=== PATIENT | male | born 1960 | race Caucasian/White ===

== ENCOUNTER 2017-05-23 16:55 | Emergency (ER) | payer OTHER ==
[2017-05-23 17:00] VITALS: BMI 35.5
--- NOTE | 2017-05-23 17:01 | PDOC ---
Rapid Medical Evaluation Time Seen by Provider: 05/23/17 16:58 Medical Evaluation: Allergies Allergy/AdvReac Type Severity Reaction Status Date / Time No Known Allergies Allergy Verified 05/23/17 16:57 05/23/17 16:58 I have performed a brief in-person evaluation of this patient. The patient presents with a chief complaint of: SOB x 1 week, sent by PCP for Hg 8 in office yesterday, patient reports hx of HHT and COPD Pertinent physical exam findings: SOB, O2 sat 97 I have ordered the following: labs, ekg The patient will proceed to the ED for further evaluation. Discharge Disposition - Diagnosis HHT (hereditary hemorrhagic telangiectasia) - Referrals - Patient Instructions - Post Discharge Activity
--- NOTE | 2017-05-23 17:21 | PDOC ---
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 Saw his PCP yesterday Dr. Cazares who samara his blood, called him today: hb, hct: 27. Usually gets 2 transfusions of rbc's a year. 05/23/17 18:52 Past History - Past Medical History Allergies/Adverse Reactions: Allergies Allergy/AdvReac Type Severity Reaction Status Date / Time No Known Allergies Allergy Verified 05/23/17 16:57 Home Medications: Ambulatory Orders Albuterol Sulfate Inhaler - [Ventolin HFA Inhaler -] 1 - 2 inh PO QID 09/19/13 Amlodipine Besylate [Norvasc -] 10 mg PO DAILY 09/19/13 Lisinopril [Prinivil -] 40 mg PO DAILY 09/19/13 Albuterol 0.083% Nebulizer Makayla [Ventolin 0.083% Nebulizer Soln -] 1 neb NEB QID PRN 07/21/14 Ferrous Sulfate [Feosol] 325 mg PO DAILY 07/21/14 Fluticasone Prop 0.05% Nasal [Flonase -] 1 - 2 spray NS BID 07/21/14 Glipizide [Glucotrol -] 5 mg PO DAILY 07/21/14 Omeprazole [Prilosec (RX)] 40 mg PO DAILY PRN 07/21/14 Levofloxacin [Levaquin] 750 mg PO DAILY 5 Days #5 tablet 05/23/17 hydrALAZINE HCL [Apresoline -] 50 mg PO TID 05/23/17 predniSONE [Deltasone -] 15 mg PO UTDICT 05/23/17 Anemia: Yes (IRON DEFIC. ANEMIA, HX HEREDITARY HEMORR TALLENGECTESIA) COPD: Yes Diabetes: Yes (NIDDM) HTN: Yes - Surgical History Appendectomy: Yes - Immunization History Immunization Up to Date: Yes - Suicide/Smoking/Psychosocial Hx Smoking History: Current every day smoker Have you smoked in the past 12 months: Yes Number of Cigarettes Smoked Daily: 20 Information on smoking cessation initiated: No 'Breaking Loose' booklet given: 09/19/13 Hx Alcohol Use: No Drug/Substance Use Hx: No Substance Use Type: None Hx Substance Use Treatment: No Review of Systems - Review of Systems Able to Perform ROS?: Yes Is the patient limited German proficient: No Constitutional: Yes: Weakness HEENTM: No: Symptoms Reported Respiratory: Yes: SOB with Exertion Cardiac (ROS): No: Symptoms Reported ABD/GI: No: Symptoms Reported : No: Symptoms Reported Musculoskeletal: No: Symptoms Reported Integumentary: No: Symptoms Reported Neurological: No: Symptoms reported All Other Systems: Reviewed and Negative *Physical Exam - Vital Signs Last Vital Signs Temp Pulse Resp BP Pulse Ox 98.7 F 87 23 143/66 97 05/23/17 16:57 05/23/17 16:57 05/23/17 16:57 05/23/17 16:57 05/23/17 16:57 - Physical Exam General Appearance: Yes: Nourished, Appropriately Dressed. No: Apparent Distress HEENT: positive: EOMI, DIANA, Normal ENT Inspection Respiratory/Chest: positive: Lungs Clear, Normal Breath Sounds. negative: Chest Tender, Respiratory Distress Cardiovascular: positive: Regular Rhythm, Regular Rate, S1, S2 Gastrointestinal/Abdominal: positive: Flat, Soft. negative: Normal Bowel Sounds , Tender Integumentary: positive: Normal Color, Dry, Warm ED Treatment Course - LABORATORY CBC & Chemistry Diagram: 05/23/17 13:28 05/23/17 17:17 Medical Decision Making - Medical Decision Making 05/23/17 18:51 basic labs ordered. Patient to received 1 unit of packed rbc Will reassess and dispo 05/23/17 19:50 Patient received unit of RBC. Found to have possible pneumonia on cxr. Will treat with levofloxacin. Follow up with pcp. *DC/Admit/Observation/Transfer Diagnosis at time of Disposition: HHT (hereditary hemorrhagic telangiectasia), Pneumonia - Discharge Dispostion Disposition: HOME Condition at time of disposition: Improved Admit: No - Prescriptions Prescriptions: Levofloxacin [Levaquin] 750 mg PO DAILY 5 Days #5 tablet - Referrals Referrals: Geovanni Parry [Primary Care Provider] - - Patient Instructions Printed Discharge Instructions: DI for Pneumonia -- Adult Additional Instructions: Follow up with Dr. Parry within the next 1-3 days. Come back to the ER for any new, worsening or concerning symptom. - Post Discharge Activity
[2017-05-23 17:22] LABS: BASO % 0.3 % (0-2.0); EOS % 0.1 % (0-4.5); HEMATOCRIT 26.9 % (35.4-49); HEMOGLOBIN 8.1 GM/dL (11.7-16.9); MCHC 30.1 g/dl (32.0-35.9); MEAN CELL VOLUME 66.4 fl (80-96); MEAN PLT VOLUME 7.4 fl (7.5-11.1); MONO % 4.5 % (3.8-10.2); NEUT % 86.1 % (42.8-82.8); PLATELET COUNT 378 K/MM3 (134-434); RBC 4.05 M/mm3 (4.00-5.60); WHITE BLOOD COUNT 12.1 K/mm3 (4.0-10.0)
[2017-05-23 17:27] LABS: ADD RBC MORPHOLOGY YES
[2017-05-23 17:47] LABS: INR 1.17 (0.82-1.09); PROTHROMBIN TIME (PATIENT) 13.2 SEC (9.98-11.88)
[2017-05-23 17:49] LABS: ACTIVATED PTT 28.1 SECONDS (26.9-34.4)
[2017-05-23 17:52] LABS: ALBUMIN 4.2 g/dl (3.4-5.0); ANION GAP 11 (8-16); BLOOD UREA NITROGEN 28 mg/dL (7-18); CALCIUM 8.7 mg/dL (8.5-10.1); CHLORIDE 103 mmol/L (98-107); CO2 23 mmol/L (21-32); GLUCOSE,RANDOM 115 mg/dL (74-106); POTASSIUM 4.8 mmol/L (3.5-5.1); SODIUM 137 mmol/L (136-145)
[2017-05-23 17:57] LABS: ALK PHOS 57 U/L (45-117); BILIRUBIN,TOTAL 0.6 mg/dL (0.2-1.0); CREATININE 1.3 mg/dL (0.7-1.3); SGOT/AST 7 U/L (15-37); SGPT/ALT 24 U/L (12-78); TOT PROT 7.1 g/dl (6.4-8.2)
--- NOTE | 2017-05-23 18:22 | PDOC ---
Attending Attestation - Resident Resident Name: Ernesto Song - ED Attending Attestation I have performed the following: I have examined & evaluated the patient, The case was reviewed & discussed with the resident, I agree w/resident's findings & plan, Exceptions are as noted - HPI HPI: 05/23/17 18:18 Mr Johns is a 57 yo M with a history of COPD, DM, HTN, Hereditary hemorrhagic telangiectasia who presents to the ER because his PMD told him that his hemoglobin is low and he needs a transfusion. He says his baseline Hgb is says is 9 He was last seen here more than 2 years ago, he apparently goes to multiple hospitals for transfusions He presents with a complaint of shortness of breath No chest pain No productive cough - Physicial Exam PE: 05/23/17 18:22 On examination: RRR Lungs: clear to auscultation No abd tenderness No lower extremity edema - Medical Decision Making 05/23/17 18:21 Pt presents to the ER with symptomatic anemia Related to h/o HHT (he gets recurrent epistaxis) Today: Laboratory Tests 11/01/13 11/01/13 11/01/13 23:13 23:13 23:13 WBC 10.1 H Hgb 10.6 L D Hct 34.7 L D Plt Count 301 INR Sodium 142 Potassium 3.8 Chloride 107 Carbon Dioxide 23 Anion Gap 12 BUN 10 D Creatinine 0.9 Random Glucose 74 Creatine Kinase 78 Troponin I < 0.02 L 11/01/13 05/23/17 05/23/17 23:13 13:28 17:17 WBC 12.1 H Hgb 8.1 L D Hct 26.9 L D Plt Count 378 D INR 1.14 Sodium Potassium Chloride Carbon Dioxide Anion Gap BUN Creatinine Random Glucose Creatine Kinase 101 Troponin I < 0.02 EKG: SR rate of 81 bpm, axis nml, intervals nml, no ST elevations or depressions Will transfuse 1 unit PRBCs Pt can be discharged to home Clinical Impression: Anemia, initial presentation 05/23/17 18:23
[2017-05-23 18:39] LABS: ANISOCYTOSIS 2+; PLATELET ESTIMATE INCREASED
[2017-05-23 18:40] LABS: OVALOCYTE 1+
[2017-05-23 19:03] VITALS: PULSE 84
[2017-05-23] MEDS ORDERED: ACETAMINOPHEN 325 MG TABLET (FP) PO ONE (20:03)
[2017-05-23] MEDS ORDERED: ACETAMINOPHEN 325 MG TABLET (FP) ONE (20:05)
[2017-05-23 21:07] VITALS: BP 135/68; TEMP 98.9
--- NOTE | 2017-05-24 11:41 | EKG ---
Test Reason : Blood Pressure : / mmHG Vent. Rate : 081 BPM Atrial Rate : 081 BPM P-R Int : 158 ms QRS Dur : 082 ms QT Int : 380 ms P-R-T Axes : 041 015 038 degrees QTc Int : 441 ms NORMAL SINUS RHYTHM NORMAL ECG WHEN COMPARED WITH ECG OF 21-JUN-2015 14:30, NO SIGNIFICANT CHANGE WAS FOUND Confirmed by IFTIKHAR YANEZ MD ([id number]) on 05/24/2017 11:41:33 AM Referred By: Confirmed By:IFTIKHAR YANEZ MD
== END 2017-05-23 21:07 | disposition home or self-care (01) ==
LOC: JER 16:55
PROC: 30233N1 Transfusion of Nonautologous Red Blood Cells into Peripheral Vein, Percutaneous Approach (ICD-10-PCS; principal; 2017-05-23)
DX: J18.9 Pneumonia, unspecified organism (principal); I78.0 Hereditary hemorrhagic telangiectasia; F17.210 Nicotine dependence, cigarettes, uncomplicated; J44.9 Chronic obstructive pulmonary disease, unspecified; I10 Essential (primary) hypertension; E11.9 Type 2 diabetes mellitus without complications; Z79.4 Long term (current) use of insulin; Z79.84 Long term (current) use of oral hypoglycemic drugs; D50.8 Other iron deficiency anemias
CPT/HCPCS: 36415; 36430; 71045-TC-FY; 80053; 82550; 83735; 83880; 84484; 85025; 85610; 85730; 86850; 86900; 86901; 86922; 93005; 93010; 99285-25; P9038; P9058

== ENCOUNTER 2018-02-01 20:05 | Observation (INO) | payer OTHER ==
[2018-02-01 20:12] VITALS: BMI 35.2
--- NOTE | 2018-02-01 20:12 | PDOC ---
Rapid Medical Evaluation Chief Complaint: Weakness Time Seen by Provider: 02/01/18 20:07 Medical Evaluation: Allergies Allergy/AdvReac Type Severity Reaction Status Date / Time No Known Allergies Allergy Verified 02/01/18 12:44 02/01/18 20:09 Pt is a 57 y/o M who presents for re-admission. Pt was seen in our ED earlier today and admitted for SOB and anemia requiring transfusion. Pt wanted to go home and signed out AMA, however after he signed out he realized he couldn't walk d/t his shortness of breath. Pt did not receive his transfusion. Exam: SOB at rest Orders: Nothing (already done today) Pt to proceed to the ED for further evaluation Discharge Disposition - Diagnosis COPD exacerbation, Symptomatic anemia - Referrals - Patient Instructions - Post Discharge Activity
--- NOTE | 2018-02-01 20:43 | PDOC ---
Attending Attestation - Resident Resident Name: Darcie Alves - ED Attending Attestation I have performed the following: I have examined & evaluated the patient, The case was reviewed & discussed with the resident, I agree w/resident's findings & plan - HPI HPI: 02/02/18 04:24 Pt walked out of the hospital AMA, but states that he got winded and felt weak and he realized he needed to come back to the ER for his blood tranfusion, as he is anemic. - Physicial Exam PE: 02/02/18 04:25 Agree with resident exam. - Medical Decision Making 02/02/18 04:25 I sent a UTOX, because chances are that pt left the hospital to use drugs; sure enough he is cocaine positive. Readmitted to the hospitalists Heart Score/ECG Review - ECG Intrepretation Rhythm: Regular Rhythm - [place]: Normal - P and GA Delta Wave(s) Present: No WPW: No - ST and T Early Repolarization: No Non Specific ST-T Wave changes: No Prolonged Q-T Interval: Yes Comment:: 02/01/18 22:07 also interventricular conduction delay - ECG Impressions Normal ECG: No Non-specific ST Elevation: Yes Ischemic Changes: Yes (1 and avL flipped ts) Heart Block: 1st Degree Block(>20mils)
--- NOTE | 2018-02-01 20:55 | PDOC ---
History of Present Illness - General Chief Complaint: Weakness Stated Complaint: READMIT Time Seen by Provider: 02/01/18 20:07 - History of Present Illness Initial Comments: 57yo M with HHT, COPD, HTN, NIDDM presenting for re-admission for anemia after signing out against medical advice today. Patient states that he has had no change in his symptoms from earlier. Continues to endorse weakness and dyspnea. Patient reports that he decided to leave AMA because "it was taking too long" and he has chronic back pain that makes it uncomfortable to sleep on a hospital bed. Denies fevers, chills, chest pain, or abdominal pain. Past History - Past Medical History Allergies/Adverse Reactions: Allergies Allergy/AdvReac Type Severity Reaction Status Date / Time No Known Allergies Allergy Verified 02/01/18 20:11 Home Medications: Ambulatory Orders Albuterol Sulfate Inhaler - [Ventolin HFA Inhaler -] 1 - 2 inh PO QID 09/19/13 Amlodipine Besylate [Norvasc -] 10 mg PO DAILY 09/19/13 Lisinopril [Prinivil -] 40 mg PO DAILY 09/19/13 Ferrous Sulfate [Feosol] 325 mg PO DAILY 07/21/14 Fluticasone Prop 0.05% Nasal [Flonase -] 1 - 2 spray NS BID 07/21/14 Glipizide [Glucotrol -] 5 mg PO DAILY 07/21/14 Omeprazole [Prilosec (RX)] 40 mg PO DAILY PRN 07/21/14 hydrALAZINE HCL [Apresoline -] 50 mg PO TID 05/23/17 predniSONE [Deltasone -] 15 mg PO DAILY 05/23/17 Albuterol 2.5/Ipratropium 0.5 [Duoneb -] 1 amp NEB TID 11/12/17 Atorvastatin Ca [Lipitor] 0 mg PO DAILY 11/12/17 Azithromycin [Zithromax Tri-Pillo (3 DAYS) -] 500 mg PO DAILY #3 tablet 11/12/17 Budesonide/Formeterol Fumarate [SYMBICORT 160/4.5mcg -] 2 inh PO BID 11/12/17 oxyCODONE SR [Oxycontin] 2.5 mg PO ASDIR 11/12/17 Anemia: Yes (IRON DEFIC. ANEMIA, HX HEREDITARY HEMORR TALLENGECTESIA) COPD: Yes Diabetes: Yes (NIDDM) HTN: Yes - Surgical History Appendectomy: Yes - Immunization History Immunization Up to Date: Yes - Suicide/Smoking/Psychosocial Hx Smoking History: Current every day smoker Have you smoked in the past 12 months: Yes Number of Cigarettes Smoked Daily: 20 Information on smoking cessation initiated: No 'Breaking Loose' booklet given: 09/19/13 Hx Alcohol Use: No Drug/Substance Use Hx: No Substance Use Type: None Hx Substance Use Treatment: No Review of Systems - Review of Systems Comments:: Constitutional: no fever, no chills HEENT: +nosebleeds, no vision changes Cardiovascular: no chest pain, no palpitations Respiratory: no cough, +shortness of breath Gastrointestinal: no abdominal pain, no nausea, no vomiting Musculoskeletal: no myalgia, no arthralgia Skin: no rash, no itching Neurologic: no headache, no dizziness *Physical Exam - Vital Signs Last Vital Signs Temp Pulse Resp BP Pulse Ox 98.0 F 85 24 H 123/60 95 02/01/18 20:09 02/01/18 20:09 02/01/18 20:09 02/01/18 20:09 02/01/18 20:09 - Physical Exam Comments: General: Awake, alert, and fully oriented, in no acute distress Head: No signs of trauma Eyes: EOMI, sclera anicteric ENT: Moist mucus membranes Neck: Normal ROM, supple Lungs: Expiratory rhonchi present bilaterally Cardio: Regular rhythm, S1 and S2 present Abdomen: Soft, nontender. No guarding, no rebound, no masses Extremities: Normal range of motion, Distal pulses present SKIN: Warm, Dry, normal turgor Neurologic: Cranial nerves II through XII grossly intact. Normal speech Medical Decision Making - Medical Decision Making 57yo M with anemia presenting for re-admission after signing out against medical advice today. -2 PRBCs ordered -Blood transfusion consent needs to be obtained -Plan for admission -FOBT, Javed 02/01/18 21:02 Blood consent obtained. [place] hospitalist 02/01/18 21:17 Discussed case with inpatient team who accepted patient for admission under attending, Dr. Amor *DC/Admit/Observation/Transfer Diagnosis at time of Disposition: COPD exacerbation, Symptomatic anemia - Discharge Dispostion Condition at time of disposition: Guarded Decision to Admit order: Yes - Referrals - Patient Instructions - Post Discharge Activity
--- NOTE | 2018-02-01 23:01 | PN ---
Teaching Attending Note Name of Resident: Gilbert Rahman ATTENDING PHYSICIAN STATEMENT I saw and evaluated the patient. I reviewed the resident's note and discussed the case with the resident. I agree with the resident's findings and plan as documented. SUBJECTIVE: SUBJECTIVE: Patient is a 57 year old man with a PMH of COPD, NIDDM, Hereditary Hemorrhagic Telangiectasia, and hypertension who presents to the ER with increased generalized weakness and KIM for about a week. Was in the ER earlier today but signed out AMA before blood transfusion. He states he tends to bleed more during cold weather and reportedly has had 4 major episodes of epistaxis which has required use of 2 full paper towel rolls. He denies any epistaxis today. The patient denies chest pain, dizziness, chills, nausea, vomit, diarrhea or hematuria. Had normal colonoscopy on 01/03/18. Last EGD was 9 years ago. OBJECTIVE: Alert Vital Signs Period Temp Pulse Resp BP Sys/Rashid Pulse Ox Last 24 Hr 98.0 F 85 24 123/60 95 HEENT: No Jaundice, eye redness or discharge, PERRLA, EOMI. Normocephalic, atraumatic. External ears are normal and hearing is grossly intact. No active nasal bleeding. Scattered telangiectasia to hard palatte without active bleeding. Neck: Supple, nontender. No palpable adenopathy or thyromegaly. No JVD Chest: Good effort. Clear to auscultation and percussion. Heart: Regular. No S3, rub or murmur Abdomen: Not distended, soft, nontender and no HSM. No rebound or guarding. Normoactive bowel sounds. Ext: Peripheral pulses intact. No leg edema. Skin: Warm and dry. No petechiae, rash or ecchymosis. Neuro: Alert. Oriented x3. CN 2-12 grossly intact. Sensation grossly intact in all four extremities and DTR are symmetric. Home Medications Medication Instructions Recorded Albuterol Sulfate Inhaler - 1 - 2 inh PO QID 09/19/13 [Ventolin HFA Inhaler -] Amlodipine Besylate [Norvasc -] 10 mg PO DAILY 09/19/13 Lisinopril [Prinivil -] 40 mg PO DAILY 09/19/13 Ferrous Sulfate [Feosol] 325 mg PO DAILY 07/21/14 Fluticasone Prop 0.05% Nasal 1 - 2 spray NS BID 07/21/14 [Flonase -] Glipizide [Glucotrol -] 5 mg PO DAILY 07/21/14 Omeprazole [Prilosec (RX)] 40 mg PO DAILY PRN 07/21/14 hydrALAZINE HCL [Apresoline -] 50 mg PO TID 05/23/17 predniSONE [Deltasone -] 15 mg PO DAILY 05/23/17 Albuterol 2.5/Ipratropium 0.5 1 amp NEB TID 11/12/17 [Duoneb -] Atorvastatin Ca [Lipitor] 0 mg PO DAILY 11/12/17 Azithromycin [Zithromax Tri-Pillo (3 500 mg PO DAILY #3 tablet 11/12/17 DAYS) -] Budesonide/Formeterol Fumarate 2 inh PO BID 11/12/17 [SYMBICORT 160/4.5mcg -] oxyCODONE SR [Oxycontin] 2.5 mg PO ASDIR 11/12/17 Laboratory Results - last 24 hr 02/01/18 21:53 Stool Occult Blood Positive ASSESSMENT AND PLAN: 1. Symptomatic Low MCV Anemia - Getting 2 units PRBC and will give IV lasix for mild pulmonary edema noted earlier. Moving forward will benefit from high quality oral iron supplementation or IV iron to preempt more transfusions. 2. DM - For now, we will hold the home diabetes drugs and implement sliding scale insulin regimen. Provide comprehensive diabetes care with patient teaching and counseling about the importance of euglycemia, eye care and foot care. 3. Obesity - Will provide patient all the necessary assistance , counseling and positive reinforcement to facilitate weight loss. Consult bar tender. 4. DVT prophylaxis - SCD, TEDS 5. Advance directives - Full code
[2018-02-01] MEDS ORDERED: oxyCODONE HCL 5 MG TABLET PO PRN (23:46)
--- NOTE | 2018-02-01 23:49 | HP ---
CHIEF COMPLAINT: shortness of breath. PCP: HISTORY OF PRESENT ILLNESS: 57 yo M wit PMhx of HHT(frequent epistaxis), COPD, HTN, and NIDDM presents with one week history of epistaxis and fatigue. He was admitted earlier today adn signed out AMA but returned after symptoms persisted. As before, He states that for the past week he has experienced increase in frequency and severity of nose bleeds. He states that he has been soaking 2 rolls of paper towels daily for the past week. As of yesterday he noticed significant increase in fatigue and shortness of breath. He has had this similar situation several times in past. Multiple transfusions. Of note he has had a recent colonoscopy that was negative for polyps and not due for repeat for 5 yrs. as per patient. No epistaxis in ED. Denies hematochezia, hemoptysis, or melena. Denies CP,JUÁREZ, palpitations, abdominal pain, nausea or vomiting. ER course was notable for: (1)Hgb 7.4 (2)type and cross done (3)2 units PRBC ordered. Recent Travel: Denies PAST MEDICAL HISTORY:HTN, NIDDM, HHT, COPD PAST SURGICAL HISTORY: appendectomy Social History: Smokin pack year history; current ppd smoker Alcohol:rarely Drugs: denies Family History: Allergies No Known Allergies Allergy (Verified 02/01/18 20:11) HOME MEDICATIONS: Home Medications Medication Instructions Recorded Albuterol Sulfate Inhaler - 1 - 2 inh PO QID 09/19/13 [Ventolin HFA Inhaler -] Amlodipine Besylate [Norvasc -] 10 mg PO DAILY 09/19/13 Lisinopril [Prinivil -] 40 mg PO DAILY 09/19/13 Ferrous Sulfate [Feosol] 325 mg PO DAILY 07/21/14 Fluticasone Prop 0.05% Nasal 1 - 2 spray NS BID 07/21/14 [Flonase -] Glipizide [Glucotrol -] 5 mg PO DAILY 07/21/14 Omeprazole [Prilosec (RX)] 40 mg PO DAILY PRN 07/21/14 hydrALAZINE HCL [Apresoline -] 50 mg PO TID 05/23/17 predniSONE [Deltasone -] 15 mg PO DAILY 05/23/17 Albuterol 2.5/Ipratropium 0.5 1 amp NEB TID 11/12/17 [Duoneb -] Atorvastatin Ca [Lipitor] 0 mg PO DAILY 11/12/17 Azithromycin [Zithromax Tri-Pillo (3 500 mg PO DAILY #3 tablet 11/12/17 DAYS) -] Budesonide/Formeterol Fumarate 2 inh PO BID 11/12/17 [SYMBICORT 160/4.5mcg -] oxyCODONE SR [Oxycontin] 2.5 mg PO ASDIR 11/12/17 REVIEW OF SYSTEMS CONSTITUTIONAL: Absent: fever, chills, diaphoresis, generalized weakness, malaise, loss of appetite, weight change HEENT: Absent: rhinorrhea, nasal congestion, throat pain, throat swelling, difficulty swallowing, mouth swelling, ear pain, eye pain, visual changes CARDIOVASCULAR: Absent: chest pain, syncope, palpitations, irregular heart rate, lightheadedness , peripheral edema RESPIRATORY: shortness of breath, dyspnea with exertion Absent: cough, , orthopnea, wheezing, stridor, hemoptysis GASTROINTESTINAL: Absent: abdominal pain, abdominal distension, nausea, vomiting, diarrhea, constipation, melena, hematochezia GENITOURINARY: Absent: dysuria, frequency, urgency, hesitancy, hematuria, flank pain, genital pain MUSCULOSKELETAL: Absent: myalgia, arthralgia, joint swelling, back pain, neck pain SKIN: Absent: rash, itching, pallor HEMATOLOGIC/IMMUNOLOGIC: easy bleeding Absent: easy bruising, lymphadenopathy, frequent infections ENDOCRINE: Absent: unexplained weight gain, unexplained weight loss, heat intolerance, cold intolerance NEUROLOGIC: Absent: headache, focal weakness or paresthesias, dizziness, unsteady gait, seizure, mental status changes, bladder or bowel incontinence PSYCHIATRIC: Absent: anxiety, depression, suicidal or homicidal ideation, hallucinations. PHYSICAL EXAMINATION Vital Signs - 24 hr 02/01/18 02/01/18 02/01/18 20:09 20:30 23:36 Temperature 98.0 F 98.5 F Pulse Rate 85 Pulse Rate [ 82 Apical] Respiratory 24 H 21 H Rate Blood Pressure 123/60 Blood Pressure 118/52 L [Left Arm] O2 Sat by Pulse 95 97 97 Oximetry (%) GENERAL: AAOx3, NAD HEAD: NCAT EYES: PERRLA, EOMI, pale conjuctiva. No lid lag. EARS, NOSE, THROAT: nares patent,Moist mucous membranes. NECK: Supple without lymphadenopathy, JVD, or masses. LUNGS: diminshed breath sounds bilaterally, scattered rhonchi on R. No wheezes , and no crackles. No accessory muscle use. HEART: RRR, normal S1 and S2 .no M/G/R ABDOMEN: Soft, nontender, not distended, normoactive bowel sounds, no guarding, no rebound, no masses. No hepatomegaly or splenomegaly. MUSCULOSKELETAL: Normal range of motion at all joints. No bony deformities or tenderness. No CVA tenderness. UPPER EXTREMITIES: 2+ pulses, warm, well-perfused. No cyanosis. No clubbing. No peripheral edema. LOWER EXTREMITIES: 2+ pulses, warm, well-perfused. No calf tenderness. No peripheral edema. NEUROLOGICAL: Cranial nerves II-XII intact. Normal speech. Normal gait. PSYCHIATRIC: Cooperative. Good eye contact. Appropriate mood and affect. SKIN: Warm, dry, normal turgor, no rashes or lesions noted, normal capillary refill. Laboratory Results - last 24 hr 02/01/18 21:53 Stool Occult Blood Positive ASSESSMENT/PLAN: 57 yo M with PMHx of HHT presents with SOB placed on observation for symptomatic anemia requiring transfusion. Problem List - Problem (1) Symptomatic anemia Assessment/Plan: * place on observation to med-surg * 2 units PRBC to be given * Repeat CBC after second unit * Monitor for signs of transfusion reaction Code(s): D64.9 - ANEMIA, UNSPECIFIED (2) COPD (chronic obstructive pulmonary disease) Assessment/Plan: * Albuterol INH PRN * supplemental O2 PRN * Maintain SpO2 > 90% (3) Diabetes mellitus Assessment/Plan: * ADA diet * BGM ACHS * ISS ACHS (4) GERD (gastroesophageal reflux disease) Assessment/Plan: cont. PPI (5) HHT (hereditary hemorrhagic telangiectasia) (6) Hypertension Assessment/Plan: * Amlodipine Besylate (Norvasc -) 10 mg PO DAILY * Hydralazine HCl (Apresoline -) 50 mg PO TID (7) DVT prophylaxis Assessment/Plan: SCD's bilateral LE * No AC 2/2 bleeding. Visit type - Emergency Visit Emergency Visit: Yes ED Registration Date: 02/01/18 Care time: The patient presented to the Emergency Department on the above date and was hospitalized for further evaluation of their emergent condition. - New Patient This patient is new to me today: Yes Date on this admission: 02/02/18 - Critical Care Critical Care patient: No
[2018-02-02 00:12] LABS: METHADONE, UR NEGATIVE ng/ml (CUTOFF=300); OPIATES, URI NEGATIVE ng/ml (CUTOFF=300); PHENCYCLIDINE,URINE NEGATIVE ng/ml (CUTOFF=25); URINE AMPHETAMINES NEGATIVE ng/ml (CUTOFF=500); URINE BARBITURATES NEGATIVE ng/ml (CUTOFF=200); URINE BENZODIAZEPINES NEGATIVE ng/ml (CUTOFF=200)
[2018-02-02 00:44] LABS: COCAINE, UR POSITIVE ng/ml (CUTOFF=300)
[2018-02-02] MEDS ORDERED: ACETAMINOPHEN 500 MG TABLET (FP) PO ONE (03:13)
[2018-02-02] MEDS ORDERED: hydrALAZINE HCL 50 MG TABLET (FP) PO SCH (06:00)
[2018-02-02] MEDS ORDERED: ALBUTEROL SO4 2.5/IPRATROPIUM 0.5 INH SOL 3 ML VIAL.NEB. NEB SCH (08:00)
[2018-02-02] MEDS ORDERED: PT OWN MED DRAWER 7, Y5N ONE ×2 (09:24→09:52)
[2018-02-02] MEDS ORDERED: BUDESONIDE/FORMETEROL FUMARATE 160/4.5 mcg INHALER IH SCH (10:00)
[2018-02-02] MEDS ORDERED: PANTOPRAZOLE 40 MG TABLET (FP) PO SCH (10:00)
[2018-02-02] MEDS ORDERED: predniSONE 5 MG TABLET (UD) PO SCH (10:00)
[2018-02-02] MEDS ORDERED: FLUTICASONE PROP 0.05% 16 GM NASAL SPRAY NS SCH (10:00)
[2018-02-02] MEDS ORDERED: LISINOPRIL 20 MG TABLET (FP) PO SCH (10:00)
[2018-02-02] MEDS ORDERED: FERROUS SO4 325 MG TABLET (FP) PO SCH (10:00)
[2018-02-02] MEDS ORDERED: amLODIPine BESYLATE 10 MG TABLET (FP) PO SCH (10:00)
[2018-02-02] MEDS ORDERED: ALBUTEROL SO4 8 GM HFA INHALER IH PRN (10:00)
--- NOTE | 2018-02-02 10:22 | PN ---
Teaching Attending Note Name of Resident: Gerald Fletcher ATTENDING PHYSICIAN STATEMENT I saw and evaluated the patient. I reviewed the resident's note and discussed the case with the resident. I agree with the resident's findings and plan as documented. SUBJECTIVE: Patient was c/o of having chest pain, s/p 2 units of PRBC this morning. OBJECTIVE: Vital Signs Temperature 97.3 F L 02/02/18 05:55 Pulse Rate 70 02/02/18 05:55 Respiratory Rate 18 02/02/18 05:55 Blood Pressure 135/65 02/02/18 05:55 O2 Sat by Pulse Oximetry (%) 95 02/02/18 07:33 Current Medications Generic Name Dose Route Start Last Admin Trade Name Freq PRN Reason Stop Dose Admin Albuterol Sulfate 2 puff 02/02/18 10:00 Ventolin Hfa Inhaler - IH Q6H PRN SHORTNESS OF BREATH Albuterol/Ipratropium 1 amp 02/02/18 08:00 02/02/18 07:55 Duoneb - NEB 1 amp RTID TRELL Administration Amlodipine Besylate 10 mg 02/02/18 10:00 02/02/18 09:26 Norvasc - PO 10 mg DAILY TRELL Administration Atorvastatin Calcium 10 mg 02/02/18 22:00 Lipitor - PO HS TRELL Budesonide/Formoterol Fumarate 2 puff 02/02/18 10:00 02/02/18 09:26 Symbicort 160/4.5mcg - IH 2 puff BID TRELL Administration Ferrous Sulfate 325 mg 02/02/18 10:00 02/02/18 09:26 Feosol - PO 325 mg DAILY TRELL Administration Fluticasone Propionate 2 spray 02/02/18 10:00 02/02/18 09:27 Flonase - NS 2 spray BID TRELL Administration Furosemide 20 mg 02/02/18 23:45 Lasix Injection - IVPUSH 02/02/18 23:46 ONCE ONE Hydralazine HCl 50 mg 02/02/18 06:00 02/02/18 06:33 Apresoline - PO 50 mg TID TRELL Administration Lisinopril 40 mg 02/02/18 10:00 02/02/18 09:26 Prinivil PO 40 mg DAILY TRELL Administration Oxycodone HCl 2.5 mg 02/01/18 23:46 Roxicodone - PO Q12H PRN PAIN LEVEL 7 - 10 Pantoprazole Sodium 40 mg 02/02/18 10:00 02/02/18 09:26 Protonix - PO 40 mg DAILY TRELL Administration Prednisone 5 mg 02/02/18 10:00 02/02/18 10:03 Deltasone - PO 5 mg DAILY TRELL Administration Home Medications Medication Instructions Recorded Albuterol Sulfate Inhaler - 1 - 2 inh PO QID 09/19/13 [Ventolin HFA Inhaler -] Amlodipine Besylate [Norvasc -] 10 mg PO DAILY 09/19/13 Lisinopril [Prinivil -] 40 mg PO DAILY 09/19/13 Ferrous Sulfate [Feosol] 325 mg PO DAILY 07/21/14 Fluticasone Prop 0.05% Nasal 1 - 2 spray NS BID 07/21/14 [Flonase -] Glipizide [Glucotrol -] 5 mg PO DAILY 07/21/14 Omeprazole [Prilosec (RX)] 40 mg PO DAILY PRN 07/21/14 hydrALAZINE HCL [Apresoline -] 30 mg PO TID 05/23/17 predniSONE [Deltasone -] 7.5 mg PO DAILY 05/23/17 Albuterol 2.5/Ipratropium 0.5 1 amp NEB TID 11/12/17 [Duoneb -] Atorvastatin Ca [Lipitor] 0 mg PO DAILY 11/12/17 Azithromycin [Zithromax Tri-Pillo (3 500 mg PO DAILY #3 tablet 11/12/17 DAYS) -] Budesonide/Formeterol Fumarate 2 inh PO BID 11/12/17 [SYMBICORT 160/4.5mcg -] oxyCODONE SR [Oxycontin] 2.5 mg PO ASDIR 11/12/17 ASSESSMENT AND PLAN: Patient is a 57 yo M with PMhx of HHT(frequent epistaxis), COPD, HTN, and NIDDM presents with one week history of epistaxis and fatigue. # Acute chest pain but patient refused further work up. wants to leave against medical advice. #Acute blood loss with symptomatic anemia due to having epistaxis, with worsening symptoms today, no epistaxis today s/p 2 units of PRBC. # Microcytic anemia, Iron panel post transfusion. #COPD (chronic obstructive pulmonary disease) on chronic Prednisone continue follow with upon discharge # Diabetes mellitus Sliding scale with coverage. 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 DVT Px: SCds
[2018-02-02 10:52] VITALS: BP 119/52; PULSE 81; TEMP 98.1
[2018-02-02] MEDS ORDERED: ACETAMINOPHEN 325 MG TABLET (FP) PO ONE (11:00)
[2018-02-02 11:19] LABS: BASO % 0.4 % (0-2.0); EOS % 1.2 % (0-4.5); HEMATOCRIT 28.5 % (35.4-49); LYMPH % 13.3 % (8-40); MCH 23.2 pg (25.7-33.7); MCHC 31.5 g/dl (32.0-35.9); MEAN CELL VOLUME 73.7 fl (80-96); MONO % 8.6 % (3.8-10.2); NEUT % 76.5 % (42.8-82.8); PLATELET COUNT 312 K/MM3 (134-434); RBC 3.87 M/mm3 (4.00-5.60); RDW 22.2 % (11.9-15.9); WHITE BLOOD COUNT 9.3 K/mm3 (4.0-10.0)
[2018-02-02 11:41] LABS: ALK PHOS 52 U/L (45-117); ANION GAP 11 MMOL/L (8-16); BILIRUBIN,TOTAL 0.8 mg/dL (0.2-1); BLOOD UREA NITROGEN 27 mg/dL (7-18); CALCIUM 8.6 mg/dL (8.5-10.1); CHLORIDE 104 mmol/L (98-107); CO2 26 mmol/L (21-32); CREATININE 1.1 mg/dL (0.55-1.3); GLUCOSE,RANDOM 144 mg/dL (74-106); MAGNESIUM 1.9 mg/dL (1.8-2.4); PHOSPHOROUS 4.1 mg/dL (2.5-4.9); SGOT/AST 9 U/L (15-37); SGPT/ALT 34 U/L (13-61); SODIUM 140 mmol/L (136-145); TOT PROT 6.8 g/dl (6.4-8.2)
--- NOTE | 2018-02-02 15:43 | DS ---
Physical Exam: SUBJECTIVE: Patient seen and examined OBJECTIVE: Vital Signs Period Temp Pulse Resp BP Sys/Rashid Pulse Ox Last 24 Hr 97.3 F-98.8 F 70-85 18-24 118-135/52-66 95-97 PHYSICAL EXAM HEENT: No Jaundice, eye redness or discharge, PERRLA, EOMI. Normocephalic, atraumatic. External ears are normal and hearing is grossly intact. No active nasal bleeding. Scattered telangiectasia to hard palatte without active bleeding. Neck: Supple, FROM , no JVD Chest: CTA B/L Heart: RRR. No MRG Abdomen: Not distended, soft, nontender and no HSM. No rebound or guarding. Normoactive bowel sounds. Ext: Peripheral pulses intact. No leg edema. Skin: Warm and dry. No petechiae, rash or ecchymosis. Neuro: Alert. AAOxx3. no focal deficit . Sensation grossly intact in all four extremities and DTR are symmetric. LABS Laboratory Results - last 24 hr 02/01/18 02/01/18 02/02/18 21:53 23:30 06:32 WBC RBC Hgb Hct MCV MCH MCHC RDW Plt Count MPV Absolute Neuts (auto) Neutrophils % Lymphocytes % Monocytes % Eosinophils % Basophils % Nucleated RBC % Sodium Potassium Chloride Carbon Dioxide Anion Gap BUN Creatinine Creat Clearance w eGFR POC Glucometer 185 Random Glucose Calcium Phosphorus Magnesium Total Bilirubin AST ALT Alkaline Phosphatase Troponin I Total Protein Albumin Stool Occult Blood Positive Opiates Screen Negative Methadone Screen Negative Barbiturate Screen Negative Phencyclidine Screen Negative Ur Amphetamines Screen Negative MDMA (Ecstasy) Screen Negative Benzodiazepines Screen Negative Cocaine Screen Positive A* U Marijuana (THC) Screen Negative 02/02/18 02/02/18 02/02/18 10:30 10:30 10:30 WBC 9.3 RBC 3.87 L Hgb 9.0 L Hct 28.5 L MCV 73.7 L MCH 23.2 L D MCHC 31.5 L RDW 22.2 H Plt Count 312 MPV 8.0 Absolute Neuts (auto) 7.1 Neutrophils % 76.5 Lymphocytes % 13.3 D Monocytes % 8.6 Eosinophils % 1.2 D Basophils % 0.4 Nucleated RBC % 0 Sodium 140 Potassium 4.0 Chloride 104 Carbon Dioxide 26 Anion Gap 11 BUN 27 H Creatinine 1.1 Creat Clearance w eGFR > 60 POC Glucometer Random Glucose 144 H Calcium 8.6 Phosphorus 4.1 Magnesium 1.9 Total Bilirubin 0.8 AST 9 L ALT 34 Alkaline Phosphatase 52 Troponin I < 0.02 Total Protein 6.8 Albumin 4.0 Stool Occult Blood Opiates Screen Methadone Screen Barbiturate Screen Phencyclidine Screen Ur Amphetamines Screen MDMA (Ecstasy) Screen Benzodiazepines Screen Cocaine Screen U Marijuana (THC) Screen 02/02/18 11:58 WBC RBC Hgb Hct MCV MCH MCHC RDW Plt Count MPV Absolute Neuts (auto) Neutrophils % Lymphocytes % Monocytes % Eosinophils % Basophils % Nucleated RBC % Sodium Potassium Chloride Carbon Dioxide Anion Gap BUN Creatinine Creat Clearance w eGFR POC Glucometer 189 Random Glucose Calcium Phosphorus Magnesium Total Bilirubin AST ALT Alkaline Phosphatase Troponin I Total Protein Albumin Stool Occult Blood Opiates Screen Methadone Screen Barbiturate Screen Phencyclidine Screen Ur Amphetamines Screen MDMA (Ecstasy) Screen Benzodiazepines Screen Cocaine Screen U Marijuana (THC) Screen CBC, BMP 02/02/18 10:30 02/02/18 10:30 HOSPITAL COURSE: Date of Admission:02/01/[address] moss Patient is a 57 year old man with a PMH of COPD, NIDDM, Hereditary Hemorrhagic Telangiectasia, and hypertension who presents to the ER with increased generalized weakness and KIM for about a week. Was in the ER earlier yesterday but signed out AMA before blood transfusion. He states he tends to bleed more during cold weather and reportedly has had 4 major episodes of epistaxis which has required use of 2 full paper towel rolls. He denies any epistaxis today. The patient denies chest pain, dizziness, chills, nausea, vomit, diarrhea or hematuria. Had normal colonoscopy on 01/03/18. Last EGD was 9 years ago. Date of Discharge: 02/02/18 pt presented with symptomatic Low MCV Anemia recieved 2 units PRBC and IV lasix was given to prevent pulmonary edema . for DM he can continue his home regimin, pt was educated about risk of bleeding , monitor his h/h , diabetic education and loosing weight . pt seems non compliant and asking to go home against medical advice , he said he has to go work to be able to pay his rent , pt waited till he got H/H nimber and first trop was negative , and levae against medical advice. risk and disadvatges was explained to the patient , including bleeding , heart attach , shortness of breath included . pt reports that he will return to the hospital if he develop any new symptoms or worsening of his current symptoms and decide to leave AMA witness by nurse Schwarz. Minutes to complete discharge: 45 Discharge Summary Reason For Visit: ANEMIA,CHRONIC OBSTRUCTIVE PULMONARY DISEASE Condition: Guarded - Instructions Diet, Activity, Other Instructions: You presented to the hospital due to low blood count , you received 2 units of blood your symptoms has improved but you still have shortness of Breath You also complained of chest pain , EKG and cardiac enzyme needed to be done but you refused to have a further work up and wanted to leave against medical advice. The Risks of signing against Medical advice: Heart attack, coma, and . I explain to you the risk of leaving without completing treatment including , re bleeding , developing heart attack or even Please follow up with your primary care physician ROXANNA please repeat blood count as out patient Please refrain from using cocaine or any other illegal drugs if your symptoms worsen , or you develop any chest pain or shortness of breath , light headed you can return to ED or call 911 . Referrals: Geovanni Parry [Primary Care Provider] - 1 Week Disposition: AGAINST MEDICAL ADVICE - Home Medications Comprehensive Discharge Medication List: Ambulatory Orders Albuterol Sulfate Inhaler - [Ventolin HFA Inhaler -] 1 - 2 inh PO QID 09/19/13 Amlodipine Besylate [Norvasc -] 10 mg PO DAILY 09/19/13 Lisinopril [Prinivil -] 40 mg PO DAILY 09/19/13 Ferrous Sulfate [Feosol] 325 mg PO DAILY 07/21/14 Fluticasone Prop 0.05% Nasal [Flonase -] 1 - 2 spray NS BID 07/21/14 Glipizide [Glucotrol -] 5 mg PO DAILY 07/21/14 Omeprazole [Prilosec (RX)] 40 mg PO DAILY PRN 07/21/14 hydrALAZINE HCL [Apresoline -] 30 mg PO TID 05/23/17 predniSONE [Deltasone -] 7.5 mg PO DAILY 05/23/17 Albuterol 2.5/Ipratropium 0.5 [Duoneb -] 1 amp NEB TID 11/12/17 Atorvastatin Ca [Lipitor] 0 mg PO DAILY 11/12/17 Azithromycin [Zithromax Tri-Pillo (3 DAYS) -] 500 mg PO DAILY #3 tablet 11/12/17 Budesonide/Formeterol Fumarate [SYMBICORT 160/4.5mcg -] 2 inh PO BID 11/12/17 oxyCODONE SR [Oxycontin] 2.5 mg PO ASDIR 11/12/17 This patient is new to me today: Yes Date on this admission: 02/02/18 Emergency Visit: Yes ED Registration Date: 02/01/18 Care time: The patient presented to the Emergency Department on the above date and was hospitalized for further evaluation of their emergent condition. Critical Care patient: No - Discharge Referral Referred to [facility] No
[2018-02-02] MEDS ORDERED: ATORVASTATIN CA 10 MG TABLET (FP) PO SCH (22:00)
[2018-02-02] MEDS ORDERED: FUROSEMIDE 40 MG/4 ML INJECTABLE VIAL IVPUSH ONE (23:45)
--- NOTE | 2018-02-03 19:07 | EKG ---
Test Reason : Blood Pressure : / mmHG Vent. Rate : 074 BPM Atrial Rate : 074 BPM P-R Int : 160 ms QRS Dur : 090 ms QT Int : 394 ms P-R-T Axes : 043 021 009 degrees QTc Int : 437 ms SINUS RHYTHM WITH PREMATURE ATRIAL COMPLEXES WITH ABERRANT CONDUCTION PREMATURE VENTRICULAR COMPLEXES OTHERWISE NORMAL ECG WHEN COMPARED WITH ECG OF 01-FEB-2018 13:33, ABERRANT CONDUCTION IS NOW PRESENT INCLUDING PREMATURE VENTRICULAR COMPLEX Confirmed by NOELLE CANDELARIO, CHRALEY ([id number]) on 02/03/2018 7:06:53 PM Referred By: Confirmed By:CHARLEY DRAKE MD
== END 2018-02-02 12:20 | disposition left against medical advice (07) ==
LOC: JER 20:05 → JERBED 21:08 → J5S 23:44
PROVIDERS: ADMIT Internal Medicine; ATTEND Internal Medicine
PROC: 30233N1 Transfusion of Nonautologous Red Blood Cells into Peripheral Vein, Percutaneous Approach (ICD-10-PCS; principal; 2018-02-01)
PROC: 3E0F7GC Introduction of Other Therapeutic Substance into Respiratory Tract, Via Natural or Artificial Opening (ICD-10-PCS; 2018-02-01)
DX: D50.9 Iron deficiency anemia, unspecified (principal); J44.1 Chronic obstructive pulmonary disease with (acute) exacerbation; F17.210 Nicotine dependence, cigarettes, uncomplicated; R07.9 Chest pain, unspecified; I78.0 Hereditary hemorrhagic telangiectasia; I10 Essential (primary) hypertension; E78.5 Hyperlipidemia, unspecified; E11.9 Type 2 diabetes mellitus without complications; E66.9 Obesity, unspecified; Z68.34 Body mass index [BMI] 34.0-34.9, adult; K21.9 Gastro-esophageal reflux disease without esophagitis
CPT/HCPCS: 36415; 36430; 36511; 71046-TC-FY; 80053; 80307; 82272; 82550; 82962; 83735; 84100; 84484; 85025; 85610; 85730; 86850; 86900; 86901; 86922; 93005; 93010; 94640; 99282-25; 99284-25; G0378; J0131; P9038; P9058

== ENCOUNTER 2018-03-23 18:25 | Emergency (ER) | payer OTHER ==
[2018-03-23 18:30] VITALS: BP 131/40; PULSE 84; TEMP 98.6; BMI 36.1
--- NOTE | 2018-03-23 20:16 | PDOC ---
History of Present Illness - General Chief Complaint: Shortness of Breath Stated Complaint: SHORTNESS OF BREATH, DIZZINESS History Source: Patient - History of Present Illness Initial Comments: 03/23/18 20:15 The patient is a 58 year old male who presents with shortness of breath Endorses B/L LE swelling Past History - Past Medical History Allergies/Adverse Reactions: Allergies Allergy/AdvReac Type Severity Reaction Status Date / Time No Known Allergies Allergy Verified 03/23/18 18:31 Home Medications: Ambulatory Orders Albuterol Sulfate Inhaler - [Ventolin HFA Inhaler -] 1 - 2 inh PO QID 09/19/13 Amlodipine Besylate [Norvasc -] 10 mg PO DAILY 09/19/13 Lisinopril [Prinivil -] 40 mg PO DAILY 09/19/13 Ferrous Sulfate [Feosol] 325 mg PO DAILY 07/21/14 Fluticasone Prop 0.05% Nasal [Flonase -] 1 - 2 spray NS BID 07/21/14 Glipizide [Glucotrol -] 5 mg PO DAILY 07/21/14 Omeprazole [Prilosec (RX)] 40 mg PO DAILY PRN 07/21/14 hydrALAZINE HCL [Apresoline -] 30 mg PO TID 05/23/17 predniSONE [Deltasone -] 7.5 mg PO DAILY 05/23/17 Albuterol 2.5/Ipratropium 0.5 [Duoneb -] 1 amp NEB TID 11/12/17 Atorvastatin Ca [Lipitor] 0 mg PO DAILY 11/12/17 Azithromycin [Zithromax Tri-Pillo (3 DAYS) -] 500 mg PO DAILY #3 tablet 11/12/17 Budesonide/Formeterol Fumarate [SYMBICORT 160/4.5mcg -] 2 inh PO BID 11/12/17 oxyCODONE SR [Oxycontin] 2.5 mg PO ASDIR 11/12/17 Anemia: Yes (IRON DEFIC. ANEMIA, HX HEREDITARY HEMORR TALLENGECTESIA) COPD: Yes Diabetes: Yes (NIDDM) HTN: Yes - Surgical History Appendectomy: Yes - Immunization History Immunization Up to Date: Yes - Suicide/Smoking/Psychosocial Hx Smoking History: Current every day smoker Have you smoked in the past 12 months: Yes Number of Cigarettes Smoked Daily: 20 Information on smoking cessation initiated: No 'Breaking Loose' booklet given: 09/19/13 Hx Alcohol Use: No Drug/Substance Use Hx: No Substance Use Type: None Hx Substance Use Treatment: No *Physical Exam - Vital Signs Last Vital Signs Temp Pulse Resp BP Pulse Ox 98.6 F 84 24 H 131/40 L 98 03/23/18 18:27 03/23/18 18:27 03/23/18 18:27 03/23/18 18:27 03/23/18 18:27 Moderate Sedation - Procedure Monitoring Vital Signs: Procedure Monitoring Vital Signs Temperature 98.6 F 03/23/18 18:27 Pulse Rate 84 03/23/18 18:27 Respiratory Rate 24 H 03/23/18 18:27 Blood Pressure 131/40 L 03/23/18 18:27 O2 Sat by Pulse Oximetry (%) 98 03/23/18 18:27 *DC/Admit/Observation/Transfer - Referrals Referrals: Geovanni Parry [Primary Care Provider] - - Patient Instructions - Post Discharge Activity
== END 2018-03-23 21:12 | disposition left against medical advice (07) ==
LOC: JER 18:25
DX: Z53.21 Procedure and treatment not carried out due to patient leaving prior to being seen by health care provider (principal)
CPT/HCPCS: 99281-25

== ENCOUNTER 2018-03-25 04:40 | Inpatient (IN) | payer OTHER ==
--- NOTE | 2018-03-25 05:39 | PDOC ---
History of Present Illness - General Stated Complaint: DIFFICULTY BREATHING Time Seen by Provider: 03/25/18 05:22 History Source: Patient Exam Limitations: No Limitations - History of Present Illness Initial Comments: 03/25/18 05:33 58 year old man history of COPD, HTN, DM, frequent epistaxis who presents with intermittent episodes of shortness of breath for the past 6 days w/ cough productive of yellow phlegm. The patient symptoms initially improved with prednisone, but required more today - 25mg in 24 hours. The patient denies recent epistaxis. Denies any fever, recent travel, chest pain, abdominal pain, nausea, vomiting, dysuria, hematuria, diarrhea, constipation. He has no other complaints at bedside. Past History - Past Medical History Allergies/Adverse Reactions: Allergies Allergy/AdvReac Type Severity Reaction Status Date / Time No Known Allergies Allergy Verified 03/26/18 11:24 Home Medications: Ambulatory Orders Albuterol Sulfate Inhaler - [Ventolin HFA Inhaler -] 1 - 2 inh PO QID 09/19/13 Amlodipine Besylate [Norvasc -] 10 mg PO DAILY 09/19/13 Lisinopril [Prinivil -] 40 mg PO DAILY 09/19/13 Ferrous Sulfate [Feosol] 325 mg PO DAILY 07/21/14 Glipizide [Glucotrol -] 5 mg PO DAILY 07/21/14 Omeprazole [Prilosec (RX)] 40 mg PO DAILY PRN 07/21/14 hydrALAZINE HCL [Apresoline -] 30 mg PO TID 05/23/17 predniSONE [Deltasone -] 7.5 mg PO DAILY 05/23/17 Albuterol 2.5/Ipratropium 0.5 [Duoneb -] 1 amp NEB TID PRN 11/12/17 Atorvastatin Ca [Lipitor] 10 mg PO DAILY 11/12/17 oxyCODONE SR [Oxycontin] 2.5 mg PO ASDIR PRN 11/12/17 Anemia: Yes (IRON DEFIC. ANEMIA, HX HEREDITARY HEMORR TALLENGECTESIA) COPD: Yes Diabetes: Yes (NIDDM) HTN: Yes - Surgical History Appendectomy: Yes - Immunization History Immunization Up to Date: Yes - Suicide/Smoking/Psychosocial Hx Smoking History: Current every day smoker Have you smoked in the past 12 months: Yes Number of Cigarettes Smoked Daily: 20 'Breaking Loose' booklet given: 09/19/13 Hx Alcohol Use: No Drug/Substance Use Hx: No Substance Use Type: None Hx Substance Use Treatment: No Review of Systems - Review of Systems Able to Perform ROS?: Yes Is the patient limited Sinhala proficient: No Constitutional: No: Chills, Diaphoresis, Fever HEENTM: No: Blurred Vision, Tinnitus Respiratory: Yes: Cough, Shortness of Breath, SOB with Exertion, SOB at Rest Cardiac (ROS): No: Chest Pain, Lightheadedness, Palpitations ABD/GI: No: Constipated, Diarrhea, Nausea, Vomiting : No: Burning, Dysuria, Flank Pain, Hematuria Neurological: No: Headache, Numbness, Tingling *Physical Exam - Physical Exam Comments: 03/25/18 05:42 GENERAL: Awake, alert, and fully oriented, in no acute distress HEAD: No signs of trauma, normocephalic, atraumatic EYES: EOMI, sclera anicteric, conjunctiva clear ENT: oropharynx clear without exudates. Moist mucosa NECK: Normal ROM, supple, no lymphadenopathy, JVD, or masses LUNGS: No distress, speaks full sentences, coarse breath sounds, mild expiratory wheeze R > L HEART: Regular rate and rhythm, normal S1 and S2, no murmurs, rubs or gallops, peripheral pulses normal and equal bilaterally. ABDOMEN: Soft, nontender, normoactive bowel sounds. No guarding, no rebound. No masses EXTREMITIES : Normal inspection, Normal range of motion, no edema. No clubbing or cyanosis. NEUROLOGICAL: Cranial nerves II through XII grossly intact. Normal speech, no focal sensorimotor deficits SKIN: Warm, Dry, normal turgor, no rashes or lesions noted ED Treatment Course - LABORATORY CBC & Chemistry Diagram: 03/26/18 08:36 03/26/18 08:36 Medical Decision Making - Medical Decision Making 03/25/18 05:47 58 year old man history of COPD, HTN, DM, frequent epistaxis who presents with intermittent episodes of shortness of breath for the past 6 days w/ cough productive of yellow phlegm. The patient symptoms initially improved with prednisone, but required more today - 25mg in 24 hours. The patient denies recent epistaxis. ED Course: Consider CHF vs COPD vs pna Patient stable and satting > 97 on RA. cbc, cmp, lactic acid, cxr, ekg Pending all labwork. Patient signed out to Dr. Madison. *DC/Admit/Observation/Transfer Diagnosis at time of Disposition: Anemia - Discharge Dispostion Disposition: AGAINST MEDICAL ADVICE Condition at time of disposition: Stable - Referrals - Patient Instructions - Post Discharge Activity
--- NOTE | 2018-03-25 07:03 | PDOC ---
Attending Attestation - Resident Resident Name: Anahy Valenzuela - ED Attending Attestation I have performed the following: I have examined & evaluated the patient, The case was reviewed & discussed with the resident, I agree w/resident's findings & plan - HPI HPI: 03/25/18 07:01 Pt comes with SOB; 1/2 PPD smoker; CHF; congestion; wants to know what it is today. 03/25/18 07:02 COPD HTN Hereditary telangiectasias - Physicial Exam PE: 03/25/18 07:01 Agree with resident - Medical Decision Making 03/25/18 07:02 Will sign out to the day ER doc to check labs and CXR and eval and dispo. Consider home with anna.
[2018-03-25 07:31] LABS: ALK PHOS 44 U/L (45-117); ANION GAP 6 MMOL/L (8-16); BILIRUBIN,TOTAL 0.4 mg/dL (0.2-1); BLOOD UREA NITROGEN 35 mg/dL (7-18); CHLORIDE 107 mmol/L (98-107); CO2 25 mmol/L (21-32); CREATININE 1.3 mg/dL (0.55-1.3); GLUCOSE,RANDOM 156 mg/dL (74-106); POTASSIUM 5.3 mmol/L (3.5-5.1); SGOT/AST 11 U/L (15-37); SGPT/ALT 29 U/L (13-61); SODIUM 138 mmol/L (136-145); TOT PROT 7.3 g/dl (6.4-8.2)
[2018-03-25 07:37] LABS: BASO % 0.3 % (0-2.0); EOS % 0.1 % (0-4.5); HEMATOCRIT 21.3 % (35.4-49); LYMPH % 6.3 % (8-40); MCHC 27.8 g/dl (32.0-35.9); MEAN CELL VOLUME 71.8 fl (80-96); MEAN PLT VOLUME 7.5 fl (7.5-11.1); MONO % 3.4 % (3.8-10.2); NEUT % 89.9 % (42.8-82.8); PLATELET COUNT 485 K/MM3 (134-434); RBC 2.97 M/mm3 (4.00-5.60); RDW 23.5 % (11.9-15.9); WHITE BLOOD COUNT 12.1 K/mm3 (4.0-10.0)
[2018-03-25 07:44] LABS: HEMOGLOBIN 5.9 GM/dL (11.7-16.9)
--- NOTE | 2018-03-25 08:19 | PDOC ---
*Physical Exam - Vital Signs Last Vital Signs Temp Pulse Resp BP Pulse Ox 98.7 F 83 19 143/65 99 03/25/18 05:15 03/25/18 07:09 03/25/18 07:09 03/25/18 07:09 03/25/18 07:09 ED Treatment Course - LABORATORY CBC & Chemistry Diagram: 03/25/18 06:15 03/25/18 06:15 - ADDITIONAL ORDERS Additional order review: Laboratory Results 03/25/18 03/25/18 03/25/18 06:15 06:15 06:15 Sodium 138 Potassium 5.3 H Chloride 107 Carbon Dioxide 25 Anion Gap 6 L BUN 35 H Creatinine 1.3 Creat Clearance w eGFR 56.50 Random Glucose 156 H Lactic Acid 2.2 H* Calcium 9.0 Total Bilirubin 0.4 AST 11 L ALT 29 Alkaline Phosphatase 44 L B-Natriuretic Peptide 195.0 H Total Protein 7.3 Albumin 4.0 03/25/18 06:15 RBC 2.97 L MCV 71.8 L MCHC 27.8 L RDW 23.5 H MPV 7.5 Neutrophils % 89.9 H Lymphocytes % 6.3 L D Monocytes % 3.4 L Eosinophils % 0.1 D Basophils % 0.3 Medical Decision Making - Medical Decision Making 03/25/18 08:[address] Valenzuela. Patient is 58M with history of COPD, HTN, Hereditary telangiectasias causing nosebleeds that has required transfusion here today with shortness of breath. Labs, EKG pending. CXR clear. EKG shows normal sinus rhythm with rate of 78. No st elevations/depressions. Normal axis. Normal intervals. No significant t wave abnormalities. CBC shows anemia to 5.9. Discussed bleeding with patient. Patient endorses bleeding from nose every day. Patient denies bleeding from rectum, had colonoscopy that was normal in January. CMP shows mild pre-renal [id number]. 2 units ordered, patient consented. Will obs patient. *DC/Admit/Observation/Transfer Diagnosis at time of Disposition: Anemia - Discharge Dispostion Condition at time of disposition: Stable Decision to Admit order: Yes - Referrals - Patient Instructions - Post Discharge Activity
[2018-03-25] MEDS: ALBUTEROL SO4 2.5/IPRATROPIUM 0.5 INH SOL 3 ML VIAL.NEB. NEB PRN ×2 (10:02→22:25)
[2018-03-25] MEDS ORDERED: PANTOPRAZOLE 40 MG TABLET (FP) PO PRN (10:13)
[2018-03-25] MEDS ORDERED: SODIUM CHLORIDE 1,000 ML IV SCH (10:15)
[2018-03-25 10:27] LABS: URINE APPEARANCE CLEAR; URINE BILIRUBIN NEGATIVE (<2.0 mg/dL); URINE COLOR LTYELLOW; URINE GLUCOSE (UA) 3+ (NEGATIVE); URINE KETONE NEGATIVE (NEGATIVE); URINE LEUK ESTERASE NEGATIVE (NEGATIVE); URINE NITRITE NEGATIVE (NEGATIVE); URINE PROTEIN NEGATIVE (NEGATIVE); URINE UROBILINOGEN NEGATIVE mg/dL (0.2-1.0)
[2018-03-25] MEDS ORDERED: ALBUTEROL SO4 2.5/IPRATROPIUM 0.5 INH SOL 3 ML VIAL.NEB. NEB ONE (10:40)
[2018-03-25 10:48] LABS: METHADONE, UR NEGATIVE ng/ml (CUTOFF=300); OPIATES, URI NEGATIVE ng/ml (CUTOFF=300); PHENCYCLIDINE,URINE NEGATIVE ng/ml (CUTOFF=25); URINE AMPHETAMINES NEGATIVE ng/ml (CUTOFF=500); URINE BARBITURATES NEGATIVE ng/ml (CUTOFF=200); URINE BENZODIAZEPINES NEGATIVE ng/ml (CUTOFF=200)
[2018-03-25] MEDS ORDERED: SENNOSIDES 8.6MG TABLET (FP) PO PRN (10:54)
[2018-03-25] MEDS ORDERED: DOCUSATE SODIUM 100 MG CAPSULE (FP) PO PRN (10:54)
[2018-03-25] MEDS ORDERED: ACETAMINOPHEN 325 MG TABLET (FP) PO ONE (10:58)
[2018-03-25] MEDS ORDERED: INSULIN SLIDING SCALE (NOVOLOG) 1 VIAL SQ SCH (11:00)
[2018-03-25 11:15] LABS: ACANTHOCYTES 1+; ANISOCYTOSIS 3+; MACROCYTOSIS 0; OVALOCYTE 2+; PLATELET ESTIMATE INCREASED; TEAR DROP CELLS 1+
[2018-03-25 11:33] LABS: COCAINE, UR POSITIVE ng/ml (CUTOFF=300)
--- NOTE | 2018-03-25 12:17 | EKG ---
Test Reason : Blood Pressure : / mmHG Vent. Rate : 078 BPM Atrial Rate : 078 BPM P-R Int : 156 ms QRS Dur : 086 ms QT Int : 370 ms P-R-T Axes : 040 029 025 degrees QTc Int : 421 ms NORMAL SINUS RHYTHM NORMAL ECG WHEN COMPARED WITH ECG OF 02-FEB-2018 09:35, PREMATURE VENTRICULAR COMPLEXES ARE NO LONGER PRESENT Confirmed by CHARLEY DRAKE MD ([id number]) on 03/25/2018 12:17:06 PM Referred By: Confirmed By:CHARLEY DRAKE MD
[2018-03-25] MEDS ORDERED: ACETAMINOPHEN 325 MG TABLET (FP) ONE (12:29)
[2018-03-25] MEDS ORDERED: INSULIN NPH 100 UNITS/ML *VIAL ONE (12:30)
[2018-03-25] MEDS: INSULIN SLIDING SCALE (NOVOLOG) 1 VIAL SQ SCH ×3 (12:31→21:41)
[2018-03-25] MEDS: SODIUM CHLORIDE 1,000 ML IV SCH ×2 (14:41→18:08)
--- NOTE | 2018-03-25 15:01 | HP ---
CHIEF COMPLAINT: " Shortness of breath". PCP: Dr. Ornelas. HISTORY OF PRESENT ILLNESS: Patient is a 58 year old male presented to the ED with the chief complaint of cough and shortness of breath x 1 week. As per the patient, he was apparently well until a week ago then started coughing up yellowish phlegm. It was associated with Shortness of breath, initially at exertion only but now has sob even at rest and dizziness. Symptoms started getting worse hence came in to the ED for further evaluation and treatment. 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 Last blood transfusion was a month ago. Denies hematuria, blood in stool, no epistaxis, no hemoptysis, no active bleeding. Denies chest pain, palpitations, abdominal pain, nausea, vomiting, fever, chills , rigors or sweating. No BM since 3 days. Bladder habit normal. Sleep/Appetite decreased since illness. EGD done 9 yrs ago and was normal. Last colonoscopy done 01/03/18 and was normal as per the patient. Patient was admitted at [facility] on 02/01/18 -02/02/18 for epistaxis, H.H was 7.4/25, was given PRBC. ER course was notable for: (1) Afebrile, hemodynamically stable. H/H 5.9/21.3, K 5.3; Lactic acid 2.2, flu negative, urine. tox positive for cocaine (2) CXR normal. EKG normal. (3) PRBC Recent Travel: PAST MEDICAL HISTORY: HTN, NIDDM, HHT, COPD PAST SURGICAL HISTORY: Appendectomy Social History: Smokin pack/day. 40 pack year history Alcohol: Occasional. Drugs: Cocaine- used it a couple of day ago-snorted. Family History: HHT Allergies No Known Allergies Allergy (Verified 03/23/18 18:31) HOME MEDICATIONS: Home Medications Medication Instructions Recorded Albuterol Sulfate Inhaler - 1 - 2 inh PO QID 09/19/13 [Ventolin HFA Inhaler -] Amlodipine Besylate [Norvasc -] 10 mg PO DAILY 09/19/13 Lisinopril [Prinivil -] 40 mg PO DAILY 09/19/13 Ferrous Sulfate [Feosol] 325 mg PO DAILY 07/21/14 Glipizide [Glucotrol -] 5 mg PO DAILY 07/21/14 Omeprazole [Prilosec (RX)] 40 mg PO DAILY PRN 07/21/14 hydrALAZINE HCL [Apresoline -] 30 mg PO TID 05/23/17 predniSONE [Deltasone -] 7.5 mg PO DAILY 05/23/17 Albuterol 2.5/Ipratropium 0.5 1 amp NEB TID PRN 11/12/17 [Duoneb -] Atorvastatin Ca [Lipitor] 10 mg PO DAILY 11/12/17 oxyCODONE SR [Oxycontin] 2.5 mg PO ASDIR PRN 11/12/17 REVIEW OF SYSTEMS CONSTITUTIONAL: Absent: fever, chills, diaphoresis, generalized weakness, malaise, loss of appetite, weight change HEENT: Absent: rhinorrhea, nasal congestion, throat pain, throat swelling, difficulty swallowing, mouth swelling, ear pain, eye pain, visual changes CARDIOVASCULAR: Absent: chest pain, syncope, palpitations, irregular heart rate, lightheadedness , peripheral edema RESPIRATORY: shortness of breath, dyspnea with exertion and at rest. Absent: cough, , orthopnea, wheezing, stridor, hemoptysis GASTROINTESTINAL: Absent: abdominal pain, abdominal distension, nausea, vomiting, diarrhea, constipation, melena, hematochezia GENITOURINARY: Absent: dysuria, frequency, urgency, hesitancy, hematuria, flank pain, genital pain MUSCULOSKELETAL: Absent: myalgia, arthralgia, joint swelling, back pain, neck pain SKIN: Absent: rash, itching, pallor HEMATOLOGIC/IMMUNOLOGIC: Absent: easy bruising, lymphadenopathy, frequent infections ENDOCRINE: Absent: unexplained weight gain, unexplained weight loss, heat intolerance, cold intolerance NEUROLOGIC: Absent: headache, focal weakness or paresthesias, dizziness, unsteady gait, seizure, mental status changes, bladder or bowel incontinence PSYCHIATRIC: Absent: anxiety, depression, suicidal or homicidal ideation, hallucinations. PHYSICAL EXAMINATION Vital Signs - 24 hr 03/25/18 03/25/18 03/25/18 05:15 05:30 07:09 Temperature 98.7 F Pulse Rate 80 80 83 Pulse Rate [ 83 Right Radial] Respiratory 19 19 Rate Blood Pressure 136/62 Blood Pressure 143/65 [Left Arm] O2 Sat by Pulse 96 98 99 Oximetry (%) 03/25/18 03/25/18 03/25/18 12:42 13:05 13:27 Temperature 98.5 F 98.5 F 98 F Pulse Rate Pulse Rate [ 80 78 80 Right Radial] Respiratory 19 20 Rate Blood Pressure Blood Pressure 141/65 127/57 L 135/62 [Left Arm] O2 Sat by Pulse 99 98 98 Oximetry (%) GENERAL: Obese male, standing, Awake, alert, and fully oriented, in mild respiratory distress. HEAD: Normal with no signs of trauma. EYES: EOM intact. Pallor +, no icterus. EARS, NOSE, THROAT: Ears normal. No epistaxis. Moist mucous membranes. NECK: Supple. LUNGS: B/L Breath sounds equal, clear to auscultation bilaterally. No wheezes, and no crackles. HEART: Tachycardic, Regular rate and rhythm, normal S1 and S2 with systolic murmur. ABDOMEN: Soft, nontender, no organomegaly. MUSCULOSKELETAL: Normal range of motion at all joints. No bony deformities or tenderness. No CVA tenderness. UPPER EXTREMITIES: 2+ pulses, warm, well-perfused. No cyanosis. No clubbing. No peripheral edema. LOWER EXTREMITIES: 2+ pulses, warm, well-perfused. No calf tenderness. No peripheral edema. NEUROLOGICAL: No facial droop, Cranial nerves II-XII intact. Normal speech. Normal gait. PSYCHIATRIC: Cooperative. Good eye contact. Appropriate mood and affect. SKIN: Warm, dry, normal turgor, no rashes or lesions noted, normal capillary refill. Laboratory Results - last 24 hr 03/25/18 03/25/18 03/25/18 06:15 06:15 06:15 WBC 12.1 H RBC 2.97 L Hgb 5.9 L* Hct 21.3 L D MCV 71.8 L MCH 20.0 L D MCHC 27.8 L RDW 23.5 H Plt Count 485 H D MPV 7.5 Absolute Neuts (auto) 10.8 H Neutrophils % 89.9 H Lymphocytes % 6.3 L D Monocytes % 3.4 L Eosinophils % 0.1 D Basophils % 0.3 Nucleated RBC % 0 Hypochromia 3+ Platelet Estimate Increased Polychromasia 2+ Poikilocytosis 1+ Anisocytosis 3+ Microcytosis 3+ Macrocytosis 0 Tear Drop Cells 1+ Ovalocytes 2+ Stomatocytes 1+ Acanthocytes (Spur) 1+ Sodium 138 Potassium 5.3 H Chloride 107 Carbon Dioxide 25 Anion Gap 6 L BUN 35 H Creatinine 1.3 Creat Clearance w eGFR 56.50 POC Glucometer Random Glucose 156 H Lactic Acid Calcium 9.0 Total Bilirubin 0.4 AST 11 L ALT 29 Alkaline Phosphatase 44 L B-Natriuretic Peptide 195.0 H Total Protein 7.3 Albumin 4.0 Urine Color Urine Appearance Urine pH Ur Specific [place] Urine Protein Urine Glucose (UA) Urine Ketones Urine Blood Urine Nitrite Urine Bilirubin Urine Urobilinogen Ur Leukocyte Esterase Opiates Screen Methadone Screen Barbiturate Screen Phencyclidine Screen Ur Amphetamines Screen MDMA (Ecstasy) Screen Benzodiazepines Screen Cocaine Screen U Marijuana (THC) Screen Influenza A (Rapid) Influenza B (Rapid) Blood Type Antibody Screen Crossmatch 03/25/18 03/25/18 03/25/18 06:15 09:10 09:55 WBC RBC Hgb Hct MCV MCH MCHC RDW Plt Count MPV Absolute Neuts (auto) Neutrophils % Lymphocytes % Monocytes % Eosinophils % Basophils % Nucleated RBC % Hypochromia Platelet Estimate Polychromasia Poikilocytosis Anisocytosis Microcytosis Macrocytosis Tear Drop Cells Ovalocytes Stomatocytes Acanthocytes (Spur) Sodium Potassium Chloride Carbon Dioxide Anion Gap BUN Creatinine Creat Clearance w eGFR POC Glucometer Random Glucose Lactic Acid 2.2 H* Calcium Total Bilirubin AST ALT Alkaline Phosphatase B-Natriuretic Peptide Total Protein Albumin Urine Color Urine Appearance Urine pH Ur Specific [place] Urine Protein Urine Glucose (UA) Urine Ketones Urine Blood Urine Nitrite Urine Bilirubin Urine Urobilinogen Ur Leukocyte Esterase Opiates Screen Methadone Screen Barbiturate Screen Phencyclidine Screen Ur Amphetamines Screen MDMA (Ecstasy) Screen Benzodiazepines Screen Cocaine Screen U Marijuana (THC) Screen Influenza A (Rapid) Negative Influenza B (Rapid) Negative Blood Type O POSITIVE Antibody Screen Negative Crossmatch See Detail 03/25/18 03/25/18 03/25/18 10:15 10:15 12:37 WBC RBC Hgb Hct MCV MCH MCHC RDW Plt Count MPV Absolute Neuts (auto) Neutrophils % Lymphocytes % Monocytes % Eosinophils % Basophils % Nucleated RBC % Hypochromia Platelet Estimate Polychromasia Poikilocytosis Anisocytosis Microcytosis Macrocytosis Tear Drop Cells Ovalocytes Stomatocytes Acanthocytes (Spur) Sodium Potassium Chloride Carbon Dioxide Anion Gap BUN Creatinine Creat Clearance w eGFR POC Glucometer [phone] Random Glucose Lactic Acid Calcium Total Bilirubin AST ALT Alkaline Phosphatase B-Natriuretic Peptide Total Protein Albumin Urine Color Ltyellow Urine Appearance Clear Urine pH 5.0 Ur Specific [place] 1.015 Urine Protein Negative Urine Glucose (UA) 3+ H Urine Ketones Negative Urine Blood Negative Urine Nitrite Negative Urine Bilirubin Negative Urine Urobilinogen Negative Ur Leukocyte Esterase Negative Opiates Screen Negative Methadone Screen Negative Barbiturate Screen Negative Phencyclidine Screen Negative Ur Amphetamines Screen Negative MDMA (Ecstasy) Screen Negative Benzodiazepines Screen Negative Cocaine Screen Positive A* U Marijuana (THC) Screen Negative Influenza A (Rapid) Influenza B (Rapid) Blood Type Antibody Screen Crossmatch ASSESSMENT/PLAN: Patient is a 58 year old male with significant past medical history of HTN, NIDDM, HHT, COPD presented to the ED with the chief complaint of cough and shortness of breath x 1 week. # Symptomatic microcytic anemia likely secondary to hx of Hereditary Hemorrhagic Telangiectasia c/o sob, no signs of active bleed, no hematuria, melena, hemoptysis. could have been aggravated by recent cocaine use (snorted) H/H 5.9/21.3 Admit to Med-surg/Observation Getting 1st unit of PRBC. Repeat CBC after the second unit and transfusion as needed. IV Lasix 40mg once after the second unit to avoid volume overload. EGD done 9 yrs ago and was normal. Last colonoscopy done 01/03/18 and was normal as per the patient. Continue Iron Stool for occult blood ordered. # Productive cough Patient is afebrile, lungs are clear, CXR normal. Has leukocytosis, which could be reactive. Although he fits SIRS criteria, do not suspect any active infection. unlikely pneumonia. Could be viral Will watch off antibiotics. Blood cultures pending, if positive, start on abx. IV NS @ 83 mls/hr for lactic acidosis. Repeat lactic acid stat and trend it # COPD SOB could be from symptomatic anemia Continue Nebs # Active smoker Smoking cessation counseling Uses nicotine gum. # Hyperkalemia 5.3 without EKG changes Repeat BMP. Doesn't need to be treated # CHF-unsure if he has a hx BNP 195, SOB unlikely from CHF. SOB could be from symptomatic anemia Will order one dose of IV Lasix after the second unit. ECHO ordered (hasn't had echo in the past at [facility]). # HTN-controlled Continue lisinopril, hydralazine and Amlodipine # DM ISS, finger stick BGMs, watch for hypoglycemic episodes. # Constipation Last BM 3 days ago. Can be constipated as patient is on Iron pills. Bowel regimen. # Drug abuse U tox positive for cocaine. Counselled the patient, states he only does cocaine during holidays. # FEN IV NS @ 83 mls.hr Electrolytes; WNL Sodium controlled diet # Prophylaxis For DVT: SCDS, not on heparin due to anemia For GI: Not indicated # Code Status: Full Code # Dispo: Admitted in Med-Surg/obs. Duration of stay likely 1-2 days. Illness, Investigation and Plan of care explained to the patient. He verbalized understanding. Case discussed with Dr. Mcclain. 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 - New Patient This patient is new to me today: Yes Date on this admission: 03/25/18 - Critical Care Critical Care patient: No
--- NOTE | 2018-03-25 15:16 | PN ---
Teaching Attending Note Name of Resident: Omaira Clarke ATTENDING PHYSICIAN STATEMENT I saw and evaluated the patient. I reviewed the resident's note and discussed the case with the resident. I agree with the resident's findings and plan as documented. SUBJECTIVE: Mr Johns is a 58 year old male with history of anemia secondary to epistaxis comes in with 2-3 history of shortness of breath. He says this normally happens when he has a COPD exacerbation or anemia. He says that he does use cocaine and the last time he used was at [place]. He denies fevers, chills, lightheadedness, passing out, chest pain, nausea, vomiting, diarrhea, difficulty or pain on urination, or swelling. OBJECTIVE: Gen: nad, obese Pulm: ctab w/o w/r/r CV: rrr w/o m/r/g Abd: +bs, s/nt/nd Ext: no c/c/e ASSESSMENT AND PLAN: Problem List - Problems (1) SIRS (systemic inflammatory response syndrome) Assessment/Plan: -patient presents with SIRS -suspect viral illness -admit to hospital -will hold on antibiotics currently -monitor Code(s): R65.10 - SIRS OF NON-INFECTIOUS ORIGIN W/O ACUTE ORGAN DYSFUNCTION (2) HHT (hereditary hemorrhagic telangiectasia) Assessment/Plan: -cause of chronic nosebleeds Code(s): I78.0 - HEREDITARY HEMORRHAGIC TELANGIECTASIA (3) Symptomatic anemia Assessment/Plan: -transfuse 2 units Code(s): D64.9 - ANEMIA, UNSPECIFIED (4) Hypertension Assessment/Plan: -continue home regimen -controlled Code(s): I10 - ESSENTIAL (PRIMARY) HYPERTENSION Qualifiers: Hypertension type: essential hypertension Qualified Code(s): I10 - Essential (primary) hypertension (5) Cocaine use Assessment/Plan: -encouraged cessation, especially considering frequent nose bleeds Code(s): F14.90 - COCAINE USE, UNSPECIFIED, UNCOMPLICATED (6) COPD (chronic obstructive pulmonary disease) Assessment/Plan: -continue prn bronchodilators Code(s): J44.9 - CHRONIC OBSTRUCTIVE PULMONARY DISEASE, UNSPECIFIED Qualifiers: COPD type: chronic bronchitis Chronic bronchitis type: unspecified Qualified Code(s): J42 - Unspecified chronic bronchitis (7) Smoker Assessment/Plan: -encouraged cessation Code(s): F17.200 - NICOTINE DEPENDENCE, UNSPECIFIED, UNCOMPLICATED
[2018-03-25] MEDS: hydrALAZINE HCL 10 MG TABLET PO SCH ×2 (15:31→21:38)
[2018-03-25] MEDS: ALBUTEROL SO4 8 GM HFA INHALER IH SCH ×2 (17:45→18:25)
[2018-03-25 17:55] VITALS: BMI 35.9
[2018-03-25] MEDS ORDERED: FUROSEMIDE 40 MG/4 ML INJECTABLE VIAL IVPUSH SCH (21:00)
[2018-03-26] MEDS ORDERED: ACETAMINOPHEN 500 MG TABLET (FP) PO ONE (01:04)
[2018-03-26] MEDS ORDERED: oxyCODONE HCL 5 MG TABLET PO ONE ×2 (01:12→01:45)
[2018-03-26 01:21] LABS: HEMATOCRIT 25.7 % (35.4-49); HEMOGLOBIN 7.7 GM/dL (11.7-16.9); MCH 21.6 pg (25.7-33.7); MCHC 29.7 g/dl (32.0-35.9); MEAN CELL VOLUME 72.7 fl (80-96); MEAN PLT VOLUME 7.1 fl (7.5-11.1); PLATELET COUNT 415 K/MM3 (134-434); RBC 3.54 M/mm3 (4.00-5.60); WHITE BLOOD COUNT 14.5 K/mm3 (4.0-10.0)
[2018-03-26] MEDS: ALBUTEROL SO4 8 GM HFA INHALER IH SCH ×2 (02:37→09:21)
[2018-03-26] MEDS: hydrALAZINE HCL 10 MG TABLET PO SCH (05:26)
[2018-03-26] MEDS: INSULIN SLIDING SCALE (NOVOLOG) 1 VIAL SQ SCH (06:01)
[2018-03-26 09:01] LABS: HEMATOCRIT 24.6 % (35.4-49); HEMOGLOBIN 7.1 GM/dL (11.7-16.9); MCH 21.3 pg (25.7-33.7); MCHC 28.9 g/dl (32.0-35.9); MEAN CELL VOLUME 73.7 fl (80-96); MEAN PLT VOLUME 7.2 fl (7.5-11.1); PLATELET COUNT 353 K/MM3 (134-434); RBC 3.34 M/mm3 (4.00-5.60); RDW 24.4 % (11.9-15.9); WHITE BLOOD COUNT 13.1 K/mm3 (4.0-10.0)
[2018-03-26] MEDS ORDERED: PT OWN MED DRAWER 7, Y5N ONE (09:16)
[2018-03-26 09:19] VITALS: BP 126/71; PULSE 83; TEMP 98.1
[2018-03-26 09:46] LABS: ANION GAP 9 MMOL/L (8-16); BLOOD UREA NITROGEN 33 mg/dL (7-18); CHLORIDE 107 mmol/L (98-107); CO2 22 mmol/L (21-32); CREATININE 1.3 mg/dL (0.55-1.3); GLUCOSE,RANDOM 151 mg/dL (74-106); POTASSIUM 4.3 mmol/L (3.5-5.1); SODIUM 138 mmol/L (136-145)
[2018-03-26] MEDS ORDERED: LISINOPRIL 20 MG TABLET (FP) PO SCH (10:00)
[2018-03-26] MEDS ORDERED: FERROUS SO4 325 MG TABLET (FP) PO SCH (10:00)
[2018-03-26] MEDS ORDERED: amLODIPine BESYLATE 10 MG TABLET (FP) PO SCH (10:00)
--- NOTE | 2018-03-26 11:21 | DS ---
Physical Examination Vital Signs: Vital Signs Temperature 36.7 C 03/26/18 09:00 Pulse Rate 83 03/26/18 09:00 Respiratory Rate 18 03/26/18 09:00 Blood Pressure 126/71 03/26/18 09:00 O2 Sat by Pulse Oximetry (%) 98 03/25/18 21:00 Labs: CBC, BMP 03/26/18 08:36 03/26/18 08:36 Discharge Summary Reason For Visit: ANEMIA Hospital Course: Patient decided to leave against medical advice before evaluation. Condition: Stable - Instructions Disposition: AGAINST MEDICAL ADVICE - Home Medications Comprehensive Discharge Medication List: Ambulatory Orders Albuterol Sulfate Inhaler - [Ventolin HFA Inhaler -] 1 - 2 inh PO QID 09/19/13 Amlodipine Besylate [Norvasc -] 10 mg PO DAILY 09/19/13 Lisinopril [Prinivil -] 40 mg PO DAILY 09/19/13 Ferrous Sulfate [Feosol] 325 mg PO DAILY 07/21/14 Glipizide [Glucotrol -] 5 mg PO DAILY 07/21/14 Omeprazole [Prilosec (RX)] 40 mg PO DAILY PRN 07/21/14 hydrALAZINE HCL [Apresoline -] 30 mg PO TID 05/23/17 predniSONE [Deltasone -] 7.5 mg PO DAILY 05/23/17 Albuterol 2.5/Ipratropium 0.5 [Duoneb -] 1 amp NEB TID PRN 11/12/17 Atorvastatin Ca [Lipitor] 10 mg PO DAILY 11/12/17 oxyCODONE SR [Oxycontin] 2.5 mg PO ASDIR PRN 11/12/17
[2018-03-26] MEDS ORDERED: ATORVASTATIN CA 10 MG TABLET (FP) PO SCH (22:00)
== END 2018-03-26 10:33 | disposition left against medical advice (07) | DRG 300 ==
LOC: JER 04:40 → JERBED 08:43 → OBSVTOIN 08:43 → J5S 15:55
PROVIDERS: ADMIT Internal Medicine; ATTEND Internal Medicine
PROC: 30233N1 Transfusion of Nonautologous Red Blood Cells into Peripheral Vein, Percutaneous Approach (ICD-10-PCS; principal; 2018-03-25)
DX: I78.0 Hereditary hemorrhagic telangiectasia (principal); R65.10 Systemic inflammatory response syndrome (SIRS) of non-infectious origin without acute organ dysfunction; E87.2 Acidosis; J44.9 Chronic obstructive pulmonary disease, unspecified; E11.9 Type 2 diabetes mellitus without complications; I10 Essential (primary) hypertension; Z79.84 Long term (current) use of oral hypoglycemic drugs; D50.9 Iron deficiency anemia, unspecified; F17.210 Nicotine dependence, cigarettes, uncomplicated; F14.10 Cocaine abuse, uncomplicated; R05 Cough; E87.5 Hyperkalemia; K59.00 Constipation, unspecified; E66.9 Obesity, unspecified; Z68.35 Body mass index [BMI] 35.0-35.9, adult
CPT/HCPCS: 36415; 36430; 36511; 71045-TC-FY; 80048; 80053; 80307; 81003; 82962; 83605; 83880; 85025; 85027; 86850; 86900; 86901; 86922; 87040; 87804; 93005; 93010; 94640; 99285-25; J7030; P9038; P9058

== ENCOUNTER 2018-03-26 11:09 | Emergency (ER) | payer OTHER ==
[2018-03-26 11:24] VITALS: BMI 35.6
--- NOTE | 2018-03-26 11:28 | PDOC ---
Attending Attestation - Resident Resident Name: Agustin Madison - ED Attending Attestation I have performed the following: I have examined & evaluated the patient, The case was reviewed & discussed with the resident, I agree w/resident's findings & plan, Exceptions are as noted - HPI HPI: 03/26/18 11:27 58y M hx of COPD, htn, dm, cocaine, frequent epistaxis reutnrs to the ED for further management after leaving AMA this morning. Pt was seen for symtomatic anemia from persitent epistaxis and notes he feels better from yesterday regarding his SOB/KIM. he matthew any further episodes of epistaxis. Pt was seen yesterday and found to be anemic to 5.9, was transfused and left AMA with improvement of his HBG to 7.1 this AM. Denie sany other symptoms. - Physicial Exam PE: 03/26/18 12:03 GENERAL: The patient is awake, alert, and fully oriented, Nontoxic - in no acute distress. ENT: Normal voice, Moist mucous membranes. NECK: Normal range of motion, supple LUNGS: Breath sounds equal, clear to auscultation bilaterally. No wheezes, no rhonchi, no rales. HEART: Regular rate and rhythm, normal S1 and S2 without murmur, rub or gallop. - Medical Decision Making 03/26/18 12:15 suspect symptomatic anemia, likely secondary to cocaine use will recheck his labs, if anemic, will transfuse 03/26/18 14:39 pts hbg stable and feels improved will dc with outpt manageemnt return precautions were discussed
[2018-03-26 11:59] LABS: HEMATOCRIT 26.1 % (35.4-49); HEMOGLOBIN 7.7 GM/dL (11.7-16.9); MCH 21.4 pg (25.7-33.7); MCHC 29.4 g/dl (32.0-35.9); MEAN PLT VOLUME 7.2 fl (7.5-11.1); PLATELET COUNT 375 K/MM3 (134-434); RBC 3.57 M/mm3 (4.00-5.60); RDW 25.2 % (11.9-15.9); WHITE BLOOD COUNT 12.4 K/mm3 (4.0-10.0)
--- NOTE | 2018-03-26 12:04 | PDOC ---
History of Present Illness - General Chief Complaint: Respiratory Stated Complaint: Shortness of Breath Time Seen by Provider: 03/26/18 11:21 History Source: Patient Exam Limitations: No Limitations - History of Present Illness Initial Comments: 03/26/18 12:04 Patient is 58M with history of COPD, HTN, DM, frequent epistaxis, cocaine abuse here today complaining of shortness of breath on exertion for the past week. He was admitted yesterday because his hgb was found to be 5.9, on discharge it was 7.1. Patient reports that he left against medical advice because he had to take care of some legal issues regarding an eviction. Patient states that he feels better, but was told he left against medical advice and did not complete his workup. Cocaine tox positive yesterday. No fevers, chills, nausea, vomiting. Endorses cough. Past History - Past Medical History Allergies/Adverse Reactions: Allergies Allergy/AdvReac Type Severity Reaction Status Date / Time No Known Allergies Allergy Verified 03/26/18 11:24 Home Medications: Ambulatory Orders Albuterol Sulfate Inhaler - [Ventolin HFA Inhaler -] 1 - 2 inh PO QID 09/19/13 Amlodipine Besylate [Norvasc -] 10 mg PO DAILY 09/19/13 Lisinopril [Prinivil -] 40 mg PO DAILY 09/19/13 Ferrous Sulfate [Feosol] 325 mg PO DAILY 07/21/14 Glipizide [Glucotrol -] 5 mg PO DAILY 07/21/14 Omeprazole [Prilosec (RX)] 40 mg PO DAILY PRN 07/21/14 hydrALAZINE HCL [Apresoline -] 30 mg PO TID 05/23/17 predniSONE [Deltasone -] 7.5 mg PO DAILY 05/23/17 Albuterol 2.5/Ipratropium 0.5 [Duoneb -] 1 amp NEB TID PRN 11/12/17 Atorvastatin Ca [Lipitor] 10 mg PO DAILY 11/12/17 oxyCODONE SR [Oxycontin] 2.5 mg PO ASDIR PRN 11/12/17 Anemia: Yes (IRON DEFIC. ANEMIA, HX HEREDITARY HEMORR TALLENGECTESIA) Asthma: No Cancer: No CVA: No COPD: Yes CHF: No Dementia: No Diabetes: Yes (NIDDM) GI Disorders: No Disorders: No HTN: Yes Hypercholesterolemia: No Liver Disease: No Seizures: No Thyroid Disease: No - Surgical History Appendectomy: Yes (x2) Cardiac Surgery: No Cholecystectomy: No Lung Surgery: No Neurologic Surgery: No Orthopedic Surgery: No - Immunization History Immunization Up to Date: Yes - Suicide/Smoking/Psychosocial Hx Smoking History: Current every day smoker Have you smoked in the past 12 months: Yes Number of Cigarettes Smoked Daily: 20 Information on smoking cessation initiated: No 'Breaking Loose' booklet given: 03/25/18 Hx Alcohol Use: No Drug/Substance Use Hx: Yes (cocaine) Substance Use Type: Cocaine Hx Substance Use Treatment: No Review of Systems - Review of Systems Comments:: 03/26/18 12:09 GENERAL/CONSTITUTIONAL: No fever or chills. No weakness. HEAD, EYES, EARS, NOSE AND THROAT: No change in vision. No sore throat. CARDIOVASCULAR: No chest pain +shortness of breath RESPIRATORY: No cough, wheezing, or hemoptysis. GASTROINTESTINAL: No nausea, vomiting, diarrhea or constipation. GENITOURINARY: No dysuria, frequency, or change in urination. MUSCULOSKELETAL: No joint or muscle swelling or pain. No neck or back pain. SKIN: No rash NEUROLOGIC: No headache, vertigo, loss of consciousness, or change in strength/ sensation. ENDOCRINE: No increased thirst. No abnormal weight change HEMATOLOGIC/LYMPHATIC: +anemia and easy bleeding ALLERGIC/IMMUNOLOGIC: No hives or skin allergy. *Physical Exam - Vital Signs Last Vital Signs Temp Pulse Resp BP Pulse Ox 98.3 F 78 22 H 126/53 L 100 03/26/18 11:23 03/26/18 11:23 03/26/18 11:23 03/26/18 11:23 03/26/18 11:23 - Physical Exam Comments: 03/26/18 12:12 GENERAL: Awake, alert, and fully oriented, in no acute distress HEAD: No signs of trauma, normocephalic, atraumatic EYES: PERRLA, EOMI, sclera anicteric, conjunctiva clear ENT: Auricles normal inspection, hearing grossly normal, nares patent, oropharynx clear without exudates. Moist mucosa NECK: Normal ROM, supple, no lymphadenopathy, JVD, or masses LUNGS: No distress, speaks full sentences, clear to auscultation bilaterally HEART: Regular rate and rhythm, normal S1 and S2, no murmurs, rubs or gallops, peripheral pulses normal and equal bilaterally. ABDOMEN: Soft, nontender, normoactive bowel sounds. No guarding, no rebound. No masses EXTREMITIES: Normal inspection, Normal range of motion, no edema. No clubbing or cyanosis. NEUROLOGICAL: Cranial nerves II through XII grossly intact. Normal speech, no focal sensorimotor deficits SKIN: Warm, Dry, normal turgor, no rashes or lesions noted. Moderate Sedation - Procedure Monitoring Vital Signs: Procedure Monitoring Vital Signs Temperature 98.3 F 03/26/18 11:23 Pulse Rate 78 03/26/18 11:23 Respiratory Rate 22 H 03/26/18 11:23 Blood Pressure 126/53 L 03/26/18 11:23 O2 Sat by Pulse Oximetry (%) 100 03/26/18 11:23 ED Treatment Course - LABORATORY CBC & Chemistry Diagram: 03/26/18 11:42 03/26/18 11:42 - ADDITIONAL ORDERS Additional order review: 03/26/18 11:42 RBC 3.57 L MCV 73.0 L MCHC 29.4 L RDW 25.2 H MPV 7.2 L - RADIOLOGY Radiology Studies Ordered: Category Date Time Status CHEST X-RAY PORTABLE* [RAD] Stat Radiology 03/26/18 11:21 Completed Medical Decision Making - Medical Decision Making 03/26/18 12:12 Patient is 58M with history of COPD, HTN, DM, frequent epistaxis, cocaine abuse here today with shortness of breath. Vitals normal and stable. Will re-evaluate anemia, likely re-admit. 03/26/18 13:31 CBC 7.7 EKG shows normal sinus rhythm with rate of 82. No st elevations/depressions. Normal axis. Normal intervals. No t wave inversions. CMP reassuring. CXR clear. D/w Dr Kulkarni, will obs. 03/26/18 14:33 D/W Dr Mcclain, patient was to be discharged this morning and is safe for discharge. Patient agrees with plan. Has PCP appointment tomorrow. Will discharge home. *DC/Admit/Observation/Transfer Diagnosis at time of Disposition: Shortness of breath - Discharge Dispostion Disposition: HOME Condition at time of disposition: Good Decision to Admit order: No - Referrals Referrals: Bryson Carrillo [Primary Care Provider] - - Patient Instructions Additional Instructions: Please follow up with your PCP tomorrow as scheduled. Please return to the ED if you have any new, worsening or concerning symptoms, especially more nosebleeding, weakness, shortness of breath and chest pain. - Post Discharge Activity
[2018-03-26 12:12] LABS: INR 1.1 (0.83-1.09)
[2018-03-26 12:27] LABS: ALBUMIN 3.9 g/dl (3.4-5.0); ALK PHOS 57 U/L (45-117); ANION GAP 10 MMOL/L (8-16); BILIRUBIN,TOTAL 0.4 mg/dL (0.2-1); BLOOD UREA NITROGEN 33 mg/dL (7-18); CALCIUM 8.4 mg/dL (8.5-10.1); CHLORIDE 103 mmol/L (98-107); CO2 22 mmol/L (21-32); CREATININE 1.3 mg/dL (0.55-1.3); GLUCOSE,RANDOM 173 mg/dL (74-106); POTASSIUM 4.2 mmol/L (3.5-5.1); SGOT/AST 11 U/L (15-37); SGPT/ALT 27 U/L (13-61); SODIUM 135 mmol/L (136-145)
--- NOTE | 2018-03-26 13:27 | HP ---
CHIEF COMPLAINT: PCP: HISTORY OF PRESENT ILLNESS: oscar is 58M with history of COPD, HTN, DM, frequent epistaxis, cocaine abuse here today complaining of shortness of breath on exertion for the past week. He was admitted yesterday because his hgb was found to be 5.9, on discharge it was 7.1. Patient reports that he left against medical advice because he had to take care of some legal issues regarding an eviction. ER course was notable for: (1) (2) (3) Recent Travel: PAST MEDICAL HISTORY: PAST SURGICAL HISTORY: Social History: Smoking: Alcohol: Drugs: Family History: Allergies No Known Allergies Allergy (Verified 03/26/18 11:24) HOME MEDICATIONS: Home Medications Medication Instructions Recorded Albuterol Sulfate Inhaler - 1 - 2 inh PO QID 09/19/13 [Ventolin HFA Inhaler -] Amlodipine Besylate [Norvasc -] 10 mg PO DAILY 09/19/13 Lisinopril [Prinivil -] 40 mg PO DAILY 09/19/13 Ferrous Sulfate [Feosol] 325 mg PO DAILY 07/21/14 Glipizide [Glucotrol -] 5 mg PO DAILY 07/21/14 Omeprazole [Prilosec (RX)] 40 mg PO DAILY PRN 07/21/14 hydrALAZINE HCL [Apresoline -] 30 mg PO TID 05/23/17 predniSONE [Deltasone -] 7.5 mg PO DAILY 05/23/17 Albuterol 2.5/Ipratropium 0.5 1 amp NEB TID PRN 11/12/17 [Duoneb -] Atorvastatin Ca [Lipitor] 10 mg PO DAILY 11/12/17 oxyCODONE SR [Oxycontin] 2.5 mg PO ASDIR PRN 11/12/17 REVIEW OF SYSTEMS CONSTITUTIONAL: Absent: fever, chills, diaphoresis, generalized weakness, malaise, loss of appetite, weight change HEENT: Absent: rhinorrhea, nasal congestion, throat pain, throat swelling, difficulty swallowing, mouth swelling, ear pain, eye pain, visual changes CARDIOVASCULAR: Absent: chest pain, syncope, palpitations, irregular heart rate, lightheadedness , peripheral edema RESPIRATORY: Absent: cough, shortness of breath, dyspnea with exertion, orthopnea, wheezing, stridor, hemoptysis GASTROINTESTINAL: Absent: abdominal pain, abdominal distension, nausea, vomiting, diarrhea, constipation, melena, hematochezia GENITOURINARY: Absent: dysuria, frequency, urgency, hesitancy, hematuria, flank pain, genital pain MUSCULOSKELETAL: Absent: myalgia, arthralgia, joint swelling, back pain, neck pain SKIN: Absent: rash, itching, pallor HEMATOLOGIC/IMMUNOLOGIC: Absent: easy bleeding, easy bruising, lymphadenopathy, frequent infections ENDOCRINE: Absent: unexplained weight gain, unexplained weight loss, heat intolerance, cold intolerance NEUROLOGIC: Absent: headache, focal weakness or paresthesias, dizziness, unsteady gait, seizure, mental status changes, bladder or bowel incontinence PSYCHIATRIC: Absent: anxiety, depression, suicidal or homicidal ideation, hallucinations. PHYSICAL EXAMINATION Vital Signs - 24 hr 03/26/18 11:23 Temperature 98.3 F Pulse Rate 78 Respiratory 22 H Rate Blood Pressure 126/53 L O2 Sat by Pulse 100 Oximetry (%) GENERAL: Awake, alert, and fully oriented, in no acute distress. HEAD: Normal with no signs of trauma. EYES: Pupils equal, round and reactive to light, extraocular movements intact, sclera anicteric, conjunctiva clear. No lid lag. EARS, NOSE, THROAT: Ears normal, nares patent, oropharynx clear without exudates. Moist mucous membranes. NECK: Normal range of motion, supple without lymphadenopathy, JVD, or masses. LUNGS: Breath sounds equal, clear to auscultation bilaterally. No wheezes, and no crackles. No accessory muscle use. HEART: Regular rate and rhythm, normal S1 and S2 without murmur, rub or gallop. ABDOMEN: Soft, nontender, not distended, normoactive bowel sounds, no guarding, no rebound, no masses. No hepatomegaly or splenomegaly. MUSCULOSKELETAL: Normal range of motion at all joints. No bony deformities or tenderness. No CVA tenderness. UPPER EXTREMITIES: 2+ pulses, warm, well-perfused. No cyanosis. No clubbing. No peripheral edema. LOWER EXTREMITIES: 2+ pulses, warm, well-perfused. No calf tenderness. No peripheral edema. NEUROLOGICAL: Cranial nerves II-XII intact. Normal speech. Normal gait. PSYCHIATRIC: Cooperative. Good eye contact. Appropriate mood and affect. SKIN: Warm, dry, normal turgor, no rashes or lesions noted, normal capillary refill. Laboratory Results - last 24 hr 03/26/18 03/26/18 03/26/18 11:42 11:42 11:42 WBC 12.4 H RBC 3.57 L Hgb 7.7 L Hct 26.1 L MCV 73.0 L MCH 21.4 L MCHC 29.4 L RDW 25.2 H Plt Count 375 MPV 7.2 L PT with INR 13.00 INR 1.10 H Sodium 135 L Potassium 4.2 Chloride 103 Carbon Dioxide 22 Anion Gap 10 BUN 33 H Creatinine 1.3 Creat Clearance w eGFR 56.50 Random Glucose 173 H Calcium 8.4 L Total Bilirubin 0.4 AST 11 L ALT 27 Alkaline Phosphatase 57 Total Protein 7.0 Albumin 3.9 ASSESSMENT/PLAN:
--- NOTE | 2018-03-26 14:37 | PN ---
Progress Note (short form) - Note Progress Note: Saw Mr Johns in the ED. He was on my service but left AMA this morning prior to being seen. However when evaluating vital signs and labs this am, was planning on discharge from hospital. Currently his vital signs are stable, H/H improved, and normal physical exam. He also has an appointment with his PCP tomorrow. He does not need re-admission at this time and is safe for discharge with follow up.
[2018-03-26 15:07] VITALS: BP 146/70; PULSE 86; TEMP 97.8
--- NOTE | 2018-03-27 19:01 | EKG ---
Test Reason : Blood Pressure : / mmHG Vent. Rate : 082 BPM Atrial Rate : 082 BPM P-R Int : 154 ms QRS Dur : 088 ms QT Int : 354 ms P-R-T Axes : 036 017 013 degrees QTc Int : 413 ms NORMAL SINUS RHYTHM NORMAL ECG WHEN COMPARED WITH ECG OF 25-MAR-2018 07:18, NO SIGNIFICANT CHANGE WAS FOUND Confirmed by ZENOBIA BRADFORD MD ([id number]) on 03/27/2018 7:01:32 PM Referred By: Confirmed By:ZENOBIA BRADFORD MD
== END 2018-03-26 15:07 | disposition home or self-care (01) ==
LOC: JER 11:09
DX: R06.02 Shortness of breath (principal); D50.9 Iron deficiency anemia, unspecified; I78.0 Hereditary hemorrhagic telangiectasia; E11.9 Type 2 diabetes mellitus without complications; Z79.84 Long term (current) use of oral hypoglycemic drugs; I10 Essential (primary) hypertension; J44.9 Chronic obstructive pulmonary disease, unspecified; F14.10 Cocaine abuse, uncomplicated; F17.210 Nicotine dependence, cigarettes, uncomplicated
CPT/HCPCS: 36415; 71045-TC-FY; 80053; 85027; 85610; 86850; 86900; 86901; 93005; 93010; 99283-25

== ENCOUNTER 2018-04-06 18:15 | Observation (INO) | payer OTHER ==
--- NOTE | 2018-04-06 18:33 | PDOC ---
History of Present Illness - General History Source: Patient Exam Limitations: No Limitations <Lani Mota - Last Filed: 04/06/18 19:00> - General History Source: Patient Exam Limitations: No Limitations - History of Present Illness Initial Comments: 04/06/18 19:04 The patient is a 58 year old male, with a significant PMH of COPD, DM, HTN, Hereditary Hemorrhagic Telangiectasia (HHT), Spinal stenosis, and frequent epistaxis who presents to the emergency department with dizziness, lightheadedness, and SOB. The patient states earlier today he experienced nasal and gum bleeding. The patient experienced similar symptoms for the past seven days. The patient states his symptoms feel similar to his hx of HHT. The patient was seen at [place] on 03/25/18, and received a blood transfusion. Patient follows with account planner Dr. Mccartney. However, the patient states he has not seen his account planner in a while. Denies any pain. Denies any rectal bleeding. Denies any melena or hematochezia The patient denies chest pain, headache. Denies fever, chills, nausea, vomit, diarrhea and constipation. Denies dysuria, frequency, urgency and hematuria. Allergies: NKA Past surgical history: appendectomy Social history: Illicit drug use (last known cocaine on ), tobacco use (1 PPD), no etOH <David Velasco - Last Filed: 04/06/18 19:28> - General Chief Complaint: Shortness of Breath Stated Complaint: SHORTNESS OF BREATH Time Seen by Provider: 04/06/18 18:22 Past History - Past Medical History Anemia: Yes (IRON DEFIC. ANEMIA, HX HEREDITARY HEMORR TALLENGECTESIA) Asthma: No Cancer: No CVA: No COPD: Yes CHF: No Dementia: No Diabetes: Yes (NIDDM) GI Disorders: No Disorders: No HTN: Yes Hypercholesterolemia: No Liver Disease: No Seizures: No Thyroid Disease: No - Surgical History Appendectomy: Yes (x2) Cardiac Surgery: No Cholecystectomy: No Lung Surgery: No Neurologic Surgery: No Orthopedic Surgery: No - Immunization History Immunization Up to Date: Yes - Suicide/Smoking/Psychosocial Hx Smoking History: Current every day smoker Have you smoked in the past 12 months: Yes Number of Cigarettes Smoked Daily: 20 'Breaking Loose' booklet given: 03/25/18 Hx Alcohol Use: No Drug/Substance Use Hx: Yes (cocaine) Substance Use Type: Cocaine Hx Substance Use Treatment: No <SvetlanaBradena - Last Filed: 04/06/18 19:00> <David Velasco - Last Filed: 04/06/18 19:28> - Past Medical History Allergies/Adverse Reactions: Allergies Allergy/AdvReac Type Severity Reaction Status Date / Time No Known Allergies Allergy Verified 04/06/18 18:33 Home Medications: Ambulatory Orders Albuterol Sulfate Inhaler - [Ventolin HFA Inhaler -] 1 - 2 inh PO QID 09/19/13 Amlodipine Besylate [Norvasc -] 10 mg PO DAILY 09/19/13 Lisinopril [Prinivil -] 40 mg PO DAILY 09/19/13 Ferrous Sulfate [Feosol] 325 mg PO DAILY 07/21/14 Glipizide [Glucotrol -] 5 mg PO DAILY PRN 07/21/14 Omeprazole [Prilosec (RX)] 40 mg PO DAILY PRN 07/21/14 hydrALAZINE HCL [Apresoline -] 30 mg PO TID 05/23/17 predniSONE [Deltasone -] 7.5 mg PO DAILY 05/23/17 Albuterol 2.5/Ipratropium 0.5 [Duoneb -] 1 amp NEB TID PRN 11/12/17 Atorvastatin Ca [Lipitor] 10 mg PO DAILY 11/12/17 oxyCODONE SR [Oxycontin] 2.5 mg PO ASDIR PRN 11/12/17 Review of Systems - Review of Systems Comments:: 04/06/18 19:06 GENERAL/CONSTITUTIONAL: +pallor. No fever or chills. No weakness. HEAD, EYES, EARS, NOSE AND THROAT: +nasal and gum bleeding. No change in vision. No ear pain or discharge. No sore throat. CARDIOVASCULAR: +shortness of breath. +dizziness and lightheadedness. No chest pain. RESPIRATORY: No cough, wheezing, or hemoptysis. GASTROINTESTINAL: No nausea, vomiting, diarrhea or constipation. GENITOURINARY: No dysuria, frequency, or change in urination. MUSCULOSKELETAL: No joint or muscle swelling or pain. No neck or back pain. SKIN: No rash NEUROLOGIC: No headache, vertigo, loss of consciousness, or change in strength/ sensation. ENDOCRINE: No increased thirst. No abnormal weight change. HEMATOLOGIC/LYMPHATIC: No anemia, or history of blood clots. ALLERGIC/IMMUNOLOGIC: No hives or skin allergy. <David Velasco - Last Filed: 04/06/18 19:28> *Physical Exam - Vital Signs Last Vital Signs Temp Pulse Resp BP Pulse Ox 98.4 F 96 H 18 140/67 94 L 04/06/18 18:34 04/06/18 18:34 04/06/18 18:34 04/06/18 18:34 04/06/18 18:34 - Physical Exam Comments: 04/06/18 19:28 GENERAL: +morbidly obese. Awake, alert, and fully oriented, in no acute distress HEAD: No signs of trauma EYES: PERRLA, EOMI, sclera anicteric, conjunctiva clear ENT: Auricles normal inspection, hearing grossly normal, nares patent, oropharynx clear without exudates. Moist mucosa NECK: Normal ROM, supple, no lymphadenopathy, JVD, or masses LUNGS: + Crackles at the right base. +faint expiratory wheezing. +decreased LT breath sounds. HEART: +tachycardia. Regular rhythm, normal S1 and S2, no murmurs, rubs or gallops ABDOMEN: Soft, nontender, normoactive bowel sounds. No guarding, no rebound. No masses EXTREMITIES: Normal range of motion, no edema. No clubbing or cyanosis. No cords, erythema, or tenderness NEUROLOGICAL: Cranial nerves II through XII grossly intact. Normal speech. SKIN: Warm, Dry, normal turgor, no rashes or lesions noted. <David Velasco - Last Filed: 04/06/18 19:28> Moderate Sedation - Procedure Monitoring Vital Signs: Procedure Monitoring Vital Signs Temperature 98.4 F 04/06/18 18:34 Pulse Rate 96 H 04/06/18 18:34 Respiratory Rate 18 04/06/18 18:34 Blood Pressure 140/67 04/06/18 18:34 O2 Sat by Pulse Oximetry (%) 94 L 04/06/18 18:34 <David Velasco - Last Filed: 04/06/18 19:28> Heart Score/ECG Review #1 General ECG Interpretation: Sinus Rhythm, Normal Rate (83), Normal Intervals, No acute ischemic changes <Lani Mota - Last Filed: 04/06/18 19:00> ED Treatment Course - RADIOLOGY Radiology Studies Ordered: Category Date Time Status CHEST PA & LAT [RAD] Stat Radiology 04/06/18 18:22 Ordered <Lani Mota - Last Filed: 04/06/18 19:00> - LABORATORY CBC & Chemistry Diagram: 04/06/18 18:50 04/06/18 18:50 <David Velasco - Last Filed: 04/06/18 19:28> Medical Decision Making - Medical Decision Making 04/06/18 18:29 58 yo male wit h/o HHT (heriditary hemorhagic telangiectasia) COPD, HTN DM spinal stenosis obesity here wtih c/o feeling dizzy lightheaded and worseing sob. pt states he bleeds from gums and nose daily. was seen at [facility] 03/25 and transfused 2 uPRBC for hgb of 5. he denies rectal bleeding. no cp . no cough. sob with walking short distances. no leg swelling. no f/c no abd pain. no other complaints. used to see account planner dr caal hasnt seen in very long time. not on chronic steroids but 10 mg prednisone today. on exam pt with decreased bs left, crackels right base faint expiratory wheeze. heart reg tachycardia. abd soft nt obese. ext wwp no edema. no calf tenderness. differential copd exacerbation, sxs anemia, renal failure chf pna, mi angina. plan labs type and screen, cxr duoneb. ekg will likley require admission <Lani Mota - Last Filed: 04/06/18 19:00> *DC/Admit/Observation/Transfer <Lani Mota - Last Filed: 04/06/18 19:00> - Attestations Scribe Attestion: 04/06/18 19:09 Documentation prepared by David Velasco, acting as medical grade shoemaker for Lani Mota MD, <David Velasco - Last Filed: 04/06/18 19:28> - Discharge Dispostion Condition at time of disposition: Fair - Referrals Referrals: Bryson Carrillo [Primary Care Provider] - - Patient Instructions - Post Discharge Activity
[2018-04-06] MEDS ORDERED: ALBUTEROL SO4 2.5/IPRATROPIUM 0.5 INH SOL 3 ML VIAL.NEB. NEB ONE ×4 (18:34→20:36)
[2018-04-06 19:17] LABS: ACTIVATED PTT 27.6 SECONDS (25.2-36.5)
[2018-04-06 19:18] LABS: ALBUMIN 4.2 g/dl (3.5-5.0); ALK PHOS 52 U/L (32-92); ANION GAP 9 MMOL/L (8-16); BILIRUBIN,TOTAL 0.6 mg/dl (0.2-1.0); BLOOD UREA NITROGEN 23 mg/dl (7-18); CALCIUM 9.1 mg/dl (8.4-10.2); CHLORIDE 104 mmol/L (98-107); CO2 24 mmol/L (22-28); CREATININE 1.1 mg/dl (0.6-1.3); GLUCOSE,RANDOM 160 mg/dl (74-106); SGOT/AST 16 U/L (10-42); SGPT/ALT 19 U/L (10-40); SODIUM 137 mmol/L (136-145); TOT PROT 7.3 g/dl (6.4-8.3)
[2018-04-06 19:21] LABS: INR 1.27 (0.82-1.09); PROTHROMBIN TIME (PATIENT) 14.1 SEC (10.2-13.0)
[2018-04-06 19:25] LABS: HEMATOCRIT 24.5 % (35.4-49); MCH 22.1 pg (25.7-33.7)
[2018-04-06 19:30] LABS: BASO % 0.2 % (0-2.0); EOS % 0.5 % (0-4.5); HEMOGLOBIN 7.2 GM/dl (11.7-16.9); LYMPH % 14.6 % (8-40); MCHC 29.4 g/dl (32.0-35.9); MEAN CELL VOLUME 75.2 fl (80-96); MEAN PLT VOLUME 8.6 fl (7.5-11.1); MONO % 4.2 % (3.8-10.2); NEUT % 80.5 % (42.8-82.8); PLATELET COUNT 302 K/MM3 (134-434); RBC 3.26 M/mm3 (4.00-5.60); RDW 24.5 % (11.9-15.9); WHITE BLOOD COUNT 11.4 K/mm3 (4.0-10.8)
[2018-04-06 19:31] LABS: ADD RBC MORPHOLOGY YES
--- NOTE | 2018-04-06 19:31 | PDOC ---
*Physical Exam - Vital Signs Last Vital Signs Temp Pulse Resp BP Pulse Ox 98.4 F 96 H 18 140/67 94 L 04/06/18 18:34 04/06/18 18:34 04/06/18 18:34 04/06/18 18:34 04/06/18 19:02 ED Treatment Course - LABORATORY CBC & Chemistry Diagram: 04/06/18 18:50 04/06/18 18:50 - ADDITIONAL ORDERS Additional order review: Laboratory Results 04/06/18 04/06/18 18:50 18:50 PT with INR 14.1 H INR 1.27 H PTT (Actin FS) 27.6 Sodium 137 Potassium 4.0 Chloride 104 Carbon Dioxide 24 Anion Gap 9 BUN 23 H Creatinine 1.1 Creat Clearance w eGFR > 60 Random Glucose 160 H Calcium 9.1 Total Bilirubin 0.6 AST 16 ALT 19 Alkaline Phosphatase 52 Total Protein 7.3 Albumin 4.2 - Medications Given in the ED: ED Medications Discontinued Medications Generic Name Dose Route Start Last Admin Trade Name Freq PRN Reason Stop Dose Admin Albuterol/Ipratropium 1 amp 04/06/18 18:34 04/06/18 19:22 Duoneb - NEB 04/06/18 18:35 1 amp ONCE ONE Administration Progress Note - Progress Note Progress Note: Care of this patient was transferred to vt from Dr. Leon at 1900 hrs. Patient is a 58-year-old male with history of HHT and chronic anemia as a result of frequent bleeds from his HHT. Patient comes in complaining of some chest tightness and dyspnea. Patient has a workup pending including CBC, comp and type and screen. 19:45 Patient's hemoglobin is 7.2. Patient will need an observation admitting to rule him out for cardiac issues secondary to his anemia as well as transfusion. Patient's EKG shows no acute ST-T wave changes. Patient will be placed in an observation bed under the hospitalist service *DC/Admit/Observation/Transfer Diagnosis at time of Disposition: COPD exacerbation Anemia Qualifiers: Anemia type: other cause Other causes of anemia: other cause, not classified Qualified Code(s): D64.89 - Other specified anemias - Discharge Dispostion Condition at time of disposition: Fair Decision to Admit order: Yes - Referrals Referrals: Bryson Carrillo [Primary Care Provider] - - Patient Instructions - Post Discharge Activity
[2018-04-06 20:39] LABS: ANISOCYTOSIS 2+; MACROCYTOSIS 1+; OVALOCYTE 1+; TEAR DROP CELLS 1+
--- NOTE | 2018-04-06 21:22 | HP ---
CHIEF COMPLAINT: lightheadedness, shortness of breath PCP: HISTORY OF PRESENT ILLNESS: 58 year old male, with a significant PMH of COPD, DM, HTN, Hereditary Hemorrhagic Telangiectasia (HHT), Spinal stenosis, and frequent epistaxis c/o, lightheadedness and SOB for 1 day, reports almost daily epistaxis. Denied any chest pain. Denied blood in stool or dark stools. 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 ER course was notable for: (1) cxr (2) ekg (3) Recent Travel: none PAST MEDICAL HISTORY: COPD, DM, HTN, Hereditary Hemorrhagic Telangiectasia (HHT), Spinal stenosis PAST SURGICAL HISTORY: appendectomy Social History: Smokin pack years Alcohol: no Drugs: last known cocaine on Family History: father, grandfather, sister with HHT Allergies No Known Allergies Allergy (Verified 04/06/18 18:33) HOME MEDICATIONS: Home Medications Medication Instructions Recorded Albuterol Sulfate Inhaler - 1 - 2 inh PO QID 09/19/13 [Ventolin HFA Inhaler -] Amlodipine Besylate [Norvasc -] 10 mg PO DAILY 09/19/13 Lisinopril [Prinivil -] 40 mg PO DAILY 09/19/13 Ferrous Sulfate [Feosol] 325 mg PO DAILY 07/21/14 Glipizide [Glucotrol -] 5 mg PO DAILY PRN 07/21/14 Omeprazole [Prilosec (RX)] 40 mg PO DAILY PRN 07/21/14 hydrALAZINE HCL [Apresoline -] 30 mg PO TID 05/23/17 predniSONE [Deltasone -] 7.5 mg PO DAILY 05/23/17 Albuterol 2.5/Ipratropium 0.5 1 amp NEB TID PRN 11/12/17 [Duoneb -] Atorvastatin Ca [Lipitor] 10 mg PO DAILY 11/12/17 oxyCODONE SR [Oxycontin] 2.5 mg PO ASDIR PRN 11/12/17 REVIEW OF SYSTEMS CONSTITUTIONAL: Absent: fever, chills, diaphoresis, , loss of appetite, weight change present- generalized weakness, malaise HEENT: Absent: rhinorrhea, nasal congestion, throat pain, throat swelling, difficulty swallowing, mouth swelling, ear pain, eye pain, visual changes CARDIOVASCULAR: Absent: chest pain, syncope, palpitations, irregular heart rate, peripheral edema present- lightheadedness, RESPIRATORY: Absent: cough, orthopnea, wheezing, stridor, hemoptysis present- shortness of breath, dyspnea with exertion, GASTROINTESTINAL: Absent: abdominal pain, abdominal distension, nausea, vomiting, diarrhea, constipation, melena, hematochezia GENITOURINARY: Absent: dysuria, frequency, urgency, hesitancy, hematuria, flank pain, genital pain MUSCULOSKELETAL: Absent: myalgia, arthralgia, joint swelling, back pain, neck pain SKIN: Absent: rash, itching, pallor HEMATOLOGIC/IMMUNOLOGIC: Absent: easy bleeding, easy bruising, lymphadenopathy, frequent infections ENDOCRINE: Absent: unexplained weight gain, unexplained weight loss, heat intolerance, cold intolerance NEUROLOGIC: Absent: headache, focal weakness or paresthesias, dizziness, unsteady gait, seizure, mental status changes, bladder or bowel incontinence PSYCHIATRIC: Absent: anxiety, depression, suicidal or homicidal ideation, hallucinations. PHYSICAL EXAMINATION Vital Signs - 24 hr 04/06/18 04/06/18 04/06/18 18:34 19:02 21:00 Temperature 98.4 F Pulse Rate 96 H Pulse Rate [ 93 H Left] Respiratory 18 18 Rate Blood Pressure 140/67 Blood Pressure 126/59 L [Right Arm] O2 Sat by Pulse 94 L 94 L 96 Oximetry (%) GENERAL: Awake, alert, and fully oriented, obese, appears anxious, no active bleeding HEAD: Normal with no signs of trauma. EYES: Pupils equal, round and reactive to light, extraocular movements intact, sclera anicteric, conjunctiva clear. No lid lag. EARS, NOSE, THROAT: Ears normal, nares patent, oropharynx clear without exudates. Moist mucous membranes. NECK: Normal range of motion, supple without lymphadenopathy, JVD, or masses. LUNGS: Breath sounds equal, clear to auscultation bilaterally.very mild occasional exp wheezes HEART: Regular rate and rhythm, normal S1 and S2 without murmur, rub or gallop. ABDOMEN: Soft, nontender, not distended, normoactive bowel sounds, no guarding, no rebound, no masses. No hepatomegaly or splenomegaly. MUSCULOSKELETAL: Normal range of motion at all joints. No bony deformities or tenderness. No CVA tenderness. UPPER EXTREMITIES: 2+ pulses, warm, well-perfused. No cyanosis. No clubbing. No peripheral edema. LOWER EXTREMITIES: 2+ pulses, warm, well-perfused. No calf tenderness. No peripheral edema. NEUROLOGICAL: Cranial nerves II-XII intact. Normal speech. PSYCHIATRIC: Cooperative. Good eye contact. Appropriate mood and affect. SKIN: Warm, dry, normal turgor, no rashes or lesions noted, normal capillary refill. Laboratory Results - last 24 hr 04/06/18 04/06/18 04/06/18 18:50 18:50 18:50 WBC 11.4 H RBC 3.26 L Hgb 7.2 L Hct 24.5 L MCV 75.2 L MCH 22.1 L MCHC 29.4 L RDW 24.5 H Plt Count 302 MPV 8.6 Absolute Neuts (auto) 9.1 Neutrophils % 80.5 Lymphocytes % 14.6 Monocytes % 4.2 Eosinophils % 0.5 Basophils % 0.2 Hypochromia 2+ Polychromasia 1+ Basophilic Stippling Occasional Anisocytosis 2+ Microcytosis 1+ Macrocytosis 1+ Tear Drop Cells 1+ Ovalocytes 1+ Stomatocytes 2+ PT with INR 14.1 H INR 1.27 H PTT (Actin FS) 27.6 Sodium 137 Potassium 4.0 Chloride 104 Carbon Dioxide 24 Anion Gap 9 BUN 23 H Creatinine 1.1 Creat Clearance w eGFR > 60 Random Glucose 160 H Calcium 9.1 Total Bilirubin 0.6 AST 16 ALT 19 Alkaline Phosphatase 52 Troponin I Total Protein 7.3 Albumin 4.2 Crossmatch 04/06/18 04/06/18 18:50 18:50 WBC RBC Hgb Hct MCV MCH MCHC RDW Plt Count MPV Absolute Neuts (auto) Neutrophils % Lymphocytes % Monocytes % Eosinophils % Basophils % Hypochromia Polychromasia Basophilic Stippling Anisocytosis Microcytosis Macrocytosis Tear Drop Cells Ovalocytes Stomatocytes PT with INR INR PTT (Actin FS) Sodium Potassium Chloride Carbon Dioxide Anion Gap BUN Creatinine Creat Clearance w eGFR Random Glucose Calcium Total Bilirubin AST ALT Alkaline Phosphatase Troponin I < 0.03 Total Protein Albumin Crossmatch See Detail ekg reviewed cxr- reviewed ASSESSMENT/PLAN: #58yo man with symptomatic anemia likely secondary to bleeding from HHT. Possibly may be from cocaine as well as pt used cocaine last xmas. -transfuse one unit prbc -repeat cbc in am -avoid ASA and heparin -monitor for signs of bleeding -cocaine cessation #COPD -counseled on smoking cessation -consider nicotine patch -duonebs prn ordered #HTN -c/w hydralazine, lisinopril, and amlodipine #DM -sliding scale -diabetic diet -statin #dvt ppx -scd's Visit type - Emergency Visit Emergency Visit: Yes ED Registration Date: 04/06/18 Care time: The patient presented to the Emergency Department on the above date and was hospitalized for further evaluation of their emergent condition. - New Patient This patient is new to me today: Yes Date on this admission: 04/07/18 - Critical Care Critical Care patient: No
[2018-04-06] MEDS ORDERED: ALBUTEROL SO4 2.5/IPRATROPIUM 0.5 INH SOL 3 ML VIAL.NEB. NEB PRN ×2 (21:24→23:35)
[2018-04-06] MEDS ORDERED: HEPARIN NA (PORCINE) 5,000 UNITS/ML 1ML VIAL SQ SCH (22:00)
[2018-04-06 22:26] VITALS: BMI 34.9
[2018-04-06] MEDS ORDERED: oxyCODONE HCL 5 MG TABLET PO PRN (23:28)
[2018-04-06] MEDS: hydrALAZINE HCL 10 MG TABLET PO SCH (23:49)
[2018-04-07] MEDS: hydrALAZINE HCL 10 MG TABLET PO SCH (06:23)
[2018-04-07] MEDS ORDERED: INSULIN SLIDING SCALE (NOVOLOG) 1 VIAL SQ SCH (07:00)
[2018-04-07 09:34] LABS: ANION GAP 8 MMOL/L (8-16); BLOOD UREA NITROGEN 26 mg/dl (7-18); CALCIUM 8.9 mg/dl (8.4-10.2); CHLORIDE 105 mmol/L (98-107); CO2 25 mmol/L (22-28); CREATININE 1.1 mg/dl (0.6-1.3); GLUCOSE,RANDOM 142 mg/dl (74-106); POTASSIUM 4.2 mmol/L (3.5-5.1); SODIUM 138 mmol/L (136-145)
[2018-04-07] MEDS ORDERED: predniSONE 20 MG TABLET (UD) PO SCH (10:00)
[2018-04-07] MEDS ORDERED: FERROUS SO4 325 MG TABLET (FP) PO SCH (10:00)
[2018-04-07] MEDS ORDERED: amLODIPine BESYLATE 10 MG TABLET (FP) PO SCH (10:00)
[2018-04-07] MEDS ORDERED: LISINOPRIL 20 MG TABLET (FP) PO SCH (10:00)
[2018-04-07 10:04] LABS: HEMATOCRIT 25.1 % (35.4-49); HEMOGLOBIN 7.5 GM/dl (11.7-16.9); MCH 23.2 pg (25.7-33.7); MCHC 29.8 g/dl (32.0-35.9); MEAN CELL VOLUME 77.9 fl (80-96); MEAN PLT VOLUME 8.4 fl (7.5-11.1); PLATELET COUNT 269 K/MM3 (134-434); RBC 3.22 M/mm3 (4.00-5.60); RDW 24.8 % (11.9-15.9); WHITE BLOOD COUNT 9.7 K/mm3 (4.0-10.8)
--- NOTE | 2018-04-07 11:31 | DS ---
Physical Examination Vital Signs: Vital Signs Temperature 98.2 F 04/07/18 06:00 Pulse Rate 79 04/07/18 06:00 Respiratory Rate 19 04/07/18 06:00 Blood Pressure 128/64 04/07/18 06:00 O2 Sat by Pulse Oximetry (%) 93 L 04/07/18 06:45 Findings/Remarks: Declined exam Labs: CBC, BMP 04/07/18 07:00 04/07/18 07:00 Discharge Summary Reason For Visit: SHORTNESS OF BREATH ANEMIA, UNSPECIFIED Current Active Problems Anemia (Acute) COPD exacerbation (Acute) Hospital Course: This is a 58 year old male with PMHx of COPD, HTN, DM, hereditary hemorrhagic telangiectasia, spinal stenosis, recurrent epistaxis, who presented to the ED with lightheadedness, shortness of breath, and epistaxis for 2-3 days. The patient reports in the past he has required transfusions about once a year, however since December he has already had 4. He states he hasn't seen Dr. Vale (rider ticket worker) in 3 years. He reports after receiving 1u PRBC overnight he no longer has shortness of breath, lightheadedness, dizziness, epistaxis. He states his last nose bleed was prior to arriving in the ED. After 1u PRBC his Hgb increased from 7.2 to 7.5. Given inappropriate increase in Hgb, hemolysis labs were ordered. However, patient has requested to sign out against medical advice. The patient has the capacity to make his own decisions. He is aware the plan is to receive another unit of PRBC as ordered yesterday and to have a rider ticket worker evaluate him as well. All risks of leaving against medical advice discussed with patient including, but not limited to, further decrease in hemoglobin causing worsening dizziness/lightheadedness that can result in a fall which can be potentially deadly. All questions answered fully. The patient is requesting to sign out against medical advice. Dr. Montano's office information provided to the patient. Condition: Fair - Instructions Diet, Activity, Other Instructions: Please return to the emergency department with any new, persistent, or worsening symptoms. Please call Dr. Montano's office tomorrow to schedule an appointment to be seen within 2-3 days. As discussed, you are leaving against medical advice. If you have any shortness or breath, dizziness, chest pain, bleeding, dark or bloody stools, nose bleeds, syncope, headache, return to your nearest emergency department immediately. Referrals: Bryson Carrillo [Primary Care Provider] - Tera Montano MD [Staff Physician] - Disposition: AGAINST MEDICAL ADVICE - Home Medications Comprehensive Discharge Medication List: Ambulatory Orders Albuterol Sulfate Inhaler - [Ventolin HFA Inhaler -] 1 - 2 inh PO QID 09/19/13 Amlodipine Besylate [Norvasc -] 10 mg PO DAILY 09/19/13 Lisinopril [Prinivil -] 40 mg PO DAILY 09/19/13 Glipizide [Glucotrol -] 5 mg PO DAILY PRN 07/21/14 Omeprazole [Prilosec (RX)] 40 mg PO DAILY PRN 07/21/14 hydrALAZINE HCL [Apresoline -] 30 mg PO TID 05/23/17 predniSONE [Deltasone -] 7.5 mg PO DAILY 05/23/17 Albuterol 2.5/Ipratropium 0.5 [Duoneb -] 1 amp NEB TID PRN 11/12/17 Atorvastatin Ca [Lipitor] 10 mg PO DAILY 11/12/17 Acetaminophen [Tylenol] 975 mg PO TID PRN 04/06/18 Dulera 200 Mcg/5 Mcg Inhaler 2 puff PO BID 04/06/18 oxyCODONE HCL [Roxicodone -] 2.5 mg PO PRN MDD 5mg 04/06/18 This patient is new to me today: Yes Date on this admission: 04/07/18 Emergency Visit: Yes ED Registration Date: 04/06/18 Care time: The patient presented to the Emergency Department on the above date and was hospitalized for further evaluation of their emergent condition. Critical Care patient: No - Discharge Referral Referred to [facility] Med P.C.: No
[2018-04-07 12:29] LABS: METHADONE, UR NEGATIVE ng/ml (CUTOFF=300); OPIATES, URI NEGATIVE ng/ml (CUTOFF=300); PHENCYCLIDINE,URINE NEGATIVE ng/ml (CUTOFF=25); URINE AMPHETAMINES NEGATIVE ng/ml (CUTOFF=500); URINE BARBITURATES NEGATIVE ng/ml (CUTOFF=200); URINE BENZODIAZEPINES NEGATIVE ng/ml (CUTOFF=200)
[2018-04-07 12:31] LABS: COCAINE, UR POSITIVE ng/ml (CUTOFF=300)
[2018-04-07 12:37] VITALS: BP 130/74; PULSE 82; TEMP 98
[2018-04-07 18:51] LABS: BILIRUBIN,TOTAL 0.7 mg/dl (0.2-1.0)
[2018-04-07] MEDS ORDERED: ATORVASTATIN CA 10 MG TABLET (FP) PO SCH (22:00)
--- NOTE | 2018-04-08 09:55 | EKG ---
Test Reason : Blood Pressure : / mmHG Vent. Rate : 083 BPM Atrial Rate : 083 BPM P-R Int : 168 ms QRS Dur : 076 ms QT Int : 364 ms P-R-T Axes : 034 018 026 degrees QTc Int : 427 ms SINUS RHYTHM WITH PREMATURE ATRIAL COMPLEXES NONSPECIFIC ST ABNORMALITY ABNORMAL ECG WHEN COMPARED WITH ECG OF 26-MAR-2018 11:30, PREMATURE ATRIAL COMPLEXES ARE NOW PRESENT Confirmed by NOELLE CANDELARIO, CHARLEY ([id number]) on 04/08/2018 9:55:22 AM Referred By: Confirmed By:CHARLEY DRAKE MD
== END 2018-04-07 12:45 | disposition left against medical advice (07) ==
LOC: FER 18:15 → FM/S 19:45
PROVIDERS: ADMIT Internal Medicine; ATTEND Registered Nurse
PROC: 3E013VG Introduction of Insulin into Subcutaneous Tissue, Percutaneous Approach (ICD-10-PCS; principal; 2018-04-06)
PROC: 3E0F7GC Introduction of Other Therapeutic Substance into Respiratory Tract, Via Natural or Artificial Opening (ICD-10-PCS; 2018-04-06)
DX: J44.1 Chronic obstructive pulmonary disease with (acute) exacerbation (principal); I10 Essential (primary) hypertension; D50.9 Iron deficiency anemia, unspecified; E11.9 Type 2 diabetes mellitus without complications; I78.0 Hereditary hemorrhagic telangiectasia; M48.00 Spinal stenosis, site unspecified; Z87.09 Personal history of other diseases of the respiratory system; F17.210 Nicotine dependence, cigarettes, uncomplicated; Z79.84 Long term (current) use of oral hypoglycemic drugs
CPT/HCPCS: 36415; 36430; 71046-TC-FY; 80048; 80053; 80307; 82247; 82962; 83615; 84484; 85025; 85027; 85044; 85610; 85730; 86850; 86900; 86901; 86922; 93005; 94640; 99285-25; G0378; P9038; P9058

== ENCOUNTER 2018-04-10 15:52 | Emergency (ER) | payer OTHER ==
[2018-04-10 16:03] VITALS: BP 129/47; PULSE 90; TEMP 98.4; BMI 35.7
--- NOTE | 2018-04-10 17:30 | PDOC ---
Attending Attestation - Resident Resident Name: SydneeVielka - ED Attending Attestation I have performed the following: I have examined & evaluated the patient, The case was reviewed & discussed with the resident, I agree w/resident's findings & plan, Exceptions are as noted - HPI HPI: 04/10/18 17:29 58yo M hx COPD, DM, HTN, Hereditary Hemorrhagic Telangiectasia (HHT), spinal stenosis, and frequent epistaxis presents to the ED for blood transfusion Pt was admitted here for the same over the weekend, was due to get 2 units but left after the first unit. Per notes, he had an inadequate bump in his hgb after the 1st unit. Since leaving AMA, pt reports SOB but states he often feels SOB 2/2 to his COPD. Denies generalized weakness or fatigue. Pt saw Dr. Vale (airbrush artist technical) yesterday, was called today cause hgb 7.0 and advised to go to the hospital for admission. Denies fevers, cp, chills, abd pain, n/v/d, LE edema, focal weakness or numbness - Physicial Exam PE: 04/10/18 17:38 GENERAL: Awake, alert, and fully oriented, in no acute distress HEAD: No signs of trauma EYES: PERRLA, EOMI, sclera anicteric, conjunctiva clear ENT: Auricles normal inspection, hearing grossly normal, nares patent, oropharynx clear without exudates. Moist mucosa NECK: Normal ROM, supple, no lymphadenopathy, JVD, or masses LUNGS: No increased WOB, diffuse wheezingno crackles HEART: Regular rate and rhythm, normal S1 and S2, no murmurs, rubs or gallops ABDOMEN: Soft, nontender, normoactive bowel sounds. No guarding, no rebound. No masses EXTREMITIES: Normal range of motion, no edema. No clubbing or cyanosis. No cords, erythema, or tenderness NEUROLOGICAL: Normal speech, cranial nerves intact, negative pronator drift, 5/ 5 strength in all 4 extremities, normal sensation to light touch in all 4 extremities, normal cerebellar exam, normal gait, normal reflexes and tone SKIN: Warm, Dry, normal turgor, no rashes or lesions noted. - Medical Decision Making 04/10/18 17:38 58yo M with MMP including Hereditary Hemorrhagic Telangiectasia (HHT) c/b frequent epistaxis presents to the ED with anemia to 7.0 on outpt labs yesterday. Vitals wnl, exam with wheezing but no overt signs of anemia. SOB likely 2/2 COPD in setting of wheezing. Plan to check labs, and give duoneb for COPD, and reassess. 04/10/18 18:14 Labs with hgb 7.9 which is improved from last admission SOB improved after neb, minimal wheezing on re-evaluation No evidence of symptomatic anemia and in light of increased hgb to 7.9 compared to recent admission, no need for urgent transfusion Pt to speak with his airbrush artist technical tomorrow for f/u within 1-2 days
[2018-04-10] MEDS ORDERED: ALBUTEROL SO4 2.5/IPRATROPIUM 0.5 INH SOL 3 ML VIAL.NEB. NEB ONE ×2 (17:35→18:09)
--- NOTE | 2018-04-10 17:36 | PDOC ---
History of Present Illness - General Chief Complaint: Nasal Bleeding Stated Complaint: H/O ANEMIA HAD MULTIPLE NOSE BLEEDS TODAY Time Seen by Provider: 04/10/18 16:46 - History of Present Illness Initial Comments: Dean Johns is a 58yo man with a PMH of COPD, DM, HTN, spinal stenosis, and hereditary hemorrhagic telangiectasia (HHT) with frequent epistaxis, recently admitted on 04/06/18 with anemia requiring a transfusions (left AMA) who presents with worsening SOB, fatigue, and reporting a hgb of 7.0 on CBC completed yesterday. He states that he has needed transfusions throughout his life, but he has been needing them more frequently over the past few months. He says that he had 2u RBCs on haley and was also admitted last weekend for a transfusion. He reports that he was told he was not going to get a second unit of blood transfused, though per chart review the second unit was planned. He was also to get a hematology consult, but he left AMA. He reports that he went to see a banking analyst yesterday, and he was called today with the report that his hgb was 7.0. He was scheduled for a transfusion at [facility] for tomorrow morning as well as an iron transfusion on Sunday. However, he canceled that appointment and presented to the ED because he did not feel he would be able to walk from the parking lot into the building at [facility]. He reports that his symptoms are unchanged throughout this week. He has had 4x epistaxis, but the episodes have been minor and stopped after a few minutes. He does not feel that he lost a significant amount of blood. Past History - Past Medical History Allergies/Adverse Reactions: Allergies Allergy/AdvReac Type Severity Reaction Status Date / Time No Known Allergies Allergy Verified 04/06/18 18:33 Home Medications: Ambulatory Orders Albuterol Sulfate Inhaler - [Ventolin HFA Inhaler -] 1 - 2 inh PO QID 09/19/13 Amlodipine Besylate [Norvasc -] 10 mg PO DAILY 09/19/13 Lisinopril [Prinivil -] 40 mg PO DAILY 09/19/13 Glipizide [Glucotrol -] 5 mg PO DAILY PRN 07/21/14 Omeprazole [Prilosec (RX)] 40 mg PO DAILY PRN 07/21/14 hydrALAZINE HCL [Apresoline -] 30 mg PO TID 05/23/17 predniSONE [Deltasone -] 7.5 mg PO DAILY 05/23/17 Albuterol 2.5/Ipratropium 0.5 [Duoneb -] 1 amp NEB TID PRN 11/12/17 Atorvastatin Ca [Lipitor] 10 mg PO DAILY 11/12/17 Acetaminophen [Tylenol] 975 mg PO TID PRN 04/06/18 Dulera 200 Mcg/5 Mcg Inhaler 2 puff PO BID 04/06/18 oxyCODONE HCL [Roxicodone -] 2.5 mg PO PRN MDD 5mg 04/06/18 Anemia: Yes (IRON DEFIC. ANEMIA, HX HEREDITARY HEMORR TALLENGECTESIA) Asthma: No Cancer: No CVA: No COPD: Yes CHF: No Dementia: No Diabetes: Yes (NIDDM) GI Disorders: No Disorders: No HTN: Yes Hypercholesterolemia: No Liver Disease: No Seizures: No Thyroid Disease: No Other medical history: SPINAL STENOSIS - Surgical History Appendectomy: Yes (x2) Cardiac Surgery: No Cholecystectomy: No Lung Surgery: No Neurologic Surgery: No Orthopedic Surgery: No - Immunization History Immunization Up to Date: Yes - Suicide/Smoking/Psychosocial Hx Smoking History: Current every day smoker Have you smoked in the past 12 months: Yes Number of Cigarettes Smoked Daily: 20 Information on smoking cessation initiated: Yes 'Breaking Loose' booklet given: 03/25/18 Hx Alcohol Use: No Drug/Substance Use Hx: Yes (COCAINE OCCASSIONALLY) Substance Use Type: Cocaine Hx Substance Use Treatment: No Review of Systems - Review of Systems Comments:: General: No fevers, no chills, no weight or appetite change, no malaise. + fatigue HEENT: No changes in vision, no changes in hearing, no congestion, no sore throat CV: No chest pain, no palpitations, no LE edema Pulm: +SOB, +wheezing, +COPD GI: No nausea or vomiting, no change in bowel habits, no melena : No frequency, no urgency, no dysuria Musc: No back pain, no joint swelling, no recent injury Skin: No rash, no lesions, no erythema Endo: No excessive thirst, no heat/cold intolerance Heme: +h/o HHT, frequent bleeding Neuro: No syncope, no numbness/tingling, no focal weakness Vasc: No claudication Psych: No recent change in mood, no SI or HI *Physical Exam - Vital Signs Last Vital Signs Temp Pulse Resp BP Pulse Ox 98.4 F 90 24 H 129/47 L 96 04/10/18 15:54 04/10/18 15:54 04/10/18 15:54 04/10/18 15:54 04/10/18 15:54 - Physical Exam Comments: General: Comfortable, no acute distress HEENT: PERRL, EOMI, MMM, voice normal, normal neck ROM, no LAD. No active epistaxis. Cards: RRR, no murmur appreciated Pulm: Mildly tachypnic, diffuse wheezing b/l, productive cough observed Abd: Soft, nontender, nondistended Ext: Atraumatic. No LE edema. ROM intact. Strength 5/5 and equal bilaterally Vasc: Extremities WWP. Skin: Normal color, no rashes or lesions Neuro: A&Ox3, CN grossly intact, normal speech, motor/sensory grossly intact and symmetric Psych: Mood appropriate to situation Moderate Sedation - Procedure Monitoring Vital Signs: Procedure Monitoring Vital Signs Temperature 98.4 F 04/10/18 15:54 Pulse Rate 90 04/10/18 15:54 Respiratory Rate 24 H 04/10/18 15:54 Blood Pressure 129/47 L 04/10/18 15:54 O2 Sat by Pulse Oximetry (%) 96 04/10/18 15:54 ED Treatment Course - LABORATORY CBC & Chemistry Diagram: 04/10/18 17:10 04/10/18 17:22 - RADIOLOGY Radiology Studies Ordered: Category Date Time Status CHEST PA & LAT [RAD] Stat Radiology 04/10/18 17:35 Ordered Medical Decision Making - Medical Decision Making 04/10/18 17:36 Dean Johns is a 58yo man with a PMH of COPD, DM, HTN, spinal stenosis, and hereditary hemorrhagic telangiectasia (HHT) with frequent epistaxis, recently admitted on 04/06/18 with anemia requiring a transfusions (left AMA) who presents with worsening SOB, fatigue, and reporting a hgb of 7.0 on CBC completed yesterday. - Symptoms are most likely due to known HHT and transfusion. May also be due to known COPD and continued smoking, especially as he has wheezing on exam. - CBC, CMP, coags, type and screen - CXR and duoneb for wheezing and SOB - Will most likely need transfusion 04/10/18 18:55 - Hgb 7.9. Labs otherwise w/o concerning abnormalities - No need for transfusion at this time given chronic anemia - SOB significantly improved after duoneb, states that he feels much better and is ready to go home - Plan to d/c home. Pt reports that he had a transfusion scheduled at [facility] this week, but had canceled it in favor of coming to the ED. He will call his banking analyst to see if he can reschedule. He also states that he will follow up with his network coordinator for his COPD. Discussed with Dr Kelsey. Vielka Randhawa PGY1 *DC/Admit/Observation/Transfer Diagnosis at time of Disposition: Shortness of breath - Discharge Dispostion Disposition: HOME Condition at time of disposition: Stable Decision to Admit order: No - Referrals Referrals: Sylvester Bang MD [Staff Physician] - - Patient Instructions Printed Discharge Instructions: DI for Chronic Obstructive Pulmonary Disease Additional Instructions: Discharge Instructions: - You were seen in the ER for shortness of breath which is likely due to your COPD - You had blood tests showing a hemoglobin level of 7.9. This is higher than when you recently left the hospital, and you do not need a transfusion at this time. - Your shortness of breath improved after a breathing treatment. Continue to use your home nebulizer treatments as needed for your shortness of breath. - You should follow up with your network coordinator, Dr Bang, within the next week for evaluation of your COPD. You may need medication adjustment. - It is strongly recommended that you stop smoking as this will worsen your shortness of breath - Follow up with your banking analyst to reschedule your appointment or transfusion if needed. You should give him a call within the next 1-2 days. - If you have severe bleeding (such as nosebleed that does not stop), severe shortness of breath, or any medical emergency, seek immediate medical care. - Post Discharge Activity
[2018-04-10 17:38] LABS: BASO % 0.6 % (0-2.0); EOS % 0.7 % (0-4.5); HEMATOCRIT 25.4 % (35.4-49); HEMOGLOBIN 7.9 GM/dl (11.7-16.9); LYMPH % 13.4 % (8-40); MCH 23.8 pg (25.7-33.7); MEAN CELL VOLUME 76.8 fl (80-96); MEAN PLT VOLUME 8.1 fl (7.5-11.1); NEUT % 79.3 % (42.8-82.8); PLATELET COUNT 421 K/MM3 (134-434); RBC 3.31 M/mm3 (4.00-5.60); RDW 23.9 % (11.9-15.9); WHITE BLOOD COUNT 12.1 K/mm3 (4.0-10.8)
[2018-04-10 17:39] LABS: ADD RBC MORPHOLOGY YES
[2018-04-10 17:47] LABS: ALBUMIN 4.1 g/dl (3.5-5.0); ALK PHOS 45 U/L (32-92); ANION GAP 4 MMOL/L (8-16); BILIRUBIN,TOTAL 0.4 mg/dl (0.2-1.0); BLOOD UREA NITROGEN 24 mg/dl (7-18); CALCIUM 9.4 mg/dl (8.4-10.2); CHLORIDE 106 mmol/L (98-107); CO2 26 mmol/L (22-28); GLUCOSE,RANDOM 123 mg/dl (74-106); POTASSIUM 4.1 mmol/L (3.5-5.1); SGOT/AST 17 U/L (10-42); SGPT/ALT 16 U/L (10-40); SODIUM 136 mmol/L (136-145); TOT PROT 7.3 g/dl (6.4-8.3)
[2018-04-10 17:49] LABS: INR 1.21 (0.82-1.09); PROTHROMBIN TIME (PATIENT) 13.5 SEC (10.2-13.0)
[2018-04-10 20:50] LABS: ANISOCYTOSIS 3+; PLATELET ESTIMATE SLT INCREASE
== END 2018-04-10 19:14 | disposition home or self-care (01) ==
LOC: FER 15:52
PROC: 3E0F7GC Introduction of Other Therapeutic Substance into Respiratory Tract, Via Natural or Artificial Opening (ICD-10-PCS; principal; 2018-04-10)
DX: R06.02 Shortness of breath (principal); J44.9 Chronic obstructive pulmonary disease, unspecified; E11.9 Type 2 diabetes mellitus without complications; I10 Essential (primary) hypertension; I78.0 Hereditary hemorrhagic telangiectasia
CPT/HCPCS: 36415; 80053; 85025; 85610; 85730; 86850; 86900; 86901; 99282-25

== ENCOUNTER 2018-04-19 15:59 | Inpatient (IN) | payer OTHER ==
[2018-04-19] MEDS ORDERED: methylPREDNISolone NA SUCC 125 MG/2 ML VIAL IVPB ONE (16:22)
[2018-04-19] MEDS ORDERED: ALBUTEROL SO4 2.5/IPRATROPIUM 0.5 INH SOL 3 ML VIAL.NEB. NEB ONE ×4 (16:28→19:24)
[2018-04-19] MEDS ORDERED: methylPREDNISolone NA SUCC 125 MG/2 ML VIAL ONE (16:28)
[2018-04-19] MEDS: ALBUTEROL SO4 2.5/IPRATROPIUM 0.5 INH SOL 3 ML VIAL.NEB. NEB SCH ×3 (16:39→17:24)
--- NOTE | 2018-04-19 16:54 | PDOC ---
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 Patient states that this feels like one of his COPD attacks. He notes that he has been having difficulty breathing since this morning and took his symbicort and more than his usual dose of prednisone with no relief. He states that his nebulizer broke, and he has been unable to use it. Denies chest pain. He denies any recent fevers, chills, headache or dizziness. He denies any recent nausea, vomit, diarrhea or constipation. He denies any recent chest pain.. He denies any recent dysuria, frequency, urgency or hematuria. Superintendent Greens: Dr. Vale [facility] Hx: appendectomy Social history: ppd smoker. 40 year hx. h/o cocaine use. <Dirk Romero - Last Filed: 04/25/18 15:29> - General Chief Complaint: Shortness of Breath Stated Complaint: sob Time Seen by Provider: 04/19/18 16:02 Past History <Peyton Pack - Last Filed: 04/19/18 19:32> - Past Medical History Anemia: Yes (IRON DEFIC. ANEMIA, HX HEREDITARY HEMORR TALLENGECTESIA) Asthma: No Cancer: No CVA: No COPD: Yes CHF: No Dementia: No Diabetes: Yes (NIDDM) GI Disorders: No Disorders: No HTN: Yes Hypercholesterolemia: No Liver Disease: No Seizures: No Thyroid Disease: No - Surgical History Appendectomy: Yes (x2) Cardiac Surgery: No Cholecystectomy: No Lung Surgery: No Neurologic Surgery: No Orthopedic Surgery: No - Immunization History Immunization Up to Date: Yes - Suicide/Smoking/Psychosocial Hx Smoking History: Unknown if ever smoked Have you smoked in the past 12 months: Yes Number of Cigarettes Smoked Daily: 20 'Breaking Loose' booklet given: 03/25/18 Hx Alcohol Use: No Drug/Substance Use Hx: No Substance Use Type: Cocaine Hx Substance Use Treatment: No <Dirk Romero - Last Filed: 04/25/18 15:29> - Past Medical History Allergies/Adverse Reactions: Allergies Allergy/AdvReac Type Severity Reaction Status Date / Time No Known Allergies Allergy Verified 04/19/18 15:59 Home Medications: Ambulatory Orders Albuterol Sulfate Inhaler - [Ventolin HFA Inhaler -] 1 - 2 inh PO QID 09/19/13 Amlodipine Besylate [Norvasc -] 10 mg PO DAILY 09/19/13 Lisinopril [Prinivil -] 40 mg PO DAILY 09/19/13 Glipizide [Glucotrol -] 5 mg PO DAILY PRN 07/21/14 Omeprazole [Prilosec (RX)] 40 mg PO DAILY PRN 07/21/14 hydrALAZINE HCL [Apresoline -] 30 mg PO DAILY 05/23/17 Atorvastatin Ca [Lipitor] 10 mg PO DAILY 11/12/17 oxyCODONE HCL [Roxicodone -] 2.5 mg PO PRN PRN MDD 5mg 04/06/18 Budesonide/Formeterol Fumarate [SYMBICORT 160/4.5mcg -] 2 inh PO BID 04/19/18 Budesonide/Formeterol Fumarate [SYMBICORT 160/4.5mcg -] 1 inh PO DAILY #1 cannister 04/20/18 Fluticasone Propionate [24 Hour Allergy Relief] 9.9 ml IH BID PRN #1 bottle Levofloxacin [Levaquin] 750 mg PO DAILY #10 tablet 04/20/18 Prednisone 10 mg PO ASDIR #1 tab.ds.pk 04/20/18 Review of Systems - Review of Systems Comments:: 04/19/18 16:50 GENERAL/CONSTITUTIONAL: No fever or chills. No weakness. HEAD, EYES, EARS, NOSE AND THROAT: No change in vision. No ear pain or discharge. No sore throat. CARDIOVASCULAR: No chest pain, + shortness of breath, no loss of consciousness RESPIRATORY: +cough, no wheezing, or hemoptysis. GASTROINTESTINAL: No nausea, vomiting, diarrhea or constipation. GENITOURINARY: No dysuria, frequency, or change in urination. MUSCULOSKELETAL: No joint or muscle swelling or pain. No neck or back pain. SKIN: No rash NEUROLOGIC: No vertigo, no change in strength/sensation. ENDOCRINE: No increased thirst. No abnormal weight change. HEMATOLOGIC/LYMPHATIC: + h/o anemia, no easy bleeding, or history of blood clots. ALLERGIC/IMMUNOLOGIC: No hives or skin allergy. <Dirk Romero - Last Filed: 04/25/18 15:29> *Physical Exam - Vital Signs Last Vital Signs Temp Pulse Resp BP Pulse Ox 100.2 F H 94 H 20 149/66 90 L 04/19/18 19:02 04/19/18 19:02 04/19/18 19:02 04/19/18 19:02 04/19/18 19:02 <Peyton Pack - Last Filed: 04/19/18 19:32> - Vital Signs Last Vital Signs Temp Pulse Resp BP Pulse Ox 99.3 F 89 22 H 155/53 L 93 L 04/19/18 15:59 04/19/18 15:59 04/19/18 15:59 04/19/18 15:59 04/19/18 15:59 - Physical Exam Comments: 04/19/18 16:51 GENERAL: Awake, alert, and fully oriented, in no acute distress. HEAD: No signs of trauma EYES: PERRLA, EOMI, sclera anicteric, conjunctiva clear ENT: Auricles normal inspection, hearing grossly normal, nares patent, oropharynx clear without exudates. Moist mucosa NECK: Nontender, no stepoffs, Normal ROM, supple, no lymphadenopathy, JVD, or masses LUNGS: Dyspneic. Tachypneic. + expiratory wheezing HEART: Regular rate and rhythm, normal S1 and S2, no murmurs, rubs or gallops ABDOMEN: Soft, nontender, normoactive bowel sounds. No guarding, no rebound. No masses EXTREMITIES: Normal range of motion, no edema. No clubbing or cyanosis. No cords, erythema, or tenderness NEUROLOGICAL: Cranial nerves II through XII intact. 5/5 strength and sensation in all extremities, Normal speech, normal gait, normal cerebellar function SKIN: Warm, Dry, normal turgor, no rashes or lesions noted. <Dirk Romero - Last Filed: 04/25/18 15:29> Moderate Sedation - Procedure Monitoring Vital Signs: Procedure Monitoring Vital Signs Temperature 100.2 F H 04/19/18 19:02 Pulse Rate 94 H 04/19/18 19:02 Respiratory Rate 20 01/25/19 19:02 Blood Pressure 149/66 04/19/18 19:02 O2 Sat by Pulse Oximetry (%) 90 L 04/19/18 19:02 <Peyton Pack - Last Filed: 04/19/18 19:32> - Procedure Monitoring Vital Signs: Procedure Monitoring Vital Signs Temperature 99.3 F 04/19/18 15:59 Pulse Rate 89 04/19/18 15:59 Respiratory Rate 22 H 04/19/18 15:59 Blood Pressure 155/53 L 04/19/18 15:59 O2 Sat by Pulse Oximetry (%) 93 L 04/19/18 15:59 <NickDirk - Last Filed: 04/25/18 15:29> ED Treatment Course - LABORATORY CBC & Chemistry Diagram: 04/19/18 16:40 04/19/18 16:40 - ADDITIONAL ORDERS Additional order review: Laboratory Results 04/19/18 04/19/18 04/19/18 16:40 16:40 16:40 VBG pH 7.31 L POC VBG pCO2 50.4 POC VBG pO2 42.0 Mixed VBG HCO3 24.7 Sodium 137 Potassium 4.8 Chloride 105 Carbon Dioxide 24 Anion Gap 8 BUN 31 H Creatinine 1.2 Creat Clearance w eGFR > 60 Random Glucose 98 Calcium 9.4 Total Bilirubin 0.6 AST 16 ALT 18 Alkaline Phosphatase 46 Creatine Kinase 57 Troponin I < 0.03 Total Protein 7.9 Albumin 4.6 04/19/18 16:40 RBC 3.59 L MCV 76.1 L MCHC 29.5 L RDW 22.5 H MPV 8.3 Neutrophils % No Result Required. Lymphocytes % No Result Required. - Medications Given in the ED: ED Medications Discontinued Medications Generic Name Dose Route Start Last Admin Trade Name Freq PRN Reason Stop Dose Admin Albuterol/Ipratropium 1 amp 04/19/18 16:30 04/19/18 17:24 Duoneb - NEB 04/19/18 17:16 1 amp Q15M TRELL Administration Albuterol/Ipratropium 1 amp 04/19/18 18:19 04/19/18 18:25 Duoneb - NEB 04/19/18 18:20 1 amp ONCE ONE Administration Azithromycin 500 mg 04/19/18 18:18 04/19/18 18:20 Zithromax - PO 04/19/18 18:19 500 mg ONCE ONE Administration Methylprednisolone Sodium Succinate 125 mg 04/19/18 16:22 04/19/18 16:39 Solu-Medrol - IVPB 04/19/18 16:23 125 mg ONCE ONE Administration Oseltamivir Phosphate 75 mg 04/19/18 18:02 04/19/18 18:20 Tamiflu - PO 04/19/18 18:03 75 mg ONCE ONE Administration <Peyton Pack - Last Filed: 04/19/18 19:32> - LABORATORY CBC & Chemistry Diagram: 04/20/18 07:40 04/20/18 07:40 - RADIOLOGY Radiology Studies Ordered: Category Date Time Status CHEST X-RAY PORTABLE* [RAD] Stat Radiology 04/19/18 16:21 Ordered - Medications Given in the ED: ED Medications Discontinued Medications Generic Name Dose Route Start Last Admin Trade Name Freq PRN Reason Stop Dose Admin Methylprednisolone Sodium Succinate 125 mg 04/19/18 16:22 04/19/18 16:39 Solu-Medrol - IVPB 04/19/18 16:23 125 mg ONCE ONE Administration <Dirk Romero - Last Filed: 04/25/18 15:29> Medical Decision Making - Medical Decision Making Patient has recently been assigned a new doctor from [facility] that he has yet to see, but would like to change to one of [place] [facility] [place] 04/19/18 19:33 <Peyton Pack - Last Filed: 04/19/18 19:32> - Medical Decision Making 04/19/18 16:51 58 M with SOB and cough, wheezing on exam. Likely COPD exacerbation. Pt has h/o PNA, will obtain CXR. - Labs - CXR - Nebs, steroids - Azithro 04/19/18 18:24 Pt flu + Labs otherwise unremarkable CXR clear on my read 04/19/18 18:44 Lab called to report they mistakenly reported a positive flu swab. Pt is flu NEGATIVE Pt signed out to Dr. Bansal at 7pm pending re-evaluation after additional duonebs <Dirk Romero - Last Filed: 04/25/18 15:29> *DC/Admit/Observation/Transfer - Attestations Scribe Attestion: 04/19/18 19:05 Documentation prepared by Peyton Pack, acting as medical staff specialist for Dirk Romero MD. <Peyton Pack - Last Filed: 04/19/18 19:32> - Attestations Physician Attestion: 04/19/18 18:49 I, Dr. Dirk Romero MD, attest that this document has been prepared under my direction and personally reviewed by me in its entirety. I further attest, that it accurately reflects all work, treatment, procedures and medical decision -making performed by me. <Dirk Romero - Last Filed: 04/25/18 15:29> Diagnosis at time of Disposition: COPD exacerbation, Anemia - Discharge Dispostion Disposition: HOME Condition at time of disposition: Stable
[2018-04-19 17:11] LABS: ALBUMIN 4.6 g/dl (3.4-5.0); ALK PHOS 46 U/L (45-117); ANION GAP 8 MMOL/L (8-16); BILIRUBIN,TOTAL 0.6 mg/dl (0.2-1); BLOOD UREA NITROGEN 31 mg/dl (7-18); CALCIUM 9.4 mg/dl (8.5-10); CHLORIDE 105 mmol/L (98-107); CO2 24 mmol/L (21-32); CREATININE 1.2 mg/dl (0.55-1.3); GLUCOSE,RANDOM 98 mg/dl (74-106); POTASSIUM 4.8 mmol/L (3.5-5.1); SGOT/AST 16 U/L (15-37); SGPT/ALT 18 U/L (13-61); SODIUM 137 mmol/L (136-145); TOT PROT 7.9 g/dl (6.4-8.2)
[2018-04-19 17:40] LABS: VENOUS PC02 50.4 mmHg (38-52); VENOUS PH 7.31 (7.32-7.42)
[2018-04-19 17:49] LABS: ADD RBC MORPHOLOGY YES; HEMATOCRIT 27.4 % (35.4-49); HEMOGLOBIN 8.1 GM/dl (11.7-16.9); MCH 22.5 pg (25.7-33.7); MCHC 29.5 g/dl (32.0-35.9); MEAN CELL VOLUME 76.1 fl (80-96); MEAN PLT VOLUME 8.3 fl (7.5-11.1); PLATELET COUNT 446 K/MM3 (134-434); RBC 3.59 M/mm3 (4.00-5.60); RDW 22.5 % (11.9-15.9); WHITE BLOOD COUNT 16.1 K/mm3 (4.0-10.8)
[2018-04-19] MEDS ORDERED: OSELTAMIVIR PHOSPHATE 75 MG CAPSULE PO ONE (18:02)
[2018-04-19] MEDS ORDERED: AZITHROMYCIN 250 MG TABLET PO ONE (18:18)
[2018-04-19] MEDS ORDERED: AZITHROMYCIN 500 MG TABLET ONE (18:21)
[2018-04-19] MEDS ORDERED: OSELTAMIVIR PHOSPHATE 75 MG CAPSULE ONE (18:21)
[2018-04-19 18:38] LABS: ANISOCYTOSIS 3+; MACROCYTOSIS 2+; OVALOCYTE 1+; TEAR DROP CELLS OCCASIONAL
[2018-04-19 18:41] LABS: PLATELET ESTIMATE SLT INCREASE
--- NOTE | 2018-04-19 19:40 | PDOC ---
*Physical Exam - Vital Signs Last Vital Signs Temp Pulse Resp BP Pulse Ox 100.2 F H 94 H 20 149/66 90 L 04/19/18 19:02 04/19/18 19:02 04/19/18 19:02 04/19/18 19:02 04/19/18 19:02 ED Treatment Course - LABORATORY CBC & Chemistry Diagram: 04/19/18 16:40 04/19/18 16:40 - ADDITIONAL ORDERS Additional order review: Laboratory Results 04/19/18 04/19/18 04/19/18 16:40 16:40 16:40 VBG pH 7.31 L POC VBG pCO2 50.4 POC VBG pO2 42.0 Mixed VBG HCO3 24.7 Sodium 137 Potassium 4.8 Chloride 105 Carbon Dioxide 24 Anion Gap 8 BUN 31 H Creatinine 1.2 Creat Clearance w eGFR > 60 Random Glucose 98 Calcium 9.4 Total Bilirubin 0.6 AST 16 ALT 18 Alkaline Phosphatase 46 Creatine Kinase 57 Troponin I < 0.03 Total Protein 7.9 Albumin 4.6 04/19/18 16:40 RBC 3.59 L MCV 76.1 L MCHC 29.5 L RDW 22.5 H MPV 8.3 Neutrophils % No Result Required. Lymphocytes % No Result Required. - Medications Given in the ED: ED Medications Discontinued Medications Generic Name Dose Route Start Last Admin Trade Name Attilaq PRN Reason Stop Dose Admin Albuterol/Ipratropium 1 amp 04/19/18 16:30 04/19/18 17:24 Duoneb - NEB 04/19/18 17:16 1 amp Q15M TRELL Administration Albuterol/Ipratropium 1 amp 04/19/18 18:19 04/19/18 18:25 Duoneb - NEB 04/19/18 18:20 1 amp ONCE ONE Administration Azithromycin 500 mg 04/19/18 18:18 04/19/18 18:20 Zithromax - PO 04/19/18 18:19 500 mg ONCE ONE Administration Methylprednisolone Sodium Succinate 125 mg 04/19/18 16:22 04/19/18 16:39 Solu-Medrol - IVPB 04/19/18 16:23 125 mg ONCE ONE Administration Oseltamivir Phosphate 75 mg 04/19/18 18:02 04/19/18 18:20 Tamiflu - PO 04/19/18 18:03 75 mg ONCE ONE Administration Progress Note - Progress Note Progress Note: Care of this patient was transferred to hi from Dr. aguilar at 1900 hrs. Patient is a 58-year-old male with history of COPD. Patient comes in with COPD exacerbation. Patient's treatment has been pretty much maximized at this point with dual nebs and steroids. Patient does still remain hypoxic with an O2 sat of 90 on 2 L or room air and has also a elevated white count of 16,000 with left shift. Patient is also somewhat anemic with a hemoglobin of 8. Patient will need an observation admission for continued management of his COPD exacerbation. Patient discussed with admitting hospitalist Dr. Pagan who is accepted the patient for an observation admission. Patient refused arterial blood gas test. *DC/Admit/Observation/Transfer Diagnosis at time of Disposition: COPD exacerbation, Anemia - Discharge Dispostion Condition at time of disposition: Stable Decision to Admit order: Yes - Prescriptions Prescriptions: Albuterol 0.083% Nebulizer Makayla [Ventolin 0.083% Nebulizer Soln -] 1 neb NEB Q4H #30 vial Azithromycin 250 mg PO DAILY #4 tablet Nebulizer and Compressor [Comp-Air Nebulizer System] 1 each MC Q4H #1 each Oseltamivir Phosphate [Tamiflu] 75 mg PO BID #10 capsule Prednisone [Prednisone 50 MG TABLETS] 50 mg PO DAILY #4 tablet - Referrals - Patient Instructions Printed Discharge Instructions: DI for Chronic Obstructive Pulmonary Disease Additional Instructions: Take the azithromycin and prednisone once daily starting tomorrow for 4 more days. Use the nebulizer every 4 hours as needed. If you experience worsening shortness of breath, chest pain, fevers, or any other concerning symptoms, return to the ER immediately. Otherwise follow up with your primary doctor within 48 hours. - Post Discharge Activity
[2018-04-19 21:16] VITALS: BMI 34.7
[2018-04-20] MEDS ORDERED: ALBUTEROL SO4 2.5/IPRATROPIUM 0.5 INH SOL 3 ML VIAL.NEB. NEB ONE (02:05)
[2018-04-20] MEDS ORDERED: ALBUTEROL SO4 0.083% IH SOL 2.5 MG/3 ML VIAL.NEB. NEB PRN (02:41)
[2018-04-20] MEDS ORDERED: oxyCODONE HCL 5 MG TABLET PO PRN (02:45)
--- NOTE | 2018-04-20 02:57 | HP ---
CHIEF COMPLAINT: SOB HISTORY OF PRESENT ILLNESS: Patient is a 58 y/o CM with a complex PMH presenting to the ER with a CC of SOB. He is hemodynamically stable and afebrile but was noted to desaturate on RA though is doing good with NC. He has had several days of productive cough with SOB and subjective fevers and malaise; has been to the hospital several times this month so he has been around sick people within the past several weeks. He continues to smoke as well. He sees Dr. Bang for his COPD. He has been using rescue inhaler more and more at home. Furthermore he discloses that he used cocaine last weekend but sx weren't related. Nothing makes better, worse with exertion. Denies chest pain, edema, etc. He will be admitted to the medicine service with pulmonary consultation; if BNP neg. will DC cardiac monitoring. He was satting 90% on 2L. He has leukocytosis and intermittently uses his steroids at home; he has been using them with increased frequency lately. He is documented as having low grade temperatures in the ER. Recent Travel: None PAST MEDICAL HISTORY: COPD (follows with Dr. Bang), HTN, DM, hereditary hemorrhagic telangiectasia, spinal stenosis, recurrent epistaxis with chronic microcytic anemia that has required XF in the past. PAST SURGICAL HISTORY: Social History: Current smoker 1PPD for years, social drinker, occasional cocaine use (last use on sunday) Family History: Asked and noncontributory Allergies No Known Allergies Allergy (Verified 04/19/18 15:59) HOME MEDICATIONS: Home Medications Medication Instructions Recorded Albuterol Sulfate Inhaler - 1 - 2 inh PO QID 09/19/13 [Ventolin HFA Inhaler -] Amlodipine Besylate [Norvasc -] 10 mg PO DAILY 09/19/13 Lisinopril [Prinivil -] 40 mg PO DAILY 09/19/13 Glipizide [Glucotrol -] 5 mg PO DAILY PRN 07/21/14 Omeprazole [Prilosec (RX)] 40 mg PO DAILY PRN 07/21/14 hydrALAZINE HCL [Apresoline -] 30 mg PO DAILY 05/23/17 predniSONE [Deltasone -] 10 mg PO DAILY 05/23/17 Atorvastatin Ca [Lipitor] 10 mg PO DAILY 11/12/17 oxyCODONE HCL [Roxicodone -] 2.5 mg PO PRN PRN MDD 5mg 04/06/18 Albuterol 0.083% Nebulizer Makayla 1 neb NEB Q4H #30 vial 04/19/18 [Ventolin 0.083% Nebulizer Soln -] Azithromycin 250 mg PO DAILY #4 tablet 04/19/18 Budesonide/Formeterol Fumarate 2 inh PO BID 04/19/18 [SYMBICORT 160/4.5mcg -] Nebulizer and Compressor [Comp-Air 1 each MC Q4H #1 each 04/19/18 Nebulizer System] Oseltamivir Phosphate [Tamiflu] 75 mg PO BID #10 capsule 04/19/18 Prednisone [Prednisone 50 MG 50 mg PO DAILY #4 tablet 04/19/18 TABLETS] REVIEW OF SYSTEMS 10-sys ROS done and negative aside from HPI PHYSICAL EXAMINATION Vital Signs - 24 hr 04/19/18 04/19/18 04/19/18 15:59 16:05 19:02 Temperature 99.3 F 100.2 F H Pulse Rate 89 Pulse Rate [ 94 H Right] Respiratory 22 H 20 Rate Blood Pressure 155/53 L Blood Pressure 149/66 [Left Arm] O2 Sat by Pulse 93 L 95 90 L Oximetry (%) 04/19/18 04/19/18 21:00 22:24 Temperature 100.9 F H Pulse Rate 93 H Pulse Rate [ Right] Respiratory 20 19 Rate Blood Pressure 119/41 L Blood Pressure [Left Arm] O2 Sat by Pulse 90 L 94 L Oximetry (%) GENERAL: Awake, alert, and fully oriented, in no acute distress. HEAD: Normal with no signs of trauma. EYES: Pupils equal, round and reactive to light, extraocular movements intact EARS, NOSE, THROAT: Ears normal, nares patent NECK: Normal range of motion, supple without lymphadenopathy, JVD, or masses. LUNGS: Breath sounds equal. Wheezes b/l; No accessory muscle use. HEART: Regular rate and rhythm, normal S1 and S2 without murmur, rub or gallop. ABDOMEN: Soft, nontender, not distended, normoactive bowel sounds MUSCULOSKELETAL: Normal range of motion at all joints. NEUROLOGICAL: Cranial nerves II-XII intact. Normal speech. Normal gait. PSYCHIATRIC: Cooperative. Good eye contact. Appropriate mood and affect. SKIN: Warm, dry, normal turgor, no rashes or lesions noted, normal capillary refill. Laboratory Results - last 24 hr 04/19/18 04/19/18 04/19/18 16:28 16:40 16:40 WBC 16.1 H RBC 3.59 L Hgb 8.1 L Hct 27.4 L MCV 76.1 L MCH 22.5 L MCHC 29.5 L RDW 22.5 H Plt Count 446 H MPV 8.3 Absolute Neuts (auto) 14.9 Neutrophils % No Result Required. Neutrophils % (Manual) 89.0 H Band Neutrophils % 1.0 Lymphocytes % No Result Required. Lymphocytes % (Manual) 2.0 L Monocytes % (Manual) 8 Hypochromia 2+ Platelet Estimate Slt increase Polychromasia 1+ Anisocytosis 3+ Microcytosis 1+ Macrocytosis 2+ Tear Drop Cells Occasional Ovalocytes 1+ Stomatocytes 2+ VBG pH 7.31 L POC VBG pCO2 50.4 POC VBG pO2 42.0 Mixed VBG HCO3 24.7 Sodium Potassium Chloride Carbon Dioxide Anion Gap BUN Creatinine Creat Clearance w eGFR Random Glucose Calcium Total Bilirubin AST ALT Alkaline Phosphatase Creatine Kinase Troponin I B-Natriuretic Peptide Total Protein Albumin Influenza A (Rapid) Negative Influenza B (Rapid) Negative 04/19/18 04/19/18 04/19/18 16:40 16:40 16:40 WBC RBC Hgb Hct MCV MCH MCHC RDW Plt Count MPV Absolute Neuts (auto) Neutrophils % Neutrophils % (Manual) Band Neutrophils % Lymphocytes % Lymphocytes % (Manual) Monocytes % (Manual) Hypochromia Platelet Estimate Polychromasia Anisocytosis Microcytosis Macrocytosis Tear Drop Cells Ovalocytes Stomatocytes VBG pH POC VBG pCO2 POC VBG pO2 Mixed VBG HCO3 Sodium 137 Potassium 4.8 Chloride 105 Carbon Dioxide 24 Anion Gap 8 BUN 31 H Creatinine 1.2 Creat Clearance w eGFR > 60 Random Glucose 98 Calcium 9.4 Total Bilirubin 0.6 AST 16 ALT 18 Alkaline Phosphatase 46 Creatine Kinase 57 Troponin I < 0.03 B-Natriuretic Peptide 88.0 Total Protein 7.9 Albumin 4.6 Influenza A (Rapid) Influenza B (Rapid) ASSESSMENT/PLAN: Patient presents with COPD exacerbation likely causing his SOB; 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 Given some of the fullness seen on CXR BNP was checked and is negative but as he has a fever with a white count (though the WBC likely is able to be explained by the steroids) we will check a CT to rule out any occult PNA. He does not appear septic with stable VS, etc. 1) COPD Exacerbation -Consulting Pulmonary medicine (Dr. Bang); appreciate expert opinion in the management of this condition. He has had multiple exacerbations in the past yr so will do Levaquin. Repeat EKG in the AM to check QTc. Furthermore, Methylpred 60q6 with ATC duonebs and PRN albuterol. PRN O2. -Incentive spirometry -Monitor on floor; DC cardiac monitoring as no s/s CHF with negative BNP and euvolemia evident on exam. -Needs to stop smoking tobacco 2) Fever, Leukocytosis -As stated was on steroids; fever is low grade. Negative flu. Checking CT to r /o occult PNA and checking viral PCR. 3) Cocaine abuse -Counseled to stop 4) HTN -Continue home meds, controlled 5) Spinal Stenosis -Continue home meds; no acute pain. Given obesity and use of opiates consider OP eval for DONA. 6) Chronic Microcytic Anemia -No epistaxis as of now with H/H at baseline; trend CBC. If falls <7 XF as this may be contributory to SOB. 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
[2018-04-20] MEDS: methylPREDNISolone NA SUCC 40 MG/1 ML VIAL IVPUSH SCH ×3 (03:35→15:40)
[2018-04-20] MEDS: HEPARIN NA (PORCINE) 5,000 UNITS/ML 1ML VIAL SQ SCH ×2 (06:15→14:13)
[2018-04-20] MEDS ORDERED: INSULIN (NOVOLOG) ASPART 100 UNITS/ML 10ML VIAL SQ SCH (07:00)
[2018-04-20 08:42] LABS: ALBUMIN 3.8 g/dl (3.4-5.0); ALK PHOS 43 U/L (45-117); ANION GAP 8 MMOL/L (8-16); BILIRUBIN,TOTAL 0.4 mg/dl (0.2-1); BLOOD UREA NITROGEN 36 mg/dl (7-18); CALCIUM 8.8 mg/dl (8.5-10); CHLORIDE 104 mmol/L (98-107); CO2 21 mmol/L (21-32); CREATININE 1.2 mg/dl (0.55-1.3); GLUCOSE,RANDOM 280 mg/dl (74-106); POTASSIUM 5.3 mmol/L (3.5-5.1); SGOT/AST 16 U/L (15-37); SGPT/ALT 16 U/L (13-61); SODIUM 133 mmol/L (136-145)
[2018-04-20 09:04] LABS: HEMOGLOBIN 7.3 GM/dl (11.7-16.9); WHITE BLOOD COUNT 9.9 K/mm3 (4.0-10.8)
[2018-04-20 09:08] LABS: HEMATOCRIT 24.4 % (35.4-49); MCH 22.7 pg (25.7-33.7); MCHC 29.8 g/dl (32.0-35.9); MEAN CELL VOLUME 76.2 fl (80-96); MEAN PLT VOLUME 8.2 fl (7.5-11.1); PLATELET COUNT 377 K/MM3 (134-434); RDW 23.2 % (11.9-15.9)
[2018-04-20] MEDS ORDERED: LISINOPRIL 20 MG TABLET (FP) PO SCH (10:00)
[2018-04-20] MEDS ORDERED: amLODIPine BESYLATE 10 MG TABLET (FP) PO SCH (10:00)
[2018-04-20] MEDS ORDERED: hydrALAZINE HCL 10 MG TABLET PO SCH (10:00)
[2018-04-20] MEDS ORDERED: BUDESONIDE/FORMETEROL FUMARATE 160/4.5 mcg INHALER IH SCH (10:00)
[2018-04-20] MEDS ORDERED: PANTOPRAZOLE 40 MG TABLET (FP) PO PRN (10:00)
[2018-04-20] MEDS: ALBUTEROL SO4 2.5/IPRATROPIUM 0.5 INH SOL 3 ML VIAL.NEB. NEB SCH ×3 (10:22→15:40)
[2018-04-20 14:11] VITALS: BP 148/55; PULSE 82; TEMP 98.1
--- NOTE | 2018-04-20 14:26 | PN ---
Physical Exam: SUBJECTIVE: Patient seen and examined OBJECTIVE: Vital Signs Period Temp Pulse Resp BP Sys/Rashid Pulse Ox Last 24 Hr 98.1 F-100.9 F 81-94 18-22 119-155/41-66 90-97 GENERAL: The patient is awake, alert, and fully oriented, in no acute distress. HEAD: Normal with no signs of trauma. EYES: PERRL, extraocular movements intact, sclera anicteric, conjunctiva clear. No ptosis. ENT: Ears normal, nares patent, oropharynx clear without exudates, moist mucous membranes. NECK: Trachea midline, full range of motion, supple. LUNGS: Breath sounds equal, clear to auscultation bilaterally, no wheezes, no crackles, no accessory muscle use. HEART: Regular rate and rhythm, S1, S2 without murmur, rub or gallop. ABDOMEN: Soft, nontender, nondistended, normoactive bowel sounds, no guarding, no rebound, no hepatosplenomegaly, no masses. EXTREMITIES: 2+ pulses, warm, well-perfused, no edema. NEUROLOGICAL: Cranial nerves II through XII grossly intact. Normal speech, gait not observed. PSYCH: Normal mood, normal affect. SKIN: Warm, dry, normal turgor, no rashes or lesions noted Laboratory Results - last 24 hr 04/19/18 04/19/18 04/19/18 16:28 16:40 16:40 WBC 16.1 H RBC 3.59 L Hgb 8.1 L Hct 27.4 L MCV 76.1 L MCH 22.5 L MCHC 29.5 L RDW 22.5 H Plt Count 446 H MPV 8.3 Absolute Neuts (auto) 14.9 Neutrophils % No Result Required. Neutrophils % (Manual) 89.0 H Band Neutrophils % 1.0 Lymphocytes % No Result Required. Lymphocytes % (Manual) 2.0 L Monocytes % (Manual) 8 Hypochromia 2+ Platelet Estimate Slt increase Polychromasia 1+ Anisocytosis 3+ Microcytosis 1+ Macrocytosis 2+ Tear Drop Cells Occasional Ovalocytes 1+ Stomatocytes 2+ ESR VBG pH 7.31 L POC VBG pCO2 50.4 POC VBG pO2 42.0 Mixed VBG HCO3 24.7 Sodium Potassium Chloride Carbon Dioxide Anion Gap BUN Creatinine Creat Clearance w eGFR POC Glucometer Random Glucose Calcium Total Bilirubin AST ALT Alkaline Phosphatase Creatine Kinase Troponin I C-Reactive Protein B-Natriuretic Peptide Total Protein Albumin Influenza A (Rapid) Negative Influenza B (Rapid) Negative 04/19/18 04/19/18 04/19/18 16:40 16:40 16:40 WBC RBC Hgb Hct MCV MCH MCHC RDW Plt Count MPV Absolute Neuts (auto) Neutrophils % Neutrophils % (Manual) Band Neutrophils % Lymphocytes % Lymphocytes % (Manual) Monocytes % (Manual) Hypochromia Platelet Estimate Polychromasia Anisocytosis Microcytosis Macrocytosis Tear Drop Cells Ovalocytes Stomatocytes ESR VBG pH POC VBG pCO2 POC VBG pO2 Mixed VBG HCO3 Sodium 137 Potassium 4.8 Chloride 105 Carbon Dioxide 24 Anion Gap 8 BUN 31 H Creatinine 1.2 Creat Clearance w eGFR > 60 POC Glucometer Random Glucose 98 Calcium 9.4 Total Bilirubin 0.6 AST 16 ALT 18 Alkaline Phosphatase 46 Creatine Kinase 57 Troponin I < 0.03 C-Reactive Protein B-Natriuretic Peptide 88.0 Total Protein 7.9 Albumin 4.6 Influenza A (Rapid) Influenza B (Rapid) 04/20/18 04/20/18 04/20/18 06:06 07:40 07:40 WBC 9.9 RBC 3.20 L Hgb 7.3 L Hct 24.4 L MCV 76.2 L MCH 22.7 L MCHC 29.8 L RDW 23.2 H Plt Count 377 MPV 8.2 Absolute Neuts (auto) Neutrophils % Neutrophils % (Manual) Band Neutrophils % Lymphocytes % Lymphocytes % (Manual) Monocytes % (Manual) Hypochromia Platelet Estimate Polychromasia Anisocytosis Microcytosis Macrocytosis Tear Drop Cells Ovalocytes Stomatocytes ESR VBG pH POC VBG pCO2 POC VBG pO2 Mixed VBG HCO3 Sodium 133 L Potassium 5.3 H Chloride 104 Carbon Dioxide 21 Anion Gap 8 BUN 36 H Creatinine 1.2 Creat Clearance w eGFR > 60 POC Glucometer 374 Random Glucose 280 H Calcium 8.8 Total Bilirubin 0.4 AST 16 ALT 16 Alkaline Phosphatase 43 L Creatine Kinase Troponin I C-Reactive Protein B-Natriuretic Peptide Total Protein 7.0 Albumin 3.8 Influenza A (Rapid) Influenza B (Rapid) 04/20/18 04/20/18 04/20/18 07:40 07:40 11:02 WBC RBC Hgb Hct MCV MCH MCHC RDW Plt Count MPV Absolute Neuts (auto) Neutrophils % Neutrophils % (Manual) Band Neutrophils % Lymphocytes % Lymphocytes % (Manual) Monocytes % (Manual) Hypochromia Platelet Estimate Polychromasia Anisocytosis Microcytosis Macrocytosis Tear Drop Cells Ovalocytes Stomatocytes ESR 37 H VBG pH POC VBG pCO2 POC VBG pO2 Mixed VBG HCO3 Sodium Potassium Chloride Carbon Dioxide Anion Gap BUN Creatinine Creat Clearance w eGFR POC Glucometer 333 Random Glucose Calcium Total Bilirubin AST ALT Alkaline Phosphatase Creatine Kinase Troponin I C-Reactive Protein 0.6 H B-Natriuretic Peptide Total Protein Albumin Influenza A (Rapid) Influenza B (Rapid) 04/20/18 12:17 WBC RBC Hgb Hct MCV MCH MCHC RDW Plt Count MPV Absolute Neuts (auto) Neutrophils % Neutrophils % (Manual) Band Neutrophils % Lymphocytes % Lymphocytes % (Manual) Monocytes % (Manual) Hypochromia Platelet Estimate Polychromasia Anisocytosis Microcytosis Macrocytosis Tear Drop Cells Ovalocytes Stomatocytes ESR VBG pH POC VBG pCO2 POC VBG pO2 Mixed VBG HCO3 Sodium Potassium Chloride Carbon Dioxide Anion Gap BUN Creatinine Creat Clearance w eGFR POC Glucometer 448 Random Glucose Calcium Total Bilirubin AST ALT Alkaline Phosphatase Creatine Kinase Troponin I C-Reactive Protein B-Natriuretic Peptide Total Protein Albumin Influenza A (Rapid) Influenza B (Rapid) Active Medications Generic Name Dose Route Start Last Admin Trade Name Freq PRN Reason Stop Dose Admin Albuterol Sulfate 1 amp 04/20/18 02:41 04/20/18 03:35 Ventolin 0.083% Nebulizer Soln - NEB 1 amp Q4H PRN Administration SHORT OF BREATH/WHEEZING Albuterol/Ipratropium 1 amp 04/20/18 08:00 04/20/18 10:22 Duoneb - NEB 1 amp RQID TRELL Administration Amlodipine Besylate 10 mg 04/20/18 10:00 04/20/18 10:24 Norvasc - PO 10 mg DAILY TRELL Administration Atorvastatin Calcium 10 mg 04/20/18 22:00 Lipitor - PO HS TRELL Budesonide/Formoterol Fumarate 2 puff 04/20/18 10:00 04/20/18 10:33 Symbicort 160/4.5mcg - IH 2 inhaler BID TRELL Administration Heparin Sodium (Porcine) 5,000 unit 04/20/18 06:00 04/20/18 14:13 Heparin - SQ Not Given TID TRELL Hydralazine HCl 30 mg 04/20/18 10:00 04/20/18 10:23 Apresoline - PO 30 mg DAILY [facility] Administration Levofloxacin 750 mg in 150 mls @ 100 mls/hr 04/20/18 10:00 04/20/18 10:22 Levaquin 750 Mg Premixed Ivpb - IVPB 100 mls/hr DAILY [facility] Administration Protocol Insulin Aspart 0 units 04/20/18 07:00 Novolog Vial SQ ACHS [facility] Protocol Lisinopril 40 mg 04/20/18 10:00 04/20/18 10:24 Prinivil PO 40 mg DAILY [facility] Administration Methylprednisolone Sodium Succinate 60 mg 04/20/18 03:00 04/20/18 10:22 Solu-Medrol - IVPUSH 60 mg Q6H-IV [facility] Administration Oxycodone HCl 2.5 mg 04/20/18 02:45 Roxicodone - PO PRN PRN BACK PAIN Pantoprazole Sodium 40 mg 04/20/18 10:00 04/20/18 10:24 Protonix - PO 40 mg DAILY PRN Administration DYSPEPSIA ASSESSMENT/PLAN:
--- NOTE | 2018-04-20 15:40 | DS ---
Physical Exam: SUBJECTIVE: Patient seen and examined. Feels better, breathing is easier. Very anxious to leave to go to employment opportunity tomorrow. OBJECTIVE: Vital Signs Period Temp Pulse Resp BP Sys/Rashid Pulse Ox Last 24 Hr 98.1 F-100.9 F 81-94 18-22 119-155/41-66 90-97 PHYSICAL EXAM GENERAL: The patient is awake, alert, and fully oriented, in no acute distress. LUNGS: Breath sounds equal, clear to auscultation bilaterally, no wheezes, no crackles, no accessory muscle use. HEART: Regular rate and rhythm, S1, S2 ABDOMEN: Soft, nontender, nondistended, normoactive bowel sounds, no guarding, no rebound, no hepatosplenomegaly, no masses. EXTREMITIES: 2+ pulses, warm, well-perfused, no edema. NEUROLOGICAL: Cranial nerves II through XII grossly intact. Normal speech, steady gait PSYCH: Normal mood, normal affect. SKIN: Warm, dry, normal turgor Laboratory Results - last 24 hr 04/19/18 04/19/18 04/19/18 16:28 16:40 16:40 WBC 16.1 H RBC 3.59 L Hgb 8.1 L Hct 27.4 L MCV 76.1 L MCH 22.5 L MCHC 29.5 L RDW 22.5 H Plt Count 446 H MPV 8.3 Absolute Neuts (auto) 14.9 Neutrophils % No Result Required. Neutrophils % (Manual) 89.0 H Band Neutrophils % 1.0 Lymphocytes % No Result Required. Lymphocytes % (Manual) 2.0 L Monocytes % (Manual) 8 Hypochromia 2+ Platelet Estimate Slt increase Polychromasia 1+ Anisocytosis 3+ Microcytosis 1+ Macrocytosis 2+ Tear Drop Cells Occasional Ovalocytes 1+ Stomatocytes 2+ ESR VBG pH 7.31 L POC VBG pCO2 50.4 POC VBG pO2 42.0 Mixed VBG HCO3 24.7 Sodium Potassium Chloride Carbon Dioxide Anion Gap BUN Creatinine Creat Clearance w eGFR POC Glucometer Random Glucose Calcium Total Bilirubin AST ALT Alkaline Phosphatase Creatine Kinase Troponin I C-Reactive Protein B-Natriuretic Peptide Total Protein Albumin Influenza A (Rapid) Negative Influenza B (Rapid) Negative 04/19/18 04/19/18 04/19/18 16:40 16:40 16:40 WBC RBC Hgb Hct MCV MCH MCHC RDW Plt Count MPV Absolute Neuts (auto) Neutrophils % Neutrophils % (Manual) Band Neutrophils % Lymphocytes % Lymphocytes % (Manual) Monocytes % (Manual) Hypochromia Platelet Estimate Polychromasia Anisocytosis Microcytosis Macrocytosis Tear Drop Cells Ovalocytes Stomatocytes ESR VBG pH POC VBG pCO2 POC VBG pO2 Mixed VBG HCO3 Sodium 137 Potassium 4.8 Chloride 105 Carbon Dioxide 24 Anion Gap 8 BUN 31 H Creatinine 1.2 Creat Clearance w eGFR > 60 POC Glucometer Random Glucose 98 Calcium 9.4 Total Bilirubin 0.6 AST 16 ALT 18 Alkaline Phosphatase 46 Creatine Kinase 57 Troponin I < 0.03 C-Reactive Protein B-Natriuretic Peptide 88.0 Total Protein 7.9 Albumin 4.6 Influenza A (Rapid) Influenza B (Rapid) 04/20/18 04/20/18 04/20/18 06:06 07:40 07:40 WBC 9.9 RBC 3.20 L Hgb 7.3 L Hct 24.4 L MCV 76.2 L MCH 22.7 L MCHC 29.8 L RDW 23.2 H Plt Count 377 MPV 8.2 Absolute Neuts (auto) Neutrophils % Neutrophils % (Manual) Band Neutrophils % Lymphocytes % Lymphocytes % (Manual) Monocytes % (Manual) Hypochromia Platelet Estimate Polychromasia Anisocytosis Microcytosis Macrocytosis Tear Drop Cells Ovalocytes Stomatocytes ESR VBG pH POC VBG pCO2 POC VBG pO2 Mixed VBG HCO3 Sodium 133 L Potassium 5.3 H Chloride 104 Carbon Dioxide 21 Anion Gap 8 BUN 36 H Creatinine 1.2 Creat Clearance w eGFR > 60 POC Glucometer 374 Random Glucose 280 H Calcium 8.8 Total Bilirubin 0.4 AST 16 ALT 16 Alkaline Phosphatase 43 L Creatine Kinase Troponin I C-Reactive Protein B-Natriuretic Peptide Total Protein 7.0 Albumin 3.8 Influenza A (Rapid) Influenza B (Rapid) 04/20/18 04/20/18 04/20/18 07:40 07:40 11:02 WBC RBC Hgb Hct MCV MCH MCHC RDW Plt Count MPV Absolute Neuts (auto) Neutrophils % Neutrophils % (Manual) Band Neutrophils % Lymphocytes % Lymphocytes % (Manual) Monocytes % (Manual) Hypochromia Platelet Estimate Polychromasia Anisocytosis Microcytosis Macrocytosis Tear Drop Cells Ovalocytes Stomatocytes ESR 37 H VBG pH POC VBG pCO2 POC VBG pO2 Mixed VBG HCO3 Sodium Potassium Chloride Carbon Dioxide Anion Gap BUN Creatinine Creat Clearance w eGFR POC Glucometer 333 Random Glucose Calcium Total Bilirubin AST ALT Alkaline Phosphatase Creatine Kinase Troponin I C-Reactive Protein 0.6 H B-Natriuretic Peptide Total Protein Albumin Influenza A (Rapid) Influenza B (Rapid) 04/20/18 12:17 WBC RBC Hgb Hct MCV MCH MCHC RDW Plt Count MPV Absolute Neuts (auto) Neutrophils % Neutrophils % (Manual) Band Neutrophils % Lymphocytes % Lymphocytes % (Manual) Monocytes % (Manual) Hypochromia Platelet Estimate Polychromasia Anisocytosis Microcytosis Macrocytosis Tear Drop Cells Ovalocytes Stomatocytes ESR VBG pH POC VBG pCO2 POC VBG pO2 Mixed VBG HCO3 Sodium Potassium Chloride Carbon Dioxide Anion Gap BUN Creatinine Creat Clearance w eGFR POC Glucometer 448 Random Glucose Calcium Total Bilirubin AST ALT Alkaline Phosphatase Creatine Kinase Troponin I C-Reactive Protein B-Natriuretic Peptide Total Protein Albumin Influenza A (Rapid) Influenza B (Rapid) HOSPITAL COURSE: Date of Admission:04/20/18 Date of Discharge: 04/20/18 Pre hospital course 58 year-old male with a PMH significant for HTN, HLD, COPD, NIDDM, hereditary hemorrhagic telangiectasia, spinal stenosis, and recurrent epistaxis with 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 Patient presented to the ED with a complaint of productive cough, SOB, subjective fever, and malaise x several days. Has been using inhalers more frequently without relief. Takes PO prednisone. Last used cocaine last week. ER course (1) T 100.9, p93, RR 22, WBC 16.1 (on steroids) (2) CXR: mild congestive changes (3) Azithro x 1; tamiflu x 1 Subsequent hospital course Sepsis secondary to community-acquired pneumonia COPD --04/20 CT chest: small consolidation medial aspect of RUL --flu negative --started on levofloxacin, discharged with prescription x 10 days --treated with duonebs --treated with IV steroids, discharged on PO taper Cocaine abuse --counseled to stop Hypertension --BP stable --continued amlodipine, lisinopril, hydralazine Hyperlipidemia --continued Lipitor Minutes to complete discharge: 35 Discharge Summary Reason For Visit: COPD/CHF Current Active Problems Anemia (Acute) COPD exacerbation (Acute) Condition: Stable - Instructions Diet, Activity, Other Instructions: You have been diagnosed with a right upper lobe pneumonia. 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 Several prescriptions have been called to your pharmacy: 1. Levofloxacin - antibiotic - take as directed and finish all the medication 2. Prednisone - steroid dose pack - take as directed and finish all the medication 3. Symbicort - sent script in case you need a refill It is strongly advised you see your primary care provider within 72 hours of your discharge. His contact information is enclosed. Referrals: Bryson Carrillo [Non Staff, Medical] - 1 Week Disposition: HOME - Home Medications Comprehensive Discharge Medication List: Ambulatory Orders Albuterol Sulfate Inhaler - [Ventolin HFA Inhaler -] 1 - 2 inh PO QID 09/19/13 Amlodipine Besylate [Norvasc -] 10 mg PO DAILY 09/19/13 Lisinopril [Prinivil -] 40 mg PO DAILY 09/19/13 Glipizide [Glucotrol -] 5 mg PO DAILY PRN 07/21/14 Omeprazole [Prilosec (RX)] 40 mg PO DAILY PRN 07/21/14 hydrALAZINE HCL [Apresoline -] 30 mg PO DAILY 05/23/17 Atorvastatin Ca [Lipitor] 10 mg PO DAILY 11/12/17 oxyCODONE HCL [Roxicodone -] 2.5 mg PO PRN PRN MDD 5mg 04/06/18 Budesonide/Formeterol Fumarate [SYMBICORT 160/4.5mcg -] 2 inh PO BID 04/19/18 Budesonide/Formeterol Fumarate [SYMBICORT 160/4.5mcg -] 1 inh PO DAILY #1 cannister 04/20/18 Levofloxacin [Levaquin] 750 mg PO DAILY #10 tablet 04/20/18 Prednisone 10 mg PO ASDIR #1 tab.ds.pk 04/20/18 This patient is new to me today: Yes Date on this admission: 04/21/18 Emergency Visit: Yes ED Registration Date: 04/20/18 Care time: The patient presented to the Emergency Department on the above date and was hospitalized for further evaluation of their emergent condition. Critical Care patient: No - Discharge Referral Referred to [facility] No
[2018-04-20 17:27] LABS: URINE APPEARANCE Clear; URINE BILIRUBIN Negative (NEGATIVE); URINE COLOR Yellow; URINE GLUCOSE (UA) 3+ (NEGATIVE); URINE KETONE Negative (NEGATIVE); URINE LEUK ESTERASE Negative (NEGATIVE); URINE NITRITE Negative (NEGATIVE); URINE PROTEIN Negative (NEGATIVE); URINE UROBILINOGEN 0.2 (0.2-1.0)
[2018-04-20 19:12] LABS: METHADONE, UR NEGATIVE ng/ml (CUTOFF=300); OPIATES, URI NEGATIVE ng/ml (CUTOFF=300); PHENCYCLIDINE,URINE NEGATIVE ng/ml (CUTOFF=25); URINE AMPHETAMINES NEGATIVE ng/ml (CUTOFF=500); URINE BARBITURATES NEGATIVE ng/ml (CUTOFF=200); URINE BENZODIAZEPINES NEGATIVE ng/ml (CUTOFF=200)
[2018-04-20 19:14] LABS: COCAINE, UR POSITIVE ng/ml (CUTOFF=300)
[2018-04-20] MEDS ORDERED: ATORVASTATIN CA 10 MG TABLET (FP) PO SCH (22:00)
--- NOTE | 2018-04-26 15:05 | HOSP ---
Subjective - Review of Symptoms Events since last encounter: Spoke with Louisa from microbiology. PCR testing for this patient positive for Influenza A, 2009 H1N1 strain. Called patient at home number, left voice mail. Called and spoke with sister Darcie Chauhan. She states patient is feeling very well, much better than when he was released from the hospital. Conveyed to sister patient had the H1N1 strain of influenza and pneumonia. If he is feeling well, no need for further medication at this point. Advised if patient relapses , feels unwell, or develops a fever, he should go to the closest emergency department. Physical Examination Vital Signs: Vital Signs Temperature 98.1 F 04/20/18 14:10 Pulse Rate 82 04/20/18 14:10 Respiratory Rate 22 H 04/20/18 14:10 Blood Pressure 148/55 L 04/20/18 14:10 O2 Sat by Pulse Oximetry (%) 97 04/20/18 14:10 Labs: CBC, BMP 04/20/18 07:40 04/20/18 07:40
== END 2018-04-20 16:30 | disposition home or self-care (01) | DRG 190 ==
LOC: FER 15:59 → UNDOADMOB 20:15 → FM/S 20:15 → OBSVTOIN 04-20 02:41
PROVIDERS: ADMIT Internal Medicine; ATTEND Nurse Practitioner Acute Care
DX: J44.1 Chronic obstructive pulmonary disease with (acute) exacerbation (principal); J18.9 Pneumonia, unspecified organism; D72.829 Elevated white blood cell count, unspecified; F14.10 Cocaine abuse, uncomplicated; I10 Essential (primary) hypertension; M48.00 Spinal stenosis, site unspecified; D50.9 Iron deficiency anemia, unspecified; E66.9 Obesity, unspecified; Z68.34 Body mass index [BMI] 34.0-34.9, adult; E78.5 Hyperlipidemia, unspecified; E11.9 Type 2 diabetes mellitus without complications; D64.9 Anemia, unspecified
CPT/HCPCS: 36415; 71045-TC-FY; 71250-TC; 80053; 80307; 81003; 82550; 82803; 82962; 83880; 84484; 85025; 85027; 85651; 86140; 87040; 87633; 87804; 94640; 99285-25; G0378

== ENCOUNTER 2018-04-28 12:50 | Emergency (ER) | payer OTHER ==
[2018-04-28 13:01] VITALS: BP 150/70; PULSE 60; TEMP 98.6; BMI 34.9
--- NOTE | 2018-04-28 13:19 | PDOC ---
History of Present Illness - General Chief Complaint: Pain Stated Complaint: NECK DISCOMFORT, SWELLING Time Seen by Provider: 04/28/18 12:55 History Source: Patient Exam Limitations: No Limitations - History of Present Illness Initial Comments: 04/28/18 13:15 Patient is a 58M with history of cocaine abuse, COPD, hereditary hemorrhagic telangiectasia here today complaining of swelling in his neck that he first noticed this morning. Denies fevers, chills, nausea, vomiting. Denies difficulty breathing, swallowing or drooling. Denies chest pain, neck pain and shortness of breath. Patient recently tested positive for flu. Patient is active smoker, denies recent cocaine use. Past History - Past Medical History Allergies/Adverse Reactions: Allergies Allergy/AdvReac Type Severity Reaction Status Date / Time No Known Allergies Allergy Verified 04/28/18 12:53 Home Medications: Ambulatory Orders Albuterol Sulfate Inhaler - [Ventolin HFA Inhaler -] 1 - 2 inh PO QID 09/19/13 Amlodipine Besylate [Norvasc -] 10 mg PO DAILY 09/19/13 Lisinopril [Prinivil -] 40 mg PO DAILY 09/19/13 Glipizide [Glucotrol -] 5 mg PO DAILY PRN 07/21/14 Omeprazole [Prilosec (RX)] 40 mg PO DAILY PRN 07/21/14 hydrALAZINE HCL [Apresoline -] 30 mg PO DAILY 05/23/17 Atorvastatin Ca [Lipitor] 10 mg PO DAILY 11/12/17 oxyCODONE HCL [Roxicodone -] 2.5 mg PO PRN PRN MDD 5mg 04/06/18 Budesonide/Formeterol Fumarate [SYMBICORT 160/4.5mcg -] 2 inh PO BID 04/19/18 Fluticasone Propionate [24 Hour Allergy Relief] 9.9 ml IH BID PRN #1 bottle Levofloxacin [Levaquin] 750 mg PO DAILY #10 tablet 04/20/18 Prednisone 10 mg PO ASDIR #1 tab.ds.pk 04/20/18 Spironolactone 25 mg PO DAILY 04/28/18 Anemia: Yes (IRON DEFIC. ANEMIA, HX HEREDITARY HEMORR TALLENGECTESIA) Asthma: No Cancer: No CVA: No COPD: Yes CHF: No Dementia: No Diabetes: Yes (NIDDM) GI Disorders: No Disorders: No HTN: Yes Hypercholesterolemia: Yes Liver Disease: No Seizures: No Thyroid Disease: No Other medical history: HHT BLOOD DISEASE, SPINAL STENOSIS - Surgical History Appendectomy: Yes Cardiac Surgery: No Cholecystectomy: No Lung Surgery: No Neurologic Surgery: No Orthopedic Surgery: No - Immunization History Immunization Up to Date: Yes - Suicide/Smoking/Psychosocial Hx Smoking History: Current every day smoker Have you smoked in the past 12 months: Yes Number of Cigarettes Smoked Daily: 20 Information on smoking cessation initiated: Yes 'Breaking Loose' booklet given: 03/25/18 Hx Alcohol Use: No Drug/Substance Use Hx: No Substance Use Type: Cocaine Hx Substance Use Treatment: No Review of Systems - Review of Systems Comments:: 04/28/18 13:17 GENERAL/CONSTITUTIONAL: No fever or chills. No weakness. HEAD, EYES, EARS, NOSE AND THROAT: No change in vision. No sore throat. CARDIOVASCULAR: No chest pain or shortness of breath RESPIRATORY: No cough, wheezing, or hemoptysis. GASTROINTESTINAL: No nausea, vomiting, diarrhea or constipation. GENITOURINARY: No dysuria, frequency, or change in urination. MUSCULOSKELETAL: No joint or muscle swelling or pain. No neck or back pain. SKIN: No rash NEUROLOGIC: No headache, vertigo, loss of consciousness, or change in strength/ sensation. *Physical Exam - Vital Signs Last Vital Signs Temp Pulse Resp BP Pulse Ox 98.6 F 60 18 150/70 96 04/28/18 12:50 04/28/18 12:50 04/28/18 12:50 04/28/18 12:50 04/28/18 12:50 - Physical Exam Comments: 04/28/18 13:18 GENERAL: Awake, alert, and fully oriented, in no acute distress HEAD: No signs of trauma, normocephalic, atraumatic EYES: PERRLA, EOMI, sclera anicteric, conjunctiva clear ENT: Auricles normal inspection, hearing grossly normal, nares patent, oropharynx clear without exudates. Moist mucosa. NECK: Normal ROM, supple, Neck has mobile nontender 2cm mass in L submandibular region LUNGS: No distress, speaks full sentences, clear to auscultation bilaterally HEART: Regular rate and rhythm, normal S1 and S2, no murmurs, rubs or gallops, peripheral pulses normal and equal bilaterally. ABDOMEN: Soft, nontender, normoactive bowel sounds. No guarding, no rebound. No masses EXTREMITIES: Normal inspection, Normal range of motion, no edema. No clubbing or cyanosis. NEUROLOGICAL: Cranial nerves II through XII grossly intact. Normal speech, normal gait, no focal sensorimotor deficits SKIN: Warm, Dry, normal turgor, no rashes or lesions noted. Moderate Sedation - Procedure Monitoring Vital Signs: Procedure Monitoring Vital Signs Temperature 98.6 F 04/28/18 12:50 Pulse Rate 60 04/28/18 12:50 Respiratory Rate 18 04/28/18 12:50 Blood Pressure 150/70 04/28/18 12:50 O2 Sat by Pulse Oximetry (%) 96 04/28/18 12:50 Medical Decision Making - Medical Decision Making 04/28/18 13:19 Patient is 58M with history of copd, cocaine abuse, HHT here today with an enlarged lymph node. No signs of abscess, cellulitis, ludwigs. Will discharge with ENT follow up. *DC/Admit/Observation/Transfer Diagnosis at time of Disposition: Enlarged lymph node in neck - Discharge Dispostion Disposition: HOME Condition at time of disposition: Good Decision to Admit order: No - Referrals Referrals: Merlin Donaldson MD [Staff Physician] - - Patient Instructions Additional Instructions: Please follow up with the ENT below for further follow up. Please return if you have any new, worsening or concerning symptoms, especially fever, difficulty breathing or difficulty swallowing. - Post Discharge Activity
[2018-04-28] MEDS ORDERED: ACETAMINOPHEN 325 MG TABLET (FP) PO ONE (13:23)
[2018-04-28] MEDS ORDERED: ACETAMINOPHEN 325 MG TABLET (FP) ONE (13:24)
--- NOTE | 2018-04-28 13:25 | PDOC ---
Attending Attestation - Resident Resident Name: [email or web address] - ED Attending Attestation I have performed the following: I have examined & evaluated the patient, The case was reviewed & discussed with the resident, I agree w/resident's findings & plan, Exceptions are as noted - HPI HPI: 04/28/18 13:22 58 yo male with h/o subtance abuse, copd, hereditary bleeding disorder, here today for evaluation of left submandibular mass. pt states he noted it today. was recently treated for pneumonia and also was told he has the flu. mild pain with toughing. no f/c now. no difficulty swallowing. no dental pain or recent procedures. no other complaints. - Physicial Exam PE: 04/28/18 13:23 awake alert lungs clear bilaterally heart rrr no mrg left submandibular area with hard, mobile 2 cm mass, mild ttp. not fluctuant, no erythema. no peridontal absces, or fluctuation. pt is without teeth in region of pain. severe dental caries. nuero alert oriented x 3. - Medical Decision Making 04/28/18 13:24 differential lymphadnopathy , mass. deidraley reactive due to tenderness. du e to long smoking history will give referral to ENT dr parra. given tylenol for pain.
== END 2018-04-28 13:30 | disposition home or self-care (01) ==
LOC: FER 12:50
DX: R59.0 Localized enlarged lymph nodes (principal); I10 Essential (primary) hypertension; F14.10 Cocaine abuse, uncomplicated; J44.9 Chronic obstructive pulmonary disease, unspecified; I78.0 Hereditary hemorrhagic telangiectasia; F50.9 Eating disorder, unspecified; E11.9 Type 2 diabetes mellitus without complications; E78.00 Pure hypercholesterolemia, unspecified; F17.210 Nicotine dependence, cigarettes, uncomplicated
CPT/HCPCS: 99283-25

== ENCOUNTER 2018-06-21 03:19 | Observation (INO) | payer OTHER ==
--- NOTE | 2018-06-21 03:26 | PDOC ---
History of Present Illness - General Chief Complaint: Weakness Stated Complaint: NASAL BLEEDING, WEAKNESS History Source: Patient Exam Limitations: No Limitations - History of Present Illness Timing/Duration: 24 hours Severity: moderate Associated Symptoms: reports: shortness of breath, weakness Past History - Travel Traveled outside of the country in the last 30 days: No Close contact w/someone who was outside of country & ill: No - Past Medical History Allergies/Adverse Reactions: Allergies Allergy/AdvReac Type Severity Reaction Status Date / Time No Known Allergies Allergy Verified 04/28/18 12:53 Home Medications: Ambulatory Orders Albuterol Sulfate Inhaler - [Ventolin HFA Inhaler -] 1 - 2 inh PO QID 09/19/13 Amlodipine Besylate [Norvasc -] 10 mg PO DAILY 09/19/13 Lisinopril [Prinivil -] 40 mg PO DAILY 09/19/13 Glipizide [Glucotrol -] 5 mg PO DAILY PRN 07/21/14 Omeprazole [Prilosec (RX)] 40 mg PO DAILY PRN 07/21/14 hydrALAZINE HCL [Apresoline -] 30 mg PO DAILY 05/23/17 Atorvastatin Ca [Lipitor] 10 mg PO DAILY 11/12/17 Prednisone 10 mg PO ASDIR #1 tab.ds.pk 04/20/18 Spironolactone 25 mg PO DAILY 04/28/18 Mometasone/Formoterol [Dulera 200 Mcg/5 Mcg Inhaler] 2 inh IH BID 06/21/18 Anemia: Yes (IRON DEFIC. ANEMIA, HX HEREDITARY HEMORR TALLENGECTESIA) Asthma: No Cancer: No CVA: No COPD: Yes CHF: No Dementia: No Diabetes: Yes (NIDDM) GI Disorders: No Disorders: No HTN: Yes Hypercholesterolemia: Yes Liver Disease: No Seizures: No Thyroid Disease: No - Surgical History Appendectomy: Yes Cardiac Surgery: No Cholecystectomy: No Lung Surgery: No Neurologic Surgery: No Orthopedic Surgery: No - Immunization History Immunization Up to Date: Yes - Suicide/Smoking/Psychosocial Hx Smoking History: Current every day smoker Have you smoked in the past 12 months: Yes Number of Cigarettes Smoked Daily: 20 'Breaking Loose' booklet given: 04/28/18 Hx Alcohol Use: No Drug/Substance Use Hx: No Substance Use Type: Cocaine Hx Substance Use Treatment: No Review of Systems - Review of Systems Able to Perform ROS?: Yes Is the patient limited Indonesian proficient: No Constitutional: Yes: Malaise, Weakness. No: Symptoms Reported, See HPI, Chills , Diaphoresis, Fever, Loss of Appetite, Night Sweats, Weight Stable, Unintentional Wgt. Loss, Unexplained wgt Loss, Other HEENTM: No: Symptoms Reported, See HPI, Eye Pain, Blurred Vision, Tearing, Recent change in vision, Double Vision, Cataracts, Ear Pain, Ocular Prothesis, Ear Discharge, Nose Pain, Nose Congestion, Tinnitus, Nose Bleeding, Hearing Loss , Throat Pain, Throat Swelling, Mouth Pain, Dental Problems, Difficulty Swallowing, Mouth Swelling, Other Respiratory: Yes: Shortness of Breath, SOB with Exertion, SOB at Rest, Wheezing. No: Symptoms reported, See HPI, Cough, Orthopnea, Stridor, Productive cough, Hemoptysis, Other Cardiac (ROS): Yes: Lightheadedness. No: Symptoms Reported, See HPI, Chest Pain , Edema, Irregular Heart Rate, Palpitations, Syncope, Chest Tightness, Other ABD/GI: No: Symptoms Reported, See HPI, Abdominal Distended, Abd. Pain w/ defecation, Blood Streaked Bowels, Constipated, Diarrhea, Difficulty Swallowing , Nausea, Poor Appetite, Poor Fluid Intake, Rectal Bleeding, Vomiting, Indigestion, Abdominal cramping, Tarry Stools, Other : No: Symptoms Reported, See HPI, Burning, Dysuria, Discharge, Frequency, Flank Pain, Hematuria, Incontinence, Pain, Urgency, Testicular Mass, Testicular Swelling, Lesions, Testicular Pain, Other Musculoskeletal: No: Symptoms Reported, See HPI, Back Pain, Gout, Joint Pain, Joint Swelling, Muscle Pain, Muscle Weakness, Neck Pain, Joint Stiffness, Other Integumentary: Yes: Pallor. No: Symptoms Reported, See HPI, Bruising, Change in Color, Change in Hair/Nails, Dryness, Erythema, Flushing, Lesions, Lumps, Pruritus, Rash, Sweating, Other Neurological: No: Symptoms reported, See HPI, Headache, Numbness, Paresthesia, Pre-Existing Deficit, Seizure, Tingling, Tremors, Weakness, Unsteady Gait, Ataxia, Dizziness, Other Psychiatric: No: Anxiety, Depression, Frequent Crying, Stressors, Sleep Pattern Change, Emotional Problems, Mood Swings, Change in Appetite, Other Endocrine: No: Symptoms Reported, See HPI, Excessive Sweating, Flushing, Intolerance to Cold, Intolerance to Heat, Increased Hunger, Increased Thirst, Increased Urine, Unexplained Weight Gain, Unexplained Weight Loss, Change in Weight, Other Hematologic/Lymphatic: No: Symptoms Reported, See HPI, Anemia, Blood Clots, Easy Bleeding, Easy Bruising, Bleeding Diathesis, Lymph Node Abnormalities, Swollen Glands, Other *Physical Exam - Physical Exam General Appearance: Yes: Nourished, Appropriately Dressed, Mild Distress, Moderate Distress, Obese HEENT: positive: EOMI, DIANA, Normal ENT Inspection, Normal Voice, TMs Normal, Pharynx Normal, Pale Conjunctivae. negative: Symmetrical, Photophobia, Scleral Icterus (R), Scleral Icterus (L), Muffled/Hoarse voice, Pharyngeal Erythema, Tonsillar Exudate, Tonsillar Erythema, Nasal Congestion, Rhinorrhea, Sinus Tenderness, Orbits, Hearing Decreased, Hearing Grossly Normal, TM Bulging, TM Dull, TM Erythema, Lesions, [place], Excessive drooling, Thrush, Other Neck: positive: Trachea midline, Supple. negative: Tender, Normal Thyroid, Rigid, Carotid bruit, Decreased range of motion, Stridor, Lymphadenopathy (R), Lymphadenopathy (L), Rigidity, Tender lateral, Tender midline, Thyromegaly, Other Respiratory/Chest: positive: Lungs Clear, Normal Breath Sounds Cardiovascular: positive: Regular Rhythm, Regular Rate, S1, S2 Gastrointestinal/Abdominal: positive: Normal Bowel Sounds, Soft, Protuberent. negative: Tender, Flat, Organomegaly, Pulsatile Mass, Increased Bowel Sounds, Decreased BS, Distended, Guarding, Rebound, Tenderness, Hernia, Mass, Hepatomegaly, Spleenomegaly, Other Extremity: positive: Normal Inspection. 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 06/21/18 06:39 Pt is in fact anemic; iron infusuion and PRBCs ordered. Hospitalist team is aware. Pt also treated for the scabies on his bilateral wrists. *DC/Admit/Observation/Transfer Diagnosis at time of Disposition: Symptomatic anemia, HHT (hereditary hemorrhagic telangiectasia), COPD (chronic obstructive pulmonary disease), Shortness of breath, Scabies - Discharge Dispostion Condition at time of disposition: Guarded Decision to Admit order: Yes - Referrals - Patient Instructions - Post Discharge Activity
[2018-06-21 04:17] LABS: BASO % 0.5 % (0-2.0); EOS % 1.1 % (0-4.5); LYMPH % 15.5 % (8-40); MCHC 28.1 g/dl (32.0-35.9); MEAN CELL VOLUME 66.5 fl (80-96); MEAN PLT VOLUME 8.6 fl (7.5-11.1); MONO % 7.5 % (3.8-10.2); NEUT % 75.4 % (42.8-82.8); PLATELET COUNT 363 K/MM3 (134-434); RBC 3.16 M/mm3 (4.00-5.60); RDW 22.7 % (11.9-15.9); WHITE BLOOD COUNT 11.4 K/mm3 (4.0-10.0)
[2018-06-21 04:41] LABS: MCH 18.7 pg (25.7-33.7)
[2018-06-21 04:44] LABS: HEMOGLOBIN 5.9 GM/dL (11.7-16.9)
[2018-06-21 04:48] LABS: ANION GAP 9 MMOL/L (8-16); BLOOD UREA NITROGEN 33 mg/dL (7-18); CALCIUM 8.2 mg/dL (8.5-10.1); CHLORIDE 107 mmol/L (98-107); CO2 25 mmol/L (21-32); CREATININE 1.1 mg/dL (0.55-1.3); GLUCOSE,RANDOM 92 mg/dL (74-106); POTASSIUM 4.1 mmol/L (3.5-5.1); SODIUM 141 mmol/L (136-145)
[2018-06-21] MEDS ORDERED: IRON SUCROSE INJECTION 200 MG in SODIUM CHLORIDE 90 ML IVPB ONE (05:08)
[2018-06-21] MEDS ORDERED: oxyCODONE HCL 5 MG TABLET PO PRN (05:12)
[2018-06-21] MEDS ORDERED: PANTOPRAZOLE 40 MG TABLET (FP) PO PRN (05:12)
[2018-06-21] MEDS ORDERED: glipiZIDE 5 MG TABLET (FP) PO PRN (05:12)
[2018-06-21] MEDS ORDERED: FLUTICASONE PROP 0.05% 16 GM NASAL SPRAY NS PRN (05:30)
[2018-06-21] MEDS ORDERED: PERMETHRIN 5% TOPICAL CREAM 60 GM TUBE TP ONE (05:32)
[2018-06-21 05:56] LABS: ANISOCYTOSIS 3+
[2018-06-21] MEDS ORDERED: predniSONE 5 MG TABLET (UD) PO PRN (06:00)
[2018-06-21 06:58] VITALS: BMI 35.7
[2018-06-21] MEDS ORDERED: Insulin (LOG) Aspart 100 UNITS/ML VIAL SQ SCH (07:00)
[2018-06-21] MEDS: INSULIN SLIDING SCALE (NOVOLOG) 1 VIAL SQ SCH ×2 (07:53→17:36)
[2018-06-21] MEDS ORDERED: IRON SUCROSE COMPLEX 100 MG/5 ML VIAL ONE (08:04)
[2018-06-21] MEDS ORDERED: SODIUM CHLORIDE 100 ML IVPB ONE (08:05)
[2018-06-21] MEDS ORDERED: PT OWN MED DRAWER 7, Y5N ONE (08:30)
--- NOTE | 2018-06-21 09:44 | HP ---
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 Patient presented to the ED with a complaint of weakness and SOB. Patient is well known to this institution. He has recurrent nosebleeds secondary to cocaine use and frequently comes in for blood transfusions. He last used cocaine 5 days ago. ER course was notable for: (1) Hgb 5.9, MCV 66.5 (2) Utox +cocaine Recent Travel: No PAST MEDICAL HISTORY: PAST SURGICAL HISTORY: Social History: Smoking: current Alcohol: yes Drugs: cocaine Family History: Allergies No Known Allergies Allergy (Verified 04/28/18 12:53) HOME MEDICATIONS: Home Medications Medication Instructions Recorded Albuterol Sulfate Inhaler - 1 - 2 inh PO QID 09/19/13 [Ventolin HFA Inhaler -] Amlodipine Besylate [Norvasc -] 10 mg PO DAILY 09/19/13 Lisinopril [Prinivil -] 40 mg PO DAILY 09/19/13 Glipizide [Glucotrol -] 5 mg PO DAILY PRN 07/21/14 Omeprazole [Prilosec (RX)] 40 mg PO DAILY PRN 07/21/14 hydrALAZINE HCL [Apresoline -] 30 mg PO DAILY 05/23/17 Atorvastatin Ca [Lipitor] 10 mg PO DAILY 11/12/17 Prednisone 10 mg PO ASDIR #1 tab.ds.pk 04/20/18 Spironolactone 25 mg PO DAILY 04/28/18 Mometasone/Formoterol [Dulera 200 2 inh IH BID 06/21/18 Mcg/5 Mcg Inhaler] REVIEW OF SYSTEMS CONSTITUTIONAL: Absent: fever, chills, diaphoresis, generalized weakness, malaise, loss of appetite, weight change HEENT: Absent: rhinorrhea, nasal congestion, throat pain, throat swelling, difficulty swallowing, mouth swelling, ear pain, eye pain, visual changes CARDIOVASCULAR: Absent: chest pain, syncope, palpitations, irregular heart rate, lightheadedness , peripheral edema RESPIRATORY: Absent: cough, shortness of breath, dyspnea with exertion, orthopnea, wheezing, stridor, hemoptysis GASTROINTESTINAL: Absent: abdominal pain, abdominal distension, nausea, vomiting, diarrhea, constipation, melena, hematochezia GENITOURINARY: Absent: dysuria, frequency, urgency, hesitancy, hematuria, flank pain, genital pain MUSCULOSKELETAL: Absent: myalgia, arthralgia, joint swelling, back pain, neck pain SKIN: Absent: rash, itching, pallor HEMATOLOGIC/IMMUNOLOGIC: +epistaxis, fatigue, SOB Absent: easy bleeding, easy bruising, lymphadenopathy, frequent infections ENDOCRINE: Absent: unexplained weight gain, unexplained weight loss, heat intolerance, cold intolerance NEUROLOGIC: Absent: headache, focal weakness or paresthesias, dizziness, unsteady gait, seizure, mental status changes, bladder or bowel incontinence PSYCHIATRIC: Absent: anxiety, depression, suicidal or homicidal ideation, hallucinations. PHYSICAL EXAMINATION Vital Signs - 24 hr 06/21/18 06/21/18 06/21/18 03:24 05:12 06:49 Temperature 98.8 F 98.8 F 99.3 F Pulse Rate 83 83 85 Respiratory 20 20 20 Rate Blood Pressure 145/63 145/63 115/40 L O2 Sat by Pulse 97 97 Oximetry (%) GENERAL: Awake, alert, and fully oriented, in no acute distress. LUNGS: Breath sounds equal, clear to auscultation bilaterally. No wheezes, and no crackles. No accessory muscle use. HEART: Regular rate and rhythm, normal S1 and S2 UPPER EXTREMITIES: 2+ pulses, warm, well-perfused. No cyanosis. No clubbing. No peripheral edema. LOWER EXTREMITIES: 2+ pulses, warm, well-perfused. No calf tenderness. No peripheral edema. NEUROLOGICAL: Cranial nerves II-XII intact. Normal speech. Normal gait observed Laboratory Results - last 24 hr 06/21/18 06/21/18 06/21/18 03:30 03:30 03:30 WBC 11.4 H RBC 3.16 L Hgb 5.9 L* Hct 21.0 L D MCV 66.5 L MCH 18.7 L D MCHC 28.1 L RDW 22.7 H Plt Count 363 MPV 8.6 D Absolute Neuts (auto) 8.6 H Neutrophils % 75.4 Lymphocytes % 15.5 D Monocytes % 7.5 D Eosinophils % 1.1 D Basophils % 0.5 Nucleated RBC % 0 Hypochromia 3+ Anisocytosis 3+ Microcytosis 2+ Sodium 141 Potassium 4.1 Chloride 107 Carbon Dioxide 25 Anion Gap 9 BUN 33 H Creatinine 1.1 Creat Clearance w eGFR 68.52 POC Glucometer Random Glucose 92 Calcium 8.2 L Ferritin Blood Type O POSITIVE Antibody Screen Negative Crossmatch See Detail 06/21/18 06/21/18 05:32 07:41 WBC RBC Hgb Hct MCV MCH MCHC RDW Plt Count MPV Absolute Neuts (auto) Neutrophils % Lymphocytes % Monocytes % Eosinophils % Basophils % Nucleated RBC % Hypochromia Anisocytosis Microcytosis Sodium Potassium Chloride Carbon Dioxide Anion Gap BUN Creatinine Creat Clearance w eGFR POC Glucometer 169 Random Glucose Calcium Ferritin 2.6 L Blood Type Antibody Screen Crossmatch ASSESSMENT/PLAN 58 year-old male with a PMH significant for HTN, HLD, COPD, NIDDM, hereditary hemorrhagic telangiectasia, spinal stenosis, and recurrent epistaxis with 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 Patient presented to the ED with a complaint of weakness and SOB. Patient is well known to this institution. He has recurrent nosebleeds secondary to cocaine use and frequently comes in for blood transfusions. He last used cocaine 5 days ago. Anemia secondary to acute blood loss --daily epistaxis due to cocaine use --Hgb 5.9, transfuse 2U PRBC Scabies --Permethrin full body and scalp application Cocaine abuse --Utox + Hypertension --BP stable --continue amlodipine, lisinopril, hydralazine Hyperlipidemia --continue Lipitor Visit type - Emergency Visit Emergency Visit: Yes ED Registration Date: 06/21/18 Care time: The patient presented to the Emergency Department on the above date and was hospitalized for further evaluation of their emergent condition. - New Patient This patient is new to me today: Yes Date on this admission: 06/24/18 - Critical Care Critical Care patient: No
[2018-06-21] MEDS ORDERED: ALBUTEROL SO4 8 GM HFA INHALER IH PRN (10:00)
[2018-06-21] MEDS ORDERED: hydrALAZINE HCL 10 MG TABLET PO SCH (10:00)
[2018-06-21] MEDS ORDERED: BUDESONIDE/FORMETEROL FUMARATE 160/4.5 mcg INHALER IH SCH (10:00)
[2018-06-21] MEDS ORDERED: LISINOPRIL 20 MG TABLET (FP) PO SCH (10:00)
[2018-06-21] MEDS ORDERED: ATORVASTATIN CA 10 MG TABLET (FP) PO SCH (10:00)
[2018-06-21] MEDS ORDERED: SPIRONOLACTONE 25 MG TABLET (FP) PO SCH (10:00)
[2018-06-21 14:09] LABS: METHADONE, UR NEGATIVE ng/ml (CUTOFF=300); OPIATES, URI NEGATIVE ng/ml (CUTOFF=300); PHENCYCLIDINE,URINE NEGATIVE ng/ml (CUTOFF=25); URINE AMPHETAMINES NEGATIVE ng/ml (CUTOFF=500); URINE BARBITURATES NEGATIVE ng/ml (CUTOFF=200); URINE BENZODIAZEPINES NEGATIVE ng/ml (CUTOFF=200)
[2018-06-21 14:22] LABS: COCAINE, UR POSITIVE ng/ml (CUTOFF=300)
[2018-06-21] MEDS ORDERED: FUROSEMIDE 40 MG/4 ML INJECTABLE VIAL IVPUSH ONE ×2 (15:00→19:00)
[2018-06-21 19:54] VITALS: BP 139/60; PULSE 86; TEMP 98.9
--- NOTE | 2018-06-21 22:08 | DS ---
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 Patient presented to the ED with a complaint of weakness and SOB. Patient is well known to this institution. He has recurrent nosebleeds secondary to cocaine use and frequently comes in for blood transfusions. He last used cocaine 5 days ago. ER course (1) Hgb 5.9, MCV 66.5 (2) Utox +cocaine Subsequent hospital course Patient was transfused 2U PRBC and left AMA. Refused to stay for repeat cbc. Minutes to complete discharge: 35 Discharge Summary Reason For Visit: ANEMIA Condition: Guarded - Instructions Disposition: AGAINST MEDICAL ADVICE - Home Medications Comprehensive Discharge Medication List: Ambulatory Orders Albuterol Sulfate Inhaler - [Ventolin HFA Inhaler -] 1 - 2 inh PO QID 09/19/13 Amlodipine Besylate [Norvasc -] 10 mg PO DAILY 09/19/13 Lisinopril [Prinivil -] 40 mg PO DAILY 09/19/13 Glipizide [Glucotrol -] 5 mg PO DAILY PRN 07/21/14 Omeprazole [Prilosec (RX)] 40 mg PO DAILY PRN 07/21/14 hydrALAZINE HCL [Apresoline -] 30 mg PO DAILY 05/23/17 Atorvastatin Ca [Lipitor] 10 mg PO DAILY 11/12/17 Prednisone 10 mg PO ASDIR #1 tab.ds.pk 04/20/18 Spironolactone 25 mg PO DAILY 04/28/18 Mometasone/Formoterol [Dulera 200 Mcg/5 Mcg Inhaler] 2 inh IH BID 06/21/18 This patient is new to me today: Yes Date on this admission: 06/24/18 Emergency Visit: Yes ED Registration Date: 06/21/18 Care time: The patient presented to the Emergency Department on the above date and was hospitalized for further evaluation of their emergent condition. Critical Care patient: No - Discharge Referral Referred to [facility] Med P.C.: No
[2018-06-24 10:04] LABS: TOTAL IRON BINDING CAPACITY 377
[2018-06-24 10:05] LABS: SERUM IRON SATURATION 8; UIBC 348
== END 2018-06-21 20:39 | disposition left against medical advice (07) ==
LOC: FER 03:19 → UNDOADMIN 05:12 → FM/S 05:12 → UNDOADMOB 05:14 → FM/S 05:14 → INTOOBSV 05:14 → FM/S 16:32
PROVIDERS: ADMIT Internal Medicine; ATTEND Nurse Practitioner Acute Care
PROC: 30233N1 Transfusion of Nonautologous Red Blood Cells into Peripheral Vein, Percutaneous Approach (ICD-10-PCS; principal; 2018-06-21)
PROC: 3E033GC Introduction of Other Therapeutic Substance into Peripheral Vein, Percutaneous Approach (ICD-10-PCS; 2018-06-21)
PROC: 3E0F7GC Introduction of Other Therapeutic Substance into Respiratory Tract, Via Natural or Artificial Opening (ICD-10-PCS; 2018-06-21)
DX: D50.0 Iron deficiency anemia secondary to blood loss (chronic) (principal); B86 Scabies; F14.10 Cocaine abuse, uncomplicated; I10 Essential (primary) hypertension; E78.5 Hyperlipidemia, unspecified; E11.9 Type 2 diabetes mellitus without complications; I78.0 Hereditary hemorrhagic telangiectasia; F17.210 Nicotine dependence, cigarettes, uncomplicated; J44.9 Chronic obstructive pulmonary disease, unspecified; Z79.84 Long term (current) use of oral hypoglycemic drugs
CPT/HCPCS: 36415; 36430; 80048; 80307; 82728; 82962; 83540; 83550; 85025; 86850; 86900; 86901; 86922; 94640; 96365; 96375; 99282-25; G0378; J1756; P9038; P9058

== ENCOUNTER 2018-07-08 12:47 | Observation (INO) | payer OTHER ==
[2018-07-08 13:03] VITALS: BMI 33.9
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
[2018-07-08 13:52] LABS: RDW 25.1 % (11.9-15.9)
[2018-07-08 13:57] LABS: HEMATOCRIT 22.5 % (35.4-49); MCH 20.7 pg (25.7-33.7); MCHC 29.3 g/dl (32.0-35.9); MEAN CELL VOLUME 70.9 fl (80-96); MEAN PLT VOLUME 8.4 fl (7.5-11.1); PLATELET COUNT 471 K/MM3 (134-434); RBC 3.17 M/mm3 (4.00-5.60); WHITE BLOOD COUNT 9.6 K/mm3 (4.0-10.8)
[2018-07-08 13:59] LABS: ADD RBC MORPHOLOGY YES; ALBUMIN 4.2 g/dl (3.4-5.0); ALK PHOS 41 U/L (45-117); ANION GAP 9 MMOL/L (8-16); BILIRUBIN,TOTAL 0.5 mg/dl (0.2-1); BLOOD UREA NITROGEN 32 mg/dl (7-18); CALCIUM 9.7 mg/dl (8.5-10); CHLORIDE 107 mmol/L (98-107); CO2 23 mmol/L (21-32); CREATININE 1.5 mg/dl (0.55-1.3); GLUCOSE,RANDOM 191 mg/dl (74-106); HEMOGLOBIN 6.6 GM/dl (11.7-16.9); POTASSIUM 5.7 mmol/L (3.5-5.1); SGOT/AST 16 U/L (15-37); SGPT/ALT 17 U/L (13-61); SODIUM 139 mmol/L (136-145); TOT PROT 6.9 g/dl (6.4-8.2)
[2018-07-08 14:08] LABS: ACTIVATED PTT 25.5 SECONDS (25.2-36.5)
[2018-07-08 14:13] LABS: INR 1.18 (0.82-1.09); PROTHROMBIN TIME (PATIENT) 13.2 SEC (10.2-13.0)
[2018-07-08 14:38] LABS: ANISOCYTOSIS 2+; OVALOCYTE 1+; PLATELET ESTIMATE SLT INCREASE
--- NOTE | 2018-07-08 17:02 | HP ---
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 History Source: Patient - Past Medical History Cardiovascular: Yes: HTN (x 5 yrs) Pulmonary: Yes: COPD Heme/Onc: Yes: Bleeding Disorder Endocrine: Yes: Diabetes Mellitus (type 2 for 5 yrs) - Past Surgical History Past Surgical History: Yes: None - Smoking History Smoking history: Current every day smoker Have you smoked in the past 12 months: Yes Aproximately how many cigarettes per day: 20 - Alcohol/Substance Use Hx Alcohol Use: No History of Substance Use: reports: None - Social History ADL: Independent Occupation: disabled Home Medications - Allergies Allergies/Adverse Reactions: Allergies Allergy/AdvReac Type Severity Reaction Status Date / Time aspirin AdvReac Intermediate Verified 07/08/18 12:52 - Home Medications Home Medications: Ambulatory Orders Amlodipine Besylate 10 mg PO DAILY 07/08/18 Budesonide/Formeterol Fumarate [SYMBICORT 160/4.5mcg -] 1 puff IN DAILY Glipizide 10 mg PO DAILY 07/08/18 Hydrochlorothiazide [Hctz -] 25 mg PO DAILY 07/08/18 Lisinopril [Prinivil -] 40 mg PO DAILY 07/08/18 Omeprazole 20 mg PO DAILY 07/08/18 Prednisone 15 mg PO DAILY 07/08/18 Spironolactone 25 mg PO DAILY 07/08/18 Family Disease History - Family Disease History Family Disease History: CA: Mother (lymphoma), Other: Grandparent (HHT), Father (HHT), Sister (HHT) Review of Systems - Review of Systems Constitutional: reports: No Symptoms, Lethargy, Malaise HENT: denies: Difficult Swallowing, Ear Discharge Neck: denies: Decreased ROM, Lumps, Pain on Movement Cardiovascular: denies: Chest Pain, Edema, Palpitations Respiratory: denies: Cough, Exercise Intolerance, Hemoptysis Gastrointestinal: reports: Melena. denies: Abdominal Pain, Bloating, Constipation, Nausea, Rectal Bleeding, Vomiting Genitourinary: denies: Burning, Discharge, Dysuria, Flank Pain Musculoskeletal: denies: Back Pain, Crepitus Hematology/Lymphatic: reports: Excessive Bleeding Physical Examination Vital Signs: Vital Signs Temperature 98.5 F 07/08/18 15:20 Pulse Rate 77 07/08/18 15:20 Respiratory Rate 16 07/08/18 15:20 Blood Pressure 118/58 L 07/08/18 15:20 O2 Sat by Pulse Oximetry (%) 97 07/08/18 12:51 Constitutional: Yes: No Distress, Calm Eyes: No: Conjunctiva Clear, EOM Intact Neck: Yes: Trachea Midline. No: Supple Cardiovascular: Yes: Regular Rate and Rhythm, S1, S2 Respiratory: Yes: Regular, Wheezes Gastrointestinal: Yes: Normal Bowel Sounds, Soft Breast(s): Yes: Left Musculoskeletal: No: Back Pain, Joint Stiffness Extremities: No: Amputation, Calf Tenderness Edema: No Peripheral Pulses: Left Doralis Pedis: 1+, Right Dorsalis Pedis: 1+ Neurological: Yes: Alert, Oriented ...Motor Strength: WNL, LUE, LLE, RUE Labs: CBC,CMP WBC 9.6 K/mm3 (4.0-10.8) 07/08/18 13:31 RBC 3.17 M/mm3 (4.00-5.60) L 07/08/18 13:31 Hgb 6.6 GM/dl (11.7-16.9) L* 07/08/18 13:31 Hct 22.5 % (35.4-49) L 07/08/18 13:31 MCV 70.9 fl (80-96) L 07/08/18 13:31 MCH 20.7 pg (25.7-33.7) L 07/08/18 13:31 MCHC 29.3 g/dl (32.0-35.9) L 07/08/18 13:31 RDW 25.1 % (11.9-15.9) H 07/08/18 13:31 Plt Count 471 K/MM3 (134-434) H D 07/08/18 13:31 MPV 8.4 fl (7.5-11.1) 07/08/18 13:31 Absolute Neuts (auto) 9.1 K/mm3 07/08/18 13:31 Neutrophils % No Result Required. 07/08/18 13:31 Neutrophils % (Manual) 94.0 % (42.8-82.8) H* 07/08/18 13:31 Lymphocytes % No Result Required. 07/08/18 13:31 Lymphocytes % (Manual) 4.0 % (8-40) L D 07/08/18 13:31 Monocytes % (Manual) 1 % (3.8-10.2) L D 07/08/18 13:31 Basophils % (Manual) 1.0 % (0-2.0) 07/08/18 13:31 Hypochromia 3+ 07/08/18 13:31 Platelet Estimate Slt increase 07/08/18 13:31 Anisocytosis 2+ 07/08/18 13:31 Microcytosis 2+ 07/08/18 13:31 Ovalocytes 1+ 07/08/18 13:31 Sodium 139 mmol/L (136-145) 07/08/18 13:31 Potassium 5.7 mmol/L (3.5-5.1) H 07/08/18 13:31 Chloride 107 mmol/L (98-107) 07/08/18 13:31 Carbon Dioxide 23 mmol/L (21-32) 07/08/18 13:31 Anion Gap 9 MMOL/L (8-16) 07/08/18 13:31 BUN 32 mg/dl (7-18) H 07/08/18 13:31 Creatinine 1.5 mg/dl (0.55-1.3) H 07/08/18 13:31 Creat Clearance w eGFR 47.90 (>60) 07/08/18 13:31 POC Glucometer 92 UNITS (80-120) 07/08/18 22:13 Random Glucose 191 mg/dl (74-106) H 07/08/18 13:31 Calcium 9.7 mg/dl (8.5-10) 07/08/18 13:31 Total Bilirubin 0.5 mg/dl (0.2-1) 07/08/18 13:31 AST 16 U/L (15-37) 07/08/18 13:31 ALT 17 U/L (13-61) 07/08/18 13:31 Alkaline Phosphatase 41 U/L (45-117) L 07/08/18 13:31 Troponin I < 0.03 ng/ml (0.00-0.05) 07/08/18 13:31 Total Protein 6.9 g/dl (6.4-8.2) 07/08/18 13:31 Albumin 4.2 g/dl (3.4-5.0) 07/08/18 13:31 Imaging - Results Chest X-ray: Report Reviewed (No infiltrates) EKG: Report Reviewed (NSr no acute ST T chnages) Problem List - Problems (1) Symptomatic anemia Assessment/Plan: Due to recurrent nasal bleed low Iron store will add PO Iron on Dc schedule for 2 unit PRBC transfusion F/U CBC after transfusion. Code(s): D64.9 - ANEMIA, UNSPECIFIED (2) COPD (chronic obstructive pulmonary disease) Assessment/Plan: Patient c/o SOB with wheezes cont home meds including low dose prednisone 10 mg daily, Duoneb PRN Code(s): J44.9 - CHRONIC OBSTRUCTIVE PULMONARY DISEASE, UNSPECIFIED Qualifiers: (3) Cocaine use Assessment/Plan: Chronic as per patient last use 1 wk ago F/U U tox. Code(s): F14.90 - COCAINE USE, UNSPECIFIED, UNCOMPLICATED (4) Hypertension Assessment/Plan: Well controlled cont home meds Code(s): I10 - ESSENTIAL (PRIMARY) HYPERTENSION Qualifiers: (5) T2DM (type 2 diabetes mellitus) Assessment/Plan: Hold PO meds cont correction dose insulin diabetic diet. Code(s): E11.9 - TYPE 2 DIABETES MELLITUS WITHOUT COMPLICATIONS (6) Scabies Assessment/Plan: contact precaution, cont prometharin ont Code(s): B86 - SCABIES (7) CKD stage 3 due to type 2 diabetes mellitus Assessment/Plan: F/U bmp Code(s): E11.22 - TYPE 2 DIABETES MELLITUS W DIABETIC CHRONIC KIDNEY DISEASE; N18.3 - CHRONIC KIDNEY DISEASE, STAGE 3 (MODERATE)
[2018-07-08 22:10] VITALS: PULSE 78
[2018-07-08 22:25] LABS: METHADONE, UR NEGATIVE ng/ml (CUTOFF=300); OPIATES, URI NEGATIVE ng/ml (CUTOFF=300); PHENCYCLIDINE,URINE NEGATIVE ng/ml (CUTOFF=25); URINE AMPHETAMINES NEGATIVE ng/ml (CUTOFF=500); URINE BARBITURATES NEGATIVE ng/ml (CUTOFF=200); URINE BENZODIAZEPINES NEGATIVE ng/ml (CUTOFF=200)
[2018-07-08 22:26] LABS: COCAINE, UR POSITIVE ng/ml (CUTOFF=300)
[2018-07-08] MEDS ORDERED: amLODIPine BESYLATE 10 MG TABLET (FP) PO SCH (22:30)
[2018-07-09] MEDS: INSULIN SLIDING SCALE (NOVOLOG) 1 VIAL SQ SCH ×3 (07:13→11:40)
[2018-07-09 08:11] LABS: BASO % 0.4 % (0-2.0); HEMATOCRIT 24.8 % (35.4-49); HEMOGLOBIN 7.5 GM/dl (11.7-16.9); LYMPH % 11.1 % (8-40); MCH 22.5 pg (25.7-33.7); MCHC 30.2 g/dl (32.0-35.9); MEAN CELL VOLUME 74.6 fl (80-96); MEAN PLT VOLUME 8.5 fl (7.5-11.1); MONO % 4.8 % (3.8-10.2); NEUT % 82.7 % (42.8-82.8); PLATELET COUNT 385 K/MM3 (134-434); RBC 3.33 M/mm3 (4.00-5.60); WHITE BLOOD COUNT 10.7 K/mm3 (4.0-10.8)
[2018-07-09 08:35] LABS: ANION GAP 5 MMOL/L (8-16); BLOOD UREA NITROGEN 34 mg/dl (7-18); CALCIUM 8.9 mg/dl (8.5-10); CHLORIDE 109 mmol/L (98-107); CO2 24 mmol/L (21-32); CREATININE 1.2 mg/dl (0.55-1.3); GLUCOSE,RANDOM 134 mg/dl (74-106); POTASSIUM 4.2 mmol/L (3.5-5.1); SODIUM 138 mmol/L (136-145)
[2018-07-09] MEDS ORDERED: PT OWN MED DRAWER 7, Y5N ONE (09:23)
--- NOTE | 2018-07-09 09:37 | PN ---
Progress Note, Physician Chief Complaint: Feels improved - Current Medication List Current Medications: Active Medications Amlodipine Besylate (Norvasc -) 10 mg PO HS TRE[facility] Last Admin: 07/08/18 22:36 Dose: 10 mg Budesonide/Formoterol Fumarate (Symbicort 160/4.5mcg -) 1 puff IH DAILY [facility] Insulin Aspart (Novolog Vial Sliding Scale -) 1 vial SQ TIDAC [facility]; Protocol Last Admin: 07/09/18 07:25 Dose: Not Given Lisinopril (Prinivil) 40 mg PO DAILY [facility] Pantoprazole Sodium (Protonix -) 20 mg PO DAILY [facility] Prednisone (Deltasone -) 15 mg PO DAILY [facility] Spironolactone (Aldactone -) 25 mg PO DAILY [facility] - Objective Vital Signs: Vital Signs Temperature 98.6 F 07/09/18 06:28 Pulse Rate 78 07/09/18 06:28 Respiratory Rate 18 07/09/18 06:28 Blood Pressure 147/58 L 07/09/18 06:28 O2 Sat by Pulse Oximetry (%) 93 L 07/09/18 06:28 Constitutional: Yes: No Distress, Calm Eyes: No: Conjunctiva Clear, EOM Intact Neck: Yes: Trachea Midline. No: Supple Cardiovascular: Yes: Regular Rate and Rhythm, S1, S2 Respiratory: Yes: Regular, Wheezes Gastrointestinal: Yes: Normal Bowel Sounds, Soft Breast(s): Yes: Left Musculoskeletal: No: Back Pain, Joint Stiffness Extremities: No: Amputation, Calf Tenderness Edema: No Peripheral Pulses: Left Doralis Pedis: 1+, Right Dorsalis Pedis: 1+ Neurological: Yes: Alert, Oriented ...Motor Strength: WNL, LUE, LLE, RUE Labs: CBC, BMP 07/09/18 07:15 07/09/18 07:15 INR, PTT INR 1.18 (0.82-1.09) 07/08/18 13:31 Problem List - Problems (1) Symptomatic anemia Assessment/Plan: Due to recurrent nasal bleed low Iron store will add PO Iron on Dc recived for 2 unit PRBC rpt HB 7.5 will order 1 unit PRBC and Venofer patient Ferritinis very low 2.8 on 06/21/2018, rpt H/H in PM Code(s): D64.9 - ANEMIA, UNSPECIFIED (2) COPD (chronic obstructive pulmonary disease) Assessment/Plan: Patient c/o SOB with wheezes cont home meds including low dose prednisone 10 mg daily, Duoneb PRN Code(s): J44.9 - CHRONIC OBSTRUCTIVE PULMONARY DISEASE, UNSPECIFIED Qualifiers: (3) Cocaine use Assessment/Plan: Chronic as per patient last use 1 wk ago, U tox. + for Cocaine Code(s): F14.90 - COCAINE USE, UNSPECIFIED, UNCOMPLICATED (4) Hypertension Assessment/Plan: Well controlled cont home meds Code(s): I10 - ESSENTIAL (PRIMARY) HYPERTENSION Qualifiers: (5) T2DM (type 2 diabetes mellitus) Assessment/Plan: Hold PO meds cont correction dose insulin diabetic diet. Code(s): E11.9 - TYPE 2 DIABETES MELLITUS WITHOUT COMPLICATIONS (6) Scabies Assessment/Plan: contact precaution, cont prometharin ont Code(s): B86 - SCABIES (7) CKD stage 3 due to type 2 diabetes mellitus Assessment/Plan: improving after Hydration now GFR back to Code(s): E11.22 - TYPE 2 DIABETES MELLITUS W DIABETIC CHRONIC KIDNEY DISEASE; N18.3 - CHRONIC KIDNEY DISEASE, STAGE 3 (MODERATE)
[2018-07-09 09:46] VITALS: BP 135/58; TEMP 98.5
[2018-07-09] MEDS ORDERED: PATIENT'S OWN MEDICATION (NON-FORMULARY) (Amlodipine Besylate 10 MG) PO SCH (10:00)
[2018-07-09] MEDS ORDERED: PANTOPRAZOLE 20 MG TABLET (FP) PO SCH (10:00)
[2018-07-09] MEDS ORDERED: SPIRONOLACTONE 25 MG TABLET (FP) PO SCH (10:00)
[2018-07-09] MEDS ORDERED: predniSONE 5 MG TABLET (UD) PO SCH (10:00)
[2018-07-09] MEDS ORDERED: LISINOPRIL 20 MG TABLET (FP) PO SCH (10:00)
[2018-07-09] MEDS ORDERED: BUDESONIDE/FORMETEROL FUMARATE 160/4.5 mcg INHALER IH SCH (10:00)
[2018-07-09] MEDS ORDERED: IRON SUCROSE INJECTION 200 MG in SODIUM CHLORIDE 90 ML IVPB ONE (10:11)
--- NOTE | 2018-07-09 10:58 | EKG ---
Test Reason : Blood Pressure : / mmHG Vent. Rate : 076 BPM Atrial Rate : 076 BPM P-R Int : 152 ms QRS Dur : 080 ms QT Int : 368 ms P-R-T Axes : 033 024 008 degrees QTc Int : 414 ms SINUS RHYTHM WITH PREMATURE SUPRAVENTRICULAR COMPLEXES OTHERWISE NORMAL ECG WHEN COMPARED WITH ECG OF 06-APR-2018 19:01, NO SIGNIFICANT CHANGE WAS FOUND Confirmed by MD Kat, Olaf ([id number]) on 07/09/2018 10:58:14 AM Referred By: IFTIKHAR SCHULTZ Confirmed By:Olaf Stephens MD
--- NOTE | 2018-07-09 15:26 | DS ---
Physical Examination Vital Signs: Vital Signs Temperature 98.5 F 07/09/18 09:45 Pulse Rate 78 07/09/18 09:45 Respiratory Rate 18 07/09/18 09:45 Blood Pressure 135/58 L 07/09/18 09:45 O2 Sat by Pulse Oximetry (%) 93 L 07/09/18 06:28 Constitutional: Yes: No Distress, Calm Eyes: No: Conjunctiva Clear, EOM Intact Neck: Yes: Trachea Midline. No: Supple Cardiovascular: Yes: Regular Rate and Rhythm, S1, S2 Respiratory: Yes: Regular, Wheezes Gastrointestinal: Yes: Normal Bowel Sounds, Soft Breast(s): Yes: Left Musculoskeletal: No: Back Pain, Joint Stiffness Extremities: No: Amputation, Calf Tenderness Edema: No, Peripheral Pulses: Left Doralis Pedis: 1+, Right Dorsalis Pedis: 1+ Neurological: Yes: Alert, Oriented, Motor Strength: WNL, LUE, LLE, RUE Labs: CBC, BMP 07/09/18 07:15 07/09/18 07:15 Discharge Summary Reason For Visit: ANEMIA Current Active Problems Anemia (Acute) CKD stage 3 due to type 2 diabetes mellitus (Acute) Scabies (Acute) T2DM (type 2 diabetes mellitus) (Acute) Hospital Course: 58 yrs old man known to service , multiple hospitalization , last DC on 2018 after blood transfusion, H/O smoker, cocaine abuse, HTN, T2DM, Dyslipedemia , CKD stage 3, 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 Patient denies any focal weakness, chest pain, palpitation, nausea, vomiting , hemetmesis or diarrhea, wanted to go home without F/U H/H after transfusion, despite all counselling and informing him consequence of of premature discharge he remained adamant to his decision and signed ama. Condition: Guarded - Instructions Referrals: Sylvester Bang MD [Staff Physician] - 1 Month Disposition: AGAINST MEDICAL ADVICE - Home Medications Comprehensive Discharge Medication List: Ambulatory Orders Amlodipine Besylate 10 mg PO DAILY 07/08/18 Budesonide/Formeterol Fumarate [SYMBICORT 160/4.5mcg -] 1 puff IN DAILY Glipizide 10 mg PO DAILY 07/08/18 Hydrochlorothiazide [Hctz -] 25 mg PO DAILY 07/08/18 Lisinopril [Prinivil -] 40 mg PO DAILY 07/08/18 Omeprazole 20 mg PO DAILY 07/08/18 Prednisone 15 mg PO DAILY 07/08/18 Spironolactone 25 mg PO DAILY 07/08/18 Ferrous Sulfate 325 mg PO BID #60 tablet 07/09/18
== END 2018-07-09 14:40 | disposition left against medical advice (07) ==
LOC: FER 12:47 → FM/S 14:19
PROVIDERS: ADMIT Internal Medicine; ATTEND Nurse Practitioner Acute Care
PROC: 30233N1 Transfusion of Nonautologous Red Blood Cells into Peripheral Vein, Percutaneous Approach (ICD-10-PCS; principal; 2018-07-08)
PROC: 3E033GC Introduction of Other Therapeutic Substance into Peripheral Vein, Percutaneous Approach (ICD-10-PCS; 2018-07-08)
PROC: 3E0F7GC Introduction of Other Therapeutic Substance into Respiratory Tract, Via Natural or Artificial Opening (ICD-10-PCS; 2018-07-08)
DX: D50.9 Iron deficiency anemia, unspecified (principal); E11.22 Type 2 diabetes mellitus with diabetic chronic kidney disease; I12.9 Hypertensive chronic kidney disease with stage 1 through stage 4 chronic kidney disease, or unspecified chronic kidney disease; N18.3 Chronic kidney disease, stage 3 (moderate); Z79.84 Long term (current) use of oral hypoglycemic drugs; E78.5 Hyperlipidemia, unspecified; J44.9 Chronic obstructive pulmonary disease, unspecified; I78.0 Hereditary hemorrhagic telangiectasia; M48.07 Spinal stenosis, lumbosacral region; R04.0 Epistaxis; F17.210 Nicotine dependence, cigarettes, uncomplicated; B86 Scabies; F14.10 Cocaine abuse, uncomplicated; Z88.6 Allergy status to analgesic agent
CPT/HCPCS: 36415; 36430; 36511; 71045-TC-FY; 80048; 80053; 80307; 82962; 84484; 85025; 85610; 85730; 86850; 86900; 86901; 86922; 93005; 94640; 96365; 99285-25; G0378; J1756; P9038; P9058

== ENCOUNTER 2018-08-31 00:35 | Inpatient (IN) | payer MEDICARE, OTHER ==
--- NOTE | 2018-08-31 00:46 | PDOC ---
History of Present Illness - General Chief Complaint: Shortness of Breath Stated Complaint: SOB Time Seen by Provider: 08/31/18 00:36 History Source: Patient Exam Limitations: No Limitations - History of Present Illness Initial Comments: 08/31/18 02:34 Pt states that he has been developing SOB. 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 Pt has no fevers. He has a non productive cough. Pt has a 1PPD smoking habit. States that he plays poker with his buddies once per week and at those events, some guys drink and others smoke week and pt is exposed to that on a weekly basis. Pt states that he ahs not used cocaine recently. Past History - Past Medical History Allergies/Adverse Reactions: Allergies Allergy/AdvReac Type Severity Reaction Status Date / Time aspirin AdvReac Intermediate Verified 07/08/18 12:52 Home Medications: Ambulatory Orders Amlodipine Besylate 10 mg PO DAILY #0 07/08/18 Budesonide/Formeterol Fumarate [SYMBICORT 160/4.5mcg -] 2 puff IN BID 07/08/18 Glipizide 10 mg PO DAILY 07/08/18 Hydrochlorothiazide [Hctz -] 25 mg PO BID 07/08/18 Lisinopril [Prinivil -] 40 mg PO DAILY 07/08/18 Omeprazole 20 mg PO DAILY PRN 07/08/18 Prednisone 15 mg PO DAILY 07/08/18 Spironolactone 25 mg PO DAILY 07/08/18 Anemia: Yes (IRON DEFIC. ANEMIA, HX HEREDITARY HEMORR TALLENGECTESIA) Asthma: No Cancer: No CVA: No COPD: Yes CHF: No Dementia: No Diabetes: Yes (NIDDM) GI Disorders: No Disorders: No HTN: Yes Hypercholesterolemia: Yes Liver Disease: No Seizures: No Thyroid Disease: No - Surgical History Appendectomy: Yes Cardiac Surgery: No Cholecystectomy: No Lung Surgery: No Neurologic Surgery: No Orthopedic Surgery: No - Immunization History Immunization Up to Date: Yes - Suicide/Smoking/Psychosocial Hx Smoking History: Current every day smoker Have you smoked in the past 12 months: Yes Number of Cigarettes Smoked Daily: 20 Information on smoking cessation initiated: Yes 'Breaking Loose' booklet given: 04/28/18 Hx Alcohol Use: No Drug/Substance Use Hx: Yes (COCAINE OCCASSIONAL) Substance Use Type: Cocaine Hx Substance Use Treatment: No *Physical Exam - Vital Signs Last Vital Signs Temp Pulse Resp BP Pulse Ox 98.5 F 86 20 113/58 L 95 08/31/18 00:38 08/31/18 00:38 08/31/18 00:38 08/31/18 00:38 08/31/18 00:38 - Physical Exam General Appearance: Yes: Appropriately Dressed, Mild Distress HEENT: positive: EOMI, DIANA, Normal Voice, TMs Normal, Pharynx Normal Neck: positive: Trachea midline, Supple Respiratory/Chest: positive: Lungs Clear, Normal Breath Sounds, Accessory Muscle Use Cardiovascular: positive: Regular Rhythm, Regular Rate, S1, S2 Gastrointestinal/Abdominal: positive: Soft, Protuberent Musculoskeletal: positive: Normal Inspection. negative: CVA Tenderness Extremity: positive: Normal Capillary Refill, Normal Inspection Integumentary: positive: Dry, Warm, Pale Neurologic: positive: rack washer II-XII NML intact, Fully Oriented, Alert, Normal Mood/ Affect, Normal Response, Motor Strength 07/28 ED Treatment Course - LABORATORY CBC & Chemistry Diagram: 08/31/18 00:50 08/31/18 00:50 Medical Decision Making - Medical Decision Making 08/31/18 02:38 Pt is on 3L NC O2. Pt was hydrated with IV saline. He will be admitted to [facility] for symptomatic anemia. 08/31/18 03:08 Pt was accepted by the hospitalist team. Pt will require transfusion, as his Hb <7.0 He will also get a CXR. 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 Cleary) yesterday, and he had a normal EKG and cardiac echo. Pt is refusing another EKG at this time. 08/31/18 04:17 CXR today is unchanged from 2 months ago. 08/31/18 04:18 Labs are normal; pt has some renal insufficiency 08/31/18 04:18 Pt admitted to med/surg for tansfusion. *DC/Admit/Observation/Transfer Diagnosis at time of Disposition: HHT (hereditary hemorrhagic telangiectasia), Smoker, Shortness of breath, Anemia - Discharge Dispostion Condition at time of disposition: Guarded Decision to Admit order: Yes - Referrals - Patient Instructions - Post Discharge Activity
[2018-08-31] MEDS ORDERED: SODIUM CHLORIDE 0.9% 500 ML INFUS.BAG IV ONE (01:03)
[2018-08-31] MEDS: CLOTRIMAZOLE 1% CREAM 15 GM TUBE TP SCH ×2 (01:06→09:57)
[2018-08-31 02:11] LABS: BASO % 0.8 % (0-2.0); EOS % 0.7 % (0-4.5); HEMATOCRIT 23.2 % (35.4-49); LYMPH % 7.7 % (8-40); MCHC 28.4 g/dl (32.0-35.9); MEAN CELL VOLUME 67.9 fl (80-96); MEAN PLT VOLUME 9.1 fl (7.5-11.1); MONO % 6.1 % (3.8-10.2); NEUT % 84.7 % (42.8-82.8); RBC 3.41 M/mm3 (4.00-5.60); RDW 23.7 % (11.9-15.9)
[2018-08-31 02:18] LABS: MCH 19.3 pg (25.7-33.7)
[2018-08-31 02:20] LABS: HEMOGLOBIN 6.6 GM/dL (11.7-16.9)
[2018-08-31 02:37] LABS: ALBUMIN 4.2 g/dl (3.4-5.0); BILIRUBIN,TOTAL 0.3 mg/dL (0.2-1); BLOOD UREA NITROGEN 23.4 mg/dL (7-18); CALCIUM 9.3 mg/dL (8.5-10.1); CREATININE 1.4 mg/dL (0.55-1.3); POTASSIUM 4.4 mmol/L (3.5-5.1); TOT PROT 7.5 g/dl (6.4-8.2)
[2018-08-31] MEDS ORDERED: PANTOPRAZOLE 20 MG TABLET (FP) PO PRN (03:10)
[2018-08-31 03:25] LABS: ANISOCYTOSIS 3+; MACROCYTOSIS 0; PLATELET ESTIMATE NORMAL
[2018-08-31 03:41] LABS: PLATELET COUNT 339 K/MM3 (134-434)
[2018-08-31 04:36] VITALS: BMI 34.4
[2018-08-31] MEDS ORDERED: HYDROCHLOROTHIAZIDE 25 MG TABLET (FP) PO SCH (06:00)
[2018-08-31] MEDS ORDERED: glipiZIDE 5 MG TABLET (FP) PO SCH (07:00)
--- NOTE | 2018-08-31 09:35 | HP ---
CHIEF COMPLAINT:SOB weakness, PCP: HISTORY OF PRESENT ILLNESS: 58 year-old male with multiple hospitalization, PMH significant for HTN, HLD, COPD, NIDDM, hereditary hemorrhagic telangiectasia, spinal stenosis, and recurrent epistaxis with chronic microcytic anemia. Patient presented to the ED last night with complaint of weakness and SOB. 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 pt seen by his Aviation Engineer, Dr. Sharma on Sun, EKG, Echo done, as per pt tests were "good", refused EKG here in ED. Two units ordered last night, 1 unit received this morning. One unit blood started this morning ~7am, pt with hx of COPD, reports nebulizer machine is broken at home, has not seen Dr. Bang, denies cough, fever, ER course was notable for: (1)Hg 6.6 (2)Chest xray no acute infiltrates (3)afebrile Recent Travel: PAST MEDICAL HISTORY:HTN, HLD, COPD, NIDDM, hereditary hemorrhagic telangiectasia, spinal stenosis, and recurrent epistaxis with chronic microcytic anemia PAST SURGICAL HISTORY:appendectomy Social History: Smoking:current smoker Alcohol:denies Drugs: cocaine Family History: Allergies aspirin Adverse Reaction (Intermediate, Verified 07/08/18 12:52) HOME MEDICATIONS: Home Medications Medication Instructions Recorded Amlodipine Besylate 10 mg PO DAILY #0 07/08/18 Budesonide/Formeterol Fumarate 2 puff IN BID 07/08/18 [SYMBICORT 160/4.5mcg -] Glipizide 10 mg PO DAILY 07/08/18 Hydrochlorothiazide [Hctz -] 25 mg PO BID 07/08/18 Lisinopril [Prinivil -] 40 mg PO DAILY 07/08/18 Omeprazole 20 mg PO DAILY PRN 07/08/18 Prednisone 15 mg PO DAILY 07/08/18 Spironolactone 25 mg PO DAILY 07/08/18 REVIEW OF SYSTEMS CONSTITUTIONAL: Absent: fever, chills, diaphoresis, generalized weakness, malaise, loss of appetite, weight change HEENT: Absent: rhinorrhea, nasal congestion, throat pain, throat swelling, difficulty swallowing, mouth swelling, ear pain, eye pain, visual changes CARDIOVASCULAR: Absent: chest pain, syncope, palpitations, irregular heart rate, lightheadedness , peripheral edema RESPIRATORY: +SOB Absent: cough, , dyspnea with exertion, orthopnea, wheezing, stridor, hemoptysis GASTROINTESTINAL: Absent: abdominal pain, abdominal distension, nausea, vomiting, diarrhea, constipation, melena, hematochezia GENITOURINARY: Absent: dysuria, frequency, urgency, hesitancy, hematuria, flank pain, genital pain MUSCULOSKELETAL: Absent: myalgia, arthralgia, joint swelling, back pain, neck pain SKIN: fungal rash on LA, +itching, Absent: HEMATOLOGIC/IMMUNOLOGIC: Absent: easy bleeding, easy bruising, lymphadenopathy, frequent infections ENDOCRINE: Absent: unexplained weight gain, unexplained weight loss, heat intolerance, cold intolerance NEUROLOGIC: Absent: headache, focal weakness or paresthesias, dizziness, unsteady gait, seizure, mental status changes, bladder or bowel incontinence PSYCHIATRIC: Absent: anxiety, depression, suicidal or homicidal ideation, hallucinations. PHYSICAL EXAMINATION Vital Signs - 24 hr 08/31/18 08/31/18 08/31/18 00:38 02:31 04:17 Temperature 98.5 F 98.6 F Pulse Rate 86 76 Pulse Rate [ 83 Radial] Respiratory 20 20 20 Rate Blood Pressure 113/58 L 127/52 L Blood Pressure 114/49 L [Arm] O2 Sat by Pulse 95 98 97 Oximetry (%) 08/31/18 08/31/18 07:18 09:02 Temperature 98.6 F 97.6 F Pulse Rate 70 69 Pulse Rate [ Radial] Respiratory 18 19 Rate Blood Pressure 137/47 L 135/53 L Blood Pressure [Arm] O2 Sat by Pulse 98 96 Oximetry (%) GENERAL: Awake, alert, and fully oriented,mild acute distress HEAD: Normal with no signs of trauma. EYES: Pupils equal, round and reactive to light, extraocular movements intact, sclera anicteric, conjunctiva clear. No lid lag. EARS, NOSE, THROAT: Ears normal, nares patent, oropharynx clear without exudates. Moist mucous membranes. NECK: Normal range of motion, supple without lymphadenopathy, JVD, or masses. LUNGS: Breath sounds equal, clear to auscultation bilaterally. No wheezes, and no crackles. No accessory muscle use. HEART: Regular rate and rhythm, normal S1 and S2 without murmur, rub or gallop. ABDOMEN: Soft, nontender, not distended, normoactive bowel sounds, no guarding, no rebound, no masses. No hepatomegaly or splenomegaly. MUSCULOSKELETAL: Normal range of motion at all joints. No bony deformities or tenderness. No CVA tenderness. UPPER EXTREMITIES: 2+ pulses, warm, well-perfused. No cyanosis. No clubbing. No peripheral edema. LOWER EXTREMITIES: 2+ pulses, warm, well-perfused. No calf tenderness. No peripheral edema. NEUROLOGICAL: Cranial nerves II-XII intact. Normal speech. Normal gait. PSYCHIATRIC: Cooperative. Good eye contact. Appropriate mood and affect. SKIN: fungal , scaly rash noted on left FA, Warm, dry, normal capillary refill. Laboratory Results - last 24 hr 08/31/18 08/31/18 08/31/18 00:50 00:50 01:03 WBC 14.0 H RBC 3.41 L Hgb 6.6 L* Hct 23.2 L MCV 67.9 L MCH 19.3 L MCHC 28.4 L RDW 23.7 H Plt Count 339 MPV 9.1 Absolute Neuts (auto) 11.9 H Neutrophils % 84.7 H Lymphocytes % 7.7 L D Monocytes % 6.1 Eosinophils % 0.7 Basophils % 0.8 Nucleated RBC % 0 Hypochromia 3+ Platelet Estimate Normal Polychromasia 0 Poikilocytosis 1+ Anisocytosis 3+ Microcytosis 3+ Macrocytosis 0 Stomatocytes 1+ Sodium 140 Potassium 4.4 Chloride 108 H Carbon Dioxide 28 Anion Gap 5 L BUN 23.4 H Creatinine 1.4 H Est GFR (CKD-EPI)AfAm 63.29 Est GFR (CKD-EPI)NonAf 54.60 Random Glucose 82 Calcium 9.3 Total Bilirubin 0.3 AST 13 L ALT 20 Alkaline Phosphatase 47 Total Protein 7.5 Albumin 4.2 Acetone, Qual Negative Blood Type Antibody Screen Crossmatch 08/31/18 02:10 WBC RBC Hgb Hct MCV MCH MCHC RDW Plt Count MPV Absolute Neuts (auto) Neutrophils % Lymphocytes % Monocytes % Eosinophils % Basophils % Nucleated RBC % Hypochromia Platelet Estimate Polychromasia Poikilocytosis Anisocytosis Microcytosis Macrocytosis Stomatocytes Sodium Potassium Chloride Carbon Dioxide Anion Gap BUN Creatinine Est GFR (CKD-EPI)AfAm Est GFR (CKD-EPI)NonAf Random Glucose Calcium Total Bilirubin AST ALT Alkaline Phosphatase Total Protein Albumin Acetone, Qual Blood Type O POSITIVE Antibody Screen Negative Crossmatch See Detail ASSESSMENT/PLAN: Dean Johns is a 58 yr old M, medical condition, HTN, HLD, COPD, CKD stage 3, NIDDM, hereditary hemorrhagic telangiectasia, spinal stenosis, and recurrent epistaxis with chronic microcytic anemia admitted for Admitting Diagnosis Symptomatic anemia 2/2 HHT Chronic Problems HTN COPD NIDDM HHT Cocaine use A/P: #Symptomatic Anemia, acute on chronic -oxygen 2L NC PRN -2 units PRBC -recheck CBC post transfusions -check Iron level -occult stool collected #CKD stage 3 -Creat 1.4 -IVF -monitor BMP #COPD -duonebs prn -on home med prednisone 15mg daily -on symbicort -chest xray no acute infiltrates -will need f/u with Pulm #DM -on glipizide -diabetic diet -monitor FS #HHT -no blood thinners -monitor for bleeding #Cocaine use #Tobacco use -Urine tox ordered -nicorette gum Full Code Dispo: requires inpt treatment Visit type - Emergency Visit Emergency Visit: Yes ED Registration Date: 08/31/18 Care time: The patient presented to the Emergency Department on the above date and was hospitalized for further evaluation of their emergent condition. - New Patient This patient is new to me today: Yes Date on this admission: 08/31/18 - Critical Care Critical Care patient: No
[2018-08-31] MEDS ORDERED: SPIRONOLACTONE 25 MG TABLET (FP) PO SCH (10:00)
[2018-08-31] MEDS ORDERED: BUDESONIDE/FORMETEROL FUMARATE 160/4.5 mcg INHALER IH SCH (10:00)
[2018-08-31] MEDS ORDERED: DOCUSATE SODIUM 100 MG CAPSULE (FP) PO SCH (10:00)
[2018-08-31] MEDS ORDERED: SODIUM CHLORIDE 1,000 ML IV SCH (10:30)
[2018-08-31] MEDS ORDERED: predniSONE 10 MG TABLET (UD) PO SCH (10:30)
[2018-08-31] MEDS: ALBUTEROL SO4 2.5/IPRATROPIUM 0.5 INH SOL 3 ML VIAL.NEB. NEB PRN ×2 (11:18→15:35)
[2018-08-31] MEDS ORDERED: ACETAMINOPHEN 500 MG TABLET (FP) PO ONE (13:59)
--- NOTE | 2018-08-31 16:11 | DS ---
Physical Exam: SUBJECTIVE: Patient S/P 2 Units, prbc, does not want to stay for repeat labs, pt states "I'm ok now" pt advised to stay to monitor hg, pt refusing pt left AMA advised to follow up with PCP Sunday OBJECTIVE: Vital Signs Period Temp Pulse Resp BP Sys/Rashid Pulse Ox Last 24 Hr 97.6 F-99.1 F 69-86 18-20 113-142/39-58 93-98 PHYSICAL EXAM GENERAL: The patient is awake, alert, and fully oriented, in no acute distress. HEAD: Normal with no signs of trauma. EYES: PERRL, extraocular movements intact, sclera anicteric, conjunctiva clear. ENT: Ears normal, nares patent, oropharynx clear without exudates, moist mucous membranes. NECK: Trachea midline, full range of motion, supple. LUNGS: Breath sounds equal, clear to auscultation bilaterally, no wheezes, no crackles, no accessory muscle use. HEART: Regular rate and rhythm, S1, S2 without murmur, rub or gallop. ABDOMEN: Soft, nontender, nondistended, normoactive bowel sounds, no guarding, no rebound, no hepatosplenomegaly, no masses. EXTREMITIES: 2+ pulses, warm, well-perfused, no edema. NEUROLOGICAL: Cranial nerves II through XII grossly intact. Normal speech, gait not observed. PSYCH: Normal mood, normal affect. SKIN: Warm, dry, normal turgor, no rashes or lesions noted. LABS Laboratory Results - last 24 hr 08/31/18 08/31/18 08/31/18 00:50 00:50 01:03 WBC 14.0 H RBC 3.41 L Hgb 6.6 L* Hct 23.2 L MCV 67.9 L MCH 19.3 L MCHC 28.4 L RDW 23.7 H Plt Count 339 MPV 9.1 Absolute Neuts (auto) 11.9 H Neutrophils % 84.7 H Lymphocytes % 7.7 L D Monocytes % 6.1 Eosinophils % 0.7 Basophils % 0.8 Nucleated RBC % 0 Hypochromia 3+ Platelet Estimate Normal Polychromasia 0 Poikilocytosis 1+ Anisocytosis 3+ Microcytosis 3+ Macrocytosis 0 Stomatocytes 1+ Sodium 140 Potassium 4.4 Chloride 108 H Carbon Dioxide 28 Anion Gap 5 L BUN 23.4 H Creatinine 1.4 H Est GFR (CKD-EPI)AfAm 63.29 Est GFR (CKD-EPI)NonAf 54.60 Random Glucose 82 Calcium 9.3 Total Bilirubin 0.3 AST 13 L ALT 20 Alkaline Phosphatase 47 Total Protein 7.5 Albumin 4.2 Stool Occult Blood Acetone, Qual Negative Blood Type Antibody Screen Crossmatch 08/31/18 08/31/18 02:10 09:32 WBC RBC Hgb Hct MCV MCH MCHC RDW Plt Count MPV Absolute Neuts (auto) Neutrophils % Lymphocytes % Monocytes % Eosinophils % Basophils % Nucleated RBC % Hypochromia Platelet Estimate Polychromasia Poikilocytosis Anisocytosis Microcytosis Macrocytosis Stomatocytes Sodium Potassium Chloride Carbon Dioxide Anion Gap BUN Creatinine Est GFR (CKD-EPI)AfAm Est GFR (CKD-EPI)NonAf Random Glucose Calcium Total Bilirubin AST ALT Alkaline Phosphatase Total Protein Albumin Stool Occult Blood Negative Acetone, Qual Blood Type O POSITIVE Antibody Screen Negative Crossmatch See Detail HOSPITAL COURSE: Date of Admission:08/31/18 Date of Discharge: 08/31/18 jackie Johns is a 58 yr old M, medical condition, HTN, HLD, COPD, CKD stage 3, NIDDM, hereditary hemorrhagic telangiectasia, spinal stenosis, and recurrent epistaxis with chronic microcytic anemia admitted for Admitting Diagnosis Symptomatic anemia 2/2 HHT Chronic Problems HTN COPD NIDDM HHT Cocaine use A/P: #Symptomatic Anemia, acute on chronic -oxygen 2L NC PRN -S/P 2 units PRBC #CKD stage 3 -Creat 1.4 -IVF -monitor BMP #COPD -duonebs prn -on home med prednisone 15mg daily -on symbicort -chest xray no acute infiltrates -will need f/u with Pulm #DM -on glipizide -diabetic diet -monitor FS #HHT -no blood thinners -monitor for bleeding #Cocaine use #Tobacco use -Urine tox ordered -nicorette gum Minutes to complete discharge: 30 Discharge Summary Reason For Visit: SOB/ANEMIA,osler hemorrhagic telangiectasia syndro Current Active Problems Anemia (Acute) HHT (hereditary hemorrhagic telangiectasia) (Acute) Shortness of breath (Acute) Smoker (Acute) Condition: Fair - Instructions Diet, Activity, Other Instructions: FOLLOW UP WITH PCP AND PULM EARLY NEXT WEEK PLEASE RETURN TO ED IF YOU HAVE SOB, CHEST PAIN, DIZZINESS, RESUME HOME MEDS Disposition: AGAINST MEDICAL ADVICE - Home Medications Comprehensive Discharge Medication List: Ambulatory Orders Amlodipine Besylate 10 mg PO DAILY #0 07/08/18 Budesonide/Formeterol Fumarate [SYMBICORT 160/4.5mcg -] 2 puff IN BID 07/08/18 Glipizide 10 mg PO DAILY 07/08/18 Hydrochlorothiazide [Hctz -] 25 mg PO BID 07/08/18 Lisinopril [Prinivil -] 40 mg PO DAILY 07/08/18 Omeprazole 20 mg PO DAILY PRN 07/08/18 Prednisone 15 mg PO DAILY 07/08/18 Spironolactone 25 mg PO DAILY 07/08/18 This patient is new to me today: No Emergency Visit: Yes ED Registration Date: 08/31/18 Care time: The patient presented to the Emergency Department on the above date and was hospitalized for further evaluation of their emergent condition. Critical Care patient: No - Discharge Referral Referred to [facility] Med P.C.: No
[2018-08-31 16:20] VITALS: TEMP 98.4
[2018-08-31 16:24] LABS: METHADONE, UR NEGATIVE ng/ml (CUTOFF=300); OPIATES, URI NEGATIVE ng/ml (CUTOFF=300); PHENCYCLIDINE,URINE NEGATIVE ng/ml (CUTOFF=25); URINE AMPHETAMINES NEGATIVE ng/ml (CUTOFF=500); URINE BARBITURATES NEGATIVE ng/ml (CUTOFF=200); URINE BENZODIAZEPINES NEGATIVE ng/ml (CUTOFF=200)
[2018-08-31 16:25] VITALS: BP 141/52; PULSE 76
[2018-08-31 16:27] LABS: COCAINE, UR POSITIVE ng/ml (CUTOFF=300)
== END 2018-08-31 16:30 | disposition left against medical advice (07) | DRG 812 ==
LOC: FER 00:35 → FM/S 02:37
PROVIDERS: ADMIT Internal Medicine; ATTEND Nurse Practitioner Family
PROC: 30233N1 Transfusion of Nonautologous Red Blood Cells into Peripheral Vein, Percutaneous Approach (ICD-10-PCS; principal; 2018-08-31)
DX: D64.9 Anemia, unspecified (principal); J44.9 Chronic obstructive pulmonary disease, unspecified; I12.9 Hypertensive chronic kidney disease with stage 1 through stage 4 chronic kidney disease, or unspecified chronic kidney disease; N18.3 Chronic kidney disease, stage 3 (moderate); E11.22 Type 2 diabetes mellitus with diabetic chronic kidney disease; E78.5 Hyperlipidemia, unspecified; F14.90 Cocaine use, unspecified, uncomplicated; Z72.0 Tobacco use; I78.0 Hereditary hemorrhagic telangiectasia
CPT/HCPCS: 36415; 36430; 36511; 71045-TC-FY; 80053; 80307; 82009; 82272; 85025; 86850; 86900; 86901; 86922; 94640; 99285-25; J7030; P9038; P9058

== ENCOUNTER 2018-09-24 15:44 | Inpatient (IN) | payer OTHER ==
--- NOTE | 2018-09-24 15:48 | PDOC ---
History of Present Illness - General Chief Complaint: Abnormal Lab Results (Outside) Stated Complaint: LOW HGB 5.6 - History of Present Illness Initial Comments: The pt is a 58M w/ a history of hereditary hemorrhagic telangiectasia, chronic anemia w/ multiple transfusions in the past, cocaine use, is non-domicile presents for evaluation after being told his Hgb was 5.6 from blood work his [employer] Worker's recently performed. Pt reports epistaxis x3 over the last 2-3 days, most recently this AM. Reports associated generalized weakness/lethargy, worsening KIM, and worsening exertional chest tightness that he usually has. Denies fevers/chills, JUÁREZ, vision changes, LOC, falls, N/V/C/D, dysuria, blood in his stool or urine. 09/24/18 16:16 Past History - Past Medical History Allergies/Adverse Reactions: Allergies Allergy/AdvReac Type Severity Reaction Status Date / Time aspirin AdvReac Intermediate Verified 09/24/18 15:45 Home Medications: Ambulatory Orders Amlodipine Besylate 10 mg PO DAILY #0 07/08/18 Budesonide/Formeterol Fumarate [SYMBICORT 160/4.5mcg -] 2 puff IN BID 07/08/18 Glipizide 10 mg PO DAILY 07/08/18 Hydrochlorothiazide [Hctz -] 50 mg PO BID 07/08/18 Lisinopril [Prinivil -] 40 mg PO DAILY 07/08/18 Omeprazole 20 mg PO DAILY PRN 07/08/18 Prednisone 15 mg PO DAILY 07/08/18 Spironolactone 50 mg PO DAILY 07/08/18 Atorvastatin Ca [Lipitor] 10 mg PO HS 09/24/18 Cholecalciferol (Vitamin D3) [Vitamin D] 2,000 unit PO DAILY 09/24/18 Anemia: Yes (IRON DEFIC. ANEMIA, HX HEREDITARY HEMORR TALLENGECTESIA) Asthma: No Cancer: No CVA: No COPD: Yes CHF: No Dementia: No Diabetes: Yes (NIDDM) GI Disorders: No Disorders: No HTN: Yes Hypercholesterolemia: Yes Liver Disease: No Seizures: No Thyroid Disease: No - Surgical History Appendectomy: Yes Cardiac Surgery: No Cholecystectomy: No Lung Surgery: No Neurologic Surgery: No Orthopedic Surgery: No - Immunization History Immunization Up to Date: Yes - Suicide/Smoking/Psychosocial Hx Smoking History: Current every day smoker Have you smoked in the past 12 months: Yes Number of Cigarettes Smoked Daily: 20 'Breaking Loose' booklet given: 04/28/18 Hx Alcohol Use: No Drug/Substance Use Hx: Yes (COCAINE OCCASSIONAL) Substance Use Type: Cocaine Hx Substance Use Treatment: No Review of Systems - Review of Systems Able to Perform ROS?: Yes Comments:: GENERAL/CONSTITUTIONAL: No fever or chills HEAD, EYES, EARS, NOSE AND THROAT: No change in vision. No ear pain or discharge. No sore throat CARDIOVASCULAR: +KIM RESPIRATORY: Denies cough, hemoptysis GASTROINTESTINAL: No nausea, vomiting, diarrhea or constipation GENITOURINARY: No dysuria, frequency, or change in urination MUSCULOSKELETAL: +chronic BLE joint pain SKIN: +chronic R elbow discoloration NEUROLOGIC: No headache, vertigo, loss of consciousness, or change in strength/ sensation ENDOCRINE: No increased thirst. No abnormal weight change HEMATOLOGIC/LYMPHATIC: +hereditary hemorrhagic telangiectasia ALLERGIC/IMMUNOLOGIC: No hives or skin allergy 09/24/18 15:47 Is the patient limited Palauan proficient: No *Physical Exam - Vital Signs Vital Signs Temp Pulse Resp BP Pulse Ox 98.6 F 77 20 110/45 L 96 09/24/18 15:45 09/24/18 15:45 09/24/18 15:45 09/24/18 15:45 09/24/18 15:45 09/24/18 16:19 - Physical Exam Comments: GENERAL: Awake, alert, and oriented to person/place/time, in no acute distress HEAD: No signs of trauma, normocephalic, atraumatic EYES: PERRLA, EOMI, sclera anicteric, conjunctiva clear ENT: Hearing grossly normal, nares patent, oropharynx clear without exudates. No uvular deviation. Moist mucosa LUNGS: No distress, speaks in full sentences, clear to auscultation bilaterally HEART: Regular rate and rhythm, normal S1 and S2, no murmurs appreciated, peripheral pulses normal and equal bilaterally ABDOMEN: Soft, nontender, normoactive bowel sounds. No guarding, no rebound EXTREMITIES: Normal inspection, Normal range of motion, no edema. No clubbing or cyanosis NEUROLOGICAL: Cranial nerves II through XII grossly intact. Normal speech, normal gait, no focal sensorimotor deficits SKIN: Warm, Dry 09/24/18 15:48 ED Treatment Course - LABORATORY CBC & Chemistry Diagram: 09/24/18 16:38 09/24/18 16:38 Medical Decision Making - Medical Decision Making The pt is a 58M w/ a history of hereditary hemorrhagic telangiectasia, chronic anemia w/ multiple transfusions in the past, cocaine use, is non-domicile presents for evaluation after being told his Hgb was 5.6 from blood work his [employer]'s recently performed. Labs sent IV placed Pt ambulating in ED w/ stable gait No leukocytosis Lytes unremarkable No СЕРГЕЙ LFTs unremarkable Hgb 5.7 -Will plan for admission for symptomatic anemia -Will transfuse 2u pRBC Plan for admission for symptomatic anemia Pt signed out to [facility] Admitting 09/24/18 17:00 *DC/Admit/Observation/Transfer Diagnosis at time of Disposition: Symptomatic anemia COPD (chronic obstructive pulmonary disease) Qualifiers: COPD type: unspecified COPD Qualified Code(s): J44.9 - Chronic obstructive pulmonary disease, unspecified T2DM (type 2 diabetes mellitus) Qualifiers: 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
[2018-09-24 16:47] LABS: BASO % 0.2 % (0-2.0); EOS % 0.3 % (0-4.5); HEMATOCRIT 19.5 % (35.4-49); MCHC 29.4 g/dl (32.0-35.9); MEAN CELL VOLUME 67.8 fl (80-96); MEAN PLT VOLUME 7.8 fl (7.5-11.1); MONO % 2.9 % (3.8-10.2); NEUT % 89.6 % (42.8-82.8); PLATELET COUNT 348 K/MM3 (134-434); RBC 2.88 M/mm3 (4.00-5.60); RDW 22.4 % (11.9-15.9); WHITE BLOOD COUNT 8.1 K/mm3 (4.0-10.8)
[2018-09-24 16:49] LABS: ADD RBC MORPHOLOGY YES; HEMOGLOBIN 5.7 GM/dl (11.7-16.9); MCH 19.9 pg (25.7-33.7)
[2018-09-24 16:50] LABS: ALBUMIN 4.1 g/dl (3.4-5.0); BILIRUBIN,TOTAL 0.4 mg/dl (0.2-1); CALCIUM 8.7 mg/dl (8.5-10); CREATININE 1.1 mg/dl (0.55-1.3); TOT PROT 7.1 g/dl (6.4-8.2)
[2018-09-24 16:54] LABS: ACTIVATED PTT 23.9 SECONDS (25.2-36.5)
[2018-09-24 16:58] LABS: INR 1.33 (0.82-1.09); PROTHROMBIN TIME (PATIENT) 14.8 SEC (10.2-13.0)
--- NOTE | 2018-09-24 17:10 | PDOC ---
Attending Attestation - Resident Resident Name: Lonny Rodríguez - ED Attending Attestation I have performed the following: I have examined & evaluated the patient, The case was reviewed & discussed with the resident, I agree w/resident's findings & plan - HPI HPI: 09/24/18 16:59 58y/o M h/o HHT with chronic recurring anemia requiring multiple transfusions in the past presents with outpt Hgb 5.6 drawn yesterday in the setting of 4-5 days symptoms exertional sob/cp/generalized weakness, typical of when he requires transfusions. notes his typical mucosal bleeding intermittently over the last few days. - Physicial Exam PE: 09/24/18 17:09 vss, ambulating comfortable airway patent mucosal telangectasias, no active bleeding s1s2, ctab abd soft neuro nonfocal - Medical Decision Making 09/24/18 17:10 58y/o M with h/o HHT and chronic anemia requiring transfusions p/w symptomatic anemia, HD stable. Hgb confirmed 5.7, chem wnl PRBC ordered admit, heme consult prn
[2018-09-24] MEDS ORDERED: PANTOPRAZOLE 20 MG TABLET (FP) PO PRN (17:37)
[2018-09-24] MEDS ORDERED: ACETAMINOPHEN 325 MG TABLET (FP) PO PRN (17:49)
--- NOTE | 2018-09-24 18:37 | HP ---
Admitting History and Physical - Admission Chief Complaint: SOB, dizziness History of Present Illness: 58 year old male, with a significant PMH of COPD, DM, HTN, Hereditary Hemorrhagic Telangiectasia (HHT), Spinal stenosis, presents to the ED with c/o shortness of breath and dizziness x 5days. 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 Mr. Johns states that he has not followed up with hematology in the last 6months due to his prior specialist (Dr. Mccartney) not accepting [facility]. As a result, the patient has been admitted 9 times over the last 6months for symptomatic anemia. He continues to use cocaine 2-3x per month and smokes 1PPD. Pt endorses at least 15 major nose bleeds over the last 5days which resolved with holding pressure and packing nares. He had a scheduled appointment with his photograph finisher on 09/23, where he had blood work done. On the morning of 09/24, pt was called by his photograph finisher to inform him of his hgb being 5.6. Pt was told to seek intervention at his local ED. Pt denies any chest pain or syncope. Denies hematemeis, blood in stool or dark stools or hematuria. In ED Vitals BP 110/45, HR 77bpm, RR 20, T 98.6, O2 sat 96 routine labs: hgb 5.7, HCt 19.5 decison made to admit for PRBC infusion. 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 Cleary PCP: [facility] Renal: Dr. Wilson @ [facility] History Source: Patient Limitations to Obtaining History: No Limitations - Past Medical History Cardiovascular: Yes: HTN (x 5 yrs), Hyperlipdemia Pulmonary: Yes: COPD Gastrointestinal: Yes: GERD Heme/Onc: Yes: Bleeding Disorder Endocrine: Yes: Diabetes Mellitus (type 2 for 5 yrs) Additional Past Medical History: spinal stenosis - Past Surgical History Past Surgical History: Yes: Appendectomy (partial appendectomy age 5, complicated by peritonitis remainder of appendix removed at age 24) - Smoking History Smoking history: Current every day smoker Have you smoked in the past 12 months: Yes Aproximately how many cigarettes per day: 20 (41 years) - Alcohol/Substance Use Hx Alcohol Use: No History of Substance Use: reports: Cocaine - Social History Usual Living Arrangement: Yes: Alone (Studio apt with 14steps in enter apartment ) ADL: Independent 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 History of Recent Travel: No Home Medications - Allergies Allergies/Adverse Reactions: Allergies Allergy/AdvReac Type Severity Reaction Status Date / Time aspirin AdvReac Intermediate Verified 09/24/18 15:45 - Home Medications Home Medications: Ambulatory Orders Amlodipine Besylate 10 mg PO DAILY #0 07/08/18 Budesonide/Formeterol Fumarate [SYMBICORT 160/4.5mcg -] 2 puff IN BID 07/08/18 Glipizide 10 mg PO DAILY 07/08/18 Hydrochlorothiazide [Hctz -] 50 mg PO BID 07/08/18 Lisinopril [Prinivil -] 40 mg PO DAILY 07/08/18 Omeprazole 20 mg PO DAILY PRN 07/08/18 Prednisone 15 mg PO DAILY 07/08/18 Spironolactone 50 mg PO DAILY 07/08/18 Atorvastatin Ca [Lipitor] 10 mg PO HS 09/24/18 Cholecalciferol (Vitamin D3) [Vitamin D] 2,000 unit PO DAILY 09/24/18 Family Disease History - Family Disease History Family Disease History: CA: Mother (lymphoma), Other: Grandparent (HHT), Father (HHT), Sister (HHT) Review of Systems - Review of Systems Constitutional: reports: Lethargy, Weakness Eyes: reports: No Symptoms HENT: reports: Epistaxis Neck: reports: No Symptoms Cardiovascular: reports: Shortness of Breath Respiratory: reports: SOB on Exertion Gastrointestinal: reports: No Symptoms Genitourinary: reports: No Symptoms Breasts: reports: No Symptoms Reported Musculoskeletal: reports: No Symptoms Integumentary: reports: No Symptoms Neurological: reports: Weakness Endocrine: reports: No Symptoms Hematology/Lymphatic: reports: Other (nose bleeds and hard palate bleeding) Psychiatric: reports: No Symptoms Physical Examination Vital Signs: Vital Signs Temperature 98.6 F 09/24/18 15:45 Pulse Rate 77 09/24/18 15:45 Respiratory Rate 20 09/24/18 15:45 Blood Pressure 110/45 L 09/24/18 15:45 O2 Sat by Pulse Oximetry (%) 96 09/24/18 15:45 Constitutional: Yes: No Distress, Calm, Obese, Other (dishelved) Eyes: Yes: Conjunctiva Clear (pale conjunctiva), PERRL, Other HENT: Yes: Atraumatic, Normocephalic, Epistaxis (old blood to nares), Other Neck: Yes: Supple, Trachea Midline Cardiovascular: Yes: Regular Rate and Rhythm Respiratory: Yes: Regular, Rhonchi (at the bases) Gastrointestinal: Yes: Normal Bowel Sounds, Soft, Abdomen, Obese Breast(s): Yes: WNL Musculoskeletal: Yes: WNL Extremities: Yes: WNL Edema: No Peripheral Pulses WNL: Yes Peripheral Pulses: Left Radial: 2+, Right Radial: 2+, Left Doralis Pedis: 2+, Right Dorsalis Pedis: 2+ Integumentary: Yes: WNL Neurological: Yes: Alert, Oriented ...Motor Strength: WNL Psychiatric: Yes: Alert, Oriented Labs: CBC, BMP 09/24/18 16:38 09/24/18 16:38 Imaging - Results Chest X-ray: Report Reviewed (CXR 09/24/2018 Impression:Mild atelectatic changes in the right and minimal atelectatic changes in the left lung base. Superimposed infiltrates in the right lung base could not be excluded. Read by Dr. Angela Akbar MD) EKG: Pending Problem List - Problems (1) COPD (chronic obstructive pulmonary disease) Assessment/Plan: symbicort BID Duonebs PRN q6hrs repeat CXR in AM Code(s): J44.9 - CHRONIC OBSTRUCTIVE PULMONARY DISEASE, UNSPECIFIED Qualifiers: (2) Diabetes mellitus Assessment/Plan: fingerstick ACHS Cont home dose of glipizide 10mg daily consider adding sliding scale insulin if BG are not well controlled diabetic diet Code(s): E11.9 - TYPE 2 DIABETES MELLITUS WITHOUT COMPLICATIONS Qualifiers: Diabetes mellitus type: type 2 Diabetes mellitus terminal carman insulin use: without terminal carman use Diabetes mellitus complication status: with unspecified complications (3) GERD (gastroesophageal reflux disease) Assessment/Plan: PPI daily Code(s): K21.9 - GASTRO-ESOPHAGEAL REFLUX DISEASE WITHOUT ESOPHAGITIS (4) HHT (hereditary hemorrhagic telangiectasia) Assessment/Plan: prednisone 15mg daily Transfuse overnight for goal hgb > 7.5 heme consult in AM for possible iron infusion serial CBC, trend H/H monitor for bleeding due to underlying hemorrhagic disease process. Stool for occult blood ordered Code(s): I78.0 - HEREDITARY HEMORRHAGIC TELANGIECTASIA (5) Hypertension Assessment/Plan: HCTZ 50mg BID aldactone 50mg daily norvasc 10mg daily lisinopril 40mg daily Vitals signs q4h cardiac diet Code(s): I10 - ESSENTIAL (PRIMARY) HYPERTENSION Qualifiers: (6) Prophylactic measure Assessment/Plan: Ambulate as tolerated OOB to chair Senna/colace bowel regimen Code(s): Z29.9 - ENCOUNTER FOR PROPHYLACTIC MEASURES, UNSPECIFIED Assessment/Plan Code status: FULL Visit type - Emergency Visit Emergency Visit: Yes ED Registration Date: 09/24/18 Care time: The patient presented to the Emergency Department on the above date and was hospitalized for further evaluation of their emergent condition. - New Patient This patient is new to me today: Yes Date on this admission: 09/24/18 - Critical Care Critical Care patient: No
[2018-09-24 20:48] VITALS: BMI 17.3
[2018-09-24] MEDS ORDERED: ALBUTEROL SO4 2.5/IPRATROPIUM 0.5 INH SOL 3 ML VIAL.NEB. NEB PRN (20:50)
[2018-09-24 21:03] LABS: ANISOCYTOSIS 3+
[2018-09-24 21:04] LABS: PLATELET ESTIMATE ADEQUATE
[2018-09-24] MEDS: HYDROCHLOROTHIAZIDE 25 MG TABLET (FP) PO SCH (21:54)
[2018-09-24] MEDS ORDERED: DOCUSATE SODIUM 100 MG CAPSULE (FP) PO SCH (22:00)
[2018-09-24] MEDS ORDERED: ATORVASTATIN CA 10 MG TABLET (FP) PO SCH (22:00)
[2018-09-24] MEDS ORDERED: SENNOSIDES 8.6MG TABLET (FP) PO SCH (22:00)
[2018-09-24] MEDS ORDERED: BUDESONIDE/FORMETEROL FUMARATE 160/4.5 mcg INHALER IH SCH (22:00)
[2018-09-25 04:58] LABS: BASO % 0.6 % (0-2.0); EOS % 0.9 % (0-4.5); MCH 21.5 pg (25.7-33.7); MCHC 30.3 g/dl (32.0-35.9); MEAN PLT VOLUME 8.3 fl (7.5-11.1); MONO % 8.6 % (3.8-10.2); NEUT % 72.9 % (42.8-82.8); PLATELET COUNT 287 K/MM3 (134-434); RBC 3.24 M/mm3 (4.00-5.60); RDW 26.3 % (11.9-15.9); WHITE BLOOD COUNT 9.6 K/mm3 (4.0-10.0)
[2018-09-25 05:55] VITALS: BP 108/55; PULSE 63; TEMP 98.5
[2018-09-25] MEDS ORDERED: glipiZIDE 10 MG TABLET (FP) PO SCH (07:00)
[2018-09-25 07:46] LABS: HEMOGLOBIN 7.4 GM/dl (11.7-16.9); MCHC 29.7 g/dl (32.0-35.9)
[2018-09-25 07:55] LABS: BASO % 0.7 % (0-2.0); EOS % 0.9 % (0-4.5); HEMATOCRIT 25.1 % (35.4-49); LYMPH % 16.5 % (8-40); MCH 21.3 pg (25.7-33.7); MEAN PLT VOLUME 8.6 fl (7.5-11.1); MONO % 5.8 % (3.8-10.2); NEUT % 76.1 % (42.8-82.8); PLATELET COUNT 333 K/MM3 (134-434); RBC 3.49 M/mm3 (4.00-5.60); RDW 25.3 % (11.9-15.9); WHITE BLOOD COUNT 9.8 K/mm3 (4.0-10.8)
[2018-09-25 08:01] LABS: INR 1.27 (0.82-1.09); PROTHROMBIN TIME (PATIENT) 14.2 SEC (10.2-13.0)
[2018-09-25 08:21] LABS: ALBUMIN 3.9 g/dl (3.4-5.0); BILIRUBIN,TOTAL 1.3 mg/dl (0.2-1); CALCIUM 8.6 mg/dl (8.5-10); CREATININE 1.1 mg/dl (0.55-1.3); MAGNESIUM 2.1 mg/dL (1.8-2.4); POTASSIUM 4.3 mmol/L (3.5-5.1); TOT PROT 6.8 g/dl (6.4-8.2)
[2018-09-25] MEDS ORDERED: amLODIPine BESYLATE 10 MG TABLET (FP) PO SCH (10:00)
[2018-09-25] MEDS ORDERED: SPIRONOLACTONE 25 MG TABLET (FP) PO SCH (10:00)
[2018-09-25] MEDS ORDERED: LISINOPRIL 20 MG TABLET (FP) PO SCH (10:00)
[2018-09-25] MEDS ORDERED: CHOLECALCIFEROL (VIT D3) 1,000 UNIT (25 MCG) TABLET PO SCH (10:00)
[2018-09-25] MEDS ORDERED: predniSONE 10 MG TABLET (UD) PO SCH (10:00)
[2018-09-25] MEDS: HYDROCHLOROTHIAZIDE 25 MG TABLET (FP) PO SCH (10:01)
[2018-09-25] MEDS ORDERED: glipiZIDE 5 MG TABLET (FP) ONE (10:26)
--- NOTE | 2018-09-25 10:41 | EKG ---
Test Reason : Blood Pressure : / mmHG Vent. Rate : 078 BPM Atrial Rate : 078 BPM P-R Int : 154 ms QRS Dur : 088 ms QT Int : 380 ms P-R-T Axes : 042 032 -17 degrees QTc Int : 433 ms SINUS RHYTHM WITH PREMATURE ATRIAL COMPLEXES OTHERWISE NORMAL ECG WHEN COMPARED WITH ECG OF 08-JUL-2018 14:09, NO SIGNIFICANT CHANGE WAS FOUND Confirmed by SINAI CANDELARIO, CHAITANYA ([id number]) on 09/25/2018 10:41:19 AM Referred By: DR MOSS Confirmed By:CHAITANYA RAWLS MD
[2018-09-25] MEDS ORDERED: PT OWN MED DRAWER 7, Y5N ONE (11:08)
--- NOTE | 2018-09-25 11:39 | DS ---
Physical Exam: SUBJECTIVE: Patient seen and examined at bedside. OBJECTIVE: Vital Signs Period Temp Pulse Resp BP Sys/Rashid Pulse Ox Last 24 Hr 97.9 F-99.3 F 63-82 19-20 108-145/45-57 93-99 PHYSICAL EXAM GENERAL: The patient is awake, alert, and fully oriented, in no acute distress. LUNGS: Mild wheezing HEART: Regular rate and rhythm, S1, S2 ABDOMEN: Soft, nontender, nondistended EXTREMITIES: 2+ pulses, warm, well-perfused, no edema. NEUROLOGICAL: Cranial nerves II through XII grossly intact. Normal speech, steady gait. LABS Laboratory Results - last 24 hr 09/24/18 09/24/18 09/24/18 16:38 16:38 16:38 WBC 8.1 RBC 2.88 L Hgb 5.7 L* Hct 19.5 L D MCV 67.8 L MCH 19.9 L MCHC 29.4 L RDW 22.4 H Plt Count 348 MPV 7.8 Absolute Neuts (auto) 7.3 Neutrophils % 89.6 H Lymphocytes % 7.0 L D Monocytes % 2.9 L Eosinophils % 0.3 Basophils % 0.2 Nucleated RBC % Hypochromia 3+ Platelet Estimate Adequate Anisocytosis 3+ Microcytosis 2+ PT with INR 14.8 H INR 1.33 H PTT (Actin FS) 23.9 L Sodium 133 L Potassium 5.0 Chloride 108 H Carbon Dioxide 21 Anion Gap 4 L BUN 41.0 H Creatinine 1.1 Est GFR (CKD-EPI)AfAm 84.71 Est GFR (CKD-EPI)NonAf 73.09 POC Glucometer Random Glucose 177 H Calcium 8.7 Magnesium Total Bilirubin 0.4 AST 14 L ALT 15 Alkaline Phosphatase 36 L Total Protein 7.1 Albumin 4.1 Blood Type Antibody Screen Crossmatch 09/24/18 09/24/18 09/25/18 16:38 23:21 04:15 WBC 9.6 RBC 3.24 L Hgb 7.0 L Hct 23.0 L MCV 71.0 L MCH 21.5 L D MCHC 30.3 L RDW 26.3 H Plt Count 287 MPV 8.3 Absolute Neuts (auto) 7.0 Neutrophils % 72.9 Lymphocytes % 17.0 D Monocytes % 8.6 Eosinophils % 0.9 Basophils % 0.6 Nucleated RBC % 0 Hypochromia Platelet Estimate Anisocytosis Microcytosis PT with INR INR PTT (Actin FS) Sodium Potassium Chloride Carbon Dioxide Anion Gap BUN Creatinine Est GFR (CKD-EPI)AfAm Est GFR (CKD-EPI)NonAf POC Glucometer 135 Random Glucose Calcium Magnesium Total Bilirubin AST ALT Alkaline Phosphatase Total Protein Albumin Blood Type O POSITIVE Antibody Screen Negative Crossmatch See Detail 09/25/18 09/25/18 09/25/18 06:44 07:38 07:38 WBC 9.8 RBC 3.49 L Hgb 7.4 L Hct 25.1 L D MCV 72.0 L MCH 21.3 L MCHC 29.7 L RDW 25.3 H Plt Count 333 MPV 8.6 D Absolute Neuts (auto) 7.4 Neutrophils % 76.1 Lymphocytes % 16.5 D Monocytes % 5.8 D Eosinophils % 0.9 D Basophils % 0.7 D Nucleated RBC % Hypochromia Platelet Estimate Anisocytosis Microcytosis PT with INR 14.2 H INR 1.27 H PTT (Actin FS) 27.0 Sodium Potassium Chloride Carbon Dioxide Anion Gap BUN Creatinine Est GFR (CKD-EPI)AfAm Est GFR (CKD-EPI)NonAf POC Glucometer 113 Random Glucose Calcium Magnesium Total Bilirubin AST ALT Alkaline Phosphatase Total Protein Albumin Blood Type Antibody Screen Crossmatch 09/25/18 07:38 WBC RBC Hgb Hct MCV MCH MCHC RDW Plt Count MPV Absolute Neuts (auto) Neutrophils % Lymphocytes % Monocytes % Eosinophils % Basophils % Nucleated RBC % Hypochromia Platelet Estimate Anisocytosis Microcytosis PT with INR INR PTT (Actin FS) Sodium 135 L Potassium 4.3 Chloride 108 H Carbon Dioxide 22 Anion Gap 5 L BUN 38.0 H Creatinine 1.1 Est GFR (CKD-EPI)AfAm 84.71 Est GFR (CKD-EPI)NonAf 73.09 POC Glucometer Random Glucose 110 H Calcium 8.6 Magnesium 2.1 Total Bilirubin 1.3 H AST 13 L ALT 15 Alkaline Phosphatase 35 L Total Protein 6.8 Albumin 3.9 Blood Type Antibody Screen Crossmatch HOSPITAL COURSE: Date of Admission:09/24/18 Date of Discharge: 09/25/18 Pre hospital course 58 year-old male with a PMH significant for HTN, HLD, COPD, NIDDM, hereditary hemorrhagic telangiectasia, chronic microcytic anemia, and recurrent epistaxis. Presented to the ED for evaluation of SOB and dizziness x 5days. 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 Mr. Johns states that he has not followed up with hematology in the last 6months due to his prior specialist (Dr. Mccartney) not accepting Medicare. As a result, the patient has been admitted 9 times over the last 6 months for symptomatic anemia. He continues to use cocaine 2-3x per month and smokes 1PPD. Pt endorses at least 15 major nose bleeds over the last 5 days which resolved with holding pressure and packing nares. He had a scheduled appointment with his files supervisor on 09/23, where he had blood work done. On the morning of 09/24, pt was called by his files supervisor to inform him of a Hgb 5.6. Pt was told to seek intervention at his local ED. ED course In ED Vitals BP 110/45, HR 77bpm, RR 20, T 98.6, O2 sat 96 routine labs: hgb 5.7, HCt 19.5 decison made to admit for PRBC infusion Subsequent hospital course Patient was transfused 2U PRBC with Hgb improved 5.7-->7.4. He was hemodynamically stable. ECG showed no signs of ischemia. There were no bleeding episodes. Patient discharged with strong recommendation to establish a primary care relationship. Minutes to complete discharge: 35 Discharge Summary Reason For Visit: LOW HGB 5.6 Current Active Problems Prophylactic measure (Acute) Condition: Improved - Instructions Diet, Activity, Other Instructions: We strongly recommended you establish a relationship with a primary care provider. If you like, you may make an appointment with the [facility] located at the [facility], [address] [place] [address]; [phone]. Referrals: Benny Thakur MD [Staff Physician] - Disposition: HOME - Home Medications Comprehensive Discharge Medication List: Ambulatory Orders Amlodipine Besylate 10 mg PO DAILY #0 07/08/18 Budesonide/Formeterol Fumarate [SYMBICORT 160/4.5mcg -] 2 puff IN BID 07/08/18 Glipizide 10 mg PO DAILY 07/08/18 Hydrochlorothiazide [Hctz -] 50 mg PO BID 07/08/18 Lisinopril [Prinivil -] 40 mg PO DAILY 07/08/18 Omeprazole 20 mg PO DAILY PRN 07/08/18 Prednisone 15 mg PO DAILY 07/08/18 Spironolactone 50 mg PO DAILY 07/08/18 Atorvastatin Ca [Lipitor] 10 mg PO HS 09/24/18 Cholecalciferol (Vitamin D3) [Vitamin D] 2,000 unit PO DAILY 09/24/18 This patient is new to me today: Yes Date on this admission: 09/26/18 Emergency Visit: Yes ED Registration Date: 09/24/18 Care time: The patient presented to the Emergency Department on the above date and was hospitalized for further evaluation of their emergent condition. Critical Care patient: No - Discharge Referral Referred to [facility] Med P.C.: No
[2018-09-26 08:09] LABS: SERUM IRON SATURATION 13 % (15-55); TOTAL IRON BINDING CAPACITY 419 ug/dL (250-450)
== END 2018-09-25 12:40 | disposition home or self-care (01) | DRG 812 ==
LOC: FER 15:44 → FM/S 18:45
PROVIDERS: ATTEND Nurse Practitioner Acute Care
PROC: 30233N1 Transfusion of Nonautologous Red Blood Cells into Peripheral Vein, Percutaneous Approach (ICD-10-PCS; principal; 2018-09-24)
DX: D50.9 Iron deficiency anemia, unspecified (principal); F14.20 Cocaine dependence, uncomplicated; I78.0 Hereditary hemorrhagic telangiectasia; E11.9 Type 2 diabetes mellitus without complications; I10 Essential (primary) hypertension; J44.9 Chronic obstructive pulmonary disease, unspecified; K21.9 Gastro-esophageal reflux disease without esophagitis; Z59.0 Homelessness; F17.210 Nicotine dependence, cigarettes, uncomplicated
CPT/HCPCS: 36415; 36430; 36511; 71046-TC-FY; 80053; 82728; 82962; 83540; 83550; 83735; 85025; 85610; 85730; 86850; 86900; 86901; 86922; 93005; 94640; 99284-25; P9038; P9058

== ENCOUNTER 2018-11-04 21:39 | Inpatient (IN) | payer OTHER ==
[2018-11-04 22:33] LABS: BASO % 0.3 % (0-2.0); EOS % 0.6 % (0-4.5); HEMATOCRIT 16.7 % (35.4-49); MEAN CELL VOLUME 64.7 fl (80-96); MEAN PLT VOLUME 7.7 fl (7.5-11.1); MONO % 5.2 % (3.8-10.2); NEUT % 82.9 % (42.8-82.8); PLATELET COUNT 342 K/MM3 (134-434); RBC 2.58 M/mm3 (4.00-5.60); RDW 21.6 % (11.9-15.9); WHITE BLOOD COUNT 12.8 K/mm3 (4.0-10.8)
[2018-11-04 22:34] LABS: MCH 19.4 pg (25.7-33.7)
[2018-11-04 22:37] LABS: ADD RBC MORPHOLOGY YES
[2018-11-04 22:40] LABS: ALBUMIN 4.1 g/dl (3.4-5.0); BILIRUBIN,TOTAL 0.2 mg/dl (0.2-1); CALCIUM 9.1 mg/dl (8.5-10); CREATININE 1.1 mg/dl (0.55-1.3); POTASSIUM 4.4 mmol/L (3.5-5.1); TOT PROT 6.8 g/dl (6.4-8.2)
[2018-11-04 23:08] LABS: ANISOCYTOSIS 3+
[2018-11-04 23:09] LABS: PLATELET ESTIMATE ADEQUATE
[2018-11-05 00:14] VITALS: BMI 33.9
--- NOTE | 2018-11-05 01:31 | PDOC ---
Documentation entered by Bernie Hickey SCRIBE, acting as scribe for Brayan Vale MD. Brayan Vale MD: This documentation has been prepared by the Edelmira dorantes Mackenzie, SCRIBE, under my direction and personally reviewed by me in its entirety. I confirm that the documentation accurately reflects all work , treatment, procedures, and medical decision making performed by me. History of Present Illness - General Chief Complaint: Shortness of Breath Stated Complaint: ANEMIA, SOB - History of Present Illness Initial Comments: The patient is a 58 year old male, with a significant PMH of hereditary hemorrhagic telangiectasia disease and anemia who presents to the emergency department with 3 days of chest pressure and shortness of breath. Patient states for the past 3 days he has experienced shortness of breath and a heavy chest pressure both at rest and with exertion. Patient states that he gets transfusions often due to episodes of bleeding secondary to his HHT (bleeds from nasal/oropharynx area). Recently he has experienced episodes however he has only had episodes lasting 5 minutes in duration when usually they last 30 minutes to an hour. The patient denies headache and dizziness. Denies fever, chills, nausea, vomiting, diarrhea and constipation. Denies dysuria, frequency, urgency and hematuria. Allergies: NKA Social history: Active tobacco use. 11/04/18 22:01 Past History - Past Medical History Allergies/Adverse Reactions: Allergies Allergy/AdvReac Type Severity Reaction Status Date / Time aspirin AdvReac Intermediate Verified 09/24/18 15:45 Home Medications: Ambulatory Orders Amlodipine Besylate 10 mg PO DAILY #0 07/08/18 Budesonide/Formeterol Fumarate [SYMBICORT 160/4.5mcg -] 2 puff IN BID 07/08/18 Hydrochlorothiazide [Hctz -] 50 mg PO DAILY 07/08/18 Lisinopril [Prinivil -] 40 mg PO DAILY 07/08/18 Omeprazole 20 mg PO DAILY PRN 07/08/18 Prednisone 10 mg PO DAILY 07/08/18 Spironolactone 50 mg PO DAILY 07/08/18 Atorvastatin Ca [Lipitor] 10 mg PO DAILY 09/24/18 Cholecalciferol (Vitamin D3) [Vitamin D3] 2,000 unit PO DAILY 09/24/18 Metformin HCl [Glucophage] 1,000 mg PO DAILY 11/04/18 Metformin HCl [Glucophage] 500 mg PO HS 11/04/18 Anemia: Yes (IRON DEFIC. ANEMIA, HX HEREDITARY HEMORR TALLENGECTESIA) Asthma: No Cancer: No CVA: No COPD: Yes CHF: No Dementia: No Diabetes: Yes (NIDDM) GI Disorders: No Disorders: No HTN: Yes Hypercholesterolemia: Yes Liver Disease: No Seizures: No Thyroid Disease: No - Surgical History Appendectomy: Yes Cardiac Surgery: No Cholecystectomy: No Lung Surgery: No Neurologic Surgery: No Orthopedic Surgery: No - Immunization History Immunization Up to Date: Yes - Suicide/Smoking/Psychosocial Hx Smoking History: Current every day smoker Have you smoked in the past 12 months: Yes Number of Cigarettes Smoked Daily: 20 (41 years) 'Breaking Loose' booklet given: 04/28/18 Hx Alcohol Use: No Drug/Substance Use Hx: Yes Substance Use Type: Cocaine Hx Substance Use Treatment: No Review of Systems - Review of Systems Comments:: GENERAL/CONSTITUTIONAL: No fever or chills. No weakness. HEAD, EYES, EARS, NOSE AND THROAT: No change in vision. No ear pain or discharge. No sore throat. CARDIOVASCULAR: (+)Chest pain. (+)Shortness of breath. RESPIRATORY:(+)Cough. No wheezing, or hemoptysis. GASTROINTESTINAL: No nausea, vomiting, diarrhea or constipation. GENITOURINARY: No dysuria, frequency, or change in urination. MUSCULOSKELETAL: No joint or muscle swelling or pain. No neck or back pain. SKIN: No rash NEUROLOGIC: No headache, vertigo, loss of consciousness, or change in strength/ sensation. ENDOCRINE: No increased thirst. No abnormal weight change. HEMATOLOGIC/LYMPHATIC: (+)Anemia. (+)Easy bleeding. No history of blood clots. ALLERGIC/IMMUNOLOGIC: No hives or skin allergy. 11/04/18 22:02 *Physical Exam - Vital Signs Last Vital Signs Temp Pulse Resp BP Pulse Ox 98.8 F 80 22 H 122/45 L 98 11/04/18 21:40 11/04/18 21:40 11/04/18 21:40 11/04/18 21:40 11/04/18 21:40 - Physical Exam Comments: GENERAL: Awake, alert, and fully oriented, in no acute distress HEAD: No signs of trauma EYES: PERRLA, EOMI, sclera anicteric, conjunctiva clear ENT: Auricles normal inspection, hearing grossly normal, nares patent, oropharynx clear without exudates. Moist mucosa NECK: Normal ROM, supple, no lymphadenopathy, JVD, or masses LUNGS: Breath sounds equal, clear to auscultation bilaterally. No wheezes, and no crackles HEART: Regular rate and rhythm, normal S1 and S2, no murmurs, rubs or gallops ABDOMEN: Soft, nontender, normoactive bowel sounds. No guarding, no rebound. No masses EXTREMITIES: Normal range of motion, no edema. No clubbing or cyanosis. No cords, erythema, or tenderness NEUROLOGICAL: Cranial nerves II through XII grossly intact. Normal speech, normal gait SKIN: Warm, Dry, normal turgor, no rashes or lesions noted. 11/04/18 22:03 ED Treatment Course - LABORATORY CBC & Chemistry Diagram: 11/04/18 22:05 11/04/18 22:05 - ADDITIONAL ORDERS Additional order review: Laboratory Results 11/04/18 11/04/18 22:05 22:05 Sodium 137 Potassium 4.4 Chloride 108 H Carbon Dioxide 22 Anion Gap 7 L BUN 35.0 H Creatinine 1.1 Est GFR (CKD-EPI)AfAm 84.71 Est GFR (CKD-EPI)NonAf 73.09 Random Glucose 104 Calcium 9.1 Total Bilirubin 0.2 AST 11 L ALT 13 Alkaline Phosphatase 46 Troponin I < 0.03 Total Protein 6.8 Albumin 4.1 11/04/18 22:05 RBC 2.58 L MCV 64.7 L MCHC 30.0 L RDW 21.6 H D MPV 7.7 D Neutrophils % 82.9 H Lymphocytes % 11.0 D Monocytes % 5.2 Eosinophils % 0.6 Basophils % 0.3 - RADIOLOGY Radiology Studies Ordered: Category Date Time Status CHEST PA & LAT [RAD] Stat Radiology 11/04/18 22:15 Taken Medical Decision Making - Medical Decision Making EKG: Sinus rhythm at 81, normal axis, normal intervals, T wave inversions inferiorly. 11/04/18 23:10 11/05/18 01:30 hx of hereditary hemorrhagic telangectasias with symptomatic marked anemia admit for transfusion and to coordinate further care *DC/Admit/Observation/Transfer Diagnosis at time of Disposition: Anemia Qualifiers: Anemia type: iron deficiency Iron deficiency anemia type: chronic blood loss Qualified Code(s): D50.0 - Iron deficiency anemia secondary to blood loss ( chronic) - Discharge Dispostion Condition at time of disposition: Fair Decision to Admit order: Yes - Referrals - Patient Instructions - Post Discharge Activity
[2018-11-05] MEDS: BUDESONIDE/FORMETEROL FUMARATE 160/4.5 mcg INHALER IH SCH ×2 (01:43→09:59)
[2018-11-05] MEDS: INSULIN SLIDING SCALE (NOVOLOG) 1 VIAL SQ SCH ×2 (06:31→11:29)
--- NOTE | 2018-11-05 07:44 | HP ---
CHIEF COMPLAINT: SOB PCP: [address] [place] [address] HISTORY OF PRESENT ILLNESS: 58 year-old male with a PMH significant for HTN, HLD, COPD, NIDDM, hereditary hemorrhagic telangiectasia, chronic microcytic anemia, and recurrent epistaxis. Patient presented to the ED with a complaint of shortness of breath and chest pressure x 3 days. Patient is well known to this institution. He has recurrent nosebleeds secondary to cocaine use and frequently comes in for blood transfusions. 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 Smoking: current every day Alcohol: denies Drugs: cocaine Family History: Mother lymphoma; grandparent HHT, father HHT, sister HHT Allergies aspirin Adverse Reaction (Intermediate, Verified 09/24/18 15:45) ALL BLOOD THINNERS HOME MEDICATIONS: Home Medications Medication Instructions Recorded Amlodipine Besylate 10 mg PO DAILY #0 07/08/18 Budesonide/Formeterol Fumarate 2 puff IN BID 07/08/18 [SYMBICORT 160/4.5mcg -] Hydrochlorothiazide [Hctz -] 50 mg PO DAILY 07/08/18 Lisinopril [Prinivil -] 40 mg PO DAILY 07/08/18 Omeprazole 20 mg PO DAILY PRN 07/08/18 Prednisone 10 mg PO DAILY 07/08/18 Spironolactone 50 mg PO DAILY 07/08/18 Atorvastatin Ca [Lipitor] 10 mg PO DAILY 09/24/18 Cholecalciferol (Vitamin D3) 2,000 unit PO DAILY 09/24/18 [Vitamin D3] Metformin HCl [Glucophage] 1,000 mg PO DAILY 11/04/18 Metformin HCl [Glucophage] 500 mg PO HS 11/04/18 REVIEW OF SYSTEMS CONSTITUTIONAL: Absent: fever, chills, diaphoresis, generalized weakness, malaise, loss of appetite, weight change HEENT: Absent: rhinorrhea, nasal congestion, throat pain, throat swelling, difficulty swallowing, mouth swelling, ear pain, eye pain, visual changes CARDIOVASCULAR: + chest pressure Absent: syncope, palpitations, irregular heart rate, lightheadedness, peripheral edema RESPIRATORY: +SOB Absent: cough, dyspnea with exertion, orthopnea, wheezing, stridor, hemoptysis GASTROINTESTINAL: Absent: abdominal pain, abdominal distension, nausea, vomiting, diarrhea, constipation, melena, hematochezia GENITOURINARY: Absent: dysuria, frequency, urgency, hesitancy, hematuria, flank pain, genital pain MUSCULOSKELETAL: Absent: myalgia, arthralgia, joint swelling, back pain, neck pain SKIN: Absent: rash, itching, pallor HEMATOLOGIC/IMMUNOLOGIC: Absent: easy bleeding, easy bruising, lymphadenopathy, frequent infections ENDOCRINE: Absent: unexplained weight gain, unexplained weight loss, heat intolerance, cold intolerance NEUROLOGIC: Absent: headache, focal weakness or paresthesias, dizziness, unsteady gait, seizure, mental status changes, bladder or bowel incontinence PSYCHIATRIC: Absent: anxiety, depression, suicidal or homicidal ideation, hallucinations. PHYSICAL EXAMINATION Vital Signs - 24 hr 11/04/18 11/05/18 11/05/18 21:40 00:02 01:30 Temperature 98.8 F 98.8 F 98.3 F Pulse Rate 80 87 79 Respiratory 22 H 18 22 H Rate Blood Pressure 122/45 L 130/44 L 135/48 L O2 Sat by Pulse 98 93 L Oximetry (%) 11/05/18 11/05/18 11/05/18 01:37 01:50 04:45 Temperature 99.5 F 98.6 F Pulse Rate 74 72 Respiratory 22 H 21 H Rate Blood Pressure 103/32 L 118/56 L O2 Sat by Pulse 97 92 L Oximetry (%) 11/05/18 11/05/18 11/05/18 05:00 05:45 06:05 Temperature 98.6 F 98.6 F 98.8 F Pulse Rate 116 H 70 70 Respiratory 22 H 20 20 Rate Blood Pressure 118/54 L 118/54 L 106/46 L O2 Sat by Pulse 95 95 Oximetry (%) 11/05/18 06:24 Temperature Pulse Rate Respiratory Rate Blood Pressure O2 Sat by Pulse 95 Oximetry (%) GENERAL: Awake, alert, and fully oriented. Pale. HEAD: Normal with no signs of trauma. EYES: Pupils equal, round and reactive to light, extraocular movements intact, sclera anicteric, conjunctiva clear. No lid lag. LUNGS: Breath sounds equal, clear to auscultation bilaterally. Rhonchorous breath sounds at the bases. Dyspneic with speaking. Tachypnic. HEART: Regular rate and rhythm, S1 and S2 ABDOMEN: Soft, nontender, not distended UPPER EXTREMITIES: 2+ pulses, warm, well-perfused. No cyanosis. No clubbing. No peripheral edema. LOWER EXTREMITIES: 2+ pulses, warm, well-perfused. No calf tenderness. No peripheral edema. NEUROLOGICAL: Cranial nerves II-XII intact. Normal speech. Normal gait. Laboratory Results - last 24 hr 11/04/18 11/04/18 11/04/18 10:05 22:05 22:05 WBC 12.8 H RBC 2.58 L Hgb 5.0 L* Hct 16.7 L D MCV 64.7 L MCH 19.4 L MCHC 30.0 L RDW 21.6 H D Plt Count 342 MPV 7.7 D Absolute Neuts (auto) 10.6 Neutrophils % 82.9 H Lymphocytes % 11.0 D Monocytes % 5.2 Eosinophils % 0.6 Basophils % 0.3 Hypochromia 3+ Platelet Estimate Adequate Anisocytosis 3+ Microcytosis 3+ Sodium 137 Potassium 4.4 Chloride 108 H Carbon Dioxide 22 Anion Gap 7 L BUN 35.0 H Creatinine 1.1 Est GFR (CKD-EPI)AfAm 84.71 Est GFR (CKD-EPI)NonAf 73.09 POC Glucometer Random Glucose 104 Calcium 9.1 Total Bilirubin 0.2 AST 11 L ALT 13 Alkaline Phosphatase 46 Troponin I Total Protein 6.8 Albumin 4.1 Blood Type O POSITIVE Antibody Screen Negative Crossmatch See Detail 11/04/18 11/05/18 22:05 06:29 WBC RBC Hgb Hct MCV MCH MCHC RDW Plt Count MPV Absolute Neuts (auto) Neutrophils % Lymphocytes % Monocytes % Eosinophils % Basophils % Hypochromia Platelet Estimate Anisocytosis Microcytosis Sodium Potassium Chloride Carbon Dioxide Anion Gap BUN Creatinine Est GFR (CKD-EPI)AfAm Est GFR (CKD-EPI)NonAf POC Glucometer 147 Random Glucose Calcium Total Bilirubin AST ALT Alkaline Phosphatase Troponin I < 0.03 Total Protein Albumin Blood Type Antibody Screen Crossmatch ASSESSMENT/PLAN 58 year-old male with a PMH significant for HTN, HLD, COPD, NIDDM, hereditary hemorrhagic telangiectasia with recurrent epistaxis, and chronic microcytic anemia. Admitted for severe blood loss anemia. Severe blood loss anemia secondary to HHT and epistaxis --Hgb 5.0 --transfuse to goal of 8 Hypertension --BP stable --continue lisinpril, amlodipine, spironolactone, HCTZ Hyperlipidemia --continue Lipitor COPD --continue daily low dose prednisone, Symbicort NIDDM --Novolog sliding scale coverage FEN Fluids: PO intake adequate Electrolytes: replete as indicated Nutrition: low sodium Dispo: continues to require inpatient care. Full code. Visit type - Emergency Visit Emergency Visit: Yes ED Registration Date: 11/04/18 Care time: The patient presented to the Emergency Department on the above date and was hospitalized for further evaluation of their emergent condition. - New Patient This patient is new to me today: Yes Date on this admission: 11/05/18 - Critical Care Critical Care patient: No
[2018-11-05] MEDS ORDERED: FUROSEMIDE 40 MG/4 ML INJECTABLE VIAL IVPUSH ONE ×2 (07:45→08:00)
[2018-11-05 09:44] VITALS: TEMP 97.9
[2018-11-05 09:45] VITALS: BP 133/54; PULSE 72
[2018-11-05 09:56] LABS: BILIRUBIN,TOTAL 1.1 mg/dl (0.2-1); CALCIUM 8.5 mg/dl (8.5-10); MAGNESIUM 1.9 mg/dL (1.8-2.4); POTASSIUM 4.6 mmol/L (3.5-5.1); TOT PROT 6.7 g/dl (6.4-8.2)
[2018-11-05] MEDS ORDERED: predniSONE 10 MG TABLET (UD) PO SCH (10:00)
[2018-11-05] MEDS ORDERED: LISINOPRIL 20 MG TABLET (FP) PO SCH (10:00)
[2018-11-05] MEDS ORDERED: ATORVASTATIN CA 10 MG TABLET (FP) PO SCH (10:00)
[2018-11-05] MEDS ORDERED: amLODIPine BESYLATE 10 MG TABLET (FP) PO SCH (10:00)
[2018-11-05] MEDS ORDERED: HYDROCHLOROTHIAZIDE 25 MG TABLET (FP) PO SCH (10:00)
[2018-11-05] MEDS ORDERED: SPIRONOLACTONE 25 MG TABLET (FP) PO SCH (10:00)
[2018-11-05] MEDS ORDERED: PANTOPRAZOLE 20 MG TABLET (FP) PO PRN (10:00)
[2018-11-05 10:07] LABS: BASO % 0.5 % (0-2.0); EOS % 0.7 % (0-4.5); HEMATOCRIT 22.3 % (35.4-49); LYMPH % 10.4 % (8-40); MCH 21.1 pg (25.7-33.7); MEAN CELL VOLUME 70.4 fl (80-96); MEAN PLT VOLUME 8.3 fl (7.5-11.1); MONO % 6.3 % (3.8-10.2); NEUT % 82.1 % (42.8-82.8); PLATELET COUNT 339 K/MM3 (134-434); RBC 3.17 M/mm3 (4.00-5.60); RDW 24.7 % (11.9-15.9); WHITE BLOOD COUNT 9.5 K/mm3 (4.0-10.8)
[2018-11-05 10:15] LABS: HEMOGLOBIN 6.7 GM/dl (11.7-16.9)
--- NOTE | 2018-11-05 11:28 | EKG ---
Test Reason : Blood Pressure : / mmHG Vent. Rate : 081 BPM Atrial Rate : 081 BPM P-R Int : 150 ms QRS Dur : 080 ms QT Int : 362 ms P-R-T Axes : 032 035 -12 degrees QTc Int : 420 ms SINUS RHYTHM WITH PREMATURE ATRIAL COMPLEXES OTHERWISE NORMAL ECG WHEN COMPARED WITH ECG OF 24-SEP-2018 18:49, NO SIGNIFICANT CHANGE WAS FOUND Confirmed by Devin Metcalf MD ([id number]) on 11/05/2018 11:28:22 AM Referred By: Confirmed By:Devin Metcalf MD
--- NOTE | 2018-11-05 12:28 | DS ---
Physical Exam: SUBJECTIVE: Patient seen and examined oob to chair. OBJECTIVE: Vital Signs Period Temp Pulse Resp BP Sys/Rashid Pulse Ox Last 24 Hr 97.9 F-99.5 F 70-116 18-22 103-143/32-63 92-98 PHYSICAL EXAM GENERAL: Awake, alert, and fully oriented. Pale. HEAD: Normal with no signs of trauma. EYES: Pupils equal, round and reactive to light, extraocular movements intact, sclera anicteric, conjunctiva clear. No lid lag. LUNGS: Breath sounds equal, clear to auscultation bilaterally. Rhonchorous breath sounds at the bases. Dyspneic with speaking. Tachypnic. HEART: Regular rate and rhythm, S1 and S2 ABDOMEN: Soft, nontender, not distended UPPER EXTREMITIES: 2+ pulses, warm, well-perfused. No cyanosis. No clubbing. No peripheral edema. LOWER EXTREMITIES: 2+ pulses, warm, well-perfused. No calf tenderness. No peripheral edema. NEUROLOGICAL: Cranial nerves II-XII intact. Normal speech. Normal gait. LABS Laboratory Results - last 24 hr 11/04/18 11/04/18 11/04/18 10:05 22:05 22:05 WBC 12.8 H RBC 2.58 L Hgb 5.0 L* Hct 16.7 L D MCV 64.7 L MCH 19.4 L MCHC 30.0 L RDW 21.6 H D Plt Count 342 MPV 7.7 D Absolute Neuts (auto) 10.6 Neutrophils % 82.9 H Lymphocytes % 11.0 D Monocytes % 5.2 Eosinophils % 0.6 Basophils % 0.3 Hypochromia 3+ Platelet Estimate Adequate Anisocytosis 3+ Microcytosis 3+ Sodium 137 Potassium 4.4 Chloride 108 H Carbon Dioxide 22 Anion Gap 7 L BUN 35.0 H Creatinine 1.1 Est GFR (CKD-EPI)AfAm 84.71 Est GFR (CKD-EPI)NonAf 73.09 POC Glucometer Random Glucose 104 Calcium 9.1 Magnesium Total Bilirubin 0.2 AST 11 L ALT 13 Alkaline Phosphatase 46 Troponin I Total Protein 6.8 Albumin 4.1 Urine Color Urine Appearance Urine pH Urine Protein Urine Glucose (UA) Urine Ketones Urine Blood Urine Nitrite Urine Bilirubin Urine Urobilinogen Ur Leukocyte Esterase Blood Type O POSITIVE Antibody Screen Negative Crossmatch See Detail 11/04/18 11/05/18 11/05/18 22:05 06:29 08:15 WBC RBC Hgb Hct MCV MCH MCHC RDW Plt Count MPV Absolute Neuts (auto) Neutrophils % Lymphocytes % Monocytes % Eosinophils % Basophils % Hypochromia Platelet Estimate Anisocytosis Microcytosis Sodium Potassium Chloride Carbon Dioxide Anion Gap BUN Creatinine Est GFR (CKD-EPI)AfAm Est GFR (CKD-EPI)NonAf POC Glucometer 147 Random Glucose Calcium Magnesium Total Bilirubin AST ALT Alkaline Phosphatase Troponin I < 0.03 Total Protein Albumin Urine Color Yellow Urine Appearance Clear Urine pH 5.0 Urine Protein Negative Urine Glucose (UA) Negative Urine Ketones Negative Urine Blood Negative Urine Nitrite Negative Urine Bilirubin Negative Urine Urobilinogen 0.2 Ur Leukocyte Esterase Negative Blood Type Antibody Screen Crossmatch 11/05/18 11/05/18 11/05/18 09:33 09:33 09:33 WBC 9.5 RBC 3.17 L Hgb 6.7 L* Hct 22.3 L D MCV 70.4 L MCH 21.1 L MCHC 30.0 L RDW 24.7 H D Plt Count 339 MPV 8.3 Absolute Neuts (auto) 7.8 Neutrophils % 82.1 Lymphocytes % 10.4 Monocytes % 6.3 Eosinophils % 0.7 Basophils % 0.5 Hypochromia Platelet Estimate Anisocytosis Microcytosis Sodium 137 Potassium 4.6 Chloride 110 H Carbon Dioxide 23 Anion Gap 4 L BUN 33.0 H Creatinine 1.0 Est GFR (CKD-EPI)AfAm 95.06 Est GFR (CKD-EPI)NonAf 82.02 POC Glucometer Random Glucose 135 H Calcium 8.5 Magnesium 1.9 Total Bilirubin 1.1 H AST 10 L ALT 13 Alkaline Phosphatase 34 L D Troponin I 0.03 Total Protein 6.7 Albumin 4.0 Urine Color Urine Appearance Urine pH Urine Protein Urine Glucose (UA) Urine Ketones Urine Blood Urine Nitrite Urine Bilirubin Urine Urobilinogen Ur Leukocyte Esterase Blood Type Antibody Screen Crossmatch HOSPITAL COURSE: Date of Admission:11/04/18 Date of Discharge: 11/05/18 Pre hospital course 58 year-old male with a PMH significant for HTN, HLD, COPD, NIDDM, hereditary hemorrhagic telangiectasia, chronic microcytic anemia, and recurrent epistaxis. Patient presented to the ED with a complaint of shortness of breath and chest pressure x 3 days. Patient is well known to this institution. He has recurrent nosebleeds secondary to cocaine use and frequently comes in for blood transfusions. 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 Admitted for severe blood loss anemia. Severe blood loss anemia secondary to HHT and epistaxis --Hgb 5.0 --transfused 2U-->Hgb 6.7 --signed out AMA, refused to stay for additional transfusion Hypertension --BP stable --continued lisinpril, amlodipine, spironolactone, HCTZ Hyperlipidemia --continued Lipitor COPD --continued daily low dose prednisone, Symbicort NIDDM --Novolog sliding scale coverage Minutes to complete discharge: 35 Discharge Summary Reason For Visit: ANEMIA Condition: Guarded - Instructions Diet, Activity, Other Instructions: Your hemoglobin remains dangerously low. You should remain in the hospital for additional transfusions. You are signing out against medical advice. You have been advised of the risks including heart attack, respiratory failure, and . You are encouraged to follow up with a physical chemist. You have an appointment with Dr. Raeann Reveles on NOVEMBER 15 AT 9:00AM at [facility], [address] [place] [address], [address], [place] [address] . Disposition: AGAINST MEDICAL ADVICE - Home Medications Comprehensive Discharge Medication List: Ambulatory Orders Amlodipine Besylate 10 mg PO DAILY #0 07/08/18 Budesonide/Formeterol Fumarate [SYMBICORT 160/4.5mcg -] 2 puff IN BID 07/08/18 Hydrochlorothiazide [Hctz -] 50 mg PO DAILY 07/08/18 Lisinopril [Prinivil -] 40 mg PO DAILY 07/08/18 Omeprazole 20 mg PO DAILY PRN 07/08/18 Prednisone 10 mg PO DAILY 07/08/18 Spironolactone 50 mg PO DAILY 07/08/18 Atorvastatin Ca [Lipitor] 10 mg PO DAILY 09/24/18 Cholecalciferol (Vitamin D3) [Vitamin D3] 2,000 unit PO DAILY 09/24/18 Metformin HCl [Glucophage] 1,000 mg PO DAILY 11/04/18 Metformin HCl [Glucophage] 500 mg PO HS 11/04/18 This patient is new to me today: No Emergency Visit: Yes ED Registration Date: 11/04/18 Care time: The patient presented to the Emergency Department on the above date and was hospitalized for further evaluation of their emergent condition. Critical Care patient: No - Discharge Referral Referred to [facility] Med P.C.: No
--- NOTE | 2018-11-05 12:53 | EKG ---
Test Reason : Blood Pressure : / mmHG Vent. Rate : 069 BPM Atrial Rate : 069 BPM P-R Int : 162 ms QRS Dur : 084 ms QT Int : 382 ms P-R-T Axes : 033 028 065 degrees QTc Int : 409 ms NORMAL SINUS RHYTHM T wave abnormalities in leads I and aVL WHEN COMPARED WITH ECG OF 04-NOV-2018 23:09, PREMATURE ATRIAL COMPLEXES ARE NO LONGER PRESENT Confirmed by MD Kat, Olaf ([id number]) on 11/05/2018 12:53:27 PM Referred By: DR BRENNAN Confirmed By:Olaf Stephens MD
[2018-11-05 13:00] LABS: N-TERMINAL BNP 116.7 pg/ml (5-125)
== END 2018-11-05 11:58 | disposition left against medical advice (07) | DRG 300 ==
LOC: FER 21:39 → FM/S 23:01 → UNDOADMIN 23:13
PROVIDERS: ADMIT Internal Medicine; ATTEND Nurse Practitioner Acute Care
DX: I78.0 Hereditary hemorrhagic telangiectasia (principal); D62 Acute posthemorrhagic anemia; J44.9 Chronic obstructive pulmonary disease, unspecified; F17.210 Nicotine dependence, cigarettes, uncomplicated; E11.9 Type 2 diabetes mellitus without complications; I10 Essential (primary) hypertension; E78.5 Hyperlipidemia, unspecified; R04.0 Epistaxis; F14.90 Cocaine use, unspecified, uncomplicated
CPT/HCPCS: 36415; 36430; 36511; 71046-TC-FY; 80053; 81003; 82962; 83036; 83735; 83880; 84443; 84484; 85025; 86850; 86900; 86901; 86922; 87040; 87086; 93005; 99285-25; P9038; P9058

== ENCOUNTER 2018-11-06 13:37 | Inpatient (IN) | payer OTHER ==
--- NOTE | 2018-11-06 13:53 | PDOC ---
History of Present Illness - General Chief Complaint: Revisit, Lab Variance Stated Complaint: anemia Time Seen by Provider: 11/06/18 13:51 History Source: Patient Exam Limitations: No Limitations - History of Present Illness Initial Comments: Pt is a 58 yo M, with PMH of anemia 2/2 hereditary hemorrhagic telangiectasia, COPD, DM, and HTN who presents for concern of continuing anemia. Pt presents to [facility] ER frequently with anemia 2/2 epistaxis and oropharyngeal bleeding. Pt left AMA yesterday after requiring transfusion (hemoglobin from 5 to 6.7). Pt states he had 1 short nosebleed this morning which resolved with pressure. Pt denies any fevers/chills, headache, vision changes, syncope, chest pain, palpitations, SOB, nausea/vomiting, abdominal pain, urinary symptoms, rectal bleeding, diarrhea/constipation, or leg swelling. Allergies: NKDA PCP: Gerardo Heme: Bib (previously) Nephro: Sarah Cards: Jj Social: Pt smokes 1 ppd, admits to cocaine use regularly. States last use was before last admission 11/04 Pt denies any recent travel or sick contacts. Surgical: RLQ x2 (appendectomy and abscess) Family: extensive Osler syndrome throughout family (sister with pulmonary complications as well, father and sister with epistaxis) 11/06/18 14:16 11/06/18 14:52 Past History - Travel Traveled outside of the country in the last 30 days: No Close contact w/someone who was outside of country & ill: No - Past Medical History Allergies/Adverse Reactions: Allergies Allergy/AdvReac Type Severity Reaction Status Date / Time aspirin AdvReac Intermediate Verified 11/06/18 13:38 Home Medications: Ambulatory Orders Amlodipine Besylate 10 mg PO DAILY #0 07/08/18 Budesonide/Formeterol Fumarate [SYMBICORT 160/4.5mcg -] 2 puff IN BID 07/08/18 Hydrochlorothiazide [Hctz -] 50 mg PO DAILY 07/08/18 Lisinopril [Prinivil -] 40 mg PO DAILY 07/08/18 Omeprazole 20 mg PO DAILY PRN 07/08/18 Prednisone 10 mg PO DAILY 07/08/18 Spironolactone 50 mg PO DAILY 07/08/18 Atorvastatin Ca [Lipitor] 10 mg PO DAILY 09/24/18 Cholecalciferol (Vitamin D3) [Vitamin D3] 2,000 unit PO DAILY 09/24/18 Metformin HCl [Glucophage] 1,000 mg PO DAILY 11/04/18 Metformin HCl [Glucophage] 500 mg PO HS 11/04/18 Anemia: Yes (IRON DEFIC. ANEMIA, HX HEREDITARY HEMORR TALLENGECTESIA) Asthma: No Cancer: No CVA: No COPD: Yes CHF: No Dementia: No Diabetes: Yes (NIDDM) GI Disorders: No Disorders: No HTN: Yes Hypercholesterolemia: Yes Liver Disease: No Seizures: No Thyroid Disease: No - Surgical History Appendectomy: Yes Cardiac Surgery: No Cholecystectomy: No Lung Surgery: No Neurologic Surgery: No Orthopedic Surgery: No - Immunization History Immunization Up to Date: Yes - Suicide/Smoking/Psychosocial Hx Smoking History: Current every day smoker Have you smoked in the past 12 months: Yes Number of Cigarettes Smoked Daily: 20 (41 years) Information on smoking cessation initiated: Yes 'Breaking Loose' booklet given: 04/28/18 Hx Alcohol Use: No Drug/Substance Use Hx: No Substance Use Type: Cocaine Hx Substance Use Treatment: No Review of Systems - Review of Systems Able to Perform ROS?: Yes Is the patient limited Uzbek proficient: No Constitutional: Yes: Weight Stable. No: Chills, Diaphoresis, Fever, Loss of Appetite, Malaise, Weakness HEENTM: Yes: Nose Bleeding, Dental Problems (edentulous ). No: Blurred Vision, Recent change in vision, Double Vision, Ear Discharge, Nose Pain, Nose Congestion, Tinnitus, Throat Pain, Throat Swelling, Difficulty Swallowing Respiratory: Yes: Shortness of Breath, SOB with Exertion. No: Cough, Orthopnea , SOB at Rest, Wheezing, Productive cough, Hemoptysis Cardiac (ROS): Yes: Palpitations (2 days ago prior to admission). No: Chest Pain, Edema, Irregular Heart Rate, Lightheadedness, Syncope, Chest Tightness ABD/GI: No: Blood Streaked Bowels, Constipated, Diarrhea, Nausea, Poor Appetite , Poor Fluid Intake, Rectal Bleeding, Vomiting, Abdominal cramping, Tarry Stools : No: Burning, Dysuria, Frequency, Flank Pain, Hematuria, Pain, Urgency Musculoskeletal: No: Back Pain, Joint Pain, Muscle Pain, Muscle Weakness Integumentary: No: Rash Neurological: No: Headache, Paresthesia, Weakness, Unsteady Gait, Dizziness Psychiatric: No: Sleep Pattern Change, Change in Appetite Endocrine: No: Increased Urine, Change in Weight Hematologic/Lymphatic: Yes: Anemia, Easy Bleeding. No: Blood Clots, Easy Bruising All Other Systems: Reviewed and Negative *Physical Exam - Vital Signs Last Vital Signs Temp Pulse Resp BP Pulse Ox 98.7 F 72 20 131/50 L 96 11/06/18 13:37 11/06/18 13:37 11/06/18 13:37 11/06/18 13:37 11/06/18 13:37 - Physical Exam Comments: Vitals stable, pt afebrile. Pt in NAD, but appears with SOB while moving on the bed. Obese body habitus. Pt alert and oriented x3. poultry packer generally intact, muscular strength and sensation intact. No midline spinal tenderness, step-offs, or crepitus. Head normocephalic, atraumatic. Eyes PERRLA, EOMI. Oropharynx without erythema or exudates, no LAD b/l. +dried blood b/l anterior nares. No nasal congestion, hearing intact. Clear heart sounds, S1/S2, no JVD, b/l pedal edema, or heart murmur. Clear lung sounds, no respiratory distress, wheezes, crackles, or accessory muscle use. No abdominal or CVA tenderness to palpation, no rebound, no guarding. Abdomen soft, protuberant, and with normoactive bowel sounds. Skin without jaundice or rash. 11/06/18 14:56 11/06/18 15:34 ED Treatment Course - LABORATORY CBC & Chemistry Diagram: 11/06/18 13:50 11/06/18 13:50 Medical Decision Making - Medical Decision Making Pt was seen at bedside, also will be seen by attending Dr. Araujo. Pt presenting after leaving AMA; pt was admitted for anemia 2 days ago, with anemia far below his baseline. Will repeat H/H and admit. Hematology (Dr. Iqbal) consulted who will follow the pt in the hospital and arrange follow-up. Provided maintenance fluids and duoneb treatment (pts home med). Will continue to reassess pt and monitor for symptomatic improvement. ECG: NSR with premature supraventricular complexes (HR 72, KS 160, QRS 78, QTc 405). No TWIs or significant ST segment changes. No significant changes from prior ECG (11/04/2018). 11/06/18 15:34 H/H showed hemoglobin at 6.7, ordered 1 unit packed rbcs. Pt accepted to hospitalist team. THERON Hammond called to inform that Dr. Iqbal's team does not accept pts insurance. Pt has appointment set-up at [place] for follow-up. 11/06/18 15:39 *DC/Admit/Observation/Transfer Diagnosis at time of Disposition: HHT (hereditary hemorrhagic telangiectasia) Anemia Qualifiers: Anemia type: unspecified type Qualified Code(s): D64.9 - Anemia, unspecified COPD (chronic obstructive pulmonary disease) Qualifiers: COPD type: unspecified COPD Qualified Code(s): J44.9 - Chronic obstructive pulmonary disease, unspecified - Discharge Dispostion Condition at time of disposition: Stable Decision to Admit order: Yes - Referrals - Patient Instructions - Post Discharge Activity
--- NOTE | 2018-11-06 13:59 | PDOC ---
Attending Attestation - Resident Resident Name: Nicki Chopra - ED Attending Attestation I have performed the following: I have examined & evaluated the patient, The case was reviewed & discussed with the resident, I agree w/resident's findings & plan, Exceptions are as noted - HPI HPI: 11/06/18 15:57 Patient with long history of hereditary telangiectasia, with bleeding from the nose and oropharynx periodically, was admitted earlier this week for H&H of . Has had repeated transfusions in the past. Suffused one unit to a hemoglobin of 6.7, then signed himself out yesterday. He has signed out on numerous occasions in the past before adequate evaluation and treatment. He is known for his cocaine abuse. - Physicial Exam PE: 11/06/18 16:00 Physical exam: Alert no acute distress cooperative Afebrile vital signs normal Some crusted blood in the left nares. Lungs and CV normal. - Medical Decision Making 11/06/18 16:00 Assessment: Recurrent iron deficiency anemia, drug abuse Plan: Patient agrees to readmission and further evaluation and treatment. Transfusion. Hematology and ENT consultations. Anemic but clinically and hemodynamically stable.
[2018-11-06] MEDS ORDERED: ALBUTEROL SO4 2.5/IPRATROPIUM 0.5 INH SOL 3 ML VIAL.NEB. NEB ONE ×3 (14:07→14:29)
[2018-11-06 14:15] LABS: BASO % 0.2 % (0-2.0); EOS % 0.7 % (0-4.5); HEMATOCRIT 22.2 % (35.4-49); LYMPH % 5.6 % (8-40); MCH 21.3 pg (25.7-33.7); MCHC 30.2 g/dl (32.0-35.9); MEAN CELL VOLUME 70.4 fl (80-96); MEAN PLT VOLUME 8.5 fl (7.5-11.1); MONO % 4.2 % (3.8-10.2); NEUT % 89.3 % (42.8-82.8); PLATELET COUNT 342 K/MM3 (134-434); RBC 3.15 M/mm3 (4.00-5.60); RDW 24.4 % (11.9-15.9); WHITE BLOOD COUNT 9.5 K/mm3 (4.0-10.8)
[2018-11-06] MEDS ORDERED: SODIUM CHLORIDE 1,000 ML IV SCH (14:15)
[2018-11-06 14:23] LABS: HEMOGLOBIN 6.7 GM/dl (11.7-16.9); INR 1.3 (0.82-1.09); PROTHROMBIN TIME (PATIENT) 14.5 SEC (10.2-13.0)
[2018-11-06 14:25] LABS: ALBUMIN 4.2 g/dl (3.4-5.0); BILIRUBIN,TOTAL 0.5 mg/dl (0.2-1); CALCIUM 8.9 mg/dl (8.5-10); CREATININE 1.1 mg/dl (0.55-1.3); POTASSIUM 4.8 mmol/L (3.5-5.1)
--- NOTE | 2018-11-06 15:29 | HP ---
CHIEF COMPLAINT: SOB PCP: [address] [place] [address] HISTORY OF PRESENT ILLNESS: 58 year-old male with a PMH significant for HTN, HLD, COPD, NIDDM, 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 Patient presented to the ED with a complaint of shortness of breath. Patient is well known to this institution for repeated transfusions. He was transfused 2U on 11/04-11/05 and signed out AMA. 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 Smoking: current every day Alcohol: denies Drugs: cocaine Family History: Mother lymphoma; grandparent HHT, father HHT, sister HHT Allergies aspirin Adverse Reaction (Intermediate, Verified 09/24/18 15:45) ALL BLOOD THINNERS HOME MEDICATIONS: Home Medications Medication Instructions Recorded Amlodipine Besylate 10 mg PO DAILY #0 07/08/18 Budesonide/Formeterol Fumarate 2 puff IN BID 07/08/18 [SYMBICORT 160/4.5mcg -] Hydrochlorothiazide [Hctz -] 50 mg PO DAILY 07/08/18 Lisinopril [Prinivil -] 40 mg PO DAILY 07/08/18 Omeprazole 20 mg PO DAILY PRN 07/08/18 Prednisone 10 mg PO DAILY 07/08/18 Spironolactone 50 mg PO DAILY 07/08/18 Atorvastatin Ca [Lipitor] 10 mg PO DAILY 09/24/18 Cholecalciferol (Vitamin D3) 2,000 unit PO DAILY 09/24/18 [Vitamin D3] Metformin HCl [Glucophage] 1,000 mg PO DAILY 11/04/18 Metformin HCl [Glucophage] 500 mg PO HS 11/04/18 REVIEW OF SYSTEMS CONSTITUTIONAL: Absent: fever, chills, diaphoresis, generalized weakness, malaise, loss of appetite, weight change HEENT: Absent: rhinorrhea, nasal congestion, throat pain, throat swelling, difficulty swallowing, mouth swelling, ear pain, eye pain, visual changes CARDIOVASCULAR: +chest pressure Absent: chest pain, syncope, palpitations, irregular heart rate, lightheadedness , peripheral edema RESPIRATORY: +SOB Absent: cough, dyspnea with exertion, orthopnea, wheezing, stridor, hemoptysis GASTROINTESTINAL: Absent: abdominal pain, abdominal distension, nausea, vomiting, diarrhea, constipation, melena, hematochezia GENITOURINARY: Absent: dysuria, frequency, urgency, hesitancy, hematuria, flank pain, genital pain MUSCULOSKELETAL: Absent: myalgia, arthralgia, joint swelling, back pain, neck pain SKIN: Absent: rash, itching, pallor HEMATOLOGIC/IMMUNOLOGIC: Absent: easy bleeding, easy bruising, lymphadenopathy, frequent infections ENDOCRINE: Absent: unexplained weight gain, unexplained weight loss, heat intolerance, cold intolerance NEUROLOGIC: Absent: headache, focal weakness or paresthesias, dizziness, unsteady gait, seizure, mental status changes, bladder or bowel incontinence PSYCHIATRIC: Absent: anxiety, depression, suicidal or homicidal ideation, hallucinations. PHYSICAL EXAMINATION Vital Signs - 24 hr 11/06/18 13:37 Temperature 98.7 F Pulse Rate 72 Respiratory 20 Rate Blood Pressure 131/50 L O2 Sat by Pulse 96 Oximetry (%) GENERAL: Awake, alert, and fully oriented. Pale. HEAD: Normal with no signs of trauma. EYES: Pupils equal, round and reactive to light, extraocular movements intact, sclera anicteric, conjunctiva clear. No lid lag. LUNGS: Breath sounds equal, clear to auscultation bilaterally. Rhonchorous breath sounds at the bases. Dyspneic with speaking. Tachypnic. HEART: Regular rate and rhythm, S1 and S2 ABDOMEN: Soft, nontender, not distended UPPER EXTREMITIES: 2+ pulses, warm, well-perfused. No cyanosis. No clubbing. No peripheral edema. LOWER EXTREMITIES: 2+ pulses, warm, well-perfused. No calf tenderness. No peripheral edema. NEUROLOGICAL: Cranial nerves II-XII intact. Normal speech. Normal gait. Laboratory Results - last 24 hr 11/06/18 11/06/18 11/06/18 13:50 13:50 13:50 WBC 9.5 RBC 3.15 L Hgb 6.7 L* Hct 22.2 L MCV 70.4 L MCH 21.3 L MCHC 30.2 L RDW 24.4 H Plt Count 342 MPV 8.5 Absolute Neuts (auto) 8.5 Neutrophils % 89.3 H Lymphocytes % 5.6 L D Monocytes % 4.2 Eosinophils % 0.7 Basophils % 0.2 PT with INR 14.5 H INR 1.30 H Sodium 139 Potassium 4.8 Chloride 107 Carbon Dioxide 25 Anion Gap 7 L BUN 31.0 H Creatinine 1.1 Est GFR (CKD-EPI)AfAm 84.71 Est GFR (CKD-EPI)NonAf 73.09 Random Glucose 269 H Calcium 8.9 Total Bilirubin 0.5 AST 12 L ALT 13 Alkaline Phosphatase 46 D Total Protein 7.0 Albumin 4.2 Crossmatch 11/06/18 13:50 WBC RBC Hgb Hct MCV MCH MCHC RDW Plt Count MPV Absolute Neuts (auto) Neutrophils % Lymphocytes % Monocytes % Eosinophils % Basophils % PT with INR INR Sodium Potassium Chloride Carbon Dioxide Anion Gap BUN Creatinine Est GFR (CKD-EPI)AfAm Est GFR (CKD-EPI)NonAf Random Glucose Calcium Total Bilirubin AST ALT Alkaline Phosphatase Total Protein Albumin Crossmatch See Detail ASSESSMENT/PLAN: 58 year-old male with a PMH significant for HTN, HLD, COPD, NIDDM, 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 Admitted for acute blood loss anemia. Severe blood loss anemia secondary to HHT and epistaxis --Hgb 6.7 --transfuse to goal of 8; 2 units PRBC ordered --venofer infusion Hypertension --BP stable --continue lisinpril, amlodipine, spironolactone, HCTZ Hyperlipidemia --continue Lipitor COPD --continue daily low dose prednisone, Symbicort NIDDM --Novolog sliding scale coverage FEN Fluids: PO intake adequate Electrolytes: replete as indicated Nutrition: low sodium Dispo: continues to require inpatient care. Full code. Visit type - Emergency Visit Emergency Visit: Yes ED Registration Date: 11/06/18 Care time: The patient presented to the Emergency Department on the above date and was hospitalized for further evaluation of their emergent condition. - New Patient This patient is new to me today: Yes Date on this admission: 11/06/18 - Critical Care Critical Care patient: No
[2018-11-06] MEDS ORDERED: PANTOPRAZOLE 20 MG TABLET (FP) PO PRN (15:31)
[2018-11-06 15:42] LABS: ADD RBC MORPHOLOGY YES
--- NOTE | 2018-11-06 15:50 | HOSP ---
Physical Examination Vital Signs: Vital Signs Temperature 98.7 F 11/06/18 13:37 Pulse Rate 72 11/06/18 13:37 Respiratory Rate 20 11/06/18 13:37 Blood Pressure 131/50 L 11/06/18 13:37 O2 Sat by Pulse Oximetry (%) 96 11/06/18 13:37 Labs: CBC, BMP 11/06/18 13:50 11/06/18 13:50
[2018-11-06] MEDS ORDERED: INSULIN (NOVOLOG) ASPART 100 UNITS/ML 10ML VIAL ONE ×2 (18:27→23:23)
[2018-11-06] MEDS: INSULIN SLIDING SCALE (NOVOLOG) 1 VIAL SQ SCH ×2 (18:31→23:26)
[2018-11-06 18:55] VITALS: BMI 34.1
[2018-11-06] MEDS ORDERED: IRON SUCROSE INJECTION 300 MG in SODIUM CHLORIDE 235 ML IVPB ONE ×2 (19:32→23:00)
[2018-11-06] MEDS ORDERED: FUROSEMIDE 40 MG/4 ML INJECTABLE VIAL IVPUSH ONE (21:30)
[2018-11-07] MEDS: BUDESONIDE/FORMETEROL FUMARATE 160/4.5 mcg INHALER IH SCH ×2 (00:02→09:37)
[2018-11-07 02:55] LABS: BASO % 0.9 % (0-2.0); EOS % 0.6 % (0-4.5); HEMATOCRIT 25.9 % (35.4-49); LYMPH % 11.4 % (8-40); MCH 22.2 pg (25.7-33.7); MCHC 30.9 g/dl (32.0-35.9); MEAN CELL VOLUME 71.8 fl (80-96); MEAN PLT VOLUME 9.2 fl (7.5-11.1); MONO % 6.9 % (3.8-10.2); NEUT % 80.2 % (42.8-82.8); PLATELET COUNT 304 K/MM3 (134-434); RBC 3.61 M/mm3 (4.00-5.60); RDW 27.5 % (11.9-15.9); WHITE BLOOD COUNT 10.6 K/mm3 (4.0-10.0)
[2018-11-07] MEDS: INSULIN SLIDING SCALE (NOVOLOG) 1 VIAL SQ SCH (06:29)
--- NOTE | 2018-11-07 07:25 | DS ---
Physical Exam: SUBJECTIVE: Patient seen and examined OBJECTIVE: Vital Signs Period Temp Pulse Resp BP Sys/Rashid Pulse Ox Last 24 Hr 98.3 F-99.1 F 72-96 18-20 119-148/50-61 93-96 PHYSICAL EXAM GENERAL: The patient is awake, alert, and fully oriented, in no acute distress. HEAD: Normal with no signs of trauma. EYES: PERRL, extraocular movements intact, sclera anicteric, conjunctiva clear. ENT: Ears normal, nares patent, oropharynx clear without exudates, moist mucous membranes. NECK: Trachea midline, full range of motion, supple. LUNGS: Breath sounds equal, clear to auscultation bilaterally, no wheezes, no crackles, no accessory muscle use. HEART: Regular rate and rhythm, S1, S2 without murmur, rub or gallop. ABDOMEN: Soft, nontender, nondistended, normoactive bowel sounds, no guarding, no rebound, no hepatosplenomegaly, no masses. EXTREMITIES: 2+ pulses, warm, well-perfused, no edema. NEUROLOGICAL: Cranial nerves II through XII grossly intact. Normal speech, gait not observed. PSYCH: Normal mood, normal affect. SKIN: Warm, dry, normal turgor, no rashes or lesions noted. LABS Laboratory Results - last 24 hr 11/06/18 11/06/18 11/06/18 13:50 13:50 13:50 WBC 9.5 RBC 3.15 L Hgb 6.7 L* Hct 22.2 L MCV 70.4 L MCH 21.3 L MCHC 30.2 L RDW 24.4 H Plt Count 342 MPV 8.5 Absolute Neuts (auto) 8.5 Neutrophils % 89.3 H Lymphocytes % 5.6 L D Monocytes % 4.2 Eosinophils % 0.7 Basophils % 0.2 Nucleated RBC % PT with INR 14.5 H INR 1.30 H Sodium 139 Potassium 4.8 Chloride 107 Carbon Dioxide 25 Anion Gap 7 L BUN 31.0 H Creatinine 1.1 Est GFR (CKD-EPI)AfAm 84.71 Est GFR (CKD-EPI)NonAf 73.09 POC Glucometer Random Glucose 269 H Calcium 8.9 Total Bilirubin 0.5 AST 12 L ALT 13 Alkaline Phosphatase 46 D B-Natriuretic Peptide Total Protein 7.0 Albumin 4.2 Blood Type Antibody Screen Crossmatch 11/06/18 11/06/18 11/06/18 13:50 13:50 13:55 WBC RBC Hgb Hct MCV MCH MCHC RDW Plt Count MPV Absolute Neuts (auto) Neutrophils % Lymphocytes % Monocytes % Eosinophils % Basophils % Nucleated RBC % PT with INR INR Sodium Potassium Chloride Carbon Dioxide Anion Gap BUN Creatinine Est GFR (CKD-EPI)AfAm Est GFR (CKD-EPI)NonAf POC Glucometer Random Glucose Calcium Total Bilirubin AST ALT Alkaline Phosphatase B-Natriuretic Peptide 99.5 Total Protein Albumin Blood Type O POSITIVE O POSITIVE Antibody Screen Negative Crossmatch See Detail 11/06/18 11/06/18 11/07/18 18:17 21:51 02:00 WBC 10.6 H RBC 3.61 L Hgb 8.0 L Hct 25.9 L MCV 71.8 L MCH 22.2 L MCHC 30.9 L RDW 27.5 H Plt Count 304 MPV 9.2 D Absolute Neuts (auto) 8.5 H Neutrophils % 80.2 Lymphocytes % 11.4 D Monocytes % 6.9 Eosinophils % 0.6 Basophils % 0.9 Nucleated RBC % 0 PT with INR INR Sodium Potassium Chloride Carbon Dioxide Anion Gap BUN Creatinine Est GFR (CKD-EPI)AfAm Est GFR (CKD-EPI)NonAf POC Glucometer 255 237 Random Glucose Calcium Total Bilirubin AST ALT Alkaline Phosphatase B-Natriuretic Peptide Total Protein Albumin Blood Type Antibody Screen Crossmatch 11/07/18 06:26 WBC RBC Hgb Hct MCV MCH MCHC RDW Plt Count MPV Absolute Neuts (auto) Neutrophils % Lymphocytes % Monocytes % Eosinophils % Basophils % Nucleated RBC % PT with INR INR Sodium Potassium Chloride Carbon Dioxide Anion Gap BUN Creatinine Est GFR (CKD-EPI)AfAm Est GFR (CKD-EPI)NonAf POC Glucometer 193 Random Glucose Calcium Total Bilirubin AST ALT Alkaline Phosphatase B-Natriuretic Peptide Total Protein Albumin Blood Type Antibody Screen Crossmatch HOSPITAL COURSE: Date of Admission:11/06/18 Date of Discharge: 11/07/18 Pre hospital course 58 year-old male with a PMH significant for HTN, HLD, COPD, NIDDM, 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 Patient presented to the ED with a complaint of shortness of breath. Patient is well known to this institution for repeated transfusions. He was transfused 2U on 11/04-11/05 and signed out AMA. 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 Admitted for acute blood loss anemia. Severe blood loss anemia secondary to HHT and epistaxis --Hgb 6.7 --transfused 2U, Hgb 7.7 on discharge --venofer infusion Hypertension --BP stable --continued lisinpril, amlodipine, spironolactone, HCTZ Hyperlipidemia --continued Lipitor COPD --continued daily low dose prednisone, Symbicort NIDDM --Novolog sliding scale coverage Minutes to complete discharge: 35 Discharge Summary Reason For Visit: OSLER HEMORRHAGIC TELANGIECTASIA SYNDROME Current Active Problems Anemia (Acute) COPD (chronic obstructive pulmonary disease) (Acute) HHT (hereditary hemorrhagic telangiectasia) (Acute) Condition: Improved - Instructions Referrals: Raeann Reveles Dr. [Other] - 11/15/18 9:00 am Disposition: HOME - Home Medications Comprehensive Discharge Medication List: Ambulatory Orders Amlodipine Besylate 10 mg PO DAILY #0 07/08/18 Budesonide/Formeterol Fumarate [SYMBICORT 160/4.5mcg -] 2 puff IN BID 07/08/18 Hydrochlorothiazide [Hctz -] 50 mg PO DAILY 07/08/18 Lisinopril [Prinivil -] 40 mg PO DAILY 07/08/18 Omeprazole 20 mg PO DAILY PRN 07/08/18 Prednisone 10 mg PO DAILY 07/08/18 Spironolactone 50 mg PO DAILY 07/08/18 Atorvastatin Ca [Lipitor] 10 mg PO DAILY 09/24/18 Cholecalciferol (Vitamin D3) [Vitamin D3] 2,000 unit PO DAILY 09/24/18 Metformin HCl [Glucophage] 1,000 mg PO DAILY 11/04/18 Metformin HCl [Glucophage] 500 mg PO HS 11/04/18 This patient is new to me today: No Emergency Visit: Yes ED Registration Date: 11/06/18 Care time: The patient presented to the Emergency Department on the above date and was hospitalized for further evaluation of their emergent condition. Critical Care patient: No - Discharge Referral Referred to [facility] No
[2018-11-07 08:38] VITALS: BP 159/56; PULSE 79; TEMP 97.6
[2018-11-07 09:04] LABS: HEMATOCRIT 25.5 % (35.4-49); HEMOGLOBIN 7.7 GM/dl (11.7-16.9); MCHC 30.2 g/dl (32.0-35.9); MEAN CELL VOLUME 72.7 fl (80-96); MEAN PLT VOLUME 8.5 fl (7.5-11.1); PLATELET COUNT 308 K/MM3 (134-434); RBC 3.51 M/mm3 (4.00-5.60); RDW 25.4 % (11.9-15.9); WHITE BLOOD COUNT 10.7 K/mm3 (4.0-10.8)
[2018-11-07 09:07] LABS: BILIRUBIN,TOTAL 0.7 mg/dl (0.2-1); CALCIUM 8.7 mg/dl (8.5-10); MAGNESIUM 1.7 mg/dL (1.8-2.4); POTASSIUM 4.1 mmol/L (3.5-5.1); TOT PROT 6.6 g/dl (6.4-8.2)
[2018-11-07 09:08] LABS: ADD RBC MORPHOLOGY YES
[2018-11-07] MEDS ORDERED: MAGNESIUM OXIDE 400 MG TABLET (FP) PO ONE (09:33)
[2018-11-07] MEDS ORDERED: ACETAMINOPHEN 325 MG TABLET (FP) PO ONE (09:42)
[2018-11-07] MEDS ORDERED: predniSONE 10 MG TABLET (UD) PO SCH (10:00)
[2018-11-07] MEDS ORDERED: amLODIPine BESYLATE 10 MG TABLET (FP) PO SCH (10:00)
[2018-11-07] MEDS ORDERED: SPIRONOLACTONE 25 MG TABLET (FP) PO SCH (10:00)
[2018-11-07] MEDS ORDERED: HYDROCHLOROTHIAZIDE 25 MG TABLET (FP) PO SCH (10:00)
[2018-11-07] MEDS ORDERED: LISINOPRIL 20 MG TABLET (FP) PO SCH (10:00)
--- NOTE | 2018-11-07 11:16 | EKG ---
Test Reason : Blood Pressure : / mmHG Vent. Rate : 072 BPM Atrial Rate : 072 BPM P-R Int : 160 ms QRS Dur : 078 ms QT Int : 370 ms P-R-T Axes : 038 029 -22 degrees QTc Int : 405 ms SINUS RHYTHM WITH PREMATURE SUPRAVENTRICULAR COMPLEXES NONSPECIFIC ST ABNORMALITY Confirmed by SNEHA MCCLURE MD ([id number]) on 11/07/2018 11:15:37 AM Referred By: Confirmed By:SNEHA MCCLURE MD
[2018-11-07 14:05] LABS: ANISOCYTOSIS 2+; PLATELET ESTIMATE ADEQUATE
[2018-11-07] MEDS ORDERED: ATORVASTATIN CA 10 MG TABLET (FP) PO SCH (22:00)
== END 2018-11-07 10:38 | disposition home or self-care (01) | DRG 300 ==
LOC: FER 13:37 → FM/S 14:34
PROVIDERS: ADMIT Internal Medicine; ATTEND Nurse Practitioner Acute Care
PROC: 30233N1 Transfusion of Nonautologous Red Blood Cells into Peripheral Vein, Percutaneous Approach (ICD-10-PCS; principal; 2018-11-06)
DX: I78.0 Hereditary hemorrhagic telangiectasia (principal); D62 Acute posthemorrhagic anemia; E11.9 Type 2 diabetes mellitus without complications; I10 Essential (primary) hypertension; J44.9 Chronic obstructive pulmonary disease, unspecified; E78.5 Hyperlipidemia, unspecified; F17.210 Nicotine dependence, cigarettes, uncomplicated; F14.10 Cocaine abuse, uncomplicated; M54.9 Dorsalgia, unspecified
CPT/HCPCS: 36415; 36430; 36511; 80053; 82962; 83735; 83880; 85025; 85610; 86850; 86900; 86901; 86922; 93005; 99282-25; J1756; P9038; P9058

== ENCOUNTER 2018-11-07 14:17 | Emergency (ER) | payer OTHER | END 2018-11-07 15:25 | disposition home or self-care (01) | LOC: JER 14:17 ==

== ENCOUNTER 2020-08-24 04:41 | Day surgery (SDC) | payer OTHER ==
[2020-08-19 16:22] VITALS: BMI 29.1
[2020-08-24 08:59] LABS: INR 1.26 (0.83-1.09); PROTHROMBIN TIME (PATIENT) 15.4 SEC (9.7-13.0)
[2020-08-24] MEDS ORDERED: ALBUTEROL SO4 0.083% IH SOL 2.5 MG/3 ML VIAL.NEB. NEB PRN ×2 (15:30→15:33)
[2020-08-24] MEDS: BUMETANIDE 1 MG TABLET PO SCH (17:41)
[2020-08-24] MEDS: PANTOPRAZOLE 20 MG TABLET PO SCH (17:42)
[2020-08-24] MEDS: predniSONE 10 MG TABLET (UD) PO SCH (17:42)
[2020-08-24] MEDS: TIOTROPIUM BROMIDE 2.5 MCG (SPIRIVA) RESPIMAT INHALER IH SCH (17:42)
[2020-08-24] MEDS ORDERED: diazePAM 5 MG TABLET PO ONE (17:45)
[2020-08-24] MEDS ORDERED: INSULIN (NOVOLOG) ASPART 100 UNITS/ML 10ML VIAL ONE (21:15)
[2020-08-24] MEDS ORDERED: PT OWN MED DRAWER 7, Y5N ONE (21:16)
[2020-08-24] MEDS: BUDESONIDE/FORMETEROL FUMARATE 160/4.5 mcg INHALER IH SCH (21:17)
[2020-08-24] MEDS: INSULIN SLIDING SCALE (NOVOLOG) 1 VIAL SQ SCH (21:17)
[2020-08-24] MEDS ORDERED: ATORVASTATIN CA 10 MG TABLET (FP) PO SCH (22:00)
[2020-08-24] MEDS ORDERED: INSULIN (LEVEMIR) 100 UNITS/ML UNITS SQ SCH (22:00)
[2020-08-25] MEDS: NICOTINE POLACRILEX 4 MG GUM BUC PRN ×2 (00:17→03:09)
[2020-08-25] MEDS ORDERED: ACETAMINOPHEN 1000 MG/100 ML VIAL (NON FORMULARY) IVPB ONE ×2 (01:45→06:09)
[2020-08-25] MEDS: INSULIN SLIDING SCALE (NOVOLOG) 1 VIAL SQ SCH (06:31)
[2020-08-25] MEDS ORDERED: PT OWN MED DRAWER 7, Y5N ONE (09:46)
[2020-08-25] MEDS: BUMETANIDE 1 MG TABLET PO SCH (09:48)
[2020-08-25] MEDS: TIOTROPIUM BROMIDE 2.5 MCG (SPIRIVA) RESPIMAT INHALER IH SCH (09:49)
[2020-08-25] MEDS: BUDESONIDE/FORMETEROL FUMARATE 160/4.5 mcg INHALER IH SCH (09:49)
[2020-08-25] MEDS: PANTOPRAZOLE 20 MG TABLET PO SCH (09:51)
[2020-08-25] MEDS: predniSONE 10 MG TABLET (UD) PO SCH (09:53)
[2020-08-25] MEDS ORDERED: DIGOXIN 0.125 MG TABLET (FP) PO SCH (10:00)
[2020-08-25 10:10] VITALS: PULSE 90
[2020-08-25 10:13] VITALS: BP 128/68; TEMP 99
== END 2020-08-25 13:03 | disposition home or self-care (01) ==
LOC: JRADIR 04:41 → JASUSAT 04:41 → J6S 14:12 → JASUSAT 08-25 13:03
PROVIDERS: ATTEND Internal Medicine Pulmonary Disease
PROC: 0BBK3ZX Excision of Right Lung, Percutaneous Approach, Diagnostic (ICD-10-PCS; principal; 2020-08-24)
DX: J84.89 Other specified interstitial pulmonary diseases (principal)
CPT/HCPCS: 32408; 36415; 71046-TC-FY; 82962; 85610; 88305-TC; 94640; J0131

== ENCOUNTER 2020-11-08 15:41 | Inpatient (IN) | payer OTHER ==
[2020-11-08 17:51] LABS: VENOUS BASE EXCESS 4.1 mmol/L (-2-2); VENOUS PCO2 58.6 mmHg (38-52); VENOUS PH 7.341 (7.310-7.410)
[2020-11-08 17:55] LABS: HEMATOCRIT 25.3 % (35.4-49); HEMOGLOBIN 7.2 GM/dL (11.7-16.9); MCH 22.2 pg (25.7-33.7); MCHC 28.4 g/dl (32.0-35.9); MEAN CELL VOLUME 78.3 fl (80-96); MEAN PLT VOLUME 8.1 fl (7.5-11.1); PLATELET COUNT 486 10^3/uL (134-434); RBC 3.23 M/mm3 (4.00-5.60); RDW 24.7 % (11.9-15.9); WHITE BLOOD COUNT 20.7 K/mm3 (4.0-10.0)
[2020-11-08 17:59] LABS: INR 1.47 (0.83-1.09); PROTHROMBIN TIME (PATIENT) 17.6 SEC (9.7-13.0)
[2020-11-08 18:03] LABS: ACTIVATED PTT 27.5 SECONDS (25.2-36.5)
[2020-11-08 18:12] LABS: CHLORIDE 103 mmol/L (98-107); SODIUM 137 mmol/L (136-145)
[2020-11-08 18:15] LABS: ALBUMIN 3.1 g/dl (3.4-5.0); CALCIUM 8.1 mg/dL (8.5-10.1)
[2020-11-08 18:16] LABS: ANION GAP 6 MMOL/L (8-16); BLOOD UREA NITROGEN 32.4 mg/dL (7-18); CO2 29 mmol/L (21-32); GLUCOSE,RANDOM 313 mg/dL (74-106)
[2020-11-08 18:18] LABS: BILIRUBIN,DIRECT 0.6 mg/dL (0.0-0.2); SGPT/ALT 21 U/L (13-61)
[2020-11-08 18:19] LABS: CREATININE 0.7 mg/dL (0.55-1.3); PHOSPHOROUS 3.7 mg/dL (2.5-4.9); SGOT/AST 5 U/L (15-37)
[2020-11-08 18:20] LABS: BILIRUBIN,TOTAL 1.1 mg/dL (0.2-1); TOT PROT 6.7 g/dl (6.4-8.2)
[2020-11-08 18:21] LABS: ALK PHOS 190 U/L (45-117)
[2020-11-08 18:24] LABS: N-TERMINAL BNP 1565.9 pg/ml (5-125)
[2020-11-08 18:51] LABS: ANISOCYTOSIS 1+; MACROCYTOSIS 1+; OVALOCYTE 1+; PLATELET ESTIMATE NORMAL
[2020-11-08] MEDS ORDERED: PIPERACILLIN/TAZOB 3.375 GM 3.375 GM in DEXTROSE 5%-WATER - 50 ML IVPB ONE (19:02)
[2020-11-08] MEDS ORDERED: SODIUM CHLORIDE 0.9% 500 ML INFUS.BAG IV ONE ×2 (19:05→19:16)
[2020-11-08] MEDS ORDERED: VANCOMYCIN 1 GM in D5W (PRE-DOCKED) 1,000 MG/250 ML IVPB ONE (19:05)
[2020-11-08 19:39] LABS: URINE APPEARANCE CLEAR; URINE BILIRUBIN NEGATIVE (NEGATIVE); URINE COLOR YELLOW; URINE GLUCOSE (UA) 3+ (NEGATIVE); URINE KETONE TRACE (NEGATIVE); URINE LEUK ESTERASE NEGATIVE (NEGATIVE); URINE NITRITE NEGATIVE (NEGATIVE); URINE PROTEIN NEGATIVE (NEGATIVE)
[2020-11-08] MEDS ORDERED: PIPERACILLIN/TAZOB 3.375 GM 3.375 GM/50 ML BAG IVPB ONE (19:52)
[2020-11-08] MEDS ORDERED: VANCOMYCIN 1 GRAM (PRE-DOCKED) 1,000 MG/250 ML BAG IVPB ONE (19:52)
[2020-11-08] MEDS ORDERED: methylPREDNISolone NA SUCC 40 MG/1 ML VIAL ONE (20:28)
[2020-11-08] MEDS: methylPREDNISolone NA SUCC 40 MG/1 ML VIAL IVPUSH SCH (20:31)
[2020-11-09] MEDS ORDERED: BUMETANIDE 1 MG TABLET PO ONE (00:03)
[2020-11-09] MEDS: BUDESONIDE/FORMETEROL FUMARATE 160/4.5 mcg INHALER IH SCH ×3 (01:27→21:47)
[2020-11-09] MEDS: LEVALBUTEROL HCL 0.31 MG/3 ML VIAL.NEB IH SCH ×4 (01:27→20:05)
[2020-11-09 02:14] LABS: IRON SERUM 18 ug/dL (50-175); TOTAL IRON BINDING CAPACITY 268 ug/dL (250-450)
[2020-11-09 06:57] LABS: MCH 22.4 pg (25.7-33.7); MCHC 28.5 g/dl (32.0-35.9); MEAN CELL VOLUME 78.7 fl (80-96); MEAN PLT VOLUME 8.2 fl (7.5-11.1); PLATELET COUNT 456 10^3/uL (134-434); RBC 2.92 M/mm3 (4.00-5.60); RDW 24.6 % (11.9-15.9); WHITE BLOOD COUNT 19.2 K/mm3 (4.0-10.0)
[2020-11-09 07:18] LABS: CHLORIDE 99 mmol/L (98-107); SODIUM 135 mmol/L (136-145)
[2020-11-09 07:22] LABS: CALCIUM 7.8 mg/dL (8.5-10.1)
[2020-11-09 07:23] LABS: ALBUMIN 2.9 g/dl (3.4-5.0); ANION GAP 7 MMOL/L (8-16); BLOOD UREA NITROGEN 39.1 mg/dL (7-18); CO2 30 mmol/L (21-32)
[2020-11-09 07:25] LABS: CHOLESTEROL 82 mg/dL (50-200)
[2020-11-09 07:26] LABS: BILIRUBIN,TOTAL 0.6 mg/dL (0.2-1); CREATININE 1.1 mg/dL (0.55-1.3); PHOSPHOROUS 4.2 mg/dL (2.5-4.9); SGOT/AST 4 U/L (15-37); SGPT/ALT 20 U/L (13-61); TRIGLYCERIDES 116 mg/dL (0-150)
[2020-11-09 07:27] LABS: ALK PHOS 185 U/L (45-117); LDL CHOLESTEROL (ONLY SJRH) 22 mg/dL (5-100); TOT PROT 6.4 g/dl (6.4-8.2)
[2020-11-09 07:28] LABS: HDL CHOLESTEROL 42 mg/dL (40-60)
[2020-11-09 07:42] LABS: GLUCOSE,RANDOM 462 mg/dL (74-106)
[2020-11-09] MEDS ORDERED: methylPREDNISolone NA SUCC 40 MG/1 ML VIAL ONE (09:22)
[2020-11-09] MEDS ORDERED: AZITHROMYCIN IVPB 500 MG/250 ML BAG IVPB ONE (09:23)
[2020-11-09] MEDS: INSULIN SLIDING SCALE (NOVOLOG) 1 VIAL SQ SCH ×4 (09:43→21:47)
[2020-11-09] MEDS: methylPREDNISolone NA SUCC 40 MG/1 ML VIAL IVPUSH SCH ×2 (09:45→17:26)
[2020-11-09] MEDS: AZITHROMYCIN IVPB 500 MG/250 ML BAG IVPB SCH (09:45)
[2020-11-09 13:15] LABS: HEMOGLOBIN 6.5 GM/dL (11.7-16.9)
[2020-11-09 15:40] VITALS: BMI 27.9
[2020-11-09] MEDS ORDERED: guaiFENesin 600 MG TABLET.ER (FP) PO ONE (21:10)
[2020-11-09] MEDS ORDERED: NICOTINE POLACRILEX 2 MG GUM BUC PRN (22:01)
[2020-11-09] MEDS: NICOTINE POLACRILEX 4 MG GUM BUC PRN (22:48)
[2020-11-10] MEDS ORDERED: Insulin (LOG) Aspart 100 UNITS/ML VIAL SQ ONE (00:37)
[2020-11-10] MEDS: methylPREDNISolone NA SUCC 40 MG/1 ML VIAL IVPUSH SCH ×3 (02:07→17:09)
[2020-11-10] MEDS: NICOTINE POLACRILEX 4 MG GUM BUC PRN (05:31)
[2020-11-10] MEDS: INSULIN SLIDING SCALE (NOVOLOG) 1 VIAL SQ SCH ×4 (06:56→21:29)
[2020-11-10 07:31] LABS: HEMATOCRIT 27.7 % (35.4-49); HEMOGLOBIN 8.3 GM/dL (11.7-16.9); MCH 23.5 pg (25.7-33.7); MCHC 29.8 g/dl (32.0-35.9); MEAN CELL VOLUME 78.8 fl (80-96); MEAN PLT VOLUME 8.1 fl (7.5-11.1); PLATELET COUNT 411 10^3/uL (134-434); RBC 3.52 M/mm3 (4.00-5.60); RDW 22.6 % (11.9-15.9); WHITE BLOOD COUNT 13.5 K/mm3 (4.0-10.0)
[2020-11-10 07:47] LABS: CALCIUM 8.4 mg/dL (8.5-10.1)
[2020-11-10 07:48] LABS: BLOOD UREA NITROGEN 41.2 mg/dL (7-18); MAGNESIUM 2.4 mg/dL (1.8-2.4)
[2020-11-10 07:51] LABS: CREATININE 0.7 mg/dL (0.55-1.3); PHOSPHOROUS 2.9 mg/dL (2.5-4.9)
[2020-11-10] MEDS ORDERED: INSULIN (LEVEMIR) 100 UNITS/ML UNITS SQ ONE ×2 (08:30→18:21)
[2020-11-10] MEDS: LEVALBUTEROL HCL 0.31 MG/3 ML VIAL.NEB IH SCH ×3 (08:30→20:45)
[2020-11-10 09:07] LABS: ANISOCYTOSIS 1+; MACROCYTOSIS 1+; PLATELET ESTIMATE NORMAL
[2020-11-10] MEDS: AZITHROMYCIN IVPB 500 MG/250 ML BAG IVPB SCH (11:57)
[2020-11-10] MEDS: BUDESONIDE/FORMETEROL FUMARATE 160/4.5 mcg INHALER IH SCH ×2 (11:57→21:29)
[2020-11-10 12:49] LABS: OPIATES, URI NEGATIVE (NEGATIVE); PHENCYCLIDINE,URINE NEGATIVE (NEGATIVE); URINE BARBITURATES NEGATIVE (NEGATIVE); URINE BENZODIAZEPINES NEGATIVE (NEGATIVE)
[2020-11-10 12:51] LABS: METHADONE, UR NEGATIVE (NEGATIVE)
[2020-11-10 12:59] LABS: COCAINE, UR POSITIVE (NEGATIVE); URINE AMPHETAMINES NEGATIVE (NEGATIVE)
[2020-11-10] MEDS ORDERED: MAGNESIUM HYDROX 2400MG/30ML ORAL SUSPENSION 30 ML CUP PO PRN (13:25)
[2020-11-10] MEDS: POLYETHYLENE GLYCOL (HEALTHYLAX) 3350 17 GM PACKET PO SCH (15:41)
[2020-11-10] MEDS ORDERED: MAGNESIUM CITRATE 300 ML BOTTLE PO ONE (15:55)
[2020-11-10] MEDS ORDERED: IRON SUCROSE INJECTION 200 MG in SODIUM CHLORIDE 90 ML IVPB ONE (18:13)
[2020-11-10] MEDS: FUROSEMIDE 40 MG/4 ML INJECTABLE VIAL IVPUSH SCH (18:39)
[2020-11-10] MEDS: DIGOXIN 0.125 MG TABLET PO SCH (18:41)
[2020-11-10] MEDS: guaiFENesin/D-M SUGAR-FREE/ACLHOL-FREE 118 ML BOTTLE PO PRN (18:42)
[2020-11-10] MEDS ORDERED: DOCUSATE SODIUM 100 MG CAPSULE (FP) PO ONE (22:06)
[2020-11-11] MEDS ORDERED: INSULIN (LEVEMIR) 100 UNITS/ML UNITS SQ ONE ×2 (01:53→11:15)
[2020-11-11] MEDS ORDERED: LACTULOSE 20 GM/30 ML UDC (FOR ORAL USE ONLY) PO ONE (01:53)
[2020-11-11] MEDS: methylPREDNISolone NA SUCC 40 MG/1 ML VIAL IVPUSH SCH ×3 (02:13→21:36)
[2020-11-11] MEDS: NICOTINE POLACRILEX 4 MG GUM BUC PRN ×2 (04:35→20:22)
[2020-11-11] MEDS: INSULIN SLIDING SCALE (NOVOLOG) 1 VIAL SQ SCH ×4 (06:40→21:40)
[2020-11-11] MEDS ORDERED: INSULIN (LEVEMIR) 100 UNITS/ML UNITS SQ SCH ×3 (07:30→22:00)
[2020-11-11] MEDS: LEVALBUTEROL HCL 0.31 MG/3 ML VIAL.NEB IH SCH ×3 (07:42→20:30)
[2020-11-11 07:51] LABS: CHLORIDE 93 mmol/L (98-107); SODIUM 132 mmol/L (136-145)
[2020-11-11 07:56] LABS: BLOOD UREA NITROGEN 33.8 mg/dL (7-18); CALCIUM 8.7 mg/dL (8.5-10.1)
[2020-11-11 07:57] LABS: ALBUMIN 3.2 g/dl (3.4-5.0); ANION GAP 5 MMOL/L (8-16); CO2 34 mmol/L (21-32)
[2020-11-11 07:59] LABS: SGOT/AST 28 U/L (15-37); SGPT/ALT 55 U/L (13-61)
[2020-11-11 08:01] LABS: BILIRUBIN,TOTAL 0.8 mg/dL (0.2-1); TOT PROT 6.4 g/dl (6.4-8.2)
[2020-11-11 08:03] LABS: CREATININE 0.9 mg/dL (0.55-1.3); PHOSPHOROUS 2.5 mg/dL (2.5-4.9)
[2020-11-11 08:23] LABS: ALK PHOS 269 U/L (45-117); GLUCOSE,RANDOM 478 mg/dL (74-106)
[2020-11-11 08:37] LABS: HEMATOCRIT 28.7 % (35.4-49); HEMOGLOBIN 8.3 GM/dL (11.7-16.9); MCH 23.1 pg (25.7-33.7); MCHC 28.8 g/dl (32.0-35.9); MEAN CELL VOLUME 80.1 fl (80-96); MEAN PLT VOLUME 7.9 fl (7.5-11.1); PLATELET COUNT 401 10^3/uL (134-434); RBC 3.58 M/mm3 (4.00-5.60); RDW 23.1 % (11.9-15.9); WHITE BLOOD COUNT 14.8 K/mm3 (4.0-10.0)
[2020-11-11] MEDS ORDERED: PT OWN MED DRAWER 7, Y5N ONE ×2 (08:51→17:44)
[2020-11-11 09:13] LABS: ANISOCYTOSIS 2+; MACROCYTOSIS 1+; OVALOCYTE 1+; PLATELET ESTIMATE NORMAL
[2020-11-11] MEDS: DIGOXIN 0.125 MG TABLET PO SCH (09:17)
[2020-11-11] MEDS: FUROSEMIDE 40 MG/4 ML INJECTABLE VIAL IVPUSH SCH (09:18)
[2020-11-11] MEDS: POLYETHYLENE GLYCOL (HEALTHYLAX) 3350 17 GM PACKET PO SCH (09:18)
[2020-11-11] MEDS: BUDESONIDE/FORMETEROL FUMARATE 160/4.5 mcg INHALER IH SCH ×2 (09:21→21:36)
[2020-11-11] MEDS: guaiFENesin/D-M SUGAR-FREE/ACLHOL-FREE 118 ML BOTTLE PO PRN (09:43)
[2020-11-11] MEDS: AZITHROMYCIN IVPB 500 MG/250 ML BAG IVPB SCH (09:45)
[2020-11-11] MEDS ORDERED: SODIUM ZIRCONIUM CYCLOSILICATE (LOKELMA) 10 GM PACKET PO ONE (10:00)
[2020-11-11] MEDS: IRON SUCROSE INJECTION 100 MG in SODIUM CHLORIDE 95 ML IVPB SCH (10:59)
[2020-11-11] MEDS ORDERED: BISACODYL 10 MG SUPP.RECT PR PRN (12:21)
[2020-11-11] MEDS ORDERED: BISACODYL 5 MG TABLET.DR (FP) PO ONE (12:21)
[2020-11-11] MEDS: Methylnaltrexone Bromide 12 MG/0.6 ML KIT SQ SCH (12:39)
[2020-11-11] MEDS ORDERED: cefTRIAXone SODIUM 1 GM VIAL ONE (13:00)
[2020-11-11] MEDS ORDERED: DEXTROSE 5%-WATER - 50 ML IVPB ONE (13:00)
[2020-11-11] MEDS: CEFTRIAXONE 1 GM in DEXTROSE 5%-WATER - 50 ML IVPB SCH (13:03)
[2020-11-11] MEDS ORDERED: INSULIN (NOVOLOG) ASPART 100 UNITS/ML 10ML VIAL SQ ONE (16:36)
[2020-11-11 17:25] LABS: CHLORIDE 92 mmol/L (98-107); SODIUM 132 mmol/L (136-145)
[2020-11-11 17:26] LABS: CALCIUM 8.7 mg/dL (8.5-10.1)
[2020-11-11 17:27] LABS: ANION GAP 6 MMOL/L (8-16); BLOOD UREA NITROGEN 38.9 mg/dL (7-18); CO2 34 mmol/L (21-32)
[2020-11-11 17:33] LABS: GLUCOSE,RANDOM 546 mg/dL (74-106)
[2020-11-11] MEDS ORDERED: SODIUM ZIRCONIUM CYCLOSILICATE (LOKELMA) 5 GM PACKET PO ONE (19:01)
[2020-11-11] MEDS: INSULIN (LEVEMIR) 100 UNITS/ML UNITS SQ SCH (21:41)
[2020-11-11] MEDS ORDERED: Insulin (LOG) Aspart 100 UNITS/ML VIAL SQ ONE (22:12)
[2020-11-12] MEDS: NICOTINE POLACRILEX 4 MG GUM BUC PRN (05:44)
[2020-11-12] MEDS: INSULIN SLIDING SCALE (NOVOLOG) 1 VIAL SQ SCH ×4 (06:13→21:39)
[2020-11-12] MEDS: INSULIN (LEVEMIR) 100 UNITS/ML UNITS SQ SCH ×2 (06:13→21:39)
[2020-11-12] MEDS: LEVALBUTEROL HCL 0.31 MG/3 ML VIAL.NEB IH SCH ×3 (07:26→20:06)
[2020-11-12] MEDS ORDERED: PT OWN MED DRAWER 7, Y5N ONE ×2 (08:49→23:42)
[2020-11-12] MEDS ORDERED: cefTRIAXone SODIUM 1 GM VIAL ONE (08:50)
[2020-11-12] MEDS ORDERED: DEXTROSE 5%-WATER - 50 ML IVPB ONE (08:50)
[2020-11-12] MEDS: FUROSEMIDE 40 MG/4 ML INJECTABLE VIAL IVPUSH SCH (09:04)
[2020-11-12] MEDS: methylPREDNISolone NA SUCC 40 MG/1 ML VIAL IVPUSH SCH ×2 (09:07→21:39)
[2020-11-12] MEDS: CEFTRIAXONE 1 GM in DEXTROSE 5%-WATER - 50 ML IVPB SCH (09:08)
[2020-11-12] MEDS: POLYETHYLENE GLYCOL (HEALTHYLAX) 3350 17 GM PACKET PO SCH (09:12)
[2020-11-12] MEDS: BUDESONIDE/FORMETEROL FUMARATE 160/4.5 mcg INHALER IH SCH ×2 (09:16→21:40)
[2020-11-12] MEDS: IRON SUCROSE INJECTION 100 MG in SODIUM CHLORIDE 95 ML IVPB SCH (09:50)
[2020-11-12] MEDS: Methylnaltrexone Bromide 12 MG/0.6 ML KIT SQ SCH (12:11)
[2020-11-12] MEDS: AZITHROMYCIN 250 MG TABLET PO SCH (12:21)
[2020-11-12] MEDS: guaiFENesin/D-M SUGAR-FREE/ACLHOL-FREE 118 ML BOTTLE PO PRN (23:42)
[2020-11-13] MEDS ORDERED: glipiZIDE 5 MG TABLET (FP) ONE (06:27)
[2020-11-13] MEDS: glipiZIDE 10 MG TABLET (FP) PO SCH (06:29)
[2020-11-13] MEDS: INSULIN SLIDING SCALE (NOVOLOG) 1 VIAL SQ SCH ×4 (06:30→22:32)
[2020-11-13] MEDS: INSULIN (LEVEMIR) 100 UNITS/ML UNITS SQ SCH ×2 (06:30→22:32)
[2020-11-13] MEDS: LEVALBUTEROL HCL 0.31 MG/3 ML VIAL.NEB IH SCH ×3 (07:36→20:14)
[2020-11-13 07:47] LABS: BASO % 0.1 % (0-2.0); HEMATOCRIT 28.2 % (35.4-49); HEMOGLOBIN 8.3 GM/dL (11.7-16.9); LYMPH % 1.7 % (8-40); MCH 23.7 pg (25.7-33.7); MCHC 29.6 g/dl (32.0-35.9); MONO % 10.8 % (3.8-10.2); NEUT % 87.4 % (42.8-82.8); PLATELET COUNT 393 10^3/uL (134-434); RBC 3.52 M/mm3 (4.00-5.60); RDW 24.1 % (11.9-15.9); WHITE BLOOD COUNT 16.5 K/mm3 (4.0-10.0)
[2020-11-13 08:08] LABS: ALBUMIN 3.3 g/dl (3.4-5.0); BLOOD UREA NITROGEN 39.7 mg/dL (7-18); CALCIUM 8.7 mg/dL (8.5-10.1); MAGNESIUM 2.6 mg/dL (1.8-2.4)
[2020-11-13 08:12] LABS: CREATININE 0.9 mg/dL (0.55-1.3)
[2020-11-13 08:13] LABS: BILIRUBIN,TOTAL 0.7 mg/dL (0.2-1); TOT PROT 6.3 g/dl (6.4-8.2)
[2020-11-13] MEDS ORDERED: DEXTROSE 5%-WATER - 50 ML IVPB ONE (09:19)
[2020-11-13] MEDS ORDERED: cefTRIAXone SODIUM 1 GM VIAL ONE (09:19)
[2020-11-13] MEDS: CEFTRIAXONE 1 GM in DEXTROSE 5%-WATER - 50 ML IVPB SCH (09:41)
[2020-11-13] MEDS: IRON SUCROSE INJECTION 100 MG in SODIUM CHLORIDE 95 ML IVPB SCH (09:41)
[2020-11-13] MEDS: BUDESONIDE/FORMETEROL FUMARATE 160/4.5 mcg INHALER IH SCH ×2 (09:42→22:33)
[2020-11-13] MEDS: POLYETHYLENE GLYCOL (HEALTHYLAX) 3350 17 GM PACKET PO SCH (09:42)
[2020-11-13] MEDS: FUROSEMIDE 40 MG/4 ML INJECTABLE VIAL IVPUSH SCH (09:42)
[2020-11-13] MEDS: methylPREDNISolone NA SUCC 40 MG/1 ML VIAL IVPUSH SCH ×2 (09:42→22:32)
[2020-11-13] MEDS: PANTOPRAZOLE 40 MG TABLET PO SCH (09:43)
[2020-11-13] MEDS: AZITHROMYCIN 250 MG TABLET PO SCH (09:43)
[2020-11-13 10:40] LABS: OVALOCYTE 1+
[2020-11-13] MEDS: Methylnaltrexone Bromide 12 MG/0.6 ML KIT SQ SCH (16:07)
[2020-11-13] MEDS ORDERED: PT OWN MED DRAWER 7, Y5N ONE ×4 (16:07→22:08)
[2020-11-13 18:52] LABS: GLUCOSE,RANDOM 483 mg/dL (74-106)
[2020-11-13] MEDS: guaiFENesin/D-M SUGAR-FREE/ACLHOL-FREE 118 ML BOTTLE PO PRN (20:40)
[2020-11-13] MEDS: NICOTINE POLACRILEX 4 MG GUM BUC PRN (20:40)
[2020-11-13] MEDS ORDERED: NICOTINE 21 MG/24 HOURS TOPICAL PATCH TD ONE (23:26)
[2020-11-14] MEDS ORDERED: glipiZIDE 5 MG TABLET (FP) ONE (06:05)
[2020-11-14] MEDS: glipiZIDE 10 MG TABLET (FP) PO SCH (06:28)
[2020-11-14] MEDS: INSULIN SLIDING SCALE (NOVOLOG) 1 VIAL SQ SCH ×4 (06:29→22:00)
[2020-11-14] MEDS: INSULIN (LEVEMIR) 100 UNITS/ML UNITS SQ SCH ×2 (06:29→21:58)
[2020-11-14] MEDS: LEVALBUTEROL HCL 0.31 MG/3 ML VIAL.NEB IH SCH ×3 (07:34→20:14)
[2020-11-14] MEDS ORDERED: cefTRIAXone SODIUM 1 GM VIAL ONE (09:53)
[2020-11-14] MEDS ORDERED: DEXTROSE 5%-WATER - 50 ML IVPB ONE (09:54)
[2020-11-14] MEDS: POLYETHYLENE GLYCOL (HEALTHYLAX) 3350 17 GM PACKET PO SCH (10:01)
[2020-11-14] MEDS: IRON SUCROSE INJECTION 100 MG in SODIUM CHLORIDE 95 ML IVPB SCH (10:02)
[2020-11-14] MEDS: CEFTRIAXONE 1 GM in DEXTROSE 5%-WATER - 50 ML IVPB SCH (10:02)
[2020-11-14] MEDS: AZITHROMYCIN 250 MG TABLET PO SCH (10:02)
[2020-11-14] MEDS: methylPREDNISolone NA SUCC 40 MG/1 ML VIAL IVPUSH SCH ×2 (10:02→22:00)
[2020-11-14] MEDS: FUROSEMIDE 40 MG/4 ML INJECTABLE VIAL IVPUSH SCH (10:03)
[2020-11-14] MEDS: PANTOPRAZOLE 40 MG TABLET PO SCH (10:03)
[2020-11-14] MEDS: Methylnaltrexone Bromide 12 MG/0.6 ML KIT SQ SCH (10:03)
[2020-11-14] MEDS: guaiFENesin/D-M SUGAR-FREE/ACLHOL-FREE 118 ML BOTTLE PO PRN (10:05)
[2020-11-14] MEDS: NICOTINE POLACRILEX 4 MG GUM BUC PRN (10:06)
[2020-11-14] MEDS: BUDESONIDE/FORMETEROL FUMARATE 160/4.5 mcg INHALER IH SCH ×2 (11:51→22:00)
[2020-11-14] MEDS ORDERED: SODIUM CHLORIDE NASAL SPRAY 44 ML BOTTLE NS PRN (12:10)
[2020-11-14] MEDS ORDERED: PT OWN MED DRAWER 7, Y5N ONE (14:01)
[2020-11-14] MEDS ORDERED: NICOTINE 21 MG/24 HOURS TOPICAL PATCH TD ONE (22:36)
[2020-11-15] MEDS: guaiFENesin/D-M SUGAR-FREE/ACLHOL-FREE 118 ML BOTTLE PO PRN ×2 (01:10→21:29)
[2020-11-15] MEDS: NICOTINE POLACRILEX 4 MG GUM BUC PRN ×2 (01:10→21:29)
[2020-11-15] MEDS ORDERED: INSULIN (NOVOLOG) ASPART 100 UNITS/ML 10ML VIAL SQ ONE (01:19)
[2020-11-15] MEDS ORDERED: glipiZIDE 5 MG TABLET (FP) ONE (05:33)
[2020-11-15] MEDS: INSULIN (LEVEMIR) 100 UNITS/ML UNITS SQ SCH ×2 (06:21→21:30)
[2020-11-15] MEDS: INSULIN SLIDING SCALE (NOVOLOG) 1 VIAL SQ SCH ×4 (06:22→21:33)
[2020-11-15] MEDS: glipiZIDE 10 MG TABLET (FP) PO SCH (06:22)
[2020-11-15 07:42] LABS: HEMATOCRIT 27.4 % (35.4-49); HEMOGLOBIN 8.1 GM/dL (11.7-16.9); MCH 24.4 pg (25.7-33.7); MCHC 29.7 g/dl (32.0-35.9); MEAN CELL VOLUME 82.1 fl (80-96); MEAN PLT VOLUME 7.7 fl (7.5-11.1); PLATELET COUNT 296 10^3/uL (134-434); RBC 3.34 M/mm3 (4.00-5.60); RDW 26.4 % (11.9-15.9); WHITE BLOOD COUNT 20.9 K/mm3 (4.0-10.0)
[2020-11-15 07:53] LABS: BLOOD UREA NITROGEN 46.8 mg/dL (7-18); CALCIUM 8.4 mg/dL (8.5-10.1); MAGNESIUM 2.4 mg/dL (1.8-2.4)
[2020-11-15 07:54] LABS: ALBUMIN 3.2 g/dl (3.4-5.0)
[2020-11-15 07:56] LABS: CREATININE 0.9 mg/dL (0.55-1.3)
[2020-11-15 07:58] LABS: BILIRUBIN,TOTAL 0.6 mg/dL (0.2-1); TOT PROT 6.2 g/dl (6.4-8.2)
[2020-11-15] MEDS: LEVALBUTEROL HCL 0.31 MG/3 ML VIAL.NEB IH SCH ×3 (08:38→20:32)
[2020-11-15 08:51] LABS: ANISOCYTOSIS 2+; MACROCYTOSIS 0; OVALOCYTE 2+; PLATELET ESTIMATE NORMAL; TEAR DROP CELLS 1+
[2020-11-15] MEDS ORDERED: DEXTROSE 5%-WATER - 50 ML IVPB ONE (09:51)
[2020-11-15] MEDS ORDERED: cefTRIAXone SODIUM 1 GM VIAL ONE (09:51)
[2020-11-15] MEDS ORDERED: PT OWN MED DRAWER 7, Y5N ONE ×2 (09:51→21:00)
[2020-11-15] MEDS: FUROSEMIDE 40 MG/4 ML INJECTABLE VIAL IVPUSH SCH (09:54)
[2020-11-15] MEDS: PANTOPRAZOLE 40 MG TABLET PO SCH (09:54)
[2020-11-15] MEDS: methylPREDNISolone NA SUCC 40 MG/1 ML VIAL IVPUSH SCH (09:57)
[2020-11-15] MEDS: POLYETHYLENE GLYCOL (HEALTHYLAX) 3350 17 GM PACKET PO SCH (10:02)
[2020-11-15] MEDS: CEFTRIAXONE 1 GM in DEXTROSE 5%-WATER - 50 ML IVPB SCH (10:02)
[2020-11-15] MEDS: BUDESONIDE/FORMETEROL FUMARATE 160/4.5 mcg INHALER IH SCH ×2 (10:57→21:29)
[2020-11-15] MEDS: Methylnaltrexone Bromide 12 MG/0.6 ML KIT SQ SCH (10:57)
[2020-11-15] MEDS ORDERED: FUROSEMIDE 40 MG/4 ML INJECTABLE VIAL IVPUSH ONE (16:00)
[2020-11-16] MEDS ORDERED: glipiZIDE 5 MG TABLET (FP) ONE (05:22)
[2020-11-16] MEDS: glipiZIDE 10 MG TABLET (FP) PO SCH (06:16)
[2020-11-16] MEDS: INSULIN SLIDING SCALE (NOVOLOG) 1 VIAL SQ SCH ×4 (06:16→21:46)
[2020-11-16] MEDS: INSULIN (LEVEMIR) 100 UNITS/ML UNITS SQ SCH ×2 (06:16→21:45)
[2020-11-16] MEDS ORDERED: INSULIN (LEVEMIR) 100 UNITS/ML UNITS SQ ONE (07:07)
[2020-11-16] MEDS ORDERED: INSULIN SLIDING SCALE (NOVOLOG) 1 VIAL SQ ONE (07:07)
[2020-11-16] MEDS: LEVALBUTEROL HCL 0.31 MG/3 ML VIAL.NEB IH SCH ×3 (08:13→20:05)
[2020-11-16] MEDS ORDERED: FUROSEMIDE 40 MG TABLET (FP) PO SCH (10:00)
[2020-11-16] MEDS ORDERED: methylPREDNISolone NA SUCC 40 MG/1 ML VIAL IVPUSH SCH (10:00)
[2020-11-16] MEDS: CEFTRIAXONE 1 GM in DEXTROSE 5%-WATER - 50 ML IVPB SCH ×2 (10:29→14:38)
[2020-11-16] MEDS: POLYETHYLENE GLYCOL (HEALTHYLAX) 3350 17 GM PACKET PO SCH (10:37)
[2020-11-16] MEDS: PANTOPRAZOLE 40 MG TABLET PO SCH (10:37)
[2020-11-16] MEDS: BUDESONIDE/FORMETEROL FUMARATE 160/4.5 mcg INHALER IH SCH ×2 (10:37→21:30)
[2020-11-16] MEDS: Methylnaltrexone Bromide 12 MG/0.6 ML KIT SQ SCH (10:41)
[2020-11-16] MEDS ORDERED: CEFTRIAXONE 1 GM in DEXTROSE 5%-WATER - 50 ML IVPB SCH (10:45)
[2020-11-16] MEDS ORDERED: predniSONE 20 MG TABLET (UD) PO ONE (11:22)
[2020-11-16] MEDS ORDERED: PT OWN MED DRAWER 7, Y5N ONE (13:33)
[2020-11-16] MEDS ORDERED: ACETAMINOPHEN 325 MG TABLET (FP) PO PRN (14:19)
[2020-11-16] MEDS ORDERED: DEXTROSE 5%-WATER - 50 ML IVPB ONE (14:34)
[2020-11-16] MEDS ORDERED: cefTRIAXone SODIUM 1 GM VIAL ONE (14:34)
[2020-11-16] MEDS: NICOTINE POLACRILEX 4 MG GUM BUC PRN ×2 (14:37→21:41)
[2020-11-16] MEDS: methylPREDNISolone NA SUCC 40 MG/1 ML VIAL IVPUSH SCH (21:32)
[2020-11-16] MEDS ORDERED: predniSONE 20 MG TABLET (UD) PO SCH (22:00)
[2020-11-17] MEDS ORDERED: glipiZIDE 5 MG TABLET (FP) ONE (05:37)
[2020-11-17] MEDS ORDERED: Insulin (LOG) Aspart 100 UNITS/ML VIAL SQ ONE (05:55)
[2020-11-17] MEDS: INSULIN (LEVEMIR) 100 UNITS/ML UNITS SQ SCH ×2 (06:03→22:15)
[2020-11-17] MEDS: glipiZIDE 10 MG TABLET (FP) PO SCH (06:03)
[2020-11-17] MEDS: INSULIN SLIDING SCALE (NOVOLOG) 1 VIAL SQ SCH ×5 (06:07→22:16)
[2020-11-17] MEDS: LEVALBUTEROL HCL 0.31 MG/3 ML VIAL.NEB IH SCH ×3 (07:30→20:28)
[2020-11-17] MEDS ORDERED: methylPREDNISolone NA SUCC 40 MG/1 ML VIAL IVPUSH SCH (10:00)
[2020-11-17] MEDS ORDERED: cefTRIAXone SODIUM 1 GM VIAL ONE (10:41)
[2020-11-17] MEDS ORDERED: DEXTROSE 5%-WATER - 50 ML IVPB ONE (10:41)
[2020-11-17] MEDS: CEFTRIAXONE 1 GM in DEXTROSE 5%-WATER - 50 ML IVPB SCH (10:44)
[2020-11-17] MEDS: FUROSEMIDE 40 MG/4 ML INJECTABLE VIAL IVPUSH SCH (10:45)
[2020-11-17] MEDS: POLYETHYLENE GLYCOL (HEALTHYLAX) 3350 17 GM PACKET PO SCH (10:45)
[2020-11-17] MEDS: methylPREDNISolone NA SUCC 40 MG/1 ML VIAL IVPUSH SCH ×2 (10:45→21:42)
[2020-11-17] MEDS: Methylnaltrexone Bromide 12 MG/0.6 ML KIT SQ SCH (10:45)
[2020-11-17] MEDS: PANTOPRAZOLE 40 MG TABLET PO SCH (10:45)
[2020-11-17] MEDS: BUDESONIDE/FORMETEROL FUMARATE 160/4.5 mcg INHALER IH SCH ×2 (10:46→21:43)
[2020-11-17 11:20] LABS: HEMATOCRIT 25.9 % (35.4-49); HEMOGLOBIN 7.7 GM/dL (11.7-16.9); MCH 25.2 pg (25.7-33.7); MCHC 29.8 g/dl (32.0-35.9); MEAN CELL VOLUME 84.5 fl (80-96); MEAN PLT VOLUME 8.5 fl (7.5-11.1); PLATELET COUNT 197 10^3/uL (134-434); RBC 3.06 M/mm3 (4.00-5.60); RDW 28.5 % (11.9-15.9); WHITE BLOOD COUNT 16.7 K/mm3 (4.0-10.0)
[2020-11-17 11:30] LABS: ALBUMIN 2.8 g/dl (3.4-5.0); BLOOD UREA NITROGEN 38.7 mg/dL (7-18); CALCIUM 8.1 mg/dL (8.5-10.1); MAGNESIUM 2.4 mg/dL (1.8-2.4)
[2020-11-17 11:34] LABS: CREATININE 0.7 mg/dL (0.55-1.3); PHOSPHOROUS 2.5 mg/dL (2.5-4.9)
[2020-11-17 11:35] LABS: BILIRUBIN,TOTAL 0.7 mg/dL (0.2-1); TOT PROT 5.7 g/dl (6.4-8.2)
[2020-11-17 12:19] LABS: ANISOCYTOSIS 2+; MACROCYTOSIS 2+; OVALOCYTE 1+; PLATELET ESTIMATE NORMAL
[2020-11-17] MEDS: NICOTINE POLACRILEX 4 MG GUM BUC PRN (20:01)
[2020-11-18] MEDS ORDERED: INSULIN (NOVOLOG) ASPART 100 UNITS/ML 10ML VIAL SQ ONE (05:23)
[2020-11-18] MEDS: INSULIN (LEVEMIR) 100 UNITS/ML UNITS SQ SCH ×2 (06:24→22:07)
[2020-11-18] MEDS: INSULIN SLIDING SCALE (NOVOLOG) 1 VIAL SQ SCH ×4 (06:24→22:08)
[2020-11-18] MEDS: LEVALBUTEROL HCL 0.31 MG/3 ML VIAL.NEB IH SCH ×3 (07:30→20:25)
[2020-11-18] MEDS ORDERED: cefTRIAXone SODIUM 1 GM VIAL ONE (08:42)
[2020-11-18] MEDS ORDERED: DEXTROSE 5%-WATER - 50 ML IVPB ONE (08:42)
[2020-11-18] MEDS: FUROSEMIDE 40 MG/4 ML INJECTABLE VIAL IVPUSH SCH (09:28)
[2020-11-18] MEDS: methylPREDNISolone NA SUCC 40 MG/1 ML VIAL IVPUSH SCH ×2 (09:28→22:06)
[2020-11-18] MEDS: CEFTRIAXONE 1 GM in DEXTROSE 5%-WATER - 50 ML IVPB SCH (09:28)
[2020-11-18] MEDS: BUDESONIDE/FORMETEROL FUMARATE 160/4.5 mcg INHALER IH SCH ×2 (09:29→22:09)
[2020-11-18] MEDS: POLYETHYLENE GLYCOL (HEALTHYLAX) 3350 17 GM PACKET PO SCH (09:30)
[2020-11-18] MEDS: PANTOPRAZOLE 40 MG TABLET PO SCH (09:30)
[2020-11-18] MEDS: Methylnaltrexone Bromide 12 MG/0.6 ML KIT SQ SCH (09:32)
[2020-11-18] MEDS ORDERED: PT OWN MED DRAWER 7, Y5N ONE (14:32)
[2020-11-18] MEDS: guaiFENesin/D-M SUGAR-FREE/ACLHOL-FREE 118 ML BOTTLE PO PRN (22:09)
[2020-11-18] MEDS: NICOTINE POLACRILEX 4 MG GUM BUC PRN (22:10)
[2020-11-19] MEDS: guaiFENesin/D-M SUGAR-FREE/ACLHOL-FREE 118 ML BOTTLE PO PRN (06:44)
[2020-11-19] MEDS: INSULIN (LEVEMIR) 100 UNITS/ML UNITS SQ SCH (06:45)
[2020-11-19] MEDS: INSULIN SLIDING SCALE (NOVOLOG) 1 VIAL SQ SCH ×3 (06:45→16:46)
[2020-11-19] MEDS: NICOTINE POLACRILEX 4 MG GUM BUC PRN (06:46)
[2020-11-19] MEDS ORDERED: INSULIN (LEVEMIR) 100 UNITS/ML UNITS SQ ONE (07:08)
[2020-11-19] MEDS ORDERED: INSULIN SLIDING SCALE (NOVOLOG) 1 VIAL SQ ONE (07:08)
[2020-11-19] MEDS: LEVALBUTEROL HCL 0.31 MG/3 ML VIAL.NEB IH SCH ×2 (07:47→15:07)
[2020-11-19] MEDS ORDERED: cefTRIAXone SODIUM 1 GM VIAL ONE (09:32)
[2020-11-19] MEDS ORDERED: DEXTROSE 5%-WATER - 50 ML IVPB ONE (09:32)
[2020-11-19] MEDS: FUROSEMIDE 40 MG/4 ML INJECTABLE VIAL IVPUSH SCH (09:55)
[2020-11-19] MEDS: POLYETHYLENE GLYCOL (HEALTHYLAX) 3350 17 GM PACKET PO SCH (09:55)
[2020-11-19] MEDS: Methylnaltrexone Bromide 12 MG/0.6 ML KIT SQ SCH (09:55)
[2020-11-19] MEDS: PANTOPRAZOLE 40 MG TABLET PO SCH (09:55)
[2020-11-19] MEDS: CEFTRIAXONE 1 GM in DEXTROSE 5%-WATER - 50 ML IVPB SCH (09:55)
[2020-11-19] MEDS: BUDESONIDE/FORMETEROL FUMARATE 160/4.5 mcg INHALER IH SCH (09:56)
[2020-11-19] MEDS ORDERED: methylPREDNISolone NA SUCC 40 MG/1 ML VIAL IVPUSH SCH (10:00)
[2020-11-19] MEDS ORDERED: FUROSEMIDE 40 MG/4 ML INJECTABLE VIAL IVPUSH ONE (13:25)
[2020-11-19 19:24] VITALS: BP 143/70; PULSE 63; TEMP 981
== END 2020-11-19 18:12 | disposition left against medical advice (07) | DRG 189 ==
LOC: JER 15:41 → JERBED 19:40 → J4S 11-09 13:42
PROVIDERS: ADMIT Internal Medicine
PROC: 30233N1 Transfusion of Nonautologous Red Blood Cells into Peripheral Vein, Percutaneous Approach (ICD-10-PCS; principal; 2020-11-09)
DX: J96.21 Acute and chronic respiratory failure with hypoxia (principal); J18.9 Pneumonia, unspecified organism; I50.33 Acute on chronic diastolic (congestive) heart failure; J44.1 Chronic obstructive pulmonary disease with (acute) exacerbation; N17.9 Acute kidney failure, unspecified; N39.0 Urinary tract infection, site not specified; I11.0 Hypertensive heart disease with heart failure; J44.9 Chronic obstructive pulmonary disease, unspecified; E11.9 Type 2 diabetes mellitus without complications; M48.00 Spinal stenosis, site unspecified; I78.0 Hereditary hemorrhagic telangiectasia; D50.9 Iron deficiency anemia, unspecified; I48.91 Unspecified atrial fibrillation; D72.829 Elevated white blood cell count, unspecified; E66.9 Obesity, unspecified; Z68.28 Body mass index [BMI] 28.0-28.9, adult; E11.65 Type 2 diabetes mellitus with hyperglycemia; K21.9 Gastro-esophageal reflux disease without esophagitis; Z59.0 Homelessness; K59.09 Other constipation; I27.20 Pulmonary hypertension, unspecified; E87.5 Hyperkalemia; B96.1 Klebsiella pneumoniae [K. pneumoniae] as the cause of diseases classified elsewhere; N40.0 Benign prostatic hyperplasia without lower urinary tract symptoms
CPT/HCPCS: 36415; 36430; 71045-TC-FY; 71046-TC-FY; 71250-TC; 80048; 80053; 80061; 80162; 80307; 81003; 82248; 82272; 82550; 82728; 82803; 82947; 82962; 83036; 83540; 83550; 83605; 83615; 83735; 83880; 84100; 84443; 84484; 85025; 85027; 85610; 85730; 86140; 86850; 86900; 86901; 86922; 87040; 87086; 87186; 87804; 87899; 93005; 93010; 93306-TC; 93970-TC; 97116-GP; 97161-GP; 99285-25; C9803; J1756; P9058; U0003; U0005

== ENCOUNTER 2020-11-19 21:49 | Inpatient (IN) | payer OTHER ==
[2020-11-19] MEDS ORDERED: LACTATED RINGERS SOLUTION 1000 ML INFUS.BAG IV ONE (22:28)
[2020-11-19] MEDS ORDERED: dilTIAZem HCL 60 MG TABLET PO ONE (23:41)
[2020-11-19] MEDS ORDERED: dilTIAZem HCL 30 MG TABLET ONE (23:46)
[2020-11-19] MEDS ORDERED: dilTIAZem HCL 60 MG TABLET ONE (23:46)
[2020-11-19 23:54] LABS: HEMATOCRIT 24.1 % (35.4-49); HEMOGLOBIN 7.2 GM/dL (11.7-16.9); MCH 25.6 pg (25.7-33.7); MEAN CELL VOLUME 85.5 fl (80-96); MEAN PLT VOLUME 7.9 fl (7.5-11.1); PLATELET COUNT 227 10^3/uL (134-434); RBC 2.81 M/mm3 (4.00-5.60); RDW 29.5 % (11.9-15.9)
[2020-11-20] LABS: INR 1.16 (0.83-1.09); PROTHROMBIN TIME (PATIENT) 14.2 SEC (9.7-13.0)
[2020-11-20 00:02] LABS: ACTIVATED PTT 22.9 SECONDS (25.2-36.5)
[2020-11-20 00:12] LABS: CHLORIDE 94 mmol/L (98-107); SODIUM 133 mmol/L (136-145)
[2020-11-20 00:14] LABS: ALBUMIN 2.9 g/dl (3.4-5.0); ANION GAP 6 MMOL/L (8-16); BLOOD UREA NITROGEN 46.8 mg/dL (7-18); CALCIUM 8.1 mg/dL (8.5-10.1); CO2 33 mmol/L (21-32); GLUCOSE,RANDOM 257 mg/dL (74-106); MAGNESIUM 2.2 mg/dL (1.8-2.4)
[2020-11-20 00:17] LABS: CREATININE 0.7 mg/dL (0.55-1.3); PHOSPHOROUS 3.6 mg/dL (2.5-4.9); SGOT/AST 11 U/L (15-37); SGPT/ALT 64 U/L (13-61)
[2020-11-20 00:20] LABS: BILIRUBIN,TOTAL 0.7 mg/dL (0.2-1)
[2020-11-20 00:21] LABS: URINE APPEARANCE CLEAR; URINE BILIRUBIN NEGATIVE (NEGATIVE); URINE COLOR YELLOW; URINE GLUCOSE (UA) 2+ (NEGATIVE); URINE KETONE NEGATIVE (NEGATIVE); URINE LEUK ESTERASE NEGATIVE (NEGATIVE); URINE NITRITE NEGATIVE (NEGATIVE); URINE PROTEIN NEGATIVE (NEGATIVE)
[2020-11-20 00:24] LABS: N-TERMINAL BNP 1038.3 pg/ml (5-125)
[2020-11-20 01:02] LABS: VENOUS BASE EXCESS 3.2 mmol/L (-2-2); VENOUS O2 SATURATION 60.9 % (70-80); VENOUS PCO2 53.2 mmHg (38-52); VENOUS PH 7.36 (7.310-7.410)
[2020-11-20 01:24] LABS: ALK PHOS 140 U/L (45-117); TOT PROT 5.6 g/dl (6.4-8.2)
[2020-11-20] MEDS ORDERED: FUROSEMIDE 40 MG/4 ML INJECTABLE VIAL IVPUSH ONE (01:51)
[2020-11-20] MEDS ORDERED: FUROSEMIDE 40 MG/4 ML INJECTABLE VIAL ONE (02:04)
[2020-11-20] MEDS ORDERED: ALBUTEROL SO4 HFA INHALER IH ONE ×2 (02:39→03:09)
[2020-11-20] MEDS: ALBUTEROL SO4 2.5/IPRATROPIUM 0.5 INH SOL 3 ML VIAL.NEB. NEB SCH ×2 (03:12→03:40)
[2020-11-20] MEDS ORDERED: INSULIN (NOVOLOG) ASPART 100 UNITS/ML 10ML VIAL SQ ONE (03:48)
[2020-11-20 04:30] LABS: ANISOCYTOSIS 2+; MACROCYTOSIS 0; PLATELET ESTIMATE NORMAL; TEAR DROP CELLS 1+
[2020-11-20 04:33] LABS: COCAINE, UR NEGATIVE (NEGATIVE); METHADONE, UR NEGATIVE (NEGATIVE); OPIATES, URI NEGATIVE (NEGATIVE); PHENCYCLIDINE,URINE NEGATIVE (NEGATIVE); URINE BARBITURATES NEGATIVE (NEGATIVE)
[2020-11-20 04:42] LABS: URINE AMPHETAMINES NEGATIVE (NEGATIVE); URINE BENZODIAZEPINES NEGATIVE (NEGATIVE)
[2020-11-20 07:00] LABS: CALCIUM 8.2 mg/dL (8.5-10.1)
[2020-11-20 07:01] LABS: ALBUMIN 2.9 g/dl (3.4-5.0); BLOOD UREA NITROGEN 48.7 mg/dL (7-18)
[2020-11-20 07:04] VITALS: BMI 32.8
[2020-11-20 07:05] LABS: BILIRUBIN,TOTAL 0.6 mg/dL (0.2-1); CREATININE 0.9 mg/dL (0.55-1.3); PHOSPHOROUS 3.4 mg/dL (2.5-4.9); TOT PROT 5.6 g/dl (6.4-8.2)
[2020-11-20 07:15] LABS: HEMATOCRIT 23.1 % (35.4-49); MCH 25.9 pg (25.7-33.7); MCHC 30.5 g/dl (32.0-35.9); MEAN CELL VOLUME 84.9 fl (80-96); MEAN PLT VOLUME 7.5 fl (7.5-11.1); PLATELET COUNT 245 10^3/uL (134-434); RBC 2.72 M/mm3 (4.00-5.60); RDW 29.2 % (11.9-15.9); WHITE BLOOD COUNT 12.3 K/mm3 (4.0-10.0)
[2020-11-20] MEDS: INSULIN SLIDING SCALE (NOVOLOG) 1 VIAL SQ SCH ×4 (07:35→22:00)
[2020-11-20 08:44] LABS: ANISOCYTOSIS 2+; MACROCYTOSIS 1+; PLATELET ESTIMATE NORMAL
[2020-11-20] MEDS ORDERED: PT OWN MED DRAWER 7, Y5N ONE (09:28)
[2020-11-20] MEDS: ENOXAPARIN NA (PORCINE) 40 MG/0.4 ML DISP.SYRIN SQ SCH (09:36)
[2020-11-20] MEDS: BUDESONIDE/FORMETEROL FUMARATE 160/4.5 mcg INHALER IH SCH (09:36)
[2020-11-20] MEDS: DEXAMETHASONE SOD PHOSPHATE 4 MG/1 ML VIAL IVPUSH SCH (09:38)
[2020-11-20] MEDS: TAMSULOSIN HCL 0.4 MG CAP PO SCH (09:38)
[2020-11-20] MEDS: FUROSEMIDE 40 MG TABLET (FP) PO SCH (09:38)
[2020-11-20] MEDS: PANTOPRAZOLE 40 MG TABLET PO SCH (09:38)
[2020-11-20] MEDS: INSULIN (LEVEMIR) 100 UNITS/ML UNITS SQ SCH (22:00)
[2020-11-21] MEDS: BUDESONIDE/FORMETEROL FUMARATE 160/4.5 mcg INHALER IH SCH ×3 (00:12→22:30)
[2020-11-21] MEDS: INSULIN (LEVEMIR) 100 UNITS/ML UNITS SQ SCH ×2 (07:19→22:30)
[2020-11-21] MEDS: INSULIN SLIDING SCALE (NOVOLOG) 1 VIAL SQ SCH ×4 (07:20→22:30)
[2020-11-21 07:38] LABS: HEMATOCRIT 23.8 % (35.4-49); HEMOGLOBIN 7.4 GM/dL (11.7-16.9); MCH 26.6 pg (25.7-33.7); MCHC 31.2 g/dl (32.0-35.9); MEAN CELL VOLUME 85.2 fl (80-96); MEAN PLT VOLUME 7.6 fl (7.5-11.1); PLATELET COUNT 234 10^3/uL (134-434); RDW 27.9 % (11.9-15.9); WHITE BLOOD COUNT 10.8 K/mm3 (4.0-10.0)
[2020-11-21 08:00] LABS: BLOOD UREA NITROGEN 39.9 mg/dL (7-18)
[2020-11-21 08:03] LABS: CREATININE 0.8 mg/dL (0.55-1.3)
[2020-11-21] MEDS: ENOXAPARIN NA (PORCINE) 40 MG/0.4 ML DISP.SYRIN SQ SCH (09:33)
[2020-11-21] MEDS: DEXAMETHASONE SOD PHOSPHATE 4 MG/1 ML VIAL IVPUSH SCH (09:33)
[2020-11-21] MEDS: PANTOPRAZOLE 40 MG TABLET PO SCH (09:34)
[2020-11-21] MEDS: FUROSEMIDE 40 MG TABLET (FP) PO SCH (09:34)
[2020-11-21] MEDS: TAMSULOSIN HCL 0.4 MG CAP PO SCH (09:34)
[2020-11-21] MEDS ORDERED: REMDESIVIR 200 MG in SODIUM CHLORIDE 250 ML IVPB ONE (12:00)
[2020-11-21] MEDS ORDERED: guaiFENesin 200 MG/10 ML 10 ML UNIT-DOSE CUPS PO ONE (21:48)
[2020-11-21] MEDS: MELATONIN 5 MG TABLETS PO PRN (22:30)
[2020-11-22] MEDS: INSULIN (LEVEMIR) 100 UNITS/ML UNITS SQ SCH ×2 (07:21→22:45)
[2020-11-22] MEDS: INSULIN SLIDING SCALE (NOVOLOG) 1 VIAL SQ SCH ×4 (07:22→22:45)
[2020-11-22 07:29] LABS: BASO % 0.2 % (0-2.0); EOS % 2.3 % (0-4.5); HEMATOCRIT 23.1 % (35.4-49); LYMPH % 1.9 % (8-40); MCH 25.7 pg (25.7-33.7); MCHC 30.4 g/dl (32.0-35.9); MEAN CELL VOLUME 84.8 fl (80-96); MEAN PLT VOLUME 7.4 fl (7.5-11.1); NEUT % 88.6 % (42.8-82.8); PLATELET COUNT 223 10^3/uL (134-434); RBC 2.72 M/mm3 (4.00-5.60); RDW 28.2 % (11.9-15.9); WHITE BLOOD COUNT 15.7 K/mm3 (4.0-10.0)
[2020-11-22 07:52] LABS: ALBUMIN 2.6 g/dl (3.4-5.0); CALCIUM 7.9 mg/dL (8.5-10.1)
[2020-11-22 07:53] LABS: BLOOD UREA NITROGEN 34.1 mg/dL (7-18)
[2020-11-22 07:56] LABS: CREATININE 0.6 mg/dL (0.55-1.3)
[2020-11-22 07:57] LABS: BILIRUBIN,TOTAL 0.7 mg/dL (0.2-1); TOT PROT 5.2 g/dl (6.4-8.2)
[2020-11-22 09:01] LABS: ANISOCYTOSIS 2+; MACROCYTOSIS 0; OVALOCYTE 1+; PLATELET ESTIMATE NORMAL
[2020-11-22] MEDS: FUROSEMIDE 40 MG/4 ML INJECTABLE VIAL IVPUSH SCH (09:41)
[2020-11-22] MEDS: PANTOPRAZOLE 40 MG TABLET PO SCH (09:41)
[2020-11-22] MEDS: DEXAMETHASONE SOD PHOSPHATE 4 MG/1 ML VIAL IVPUSH SCH (09:41)
[2020-11-22] MEDS: TAMSULOSIN HCL 0.4 MG CAP PO SCH (09:41)
[2020-11-22] MEDS: ENOXAPARIN NA (PORCINE) 40 MG/0.4 ML DISP.SYRIN SQ SCH (09:42)
[2020-11-22] MEDS: BUDESONIDE/FORMETEROL FUMARATE 160/4.5 mcg INHALER IH SCH ×2 (11:20→21:42)
[2020-11-22] MEDS ORDERED: PT OWN MED DRAWER 7, Y5N ONE ×2 (13:01→13:20)
[2020-11-22] MEDS ORDERED: INSULIN (NOVOLOG) ASPART 100 UNITS/ML 10ML VIAL ONE ×2 (13:03→13:21)
[2020-11-22] MEDS: REMDESIVIR 100 MG in SODIUM CHLORIDE 250 ML IVPB SCH (13:25)
[2020-11-22] MEDS ORDERED: dilTIAZem HCL 50 MG/10 ML - 10 ML VIAL IVPUSH PRN (14:01)
[2020-11-22] MEDS ORDERED: guaiFENesin 200 MG/10 ML 10 ML UNIT-DOSE CUPS PO PRN (21:06)
[2020-11-22 21:15] LABS: URINE AMPHETAMINES NEGATIVE (NEGATIVE)
[2020-11-22 21:16] LABS: METHADONE, UR NEGATIVE (NEGATIVE); OPIATES, URI NEGATIVE (NEGATIVE); PHENCYCLIDINE,URINE NEGATIVE (NEGATIVE); URINE BARBITURATES NEGATIVE (NEGATIVE); URINE BENZODIAZEPINES NEGATIVE (NEGATIVE)
[2020-11-22 21:17] LABS: COCAINE, UR NEGATIVE (NEGATIVE)
[2020-11-22] MEDS: guaiFENesin 600 MG TABLET.ER (FP) PO SCH (21:42)
[2020-11-22] MEDS: MELATONIN 5 MG TABLETS PO PRN (21:42)
[2020-11-23 06:47] LABS: BASO % 0.1 % (0-2.0); EOS % 0.8 % (0-4.5); HEMATOCRIT 22.2 % (35.4-49); LYMPH % 1.5 % (8-40); MCH 25.5 pg (25.7-33.7); MCHC 29.4 g/dl (32.0-35.9); MEAN CELL VOLUME 86.6 fl (80-96); MEAN PLT VOLUME 7.9 fl (7.5-11.1); MONO % 5.5 % (3.8-10.2); NEUT % 92.1 % (42.8-82.8); PLATELET COUNT 236 10^3/uL (134-434); RBC 2.56 M/mm3 (4.00-5.60); RDW 27.8 % (11.9-15.9); WHITE BLOOD COUNT 15.7 K/mm3 (4.0-10.0)
[2020-11-23 06:52] LABS: HEMOGLOBIN 6.5 GM/dL (11.7-16.9)
[2020-11-23] MEDS ORDERED: INSULIN (LEVEMIR) 100 UNITS/ML UNITS SQ SCH (06:58)
[2020-11-23 07:05] LABS: CHLORIDE 95 mmol/L (98-107); SODIUM 134 mmol/L (136-145)
[2020-11-23 07:08] LABS: ALBUMIN 2.5 g/dl (3.4-5.0); CALCIUM 7.7 mg/dL (8.5-10.1)
[2020-11-23 07:09] LABS: ANION GAP 6 MMOL/L (8-16); BLOOD UREA NITROGEN 41.9 mg/dL (7-18); CO2 33 mmol/L (21-32); MAGNESIUM 1.9 mg/dL (1.8-2.4)
[2020-11-23 07:12] LABS: CREATININE 0.8 mg/dL (0.55-1.3); PHOSPHOROUS 2.7 mg/dL (2.5-4.9); SGOT/AST 11 U/L (15-37); SGPT/ALT 58 U/L (13-61)
[2020-11-23 07:13] LABS: BILIRUBIN,TOTAL 0.7 mg/dL (0.2-1); TOT PROT 5.3 g/dl (6.4-8.2)
[2020-11-23 07:15] LABS: LDH 158 U/L (87-246)
[2020-11-23] MEDS: INSULIN SLIDING SCALE (NOVOLOG) 1 VIAL SQ SCH ×4 (07:39→22:38)
[2020-11-23] MEDS: ALBUTEROL SO4 HFA INHALER IH PRN (07:42)
[2020-11-23] MEDS: TAMSULOSIN HCL 0.4 MG CAP PO SCH (07:42)
[2020-11-23 07:44] LABS: ALK PHOS 220 U/L (45-117); GLUCOSE,RANDOM 407 mg/dL (74-106)
[2020-11-23 09:49] LABS: ANISOCYTOSIS 2+; MACROCYTOSIS 0; OVALOCYTE 1+; PLATELET ESTIMATE NORMAL
[2020-11-23] MEDS ORDERED: NICOTINE POLACRILEX 2 MG GUM BUC PRN (09:49)
[2020-11-23] MEDS ORDERED: PT OWN MED DRAWER 7, Y5N ONE ×2 (10:12→14:40)
[2020-11-23] MEDS: DEXAMETHASONE SOD PHOSPHATE 4 MG/1 ML VIAL IVPUSH SCH (10:14)
[2020-11-23] MEDS: guaiFENesin 600 MG TABLET.ER (FP) PO SCH ×2 (10:14→22:23)
[2020-11-23] MEDS: FUROSEMIDE 40 MG/4 ML INJECTABLE VIAL IVPUSH SCH (10:14)
[2020-11-23] MEDS: BUDESONIDE/FORMETEROL FUMARATE 160/4.5 mcg INHALER IH SCH ×2 (10:42→22:41)
[2020-11-23] MEDS: NICOTINE 21 MG/24 HOURS TOPICAL PATCH TD SCH (10:42)
[2020-11-23] MEDS: REMDESIVIR 100 MG in SODIUM CHLORIDE 250 ML IVPB SCH (15:03)
[2020-11-23] MEDS: INSULIN (LEVEMIR) 100 UNITS/ML UNITS SQ SCH (22:20)
[2020-11-23] MEDS: POLYETHYLENE GLYCOL (HEALTHYLAX) 3350 17 GM PACKET PO SCH (22:22)
[2020-11-23] MEDS: MELATONIN 5 MG TABLETS PO PRN (22:23)
[2020-11-23] MEDS: PANTOPRAZOLE SODIUM 40 MG VIAL IVPUSH SCH (22:41)
[2020-11-24] MEDS: PANTOPRAZOLE 40 MG TABLET PO SCH (00:45)
[2020-11-24] MEDS: POLYETHYLENE GLYCOL (HEALTHYLAX) 3350 17 GM PACKET PO SCH ×3 (05:22→23:16)
[2020-11-24] MEDS: INSULIN (LEVEMIR) 100 UNITS/ML UNITS SQ SCH ×2 (06:21→23:16)
[2020-11-24] MEDS ORDERED: INSULIN SLIDING SCALE (NOVOLOG) 1 VIAL SQ SCH (07:00)
[2020-11-24] MEDS ORDERED: INSULIN (LEVEMIR) 100 UNITS/ML UNITS SQ SCH (07:25)
[2020-11-24] MEDS ORDERED: PT OWN MED DRAWER 7, Y5N ONE ×3 (09:26→18:23)
[2020-11-24] MEDS: TAMSULOSIN HCL 0.4 MG CAP PO SCH (09:38)
[2020-11-24] MEDS: NICOTINE 21 MG/24 HOURS TOPICAL PATCH TD SCH (09:38)
[2020-11-24] MEDS: DEXAMETHASONE SOD PHOSPHATE 4 MG/1 ML VIAL IVPUSH SCH (09:39)
[2020-11-24] MEDS: FUROSEMIDE 40 MG/4 ML INJECTABLE VIAL IVPUSH SCH (09:40)
[2020-11-24] MEDS: BUDESONIDE/FORMETEROL FUMARATE 160/4.5 mcg INHALER IH SCH ×2 (09:40→23:17)
[2020-11-24] MEDS: PANTOPRAZOLE SODIUM 40 MG VIAL IVPUSH SCH ×2 (09:40→23:17)
[2020-11-24] MEDS ORDERED: guaiFENesin 600 MG TABLET.ER (FP) PO SCH (10:00)
[2020-11-24 10:45] LABS: HEMATOCRIT 23.8 % (35.4-49); HEMOGLOBIN 7.2 GM/dL (11.7-16.9); MCH 25.8 pg (25.7-33.7); MCHC 30.3 g/dl (32.0-35.9); MEAN CELL VOLUME 85.2 fl (80-96); MEAN PLT VOLUME 7.9 fl (7.5-11.1); PLATELET COUNT 260 10^3/uL (134-434); RDW 26.3 % (11.9-15.9); WHITE BLOOD COUNT 20.7 K/mm3 (4.0-10.0)
[2020-11-24 11:16] LABS: BLOOD UREA NITROGEN 43.2 mg/dL (7-18); CALCIUM 7.9 mg/dL (8.5-10.1)
[2020-11-24 11:19] LABS: CREATININE 0.7 mg/dL (0.55-1.3)
[2020-11-24] MEDS: REMDESIVIR 100 MG in SODIUM CHLORIDE 250 ML IVPB SCH (11:29)
[2020-11-24] MEDS: INSULIN (NOVOLOG) ASPART 100 UNITS/ML 10ML VIAL SQ SCH ×3 (11:30→23:17)
[2020-11-24 11:32] LABS: ANISOCYTOSIS 0; HELMET CELLS 0; HOWELL-JOLLY BODIES 0; MACROCYTOSIS 0; OVALOCYTE 0; PLATELET ESTIMATE NORMAL; ROULEAU 0; SICKELED CELLS 0; TARGET CELLS 0; TEAR DROP CELLS 0; TOXIC GRANULATION 0
[2020-11-24] MEDS: INSULIN SLIDING SCALE (NOVOLOG) 1 VIAL SQ SCH ×2 (17:03→23:16)
[2020-11-24] MEDS: guaiFENesin/D-M SUGAR-FREE/ACLHOL-FREE 5 ML UNIT DOSE PO PRN (23:19)
[2020-11-25 04:01] LABS: HEMATOCRIT 23.5 % (35.4-49); HEMOGLOBIN 7.2 GM/dL (11.7-16.9); MCH 25.7 pg (25.7-33.7); MCHC 30.7 g/dl (32.0-35.9); MEAN CELL VOLUME 83.8 fl (80-96); MEAN PLT VOLUME 7.4 fl (7.5-11.1); PLATELET COUNT 272 10^3/uL (134-434); RBC 2.81 M/mm3 (4.00-5.60); RDW 26.1 % (11.9-15.9); WHITE BLOOD COUNT 19.6 K/mm3 (4.0-10.0)
[2020-11-25 04:27] LABS: ANISOCYTOSIS 1+; MACROCYTOSIS 0; OVALOCYTE 1+; PLATELET ESTIMATE NORMAL
[2020-11-25] MEDS: POLYETHYLENE GLYCOL (HEALTHYLAX) 3350 17 GM PACKET PO SCH ×3 (06:39→21:46)
[2020-11-25] MEDS: INSULIN (NOVOLOG) ASPART 100 UNITS/ML 10ML VIAL SQ SCH ×4 (06:40→21:56)
[2020-11-25] MEDS: INSULIN SLIDING SCALE (NOVOLOG) 1 VIAL SQ SCH ×4 (06:40→21:40)
[2020-11-25] MEDS: INSULIN (LEVEMIR) 100 UNITS/ML UNITS SQ SCH ×2 (06:41→21:41)
[2020-11-25 09:02] LABS: HEMATOCRIT 23.9 % (35.4-49); HEMOGLOBIN 7.3 GM/dL (11.7-16.9); MCH 25.9 pg (25.7-33.7); MCHC 30.6 g/dl (32.0-35.9); MEAN CELL VOLUME 84.7 fl (80-96); MEAN PLT VOLUME 7.8 fl (7.5-11.1); PLATELET COUNT 281 10^3/uL (134-434); RBC 2.83 M/mm3 (4.00-5.60); RDW 25.8 % (11.9-15.9); WHITE BLOOD COUNT 18.1 K/mm3 (4.0-10.0)
[2020-11-25 10:01] LABS: CALCIUM 8.1 mg/dL (8.5-10.1)
[2020-11-25] MEDS ORDERED: PT OWN MED DRAWER 7, Y5N ONE ×2 (10:01→19:01)
[2020-11-25 10:04] LABS: BLOOD UREA NITROGEN 40.5 mg/dL (7-18); CREATININE 0.6 mg/dL (0.55-1.3)
[2020-11-25 10:09] LABS: ANISOCYTOSIS 2+; MACROCYTOSIS 0; PLATELET ESTIMATE NORMAL
[2020-11-25] MEDS: NICOTINE 21 MG/24 HOURS TOPICAL PATCH TD SCH (10:13)
[2020-11-25] MEDS: ALBUTEROL SO4 HFA INHALER IH PRN (10:13)
[2020-11-25] MEDS: PANTOPRAZOLE SODIUM 40 MG VIAL IVPUSH SCH ×2 (10:13→21:21)
[2020-11-25] MEDS: DEXAMETHASONE SOD PHOSPHATE 4 MG/1 ML VIAL IVPUSH SCH (10:14)
[2020-11-25] MEDS: TAMSULOSIN HCL 0.4 MG CAP PO SCH (10:14)
[2020-11-25] MEDS: FUROSEMIDE 40 MG/4 ML INJECTABLE VIAL IVPUSH SCH ×2 (10:14→17:43)
[2020-11-25] MEDS: BUDESONIDE/FORMETEROL FUMARATE 160/4.5 mcg INHALER IH SCH ×2 (10:15→21:21)
[2020-11-25] MEDS: guaiFENesin/D-M SUGAR-FREE/ACLHOL-FREE 5 ML UNIT DOSE PO PRN ×2 (10:16→22:03)
[2020-11-25] MEDS ORDERED: LORazepam 1 MG TABLET PO ONE (11:00)
[2020-11-25] MEDS: REMDESIVIR 100 MG in SODIUM CHLORIDE 250 ML IVPB SCH (12:02)
[2020-11-25] MEDS ORDERED: FUROSEMIDE 40 MG/4 ML INJECTABLE VIAL IVPUSH SCH (14:00)
[2020-11-26] MEDS: MELATONIN 5 MG TABLETS PO PRN (02:55)
[2020-11-26] MEDS: POLYETHYLENE GLYCOL (HEALTHYLAX) 3350 17 GM PACKET PO SCH ×3 (05:54→21:20)
[2020-11-26] MEDS: INSULIN (LEVEMIR) 100 UNITS/ML UNITS SQ SCH ×2 (06:01→22:25)
[2020-11-26] MEDS: FUROSEMIDE 40 MG/4 ML INJECTABLE VIAL IVPUSH SCH ×2 (06:01→15:07)
[2020-11-26] MEDS: INSULIN (NOVOLOG) ASPART 100 UNITS/ML 10ML VIAL SQ SCH ×4 (06:02→22:22)
[2020-11-26] MEDS: INSULIN SLIDING SCALE (NOVOLOG) 1 VIAL SQ SCH ×4 (06:03→22:23)
[2020-11-26] MEDS ORDERED: PT OWN MED DRAWER 7, Y5N ONE ×2 (06:38→21:53)
[2020-11-26 09:23] LABS: HEMATOCRIT 23.6 % (35.4-49); HEMOGLOBIN 7.2 GM/dL (11.7-16.9); MCHC 30.6 g/dl (32.0-35.9); MEAN CELL VOLUME 84.9 fl (80-96); MEAN PLT VOLUME 7.5 fl (7.5-11.1); PLATELET COUNT 294 10^3/uL (134-434); RBC 2.78 M/mm3 (4.00-5.60); RDW 25.7 % (11.9-15.9); WHITE BLOOD COUNT 18.8 K/mm3 (4.0-10.0)
[2020-11-26 09:48] LABS: CALCIUM 8.1 mg/dL (8.5-10.1)
[2020-11-26 09:49] LABS: BLOOD UREA NITROGEN 40.5 mg/dL (7-18); MAGNESIUM 1.9 mg/dL (1.8-2.4)
[2020-11-26 09:51] LABS: PHOSPHOROUS 3.7 mg/dL (2.5-4.9)
[2020-11-26 09:52] LABS: CREATININE 0.7 mg/dL (0.55-1.3)
[2020-11-26 10:34] LABS: ANISOCYTOSIS 1+; MACROCYTOSIS 0; PLATELET ESTIMATE NORMAL; TEAR DROP CELLS 1+
[2020-11-26] MEDS: TAMSULOSIN HCL 0.4 MG CAP PO SCH (10:43)
[2020-11-26] MEDS: PANTOPRAZOLE SODIUM 40 MG VIAL IVPUSH SCH ×2 (10:43→22:00)
[2020-11-26] MEDS: DEXAMETHASONE SOD PHOSPHATE 4 MG/1 ML VIAL IVPUSH SCH (10:43)
[2020-11-26] MEDS: guaiFENesin/D-M SUGAR-FREE/ACLHOL-FREE 5 ML UNIT DOSE PO PRN ×2 (10:44→22:05)
[2020-11-26] MEDS: NICOTINE 21 MG/24 HOURS TOPICAL PATCH TD SCH (10:44)
[2020-11-26] MEDS: BUDESONIDE/FORMETEROL FUMARATE 160/4.5 mcg INHALER IH SCH ×2 (10:44→22:30)
[2020-11-26] MEDS ORDERED: POTASSIUM CHLORIDE TABS 20 MEQ TABLET.ER (FP) PO ONE (12:23)
[2020-11-27] MEDS: POLYETHYLENE GLYCOL (HEALTHYLAX) 3350 17 GM PACKET PO SCH ×3 (05:51→22:27)
[2020-11-27] MEDS: INSULIN (NOVOLOG) ASPART 100 UNITS/ML 10ML VIAL SQ SCH ×4 (06:01→22:28)
[2020-11-27] MEDS: INSULIN SLIDING SCALE (NOVOLOG) 1 VIAL SQ SCH ×4 (06:02→22:28)
[2020-11-27] MEDS: INSULIN (LEVEMIR) 100 UNITS/ML UNITS SQ SCH ×2 (06:03→22:27)
[2020-11-27] MEDS: FUROSEMIDE 40 MG/4 ML INJECTABLE VIAL IVPUSH SCH ×2 (06:04→14:06)
[2020-11-27] MEDS: DEXAMETHASONE SOD PHOSPHATE 4 MG/1 ML VIAL IVPUSH SCH (10:06)
[2020-11-27] MEDS: BUDESONIDE/FORMETEROL FUMARATE 160/4.5 mcg INHALER IH SCH ×2 (10:09→22:29)
[2020-11-27] MEDS: TAMSULOSIN HCL 0.4 MG CAP PO SCH (10:09)
[2020-11-27] MEDS: PANTOPRAZOLE SODIUM 40 MG VIAL IVPUSH SCH ×2 (10:09→22:26)
[2020-11-27] MEDS: NICOTINE 21 MG/24 HOURS TOPICAL PATCH TD SCH (10:09)
[2020-11-27] MEDS: guaiFENesin/D-M SUGAR-FREE/ACLHOL-FREE 5 ML UNIT DOSE PO PRN ×2 (11:14→22:34)
[2020-11-27] MEDS ORDERED: ALPRAZolam 1 MG TABLET PO ONE ×2 (15:25→21:56)
[2020-11-27] MEDS ORDERED: PT OWN MED DRAWER 7, Y5N ONE (22:16)
[2020-11-28] MEDS: MELATONIN 5 MG TABLETS PO PRN (04:21)
[2020-11-28] MEDS: FUROSEMIDE 40 MG/4 ML INJECTABLE VIAL IVPUSH SCH ×2 (05:12→14:16)
[2020-11-28] MEDS: POLYETHYLENE GLYCOL (HEALTHYLAX) 3350 17 GM PACKET PO SCH ×2 (05:12→13:15)
[2020-11-28] MEDS: INSULIN SLIDING SCALE (NOVOLOG) 1 VIAL SQ SCH ×5 (06:13→23:43)
[2020-11-28] MEDS: INSULIN (NOVOLOG) ASPART 100 UNITS/ML 10ML VIAL SQ SCH ×4 (06:13→23:43)
[2020-11-28] MEDS: INSULIN (LEVEMIR) 100 UNITS/ML UNITS SQ SCH ×2 (06:14→21:57)
[2020-11-28] MEDS ORDERED: PT OWN MED DRAWER 7, Y5N ONE ×2 (08:52→21:38)
[2020-11-28] MEDS: guaiFENesin/D-M SUGAR-FREE/ACLHOL-FREE 5 ML UNIT DOSE PO PRN (08:54)
[2020-11-28] MEDS: TAMSULOSIN HCL 0.4 MG CAP PO SCH (08:54)
[2020-11-28] MEDS: PANTOPRAZOLE SODIUM 40 MG VIAL IVPUSH SCH ×2 (09:12→21:48)
[2020-11-28] MEDS: DEXAMETHASONE SOD PHOSPHATE 4 MG/1 ML VIAL IVPUSH SCH (09:12)
[2020-11-28] MEDS: NICOTINE 21 MG/24 HOURS TOPICAL PATCH TD SCH (09:12)
[2020-11-28] MEDS: BUDESONIDE/FORMETEROL FUMARATE 160/4.5 mcg INHALER IH SCH ×2 (09:13→21:48)
[2020-11-28] MEDS: guaiFENesin/CODEINE 10 ML UNIT-DOSE CUPS PO PRN (21:48)
[2020-11-29] MEDS: FUROSEMIDE 40 MG/4 ML INJECTABLE VIAL IVPUSH SCH ×2 (06:29→14:12)
[2020-11-29] MEDS: INSULIN (LEVEMIR) 100 UNITS/ML UNITS SQ SCH ×2 (06:29→21:59)
[2020-11-29] MEDS: INSULIN SLIDING SCALE (NOVOLOG) 1 VIAL SQ SCH ×4 (06:56→21:56)
[2020-11-29] MEDS: INSULIN (NOVOLOG) ASPART 100 UNITS/ML 10ML VIAL SQ SCH ×4 (06:56→21:56)
[2020-11-29 08:16] LABS: HEMATOCRIT 23.5 % (35.4-49); HEMOGLOBIN 7.1 GM/dL (11.7-16.9); MCH 25.7 pg (25.7-33.7); MCHC 30.4 g/dl (32.0-35.9); MEAN CELL VOLUME 84.8 fl (80-96); MEAN PLT VOLUME 7.4 fl (7.5-11.1); PLATELET COUNT 328 10^3/uL (134-434); RBC 2.77 M/mm3 (4.00-5.60); RDW 25.8 % (11.9-15.9); WHITE BLOOD COUNT 20.2 K/mm3 (4.0-10.0)
[2020-11-29 08:34] LABS: ALBUMIN 2.6 g/dl (3.4-5.0); BLOOD UREA NITROGEN 32.9 mg/dL (7-18)
[2020-11-29 08:37] LABS: CREATININE 0.5 mg/dL (0.55-1.3)
[2020-11-29 08:38] LABS: BILIRUBIN,TOTAL 0.8 mg/dL (0.2-1)
[2020-11-29] MEDS ORDERED: PT OWN MED DRAWER 7, Y5N ONE ×2 (09:29→17:48)
[2020-11-29] MEDS: TAMSULOSIN HCL 0.4 MG CAP PO SCH (10:45)
[2020-11-29] MEDS: NICOTINE 21 MG/24 HOURS TOPICAL PATCH TD SCH (10:46)
[2020-11-29] MEDS: DEXAMETHASONE SOD PHOSPHATE 4 MG/1 ML VIAL IVPUSH SCH (10:46)
[2020-11-29] MEDS: guaiFENesin/CODEINE 10 ML UNIT-DOSE CUPS PO PRN ×2 (10:47→18:35)
[2020-11-29] MEDS: BUDESONIDE/FORMETEROL FUMARATE 160/4.5 mcg INHALER IH SCH ×2 (10:47→22:03)
[2020-11-29] MEDS: PANTOPRAZOLE SODIUM 40 MG VIAL IVPUSH SCH ×2 (10:47→21:57)
[2020-11-29 12:44] LABS: ANISOCYTOSIS 1+; MACROCYTOSIS 0; PLATELET ESTIMATE NORMAL
[2020-11-29] MEDS: LORazepam 0.5 MG TABLET PO SCH ×2 (12:49→21:55)
[2020-11-30] MEDS: guaiFENesin/CODEINE 10 ML UNIT-DOSE CUPS PO PRN (03:54)
[2020-11-30] MEDS: ALBUTEROL SO4 HFA INHALER IH PRN (04:13)
[2020-11-30] MEDS: INSULIN (NOVOLOG) ASPART 100 UNITS/ML 10ML VIAL SQ SCH ×4 (06:01→21:25)
[2020-11-30] MEDS: INSULIN (LEVEMIR) 100 UNITS/ML UNITS SQ SCH ×2 (06:01→21:25)
[2020-11-30] MEDS: FUROSEMIDE 40 MG/4 ML INJECTABLE VIAL IVPUSH SCH ×2 (06:01→13:34)
[2020-11-30] MEDS: INSULIN SLIDING SCALE (NOVOLOG) 1 VIAL SQ SCH ×4 (06:02→21:46)
[2020-11-30 08:48] LABS: HEMATOCRIT 21.8 % (35.4-49); MCH 25.6 pg (25.7-33.7); MCHC 30.3 g/dl (32.0-35.9); MEAN CELL VOLUME 84.5 fl (80-96); MEAN PLT VOLUME 7.2 fl (7.5-11.1); PLATELET COUNT 287 10^3/uL (134-434); RBC 2.57 M/mm3 (4.00-5.60); RDW 24.9 % (11.9-15.9); WHITE BLOOD COUNT 19.6 K/mm3 (4.0-10.0)
[2020-11-30 09:09] LABS: CHLORIDE 93 mmol/L (98-107); SODIUM 137 mmol/L (136-145)
[2020-11-30 09:16] LABS: CALCIUM 8.1 mg/dL (8.5-10.1)
[2020-11-30 09:17] LABS: ANION GAP 4 MMOL/L (8-16); BLOOD UREA NITROGEN 34.1 mg/dL (7-18); CO2 41 mmol/L (21-32); HEMOGLOBIN 6.6 GM/dL (11.7-16.9)
[2020-11-30 09:20] LABS: CREATININE 0.5 mg/dL (0.55-1.3); PHOSPHOROUS 3.6 mg/dL (2.5-4.9)
[2020-11-30 10:17] LABS: GLUCOSE,RANDOM 24 mg/dL (74-106)
[2020-11-30] MEDS: TAMSULOSIN HCL 0.4 MG CAP PO SCH (10:35)
[2020-11-30] MEDS: LORazepam 0.5 MG TABLET PO SCH (10:35)
[2020-11-30] MEDS: DEXAMETHASONE SOD PHOSPHATE 4 MG/1 ML VIAL IVPUSH SCH (10:36)
[2020-11-30] MEDS: PANTOPRAZOLE SODIUM 40 MG VIAL IVPUSH SCH ×2 (10:36→21:47)
[2020-11-30] MEDS: NICOTINE 21 MG/24 HOURS TOPICAL PATCH TD SCH (10:36)
[2020-11-30] MEDS: BUDESONIDE/FORMETEROL FUMARATE 160/4.5 mcg INHALER IH SCH ×2 (10:36→21:47)
[2020-11-30] MEDS ORDERED: PIPERACILLIN/TAZOB 4.5 GM 4.5 GM in DEXTROSE 5%-WATER 100 ML IVPB ONE (17:10)
[2020-11-30] MEDS ORDERED: DEXTROSE 5%-WATER 100 ML IVPB ONE (17:47)
[2020-11-30] MEDS ORDERED: PIPERACILLIN/TAZOBACTAM 4.5 GM VIAL IVPB ONE ×2 (17:47→22:09)
[2020-11-30] MEDS: PROPOFOL 1,000,000 MCG/100 ML VIAL IVPB SCH (18:04)
[2020-11-30] MEDS ORDERED: DEXTROSE 50%-WATER - 25 GM/50 ML VIAL IVPUSH ONE ×2 (18:52→21:01)
[2020-11-30] MEDS ORDERED: DEXTROSE 50%-WATER 25 GM/50 ML DISP.SYRIN ONE ×2 (18:53→21:06)
[2020-11-30] MEDS ORDERED: MIDAZOLAM IN 0.9 % SOD.CHLORID 100 MG/100 ML PLAST..BAG IVPB SCH (20:00)
[2020-11-30] MEDS ORDERED: DEXTROSE 50%-WATER - 25 GM/50 ML VIAL ONE (21:05)
[2020-11-30] MEDS ORDERED: DEXTROSE 5%-0.45% SALINE 1,000 ML IV SCH (21:45)
[2020-11-30] MEDS: busPIRone HCL 10 MG TABLET (FP) PO SCH (21:50)
[2020-11-30] MEDS ORDERED: DEXTROSE 5%-NORMAL SALINE 1,000 ML IV SCH (22:00)
[2020-11-30] MEDS ORDERED: LORazepam 0.5 MG TABLET PO SCH (22:00)
[2020-11-30] MEDS ORDERED: INSULIN (LEVEMIR) 100 UNITS/ML UNITS SQ SCH (22:18)
[2020-11-30] MEDS: PIPERACILLIN/TAZOB 4.5 GM 4.5 GM in DEXTROSE 5%-WATER 100 ML IVPB SCH (22:30)
[2020-12-01] MEDS ORDERED: DEXTROSE 5%-WATER 100 ML IVPB ONE ×5 (02:07→23:27)
[2020-12-01] MEDS ORDERED: PIPERACILLIN/TAZOBACTAM 4.5 GM VIAL IVPB ONE ×5 (02:07→23:27)
[2020-12-01] MEDS: PIPERACILLIN/TAZOB 4.5 GM 4.5 GM in DEXTROSE 5%-WATER 100 ML IVPB SCH ×4 (03:45→20:47)
[2020-12-01] MEDS: busPIRone HCL 10 MG TABLET (FP) PO SCH ×2 (05:01→14:47)
[2020-12-01] MEDS: FUROSEMIDE 40 MG/4 ML INJECTABLE VIAL IVPUSH SCH ×2 (06:11→14:47)
[2020-12-01] MEDS: INSULIN SLIDING SCALE (NOVOLOG) 1 VIAL SQ SCH ×4 (06:11→22:21)
[2020-12-01] MEDS ORDERED: DEXTROSE 50%-WATER 25 GM/50 ML DISP.SYRIN ONE ×2 (06:12→15:09)
[2020-12-01] MEDS ORDERED: DEXTROSE 50%-WATER - 25 GM/50 ML VIAL IVPUSH ONE ×2 (06:16→15:09)
[2020-12-01] MEDS ORDERED: DEXTROSE 5%-NORMAL SALINE 1,000 ML IV SCH (06:19)
[2020-12-01 06:55] LABS: HEMATOCRIT 19.4 % (35.4-49); MCH 26.2 pg (25.7-33.7); MCHC 31.1 g/dl (32.0-35.9); MEAN CELL VOLUME 84.4 fl (80-96); MEAN PLT VOLUME 7.7 fl (7.5-11.1); PLATELET COUNT 205 10^3/uL (134-434); RDW 23.2 % (11.9-15.9); WHITE BLOOD COUNT 19.5 K/mm3 (4.0-10.0)
[2020-12-01] MEDS ORDERED: VASOPRESSIN 40 UNITS/100 ML BAG ONE (07:19)
[2020-12-01 07:22] LABS: CALCIUM 7.1 mg/dL (8.5-10.1)
[2020-12-01 07:23] LABS: BLOOD UREA NITROGEN 50.9 mg/dL (7-18); MAGNESIUM 1.9 mg/dL (1.8-2.4)
[2020-12-01 07:24] LABS: CREATININE 0.9 mg/dL (0.55-1.3)
[2020-12-01 07:26] LABS: PHOSPHOROUS 7.2 mg/dL (2.5-4.9)
[2020-12-01 09:16] LABS: ANISOCYTOSIS 1+; MACROCYTOSIS 1+; PLATELET ESTIMATE NORMAL
[2020-12-01] MEDS: TAMSULOSIN HCL 0.4 MG CAP PO SCH (09:30)
[2020-12-01] MEDS ORDERED: PT OWN MED DRAWER 7, Y5N ONE (09:38)
[2020-12-01] MEDS: DEXAMETHASONE SOD PHOSPHATE 4 MG/1 ML VIAL IVPUSH SCH (09:47)
[2020-12-01] MEDS: PANTOPRAZOLE SODIUM 40 MG VIAL IVPUSH SCH ×2 (09:47→23:39)
[2020-12-01] MEDS: NICOTINE 21 MG/24 HOURS TOPICAL PATCH TD SCH (09:48)
[2020-12-01] MEDS: BUDESONIDE/FORMETEROL FUMARATE 160/4.5 mcg INHALER IH SCH ×2 (09:50→22:22)
[2020-12-01] MEDS: PROPOFOL 1,000,000 MCG/100 ML VIAL IVPB SCH ×2 (09:54→14:51)
[2020-12-01] MEDS: NOREPINEPHRINE NS PREMIX 8,000 MCG/500 ML BAG IVPB SCH (09:55)
[2020-12-01] MEDS ORDERED: levETIRAcetam 500 MG/5 ML INJECTION VIAL IVPB ONE (10:47)
[2020-12-01] MEDS ORDERED: INSULIN (LEVEMIR) 100 UNITS/ML UNITS SQ SCH (11:49)
[2020-12-01 12:04] LABS: ARTERIAL BLD GAS O2 SATURATION 87.8 % (95-98); ARTERIAL BLOOD GAS BASE EXCESS 3.5 mmol/L (-2-2); ARTERIAL BLOOD GAS PO2 56.2 mmHg (80-100); ARTERIAL BLOOD GAS pH 7.365 (7.350-7.450)
[2020-12-01 12:09] LABS: ALLENS TEST POSITIVE
[2020-12-01 12:10] LABS: VENT MODE V-AC; VENT RATE 18
[2020-12-01] MEDS ORDERED: LORazepam 2 MG/ML SDV VIAL IVPUSH PRN (13:53)
[2020-12-01] MEDS ORDERED: dilTIAZem HCL 50 MG/10 ML - 10 ML VIAL IVPUSH ONE (18:37)
[2020-12-01] MEDS ORDERED: MELATONIN 5 MG TABLETS NR PRN (19:34)
[2020-12-01] MEDS ORDERED: SODIUM CHLORIDE 250 ML IV STA (19:40)
[2020-12-01] MEDS ORDERED: SODIUM CHLORIDE 1,000 ML IV SCH (19:45)
[2020-12-01] MEDS: DEXTROSE 5%-NORMAL SALINE 1,000 ML IV SCH (20:56)
[2020-12-01] MEDS: ACETAMINOPHEN 1000 MG/100 ML VIAL (NON FORMULARY) IVPB PRN (20:57)
[2020-12-01] MEDS ORDERED: PIPERACILLIN/TAZOB 4.5 GM 4.5 GM in DEXTROSE 5%-WATER 100 ML IVPB SCH (21:00)
[2020-12-01] MEDS ORDERED: EPINEPHrine 1:10,000 (P-F SYR) 1 MG/10 ML DISP.SYRIN ONE (21:09)
[2020-12-01 21:26] LABS: HEMATOCRIT 27.3 % (35.4-49); HEMOGLOBIN 8.7 GM/dL (11.7-16.9); MCH 26.5 pg (25.7-33.7); MCHC 31.9 g/dl (32.0-35.9); MEAN PLT VOLUME 7.2 fl (7.5-11.1); PLATELET COUNT 251 10^3/uL (134-434); RBC 3.29 M/mm3 (4.00-5.60); RDW 21.6 % (11.9-15.9); WHITE BLOOD COUNT 23.4 K/mm3 (4.0-10.0)
[2020-12-01 21:34] LABS: INR 1.36 (0.83-1.09); PROTHROMBIN TIME (PATIENT) 16.6 SEC (9.7-13.0)
[2020-12-01 21:37] LABS: ACTIVATED PTT 29.6 SECONDS (25.2-36.5)
[2020-12-01] MEDS ORDERED: dilTIAZem HCL 60 MG TABLET PO SCH (22:00)
[2020-12-01] MEDS: busPIRone HCL 10 MG TABLET (FP) NR SCH (23:38)
[2020-12-01] MEDS: levETIRAcetam 500 MG/5 ML INJECTION VIAL IVPB SCH (23:39)
[2020-12-02] MEDS: ACETAMINOPHEN 1000 MG/100 ML VIAL (NON FORMULARY) IVPB PRN (02:51)
[2020-12-02] MEDS: PIPERACILLIN/TAZOB 4.5 GM 4.5 GM in DEXTROSE 5%-WATER 100 ML IVPB SCH ×4 (03:47→22:30)
[2020-12-02] MEDS: busPIRone HCL 10 MG TABLET (FP) NR SCH ×3 (05:48→22:25)
[2020-12-02] MEDS: FUROSEMIDE 40 MG/4 ML INJECTABLE VIAL IVPUSH SCH (05:49)
[2020-12-02] MEDS: INSULIN SLIDING SCALE (NOVOLOG) 1 VIAL SQ SCH ×3 (06:43→17:30)
[2020-12-02] MEDS ORDERED: INSULIN (LEVEMIR) 100 UNITS/ML UNITS SQ SCH (07:00)
[2020-12-02 07:18] LABS: HEMATOCRIT 25.8 % (35.4-49); HEMOGLOBIN 8.1 GM/dL (11.7-16.9); MCH 26.4 pg (25.7-33.7); MCHC 31.3 g/dl (32.0-35.9); MEAN CELL VOLUME 84.1 fl (80-96); MEAN PLT VOLUME 7.4 fl (7.5-11.1); PLATELET COUNT 216 10^3/uL (134-434); RBC 3.07 M/mm3 (4.00-5.60); RDW 21.4 % (11.9-15.9); WHITE BLOOD COUNT 18.3 K/mm3 (4.0-10.0)
[2020-12-02 07:35] LABS: CALCIUM 7.3 mg/dL (8.5-10.1)
[2020-12-02 07:36] LABS: BLOOD UREA NITROGEN 50.4 mg/dL (7-18); MAGNESIUM 2.1 mg/dL (1.8-2.4)
[2020-12-02 07:39] LABS: CREATININE 1.6 mg/dL (0.55-1.3)
[2020-12-02 07:40] LABS: PHOSPHOROUS 7.3 mg/dL (2.5-4.9)
[2020-12-02] MEDS: PROPOFOL 1,000,000 MCG/100 ML VIAL IVPB SCH ×3 (07:54→17:34)
[2020-12-02] MEDS: DEXTROSE 5%-NORMAL SALINE 1,000 ML IV SCH (07:55)
[2020-12-02] MEDS: NOREPINEPHRINE NS PREMIX 8,000 MCG/500 ML BAG IVPB SCH ×2 (07:56→17:34)
[2020-12-02] MEDS ORDERED: TAMSULOSIN HCL 0.4 MG CAP PO SCH (08:30)
[2020-12-02] MEDS ORDERED: DEXTROSE 50%-WATER - 25 GM/50 ML VIAL IVPUSH PRN (09:07)
[2020-12-02 09:11] LABS: ARTERIAL BLOOD GAS BASE EXCESS -1.6 mmol/L (-2-2); ARTERIAL BLOOD GAS PO2 61.9 mmHg (80-100); ARTERIAL BLOOD GAS pH 7.241 (7.350-7.450)
[2020-12-02 09:13] LABS: ALLENS TEST POSITIVE
[2020-12-02 09:14] LABS: VENT MODE A/C; VENT RATE 18
[2020-12-02] MEDS ORDERED: PIPERACILLIN/TAZOBACTAM 4.5 GM VIAL IVPB ONE ×3 (09:52→22:40)
[2020-12-02] MEDS ORDERED: DEXTROSE 5%-WATER 100 ML IVPB ONE ×3 (09:53→22:40)
[2020-12-02 10:07] LABS: ANISOCYTOSIS 1+; MACROCYTOSIS 1+; PLATELET ESTIMATE NORMAL; TEAR DROP CELLS 1+
[2020-12-02] MEDS: levETIRAcetam 500 MG/5 ML INJECTION VIAL IVPB SCH (10:08)
[2020-12-02] MEDS: PANTOPRAZOLE SODIUM 40 MG VIAL IVPUSH SCH (10:08)
[2020-12-02] MEDS: DEXAMETHASONE SOD PHOSPHATE 4 MG/1 ML VIAL IVPUSH SCH (10:08)
[2020-12-02] MEDS: NICOTINE 21 MG/24 HOURS TOPICAL PATCH TD SCH (10:20)
[2020-12-02] MEDS: BUDESONIDE/FORMETEROL FUMARATE 160/4.5 mcg INHALER IH SCH ×2 (11:37→22:26)
[2020-12-02] MEDS ORDERED: PT OWN MED DRAWER 7, Y5N ONE ×3 (12:03→16:47)
[2020-12-02] MEDS ORDERED: MILRINONE 20MG/100ML IVPB - 20,000 MCG/100 ML ML IVPB SCH (22:00)
[2020-12-02] MEDS ORDERED: VASOPRESSIN 40 UNITS/100 ML BAG ONE (23:11)
[2020-12-03] MEDS: VASOPRESSIN 40 UNITS/100 ML BAG IV SCH ×3 (00:45→23:24)
[2020-12-03] MEDS: levETIRAcetam 500 MG/5 ML INJECTION VIAL IVPB SCH ×3 (00:45→22:01)
[2020-12-03] MEDS: PANTOPRAZOLE SODIUM 40 MG VIAL IVPUSH SCH ×3 (00:45→21:58)
[2020-12-03] MEDS: PIPERACILLIN/TAZOB 4.5 GM 4.5 GM in DEXTROSE 5%-WATER 100 ML IVPB SCH ×4 (04:30→21:58)
[2020-12-03] MEDS ORDERED: NOREPINEPHRINE D5W PREMIX 16,000 MCG/500 ML BAG IVPB ONE (05:17)
[2020-12-03] MEDS ORDERED: PIPERACILLIN/TAZOBACTAM 4.5 GM VIAL IVPB ONE ×4 (06:00→21:38)
[2020-12-03] MEDS: busPIRone HCL 10 MG TABLET (FP) NR SCH ×3 (06:49→22:01)
[2020-12-03] MEDS: NOREPINEPHRINE NS PREMIX 16,000 MCG/500 ML BAG IVPB SCH ×2 (06:49→23:28)
[2020-12-03] MEDS: INSULIN SLIDING SCALE (NOVOLOG) 1 VIAL SQ SCH ×5 (06:56→22:44)
[2020-12-03 07:09] LABS: CHLORIDE 93 mmol/L (98-107); SODIUM 129 mmol/L (136-145)
[2020-12-03 07:13] LABS: HEMATOCRIT 23.9 % (35.4-49); HEMOGLOBIN 7.5 GM/dL (11.7-16.9); MCH 26.5 pg (25.7-33.7); MCHC 31.3 g/dl (32.0-35.9); MEAN CELL VOLUME 84.8 fl (80-96); MEAN PLT VOLUME 7.6 fl (7.5-11.1); PLATELET COUNT 147 10^3/uL (134-434); RBC 2.82 M/mm3 (4.00-5.60); RDW 21.2 % (11.9-15.9); WHITE BLOOD COUNT 13.2 K/mm3 (4.0-10.0)
[2020-12-03 07:15] LABS: ANION GAP 15 MMOL/L (8-16); BLOOD UREA NITROGEN 69.5 mg/dL (7-18); CO2 21 mmol/L (21-32); GLUCOSE,RANDOM 277 mg/dL (74-106); MAGNESIUM 2.1 mg/dL (1.8-2.4)
[2020-12-03 07:18] LABS: CREATININE 2.2 mg/dL (0.55-1.3); SGOT/AST 24 U/L (15-37); SGPT/ALT 28 U/L (13-61)
[2020-12-03 07:19] LABS: BILIRUBIN,TOTAL 1.4 mg/dL (0.2-1); TOT PROT 4.7 g/dl (6.4-8.2)
[2020-12-03 07:24] LABS: ARTERIAL BLD GAS O2 SATURATION 92.9 % (95-98); ARTERIAL BLOOD GAS BASE EXCESS -10.2 mmol/L (-2-2); ARTERIAL BLOOD GAS PO2 85.5 mmHg (80-100)
[2020-12-03 07:29] LABS: ALLENS TEST POSITIVE; VENT MODE A/C
[2020-12-03 07:30] LABS: VENT RATE 18
[2020-12-03 07:31] LABS: ARTERIAL BLOOD GAS pH 7.131 (7.350-7.450)
[2020-12-03 07:49] LABS: ALBUMIN 1.4 g/dl (3.4-5.0); ALK PHOS 94 U/L (45-117); PHOSPHOROUS > 9.0 mg/dL (2.5-4.9)
[2020-12-03 09:31] LABS: ANISOCYTOSIS 2+; MACROCYTOSIS 0; PLATELET ESTIMATE DECREASED
[2020-12-03] MEDS ORDERED: DEXTROSE 5%-WATER 100 ML IVPB ONE ×3 (09:44→21:38)
[2020-12-03] MEDS: AMINO ACIDS/PROTEIN HYDROLYS 30 ML LIQUID.PKT PO SCH (09:55)
[2020-12-03] MEDS: DEXAMETHASONE SOD PHOSPHATE 4 MG/1 ML VIAL IVPUSH SCH (09:55)
[2020-12-03] MEDS: BUDESONIDE/FORMETEROL FUMARATE 160/4.5 mcg INHALER IH SCH ×2 (09:56→22:04)
[2020-12-03] MEDS ORDERED: PT OWN MED DRAWER 7, Y5N ONE ×3 (11:14→22:21)
[2020-12-03] MEDS ORDERED: MIDAZOLAM IN 0.9 % SOD.CHLORID 1 MG/1 ML PLAST..BAG ONE (11:41)
[2020-12-03] MEDS: PROPOFOL 1,000,000 MCG/100 ML VIAL IVPB SCH ×3 (12:20→23:24)
[2020-12-03] MEDS: MIDAZOLAM 100 MG in SODIUM CHLORIDE 100 ML IVPB SCH (13:42)
[2020-12-03] MEDS: HYDROCORTISONE SOD SUCCINATE 100 MG/2 ML VIAL IVPUSH SCH ×3 (13:54→23:28)
[2020-12-03] MEDS: FLUDROCORTISONE ACETATE 0.1 MG TABLET (FP) PO SCH (13:54)
[2020-12-04] MEDS ORDERED: PIPERACILLIN/TAZOBACTAM 4.5 GM VIAL IVPB ONE ×3 (01:22→13:33)
[2020-12-04] MEDS ORDERED: DEXTROSE 5%-WATER 100 ML IVPB ONE ×3 (01:22→13:33)
[2020-12-04] MEDS: PIPERACILLIN/TAZOB 4.5 GM 4.5 GM in DEXTROSE 5%-WATER 100 ML IVPB SCH ×2 (03:09→09:28)
[2020-12-04] MEDS: PROPOFOL 1,000,000 MCG/100 ML VIAL IVPB SCH ×4 (04:02→20:25)
[2020-12-04] MEDS: HYDROCORTISONE SOD SUCCINATE 100 MG/2 ML VIAL IVPUSH SCH ×4 (05:18→23:20)
[2020-12-04] MEDS: busPIRone HCL 10 MG TABLET (FP) NR SCH ×3 (05:18→21:46)
[2020-12-04 05:45] LABS: ARTERIAL BLD GAS O2 SATURATION 85.7 % (95-98); ARTERIAL BLOOD GAS BASE EXCESS -5.9 mmol/L (-2-2); ARTERIAL BLOOD GAS PO2 56.7 mmHg (80-100); ARTERIAL BLOOD GAS pH 7.275 (7.350-7.450)
[2020-12-04 05:51] LABS: ALLENS TEST POSITIVE
[2020-12-04 05:52] LABS: VENT MODE A/C; VENT RATE 18
[2020-12-04] MEDS: INSULIN SLIDING SCALE (NOVOLOG) 1 VIAL SQ SCH ×4 (06:34→22:40)
[2020-12-04] MEDS: NOREPINEPHRINE NS PREMIX 16,000 MCG/500 ML BAG IVPB SCH (06:38)
[2020-12-04] MEDS: VASOPRESSIN 40 UNITS/100 ML BAG IV SCH ×3 (06:52→23:20)
[2020-12-04 08:30] LABS: HEMATOCRIT 23.3 % (35.4-49); HEMOGLOBIN 7.5 GM/dL (11.7-16.9); MCHC 32.3 g/dl (32.0-35.9); MEAN CELL VOLUME 83.7 fl (80-96); MEAN PLT VOLUME 7.7 fl (7.5-11.1); PLATELET COUNT 109 10^3/uL (134-434); RBC 2.79 M/mm3 (4.00-5.60); RDW 21.1 % (11.9-15.9); WHITE BLOOD COUNT 9.9 K/mm3 (4.0-10.0)
[2020-12-04 08:34] LABS: CHLORIDE 89 mmol/L (98-107); SODIUM 126 mmol/L (136-145)
[2020-12-04 08:37] LABS: ALBUMIN 1.4 g/dl (3.4-5.0)
[2020-12-04 08:38] LABS: ANION GAP 16 MMOL/L (8-16); BLOOD UREA NITROGEN 76.6 mg/dL (7-18); CO2 22 mmol/L (21-32); GLUCOSE,RANDOM 335 mg/dL (74-106)
[2020-12-04 08:41] LABS: CREATININE 2.6 mg/dL (0.55-1.3); SGOT/AST 22 U/L (15-37); SGPT/ALT 26 U/L (13-61)
[2020-12-04 08:42] LABS: BILIRUBIN,TOTAL 1.6 mg/dL (0.2-1)
[2020-12-04 08:43] LABS: ALK PHOS 80 U/L (45-117)
[2020-12-04] MEDS ORDERED: PT OWN MED DRAWER 7, Y5N ONE (09:22)
[2020-12-04 09:25] LABS: ANISOCYTOSIS 2+; MACROCYTOSIS 0; OVALOCYTE 1+; PLATELET ESTIMATE DECREASED
[2020-12-04] MEDS: levETIRAcetam 500 MG/5 ML INJECTION VIAL IVPB SCH ×2 (09:28→21:45)
[2020-12-04] MEDS: AMINO ACIDS/PROTEIN HYDROLYS 30 ML LIQUID.PKT PO SCH (09:28)
[2020-12-04] MEDS: PANTOPRAZOLE SODIUM 40 MG VIAL IVPUSH SCH ×2 (09:28→21:45)
[2020-12-04 09:29] LABS: CALCIUM 6.8 mg/dL (8.5-10.1); PHOSPHOROUS 9.4 mg/dL (2.5-4.9)
[2020-12-04] MEDS: FLUDROCORTISONE ACETATE 0.1 MG TABLET (FP) PO SCH (09:29)
[2020-12-04] MEDS: BUDESONIDE/FORMETEROL FUMARATE 160/4.5 mcg INHALER IH SCH ×2 (09:29→23:20)
[2020-12-04] MEDS ORDERED: FUROSEMIDE INJECTION 100 MG in SODIUM CHLORIDE 40 ML IVPB SCH (12:15)
[2020-12-04] MEDS: MIDAZOLAM 100 MG in SODIUM CHLORIDE 100 ML IVPB SCH (13:46)
[2020-12-04] MEDS ORDERED: PIPERACILLIN/TAZOBACTAM 3.375 GM VIAL IVPB ONE (17:04)
[2020-12-04] MEDS ORDERED: DEXTROSE 5%-WATER - 50 ML IVPB ONE (17:04)
[2020-12-04] MEDS: PIPERACILLIN/TAZOB 3.375 GM 3.375 GM in DEXTROSE 5%-WATER - 50 ML IVPB SCH (17:21)
[2020-12-05] MEDS ORDERED: PIPERACILLIN/TAZOBACTAM 3.375 GM VIAL IVPB ONE ×3 (02:39→15:45)
[2020-12-05] MEDS ORDERED: DEXTROSE 5%-WATER - 50 ML IVPB ONE ×3 (02:40→15:46)
[2020-12-05] MEDS: PIPERACILLIN/TAZOB 3.375 GM 3.375 GM in DEXTROSE 5%-WATER - 50 ML IVPB SCH ×3 (02:44→17:44)
[2020-12-05] MEDS: busPIRone HCL 10 MG TABLET (FP) NR SCH ×3 (05:27→22:07)
[2020-12-05] MEDS: HYDROCORTISONE SOD SUCCINATE 100 MG/2 ML VIAL IVPUSH SCH ×3 (05:27→17:43)
[2020-12-05] MEDS: INSULIN SLIDING SCALE (NOVOLOG) 1 VIAL SQ SCH ×4 (06:21→22:31)
[2020-12-05] MEDS: MIDAZOLAM IN 0.9 % SOD.CHLORID 100 MG/100 ML PLAST..BAG IVPB SCH ×3 (06:22→22:00)
[2020-12-05] MEDS: PROPOFOL 1,000,000 MCG/100 ML VIAL IVPB SCH ×4 (06:23→21:55)
[2020-12-05] MEDS: VASOPRESSIN 40 UNITS/100 ML BAG IV SCH (07:20)
[2020-12-05] MEDS ORDERED: PT OWN MED DRAWER 7, Y5N ONE ×3 (07:57→15:43)
[2020-12-05 08:06] LABS: CHLORIDE 88 mmol/L (98-107); SODIUM 125 mmol/L (136-145)
[2020-12-05 08:14] LABS: ALBUMIN 1.4 g/dl (3.4-5.0)
[2020-12-05 08:15] LABS: ANION GAP 15 MMOL/L (8-16); BLOOD UREA NITROGEN 88.2 mg/dL (7-18); CO2 22 mmol/L (21-32); GLUCOSE,RANDOM 209 mg/dL (74-106); MAGNESIUM 2.1 mg/dL (1.8-2.4)
[2020-12-05 08:17] LABS: SGPT/ALT 23 U/L (13-61)
[2020-12-05 08:18] LABS: CREATININE 2.9 mg/dL (0.55-1.3); SGOT/AST 24 U/L (15-37)
[2020-12-05 08:19] LABS: BILIRUBIN,TOTAL 1.3 mg/dL (0.2-1)
[2020-12-05 08:20] LABS: ALK PHOS 102 U/L (45-117); BASO % 0.2 % (0-2.0); LYMPH % 0.9 % (8-40); MCH 26.9 pg (25.7-33.7); MCHC 32.8 g/dl (32.0-35.9); MEAN PLT VOLUME 8.2 fl (7.5-11.1); NEUT % 94.9 % (42.8-82.8); PLATELET COUNT 110 10^3/uL (134-434); RBC 2.56 M/mm3 (4.00-5.60); RDW 21.3 % (11.9-15.9); WHITE BLOOD COUNT 10.5 K/mm3 (4.0-10.0)
[2020-12-05] MEDS: AMINO ACIDS/PROTEIN HYDROLYS 30 ML LIQUID.PKT PO SCH (08:23)
[2020-12-05 08:45] LABS: HEMOGLOBIN 6.9 GM/dL (11.7-16.9)
[2020-12-05] MEDS: NOREPINEPHRINE NS PREMIX 16,000 MCG/500 ML BAG IVPB SCH ×2 (09:22→11:41)
[2020-12-05] MEDS: FLUDROCORTISONE ACETATE 0.1 MG TABLET (FP) PO SCH (09:23)
[2020-12-05] MEDS: levETIRAcetam 500 MG/5 ML INJECTION VIAL IVPB SCH ×2 (09:24→22:02)
[2020-12-05] MEDS: PANTOPRAZOLE SODIUM 40 MG VIAL IVPUSH SCH ×2 (09:28→22:02)
[2020-12-05] MEDS: BUDESONIDE/FORMETEROL FUMARATE 160/4.5 mcg INHALER IH SCH (09:28)
[2020-12-05 10:05] LABS: ANISOCYTOSIS 1+; MACROCYTOSIS 0; PLATELET ESTIMATE DECREASED
[2020-12-05] MEDS ORDERED: FUROSEMIDE INJECTION 100 MG in SODIUM CHLORIDE 40 ML IVPB SCH (10:09)
[2020-12-05] MEDS: FUROSEMIDE INJECTION 100 MG in SODIUM CHLORIDE 40 ML IVPB SCH (12:14)
[2020-12-05 12:41] LABS: PHOSPHOROUS 9.2 mg/dL (2.5-4.9)
[2020-12-05 12:58] LABS: CALCIUM 6.1 mg/dL (8.5-10.1)
[2020-12-05] MEDS ORDERED: CALCIUM GLUCONATE 10% - 1,000 MG/10 ML VIAL IVPB ONE (14:18)
[2020-12-06] MEDS: BUDESONIDE/FORMETEROL FUMARATE 160/4.5 mcg INHALER IH SCH ×3 (01:16→23:42)
[2020-12-06] MEDS: VASOPRESSIN 40 UNITS/100 ML BAG IV SCH (01:16)
[2020-12-06] MEDS ORDERED: PIPERACILLIN/TAZOBACTAM 3.375 GM VIAL IVPB ONE ×3 (01:18→16:29)
[2020-12-06] MEDS: PIPERACILLIN/TAZOB 3.375 GM 3.375 GM in DEXTROSE 5%-WATER - 50 ML IVPB SCH ×3 (01:19→18:16)
[2020-12-06] MEDS: HYDROCORTISONE SOD SUCCINATE 100 MG/2 ML VIAL IVPUSH SCH ×4 (01:19→18:20)
[2020-12-06] MEDS ORDERED: DEXTROSE 5%-WATER - 50 ML IVPB ONE ×3 (01:19→16:29)
[2020-12-06] MEDS: PROPOFOL 1,000,000 MCG/100 ML VIAL IVPB SCH ×2 (04:47→11:49)
[2020-12-06] MEDS: busPIRone HCL 10 MG TABLET (FP) NR SCH ×3 (05:58→21:42)
[2020-12-06] MEDS: INSULIN SLIDING SCALE (NOVOLOG) 1 VIAL SQ SCH ×4 (06:01→22:08)
[2020-12-06 07:50] LABS: HEMATOCRIT 22.8 % (35.4-49); HEMOGLOBIN 7.3 GM/dL (11.7-16.9); MCH 26.8 pg (25.7-33.7); MCHC 32.1 g/dl (32.0-35.9); MEAN CELL VOLUME 83.5 fl (80-96); MEAN PLT VOLUME 8.3 fl (7.5-11.1); PLATELET COUNT 107 10^3/uL (134-434); RBC 2.74 M/mm3 (4.00-5.60); RDW 20.9 % (11.9-15.9); WHITE BLOOD COUNT 13.9 K/mm3 (4.0-10.0)
[2020-12-06 08:11] LABS: CHLORIDE 88 mmol/L (98-107); SODIUM 124 mmol/L (136-145)
[2020-12-06 08:27] LABS: ALBUMIN 1.4 g/dl (3.4-5.0); ANION GAP 17 MMOL/L (8-16); BLOOD UREA NITROGEN 96.4 mg/dL (7-18); CO2 19 mmol/L (21-32); GLUCOSE,RANDOM 132 mg/dL (74-106)
[2020-12-06 08:29] LABS: SGPT/ALT 21 U/L (13-61)
[2020-12-06 08:30] LABS: CREATININE 3.1 mg/dL (0.55-1.3); SGOT/AST 22 U/L (15-37)
[2020-12-06 08:32] LABS: BILIRUBIN,TOTAL 1.2 mg/dL (0.2-1); TOT PROT 5.1 g/dl (6.4-8.2)
[2020-12-06 08:34] LABS: ALK PHOS 139 U/L (45-117); CALCIUM 6.2 mg/dL (8.5-10.1)
[2020-12-06] MEDS: DOXAZOSIN MESYLATE 1 MG TABLET NGT SCH (10:23)
[2020-12-06] MEDS: PANTOPRAZOLE SODIUM 40 MG VIAL IVPUSH SCH ×2 (10:44→21:43)
[2020-12-06] MEDS: levETIRAcetam 500 MG/5 ML INJECTION VIAL IVPB SCH ×2 (10:46→21:43)
[2020-12-06] MEDS: FLUDROCORTISONE ACETATE 0.1 MG TABLET (FP) PO SCH (10:47)
[2020-12-06] MEDS: AMINO ACIDS/PROTEIN HYDROLYS 30 ML LIQUID.PKT PO SCH (10:48)
[2020-12-06 11:06] LABS: ANISOCYTOSIS 1+; MACROCYTOSIS 0; OVALOCYTE 1+; PLATELET ESTIMATE DECREASED; TEAR DROP CELLS 1+
[2020-12-06] MEDS ORDERED: INSULIN (NOVOLOG) ASPART 100 UNITS/ML 10ML VIAL ONE (11:42)
[2020-12-06] MEDS: FUROSEMIDE INJECTION 100 MG in SODIUM CHLORIDE 40 ML IVPB SCH ×3 (11:45→18:44)
[2020-12-06] MEDS: MIDAZOLAM IN 0.9 % SOD.CHLORID 100 MG/100 ML PLAST..BAG IVPB SCH ×2 (11:49)
[2020-12-06] MEDS: NOREPINEPHRINE NS PREMIX 16,000 MCG/500 ML BAG IVPB SCH (11:49)
[2020-12-06] MEDS ORDERED: PT OWN MED DRAWER 7, Y5N ONE (16:29)
[2020-12-07] MEDS: HYDROCORTISONE SOD SUCCINATE 100 MG/2 ML VIAL IVPUSH SCH ×4 (00:49→18:12)
[2020-12-07] MEDS: VASOPRESSIN 40 UNITS/100 ML BAG IV SCH (00:51)
[2020-12-07] MEDS ORDERED: PIPERACILLIN/TAZOBACTAM 3.375 GM VIAL IVPB ONE ×3 (01:32→14:32)
[2020-12-07] MEDS ORDERED: DEXTROSE 5%-WATER - 50 ML IVPB ONE ×3 (01:33→14:32)
[2020-12-07] MEDS: PIPERACILLIN/TAZOB 3.375 GM 3.375 GM in DEXTROSE 5%-WATER - 50 ML IVPB SCH ×3 (01:34→18:12)
[2020-12-07] MEDS: busPIRone HCL 10 MG TABLET (FP) NR SCH ×3 (06:21→21:39)
[2020-12-07] MEDS: NOREPINEPHRINE NS PREMIX 16,000 MCG/500 ML BAG IVPB SCH ×2 (06:21→21:17)
[2020-12-07 07:17] LABS: HEMATOCRIT 21.5 % (35.4-49); MCH 26.8 pg (25.7-33.7); MCHC 31.8 g/dl (32.0-35.9); MEAN PLT VOLUME 8.9 fl (7.5-11.1); PLATELET COUNT 125 10^3/uL (134-434); RBC 2.56 M/mm3 (4.00-5.60); RDW 20.4 % (11.9-15.9)
[2020-12-07 07:32] LABS: CHLORIDE 86 mmol/L (98-107); SODIUM 122 mmol/L (136-145)
[2020-12-07 07:38] LABS: HEMOGLOBIN 6.8 GM/dL (11.7-16.9)
[2020-12-07 07:44] LABS: ALBUMIN 1.3 g/dl (3.4-5.0); ANION GAP 17 MMOL/L (8-16); CO2 19 mmol/L (21-32); GLUCOSE,RANDOM 153 mg/dL (74-106)
[2020-12-07] MEDS: INSULIN SLIDING SCALE (NOVOLOG) 1 VIAL SQ SCH ×4 (07:46→21:39)
[2020-12-07 07:47] LABS: CREATININE 3.4 mg/dL (0.55-1.3); SGOT/AST 19 U/L (15-37); SGPT/ALT 19 U/L (13-61)
[2020-12-07 07:48] LABS: ALK PHOS 152 U/L (45-117); BILIRUBIN,TOTAL 1.1 mg/dL (0.2-1); TOT PROT 5.1 g/dl (6.4-8.2)
[2020-12-07 07:50] LABS: BLOOD UREA NITROGEN 106.7 mg/dL (7-18)
[2020-12-07] MEDS: AMINO ACIDS/PROTEIN HYDROLYS 30 ML LIQUID.PKT PO SCH (08:44)
[2020-12-07] MEDS ORDERED: CALCIUM GLUCONATE 10% - 1,000 MG/10 ML VIAL IVPUSH ONE ×2 (08:45→14:45)
[2020-12-07] MEDS ORDERED: SODIUM ZIRCONIUM CYCLOSILICATE (LOKELMA) 5 GM PACKET PO ONE (08:46)
[2020-12-07 09:35] LABS: ANISOCYTOSIS 0; MACROCYTOSIS 0; OVALOCYTE 1+; PLATELET ESTIMATE DECREASED
[2020-12-07 09:54] LABS: PHOSPHOROUS 11.1 mg/dL (2.5-4.9)
[2020-12-07] MEDS: PANTOPRAZOLE SODIUM 40 MG VIAL IVPUSH SCH ×2 (10:41→21:18)
[2020-12-07] MEDS: FLUDROCORTISONE ACETATE 0.1 MG TABLET (FP) PO SCH (10:41)
[2020-12-07] MEDS: DOXAZOSIN MESYLATE 1 MG TABLET NGT SCH (10:42)
[2020-12-07] MEDS: MIDAZOLAM IN 0.9 % SOD.CHLORID 100 MG/100 ML PLAST..BAG IVPB SCH (10:42)
[2020-12-07] MEDS: levETIRAcetam 500 MG/5 ML INJECTION VIAL IVPB SCH ×2 (10:45→21:18)
[2020-12-07] MEDS: BUDESONIDE/FORMETEROL FUMARATE 160/4.5 mcg INHALER IH SCH (10:45)
[2020-12-07] MEDS ORDERED: SODIUM BICARBONATE 8.4% 50 MEQ/50 ML VIAL ONE (14:31)
[2020-12-07] MEDS ORDERED: DEXTROSE 50%-WATER 25 GM/50 ML DISP.SYRIN ONE (14:32)
[2020-12-07] MEDS: FUROSEMIDE INJECTION 100 MG in SODIUM CHLORIDE 40 ML IVPB SCH ×2 (14:43→15:34)
[2020-12-07] MEDS ORDERED: INSULIN REGULAR HUMAN 100 UNITS/ML *VIAL IVPUSH ONE (14:45)
[2020-12-07] MEDS ORDERED: DEXTROSE 50%-WATER - 25 GM/50 ML VIAL IVPUSH ONE (14:45)
[2020-12-07] MEDS ORDERED: SODIUM BICARBONATE 8.4% 50 MEQ/50 ML DISP.SYRIN IVPUSH ONE (14:45)
[2020-12-07] MEDS ORDERED: PT OWN MED DRAWER 7, Y5N ONE (16:50)
[2020-12-07] MEDS ORDERED: VASOPRESSIN 20 UNITS/ML VIAL IV ONE (17:02)
[2020-12-08] MEDS: BUDESONIDE/FORMETEROL FUMARATE 160/4.5 mcg INHALER IH SCH (00:32)
[2020-12-08] MEDS: VASOPRESSIN 40 UNITS/100 ML BAG IV SCH ×2 (00:32→01:41)
[2020-12-08] MEDS: HYDROCORTISONE SOD SUCCINATE 100 MG/2 ML VIAL IVPUSH SCH (00:35)
[2020-12-08 01:41] VITALS: TEMP 95.7
[2020-12-08] MEDS: PIPERACILLIN/TAZOB 3.375 GM 3.375 GM in DEXTROSE 5%-WATER - 50 ML IVPB SCH (01:42)
[2020-12-08] MEDS ORDERED: PIPERACILLIN/TAZOBACTAM 3.375 GM VIAL IVPB ONE (01:42)
[2020-12-08] MEDS ORDERED: DEXTROSE 5%-WATER - 50 ML IVPB ONE (01:42)
[2020-12-08 05:19] VITALS: BP 59/40; PULSE 51
== END 2020-12-08 04:20 | disposition expired | DRG 207 ==
LOC: JER 21:49 → JERBED 23:45 → J2W 11-20 07:19 → J5S 11-23 21:59 → JICU 11-30 16:43
PROVIDERS: ADMIT Internal Medicine; ATTEND Internal Medicine Pulmonary Disease
PROC: XW033E5 Introduction of Remdesivir Anti-infective into Peripheral Vein, Percutaneous Approach, New Technology Group 5 (ICD-10-PCS; principal; 2020-11-21)
PROC: 30233N1 Transfusion of Nonautologous Red Blood Cells into Peripheral Vein, Percutaneous Approach (ICD-10-PCS; 2020-11-23)
PROC: 5A1955Z Respiratory Ventilation, Greater than 96 Consecutive Hours (ICD-10-PCS; 2020-11-30)
PROC: 02HV33Z Insertion of Infusion Device into Superior Vena Cava, Percutaneous Approach (ICD-10-PCS; 2020-11-30)
PROC: 0BH17EZ Insertion of Endotracheal Airway into Trachea, Via Natural or Artificial Opening (ICD-10-PCS; 2020-11-30)
PROC: B548ZZA Ultrasonography of Superior Vena Cava, Guidance (ICD-10-PCS; 2020-11-30)
DX: U07.1 COVID-19 (principal); E11.00 Type 2 diabetes mellitus with hyperosmolarity without nonketotic hyperglycemic-hyperosmolar coma (NKHHC); J96.21 Acute and chronic respiratory failure with hypoxia; J12.82 Pneumonia due to coronavirus disease 2019; I50.43 Acute on chronic combined systolic (congestive) and diastolic (congestive) heart failure; J96.22 Acute and chronic respiratory failure with hypercapnia; A41.9 Sepsis, unspecified organism; R65.21 Severe sepsis with septic shock; J69.0 Pneumonitis due to inhalation of food and vomit; N17.0 Acute kidney failure with tubular necrosis; Z68.41 Body mass index [BMI] 40.0-44.9, adult; I13.0 Hypertensive heart and chronic kidney disease with heart failure and stage 1 through stage 4 chronic kidney disease, or unspecified chronic kidney disease; E87.1 Hypo-osmolality and hyponatremia; J44.9 Chronic obstructive pulmonary disease, unspecified; I10 Essential (primary) hypertension; Z79.4 Long term (current) use of insulin; Z99.81 Dependence on supplemental oxygen; E11.65 Type 2 diabetes mellitus with hyperglycemia; E66.9 Obesity, unspecified; D64.9 Anemia, unspecified; R91.8 Other nonspecific abnormal finding of lung field; F14.10 Cocaine abuse, uncomplicated; I27.20 Pulmonary hypertension, unspecified; I78.0 Hereditary hemorrhagic telangiectasia; E11.51 Type 2 diabetes mellitus with diabetic peripheral angiopathy without gangrene; I48.0 Paroxysmal atrial fibrillation; N40.0 Benign prostatic hyperplasia without lower urinary tract symptoms; D50.9 Iron deficiency anemia, unspecified; E11.22 Type 2 diabetes mellitus with diabetic chronic kidney disease; R04.0 Epistaxis; F41.9 Anxiety disorder, unspecified; N18.30 Chronic kidney disease, stage 3 unspecified; E83.51 Hypocalcemia
CPT/HCPCS: 31500; 36415; 36430; 36511; 36600; 71045-TC-FY; 80048; 80053; 80162; 80307; 81003; 82272; 82550; 82728; 82803; 82962; 83036; 83540; 83550; 83615; 83735; 83880; 84100; 84484; 85025; 85027; 85379; 85610; 85730; 86140; 86850; 86900; 86901; 86922; 87040; 87070; 87077; 87086; 87205; 93005; 93010; 94002; 97116-GP; 97161-GP; 99285-25; C9399; C9803; J0131; J1250; J3490; P9016; P9058; U0003; U0005